=== PATIENT | male | born 1940 | race Caucasian/White ===

== ENCOUNTER 2016-10-11 08:26 | Outpatient (RCR) | payer MEDICARE ==
--- OUTSIDE RECORDS SUMMARY | 2016-08-01 09:16 | XMS REPORT | Continuity of Care Document ---
Author Author [facility] Organization [facility] Address Unknown Phone Unavailable Care Team Providers Care Galvanizing Pot Runner Name Role Phone Anai Basurto PCP [phone] Source Comments Some departments are not documenting in the electronic medical record. If you do not see the information that you expected, contact Release of Information in the Health Information Management department at [phone] for further assistance in locating additional records.[facility] Active Allergies and Adverse Reactions No Known Allergies Current Medications Prescription Sig. Disp. Refills Start End Date Status Date simvastatin (ZOCOR) 40 mg Take 40 mg by mouth at Active tablet bedtime daily. finasteride (PROSCAR) 5 Take 5 mg by mouth daily. Active mg tablet ferrous sulfate 325 mg Take 325 mg by mouth Active (65 mg iron) tablet three times daily. pantoprazole DR Take 40 mg by mouth Active (PROTONIX) 40 mg tablet daily. MULTIVITAMIN PO Take by mouth. Active Active Problems No known active problems Social History Tobacco Use Types Packs/Day Years Used Date Former Smoker Last Filed Vital Signs Vital Sign Reading Time Taken Blood Pressure 150/72 04/28/2016 11:10 AM CDT Pulse 78 04/28/2016 11:10 AM CDT Temperature 36.6 C (97.9 F) 04/28/2016 11:10 AM CDT Respiratory Rate 18 04/28/2016 11:10 AM CDT Height 1.74 m (5' 8.5") 04/28/2016 11:10 AM CDT Weight 73.936 kg (163 lb) 04/28/2016 11:10 AM CDT Body Mass Index 24.42 04/28/2016 11:10 AM CDT Oxygen Saturation 100% 04/28/2016 11:10 AM CDT Plan of Care Date Type Specialty Providers Description 11/03/2016 Appointment Oncology 11/03/2016 Appointment Oncology Duke Casiano MD [address] [facility] [address] [place] [address] [phone] (Fax) Health Maintenance Due Date Last Done Comments Physical (Comprehensive) 1947 Exam Pertussis Vaccine 1951 Tetanus Vaccine 1957 Colorectal Cancer 1990 Screening Shingles Vaccine 2000 Prevnar/Pneumovax (#1) 2005 Influenza Vaccine 06/09/2016 Results from Last 3 Months Not on file
[2016-08-01 09:45] LABS: BASOPHILS % (AUTO) 1 % (0-10); EOSINOPHILS # (AUTO) 0.1 10^3/uL (0.0-0.3); EOSINOPHILS % (AUTO) 3 % (0-10); LYMPHOCYTES # (AUTO) 1.2 X 10^3 (1.0-4.0); LYMPHOCYTES % (AUTO) 55 % (12-44); MEAN CORPUSCULAR HEMOGLOBIN 35 PG (25-34); MEAN CORPUSCULAR HGB CONC 33 G/DL (32-36); MEAN CORPUSCULAR VOLUME 106 FL (80-99); MEAN PLATELET VOLUME 10.3 FL (7.4-10.4); MONOCYTES # (AUTO) 0.4 X 10^3 (0.0-1.0); MONOCYTES % (AUTO) 21 % (0-12); NEUTROPHILS # (AUTO) 0.5 X 10^3 (1.8-7.8); NEUTROPHILS % (AUTO) 21 % (42-75); PLATELET COUNT 145 10^3/uL (130-400); RED BLOOD COUNT 2.92 10^6/uL (4.35-5.85); RED CELL DISTRIBUTION WIDTH 16.4 % (10.0-14.5); RETICULOCYTE % 2.33 % (0.50-2.40); WHITE BLOOD COUNT 2.1 10^3/uL (4.3-11.0)
[2016-08-01 10:02] LABS: ALANINE AMINOTRANSFERASE 14 U/L (0-55); ALBUMIN 4.4 G/DL (3.2-4.5); ANION GAP 6 MMOL/L (5-14); ASPARTATE AMINO TRANSFERASE 18 U/L (5-34); BILIRUBIN,TOTAL 0.7 MG/DL (0.1-1.0); BLOOD UREA NITROGEN 10 MG/DL (7-18); BUN/CREATININE RATIO 12; CALCIUM 9.1 MG/DL (8.5-10.1); CARBON DIOXIDE 26 MMOL/L (21-32); CHLORIDE 107 MMOL/L (98-107); CHOLESTEROL 116 MG/DL (< 200); CREATININE SERUM 0.82 MG/DL (0.60-1.30); DIRECT LDL 58 MG/DL (1-129); GFR ESTIMATED > 60; GLUCOSE 107 MG/DL (70-105); POTASSIUM 4.7 MMOL/L (3.6-5.0); SODIUM 139 MMOL/L (135-145); TOTAL PROTEIN 7.5 G/DL (6.4-8.2); TRIGLYCERIDES 60 MG/DL (<150); VLDL CHOLESTEROL 12 MG/DL (5-40)
[2016-09-05 10:04] LABS: BASOPHILS % (AUTO) 1 % (0-10); EOSINOPHILS % (AUTO) 1 % (0-10); LYMPHOCYTES % (AUTO) 49 % (12-44); MEAN CORPUSCULAR HEMOGLOBIN 36 PG (25-34); MEAN CORPUSCULAR HGB CONC 33 G/DL (32-36); MEAN CORPUSCULAR VOLUME 107 FL (80-99); MEAN PLATELET VOLUME 9.8 FL (7.4-10.4); MONOCYTES # (AUTO) 0.6 X 10^3 (0.0-1.0); MONOCYTES % (AUTO) 28 % (0-12); NEUTROPHILS # (AUTO) 0.5 X 10^3 (1.8-7.8); NEUTROPHILS % (AUTO) 22 % (42-75); PLATELET COUNT 120 10^3/uL (130-400); RED BLOOD COUNT 2.64 10^6/uL (4.35-5.85); RED CELL DISTRIBUTION WIDTH 17.7 % (10.0-14.5); RETICULOCYTE % 3.04 % (0.50-2.40); WHITE BLOOD COUNT 2.1 10^3/uL (4.3-11.0)
[2016-09-05 10:30] LABS: ALANINE AMINOTRANSFERASE 22 U/L (0-55); ALBUMIN 4.5 G/DL (3.2-4.5); ANION GAP 6 MMOL/L (5-14); ASPARTATE AMINO TRANSFERASE 25 U/L (5-34); BILIRUBIN,TOTAL 0.8 MG/DL (0.1-1.0); BLOOD UREA NITROGEN 13 MG/DL (7-18); BUN/CREATININE RATIO 14; CARBON DIOXIDE 24 MMOL/L (21-32); CHLORIDE 108 MMOL/L (98-107); CREATININE SERUM 0.93 MG/DL (0.60-1.30); GFR ESTIMATED > 60; GLUCOSE 109 MG/DL (70-105); POTASSIUM 4.4 MMOL/L (3.6-5.0); SODIUM 138 MMOL/L (135-145); TOTAL PROTEIN 7.3 G/DL (6.4-8.2)
[2016-09-05 15:18] LABS: %SAT TOTAL IRON BINDING CAPIC 44 % (15-50); TIBC 298 ug/dL (280-380)
[2016-09-06 07:38] LABS: FERRITIN 377 ng/mL (25-300); UIBC 166 ug/dL (55-450)
[~2016-10-11 08:26] MED LIST: FERR-84 PO; FINA5TAB6 PO; NYST1000 PO; RAMI10CA PO; SIMV40TA4 PO
[2016-10-11 08:43] LABS: BASOPHILS % (AUTO) 1 % (0-10); EOSINOPHILS % (AUTO) 1 % (0-10); LYMPHOCYTES # (AUTO) 1.2 X 10^3 (1.0-4.0); LYMPHOCYTES % (AUTO) 46 % (12-44); MEAN CORPUSCULAR HEMOGLOBIN 37 PG (25-34); MEAN CORPUSCULAR HGB CONC 34 G/DL (32-36); MEAN CORPUSCULAR VOLUME 111 FL (80-99); MEAN PLATELET VOLUME 9.5 FL (7.4-10.4); MONOCYTES # (AUTO) 0.7 X 10^3 (0.0-1.0); MONOCYTES % (AUTO) 26 % (0-12); NEUTROPHILS # (AUTO) 0.7 X 10^3 (1.8-7.8); NEUTROPHILS % (AUTO) 27 % (42-75); PLATELET COUNT 138 10^3/uL (130-400); RED BLOOD COUNT 2.21 10^6/uL (4.35-5.85); RED CELL DISTRIBUTION WIDTH 18.5 % (10.0-14.5); RETICULOCYTE % 3.39 % (0.50-2.40); WHITE BLOOD COUNT 2.7 10^3/uL (4.3-11.0)
[2016-10-11 09:18] LABS: ALANINE AMINOTRANSFERASE 20 U/L (0-55); ALBUMIN 4.5 G/DL (3.2-4.5); ANION GAP 9 MMOL/L (5-14); ASPARTATE AMINO TRANSFERASE 21 U/L (5-34); BILIRUBIN,TOTAL 0.7 MG/DL (0.1-1.0); BLOOD UREA NITROGEN 16 MG/DL (7-18); BUN/CREATININE RATIO 18; CALCIUM 8.9 MG/DL (8.5-10.1); CARBON DIOXIDE 22 MMOL/L (21-32); CHLORIDE 108 MMOL/L (98-107); CREATININE SERUM 0.87 MG/DL (0.60-1.30); GFR ESTIMATED > 60; GLUCOSE 105 MG/DL (70-105); POTASSIUM 4.3 MMOL/L (3.6-5.0); SODIUM 139 MMOL/L (135-145); TOTAL PROTEIN 7.2 G/DL (6.4-8.2)
[2016-10-11 09:50] LABS: CHOLESTEROL 107 MG/DL (< 200); DIRECT LDL 56 MG/DL (1-129); TRIGLYCERIDES 59 MG/DL (<150); VLDL CHOLESTEROL 12 MG/DL (5-40)
== END 2016-10-30 | disposition home or self-care (01) ==
LOC: ONC 08:26
PROVIDERS: ATTEND Internal Medicine Hematology & Oncology
DX: D53.9 Nutritional anemia, unspecified (principal); D46.9 Myelodysplastic syndrome, unspecified; I10 Essential (primary) hypertension; E78.5 Hyperlipidemia, unspecified; N40.0 Benign prostatic hyperplasia without lower urinary tract symptoms; Z79.899 Other long term (current) drug therapy
CPT/HCPCS: 36415; 80053; 80061; 82728; 83540; 85025; 85045; 99213

== ENCOUNTER 2017-02-17 09:17 | Outpatient (RCR) | payer MEDICARE ==
--- OUTSIDE RECORDS SUMMARY | 2016-11-22 08:47 | XMS REPORT | Continuity of Care Document ---
Author Author [facility] Organization [facility] Address Unknown Phone Unavailable Care Team Providers Care Change Number Operator Name Role Phone Basurto Anai PCP [phone] Source Comments Some departments are not documenting in the electronic medical record. If you do not see the information that you expected, contact Release of Information in the Health Information Management department at [phone] for further assistance in locating additional records.[facility] Active Allergies and Adverse Reactions No Known Allergies Current Medications Prescription Sig. Disp. Refills Start End Date Status Date finasteride (PROSCAR) 5 Take 5 mg by mouth daily. Active mg tablet pantoprazole DR Take 40 mg by mouth Active (PROTONIX) 40 mg tablet daily. MULTIVITAMIN PO Take by mouth. Active simvastatin (ZOCOR) 40 mg Take 20 mg by mouth at 11/03/19 Discontin tablet bedtime daily. 17 ued ferrous sulfate 325 mg Take 325 mg by mouth 11/03/19 Discontin (65 mg iron) tablet three times daily. 17 ued Active Problems Problem Noted Date MDS (myelodysplastic syndrome), low grade (HCC) 11/03/2016 Overview: I have interviewed and examined Mr. Herrera and I have reviewed his medical records and laboratory results. He is a 75-year-old man with a good performance status. He has a history of hypertension, hyperlipidemia, and BPH, all well controlled with his current medications. He presented with several months of progressive fatigue and weakness and was hospitalized with asymptomatic anemia. He was evaluated by Hematology and Oncology and a bone marrow biopsy was performed accordingly. I have reviewed the bone marrow biopsy and discussed the findings with the patient. The bone marrow showed a hypercellular marrow with significant dysplasia refractory to cytopenia with multi lineage dysplasia. It showed 2% blasts and cytogenetics were normal karyotype. The patient had FISH evaluation, was negative for 5q minus and other MDS FISH panel. He has been on supportive care only and has required transfusion initially; however, he has made a significant recovery and has been transfusion independent for the last six weeks. I discussed with the patient, the prognosis and initial course of MDS. I explained to him that he has an MDS with low risk disease and IPS score of 0.5, which correlates with reasonable survival and life expectancy of three to five years. In regard to IPS, he was at intermediate risk with life consistency of around three years that supportive care remains an option at this time. I have reviewed the BM biopsy results with the patient and counseled the patient about the results. It showed low risk MDS with no progression I have discussed with the patient therapeutic options including the followin. Supportive care and transfusion as needed, which is appropriate, and thus transfusion requirements are minimal and discussed with the patient the role of transfusion is to improve his quality of life; however, excessive transfusion can result in detrimental outcome and I recommended conservative transfusion for a hemoglobin of 8 or lower only in order to reduce his transfusion requirement. Fortunately, his transfusion requirements are very few at this time and he might not require frequent interventions. 2. Not a candidate for ALEN. 3. Therapy with oral Revlimid. He had a hematologic response to single agent Revlimid. i recommend to resume revlimid 5 mg daily D1-21 q28. Holding parameters if platlet < 30K. Although, those responses are modest and short lived, however, did result in transient improvement in patient's quality of life. 4. Clinical trials. I have discussed with the patient a clinical trial that was developed in [facility], which reports combination of promacta and Revlimid, which the patient will be eligible for; however given his long commute, he was not interested in the clinical trial given the required weekly visits. 5. Therapy with hypomethylating agent therapy which is indicated for high risk MDS; however, the patient seems to have low risk MDS and this might not be indicated at this time. However, if he fails therapy with Revlimid, he could be a candidate for hypomethylating therapy and provided his medical indications such as refractory anemia requiring frequent transfusions. 6. ATG can be a consideration in the future. 7. I discussed with the patient the lack of curative options given his age of 75 years. The only curative therapy would be an allogenic stem cell transplant, which might not be feasible given his advanced age. The patient will continue to follow with Dr. Evans for his local Oncology care, will continue collaborating with Dr. Evans for consultative purposes. Thank you for referring Mr. Herrera to our service. Thank you for involving us in the care of poonam mcgraw. Diagnosis: MDS, low risk Cytogenetics: XY; normal 04/14/16: Bone marrow aspirate/biopsy Myelodysplastic syndrome, hypercellular marrow (80%), dysmegakaryopoiesis, and 1% blasts. Smear: Macrocytic anemia, absolute neutropenia, and thrombocytopenia Flow: Myeloid blasts comprise 0.1% of total events and show normal antigen expression. There is no immunophenotypic evidence of acute myeloid leukemia or neoplastic myeloid blasts. EPO: Elevated (not a candidate for ESAs) Previous Treatment: Revlimid 5 mg po D1-21 (discontinued in March 2016 due to thrombocytopenia/leukopenia) L ast Assessment & Plan: Mr. Herrera is a pleasant 75 y.o. male who presents today for 6-month follow-up of low-risk myelodysplastic syndrome with normal cytogenetics. Currently on watchful waiting and surveillance. Revlimid 5 mg po daily every 21 days was discontinued in March 2016 due to leukopenia and thrombocytopenia, although there was improvement to anemia. Patient has been transfusion independent since May 12, 2016. Symptoms have improved since last visit, including improved angina, headaches, and fatigue. Hemoglobin down to 7.0 g/dL (from 8.2 g/dL in 10/11/16). Patient is not symptomatic so will not transfuse today. He will make a lab appointment next week at [facility]. Discussed with patient that with improved symptoms and transfusion independence in the past 5 months, watchful waiting of MDS is still recommended. Discussed that many of the treatments indicated such as ATG/CSA or hypomethylating agents may cause more harm than benefit for him at this point in time. Upon review of CBCD results in past 6 months, Revlimid therapy was sucessful at improving hemoglobin levels. Revlimid will still be an appropriate option in the future should he become transfusion dependent again. Will re-address treatment options upon return visit in 6 months. He will continue f/u with oncologist at [facility]. Informed patient to notify us sooner if he is receiving at least 2 blood transfusions in two months time. Patient agreed with plan of care and verbalized understanding. Patient was seen and discussed with Dr. Casiano. Natalia Colón APRN Most Recent Encounters Date Type Specialty Providers Description 11/03/2016 Office Visit Oncology Duke Casiano MD MDS ( myelodysplastic syndrome), low grade (HCC) (Primary Dx) Social History Tobacco Use Types Packs/Day Years Used Date Former Smoker Last Filed Vital Signs Vital Sign Reading Time Taken Blood Pressure 155/80 11/03/2016 12:41 PM TREE DRILLER Pulse 87 11/03/2016 12:41 PM TREE DRILLER Temperature 36.6 C (97.9 F) 11/03/2016 12:41 PM TREE DRILLER Respiratory Rate 15 11/03/2016 12:41 PM TREE DRILLER Height 1.74 m (5' 8.5") 11/03/2016 12:41 PM TREE DRILLER Weight 77.202 kg (170 lb 3.2 oz) 11/03/2016 12:41 PM TREE DRILLER Body Mass Index 25.5 11/03/2016 12:41 PM TREE DRILLER Oxygen Saturation 96% 11/03/2016 12:41 PM TREE DRILLER Plan of Care Date Type Specialty Providers Description 05/15/2017 Appointment Oncology 05/15/2017 Appointment Oncology Duke Casiano MD [address] [facility] [address] [place] [address] [phone] (Fax) Health Maintenance Due Date Last Done Comments Physical (Comprehensive) 1947 Exam Pertussis Vaccine 1951 Tetanus Vaccine 1957 Colorectal Cancer 1990 Screening Shingles Vaccine 2000 Prevnar/Pneumovax (#1) 2005 Influenza Vaccine 06/09/2016 Results from Last 3 Months COMPREHENSIVE METABOLIC PANEL (11/03/2016 11:23 AM) Component Value Range Sodium 133 (L) 137-147 MMOL/L Potassium 4.1 3.5-5.1 MMOL/L Chloride 107 98-110 MMOL/L Glucose 114 (H) 70-100 MG/DL Blood Urea Nitrogen 17 7-25 MG/DL Creatinine 0.95 0.4-1.24 MG/DL Calcium 9.2 8.5-10.6 MG/DL Total Protein 7.3 6.0-8.0 G/DL Total Bilirubin 0.7 0.3-1.2 MG/DL Albumin 4.4 3.5-5.0 G/DL Alk Phosphatase 60 25-110 U/L AST (SGOT) 18 7-40 U/L CO2 25 21-30 MMOL/L ALT (SGPT) 13 7-56 U/L Anion Gap 1 (L) 3-12 eGFR Non >60Comment: >60 mL/min The eGFR is not validated for use in drug dosing adjustments. Continue to use estimated creatinine clearance per dosing reference text. Please contact the Clinical Pharmacist for questions. eGFR >60Comment: >60 mL/min The eGFR is not validated for use in drug dosing adjustments. Continue to use estimated creatinine clearance per dosing reference text. Please contact the Clinical Pharmacist for questions. Specimen Blood CBC AND DIFF (11/03/2016 11:23 AM) Component Value Range White Blood Cells 2.6 (L) 4.5-11.0 K/UL RBC 1.89 (L) 4.4-5.5 M/UL Hemoglobin 7.0 (L) 13.5-16.5 GM/DL Hematocrit 20.9 (L) 40-50 % MCV 110.6 (H) 80-100 FL MCH 36.8 (H) 26-34 PG MCHC 33.2 32.0-36.0 G/DL RDW 19.2 (H) 11-15 % Platelet Count 193 150-400 K/UL MPV 9.2 7-11 FL Nucleated RBCs 1 K/UL Segmented Neutrophils 28 (L) 41-77 % Bands 4 0-10 % Lymphocytes 37 24-44 % Monocytes 23 (H) 4-12 % Eosinophil 1 0-5 % Basophil 1 0-2 % Metamyelocyte 2 % Myelocyte 4 % ANISO PRESENT POIK PRESENT POLY PRESENT Ovalocyte PRESENT MACRO PRESENT Teardrop PRESENT Platelet Estimate NORMAL Absolute Neutrophil Count 0.83 (L) 1.8-7.0 K/UL Manual Specimen Blood
[2016-11-22 09:08] LABS: BASOPHILS % (AUTO) 0 % (0-10); EOSINOPHILS % (AUTO) 1 % (0-10); LYMPHOCYTES % (AUTO) 44 % (12-44); MEAN CORPUSCULAR HEMOGLOBIN 37 PG (25-34); MEAN CORPUSCULAR HGB CONC 32 G/DL (32-36); MEAN CORPUSCULAR VOLUME 114 FL (80-99); MEAN PLATELET VOLUME 10.9 FL (7.4-10.4); MONOCYTES # (AUTO) 0.6 X 10^3 (0.0-1.0); MONOCYTES % (AUTO) 28 % (0-12); NEUTROPHILS # (AUTO) 0.6 X 10^3 (1.8-7.8); NEUTROPHILS % (AUTO) 26 % (42-75); PLATELET COUNT 160 10^3/uL (130-400); RED BLOOD COUNT 1.78 10^6/uL (4.35-5.85); RED CELL DISTRIBUTION WIDTH 19.3 % (10.0-14.5); RETICULOCYTE % 3.14 % (0.50-2.40); WHITE BLOOD COUNT 2.3 10^3/uL (4.3-11.0)
[2016-11-22 09:48] LABS: ALANINE AMINOTRANSFERASE 32 U/L (0-55); ALBUMIN 4.5 G/DL (3.2-4.5); ANION GAP 9 MMOL/L (5-14); ASPARTATE AMINO TRANSFERASE 26 U/L (5-34); BILIRUBIN,TOTAL 0.7 MG/DL (0.1-1.0); BLOOD UREA NITROGEN 19 MG/DL (7-18); BUN/CREATININE RATIO 17; CALCIUM 8.8 MG/DL (8.5-10.1); CARBON DIOXIDE 21 MMOL/L (21-32); CHLORIDE 107 MMOL/L (98-107); CREATININE SERUM 1.09 MG/DL (0.60-1.30); GFR ESTIMATED > 60; GLUCOSE 108 MG/DL (70-105); POTASSIUM 4.4 MMOL/L (3.6-5.0); SODIUM 137 MMOL/L (135-145); TOTAL PROTEIN 7.4 G/DL (6.4-8.2)
[2016-12-20 09:02] LABS: BASOPHILS % (AUTO) 1 % (0-10); EOSINOPHILS # (AUTO) 0.1 10^3/uL (0.0-0.3); EOSINOPHILS % (AUTO) 2 % (0-10); LYMPHOCYTES % (AUTO) 42 % (12-44); MEAN CORPUSCULAR HEMOGLOBIN 36 PG (25-34); MEAN CORPUSCULAR HGB CONC 33 G/DL (32-36); MEAN CORPUSCULAR VOLUME 107 FL (80-99); MEAN PLATELET VOLUME 9.8 FL (7.4-10.4); MONOCYTES # (AUTO) 0.7 X 10^3 (0.0-1.0); MONOCYTES % (AUTO) 30 % (0-12); NEUTROPHILS # (AUTO) 0.6 X 10^3 (1.8-7.8); NEUTROPHILS % (AUTO) 25 % (42-75); PLATELET COUNT 161 10^3/uL (130-400); RED BLOOD COUNT 2.33 10^6/uL (4.35-5.85); RED CELL DISTRIBUTION WIDTH 20.8 % (10.0-14.5); RETICULOCYTE % 2.04 % (0.50-2.40); WHITE BLOOD COUNT 2.3 10^3/uL (4.3-11.0)
[2016-12-20 09:47] LABS: ALANINE AMINOTRANSFERASE 19 U/L (0-55); ALBUMIN 4.4 G/DL (3.2-4.5); ANION GAP 6 MMOL/L (5-14); ASPARTATE AMINO TRANSFERASE 19 U/L (5-34); BILIRUBIN,TOTAL 0.8 MG/DL (0.1-1.0); BLOOD UREA NITROGEN 15 MG/DL (7-18); BUN/CREATININE RATIO 17; CALCIUM 9.1 MG/DL (8.5-10.1); CARBON DIOXIDE 25 MMOL/L (21-32); CHLORIDE 108 MMOL/L (98-107); CREATININE SERUM 0.88 MG/DL (0.60-1.30); GFR ESTIMATED > 60; GLUCOSE 111 MG/DL (70-105); POTASSIUM 4.2 MMOL/L (3.6-5.0); SODIUM 139 MMOL/L (135-145); TOTAL PROTEIN 7.4 G/DL (6.4-8.2)
[2016-12-20 10:24] LABS: CHOLESTEROL 101 MG/DL (< 200); DIRECT LDL 47 MG/DL (1-129); TRIGLYCERIDES 61 MG/DL (<150); VLDL CHOLESTEROL 12 MG/DL (5-40)
[2017-01-17 11:08] LABS: BASOPHILS % (AUTO) 1 % (0-10); EOSINOPHILS % (AUTO) 1 % (0-10); LYMPHOCYTES # (AUTO) 0.9 X 10^3 (1.0-4.0); LYMPHOCYTES % (AUTO) 40 % (12-44); MEAN CORPUSCULAR HEMOGLOBIN 35 PG (25-34); MEAN CORPUSCULAR HGB CONC 31 G/DL (32-36); MEAN CORPUSCULAR VOLUME 111 FL (80-99); MEAN PLATELET VOLUME 9.9 FL (7.4-10.4); MONOCYTES # (AUTO) 0.6 X 10^3 (0.0-1.0); MONOCYTES % (AUTO) 26 % (0-12); NEUTROPHILS # (AUTO) 0.7 X 10^3 (1.8-7.8); NEUTROPHILS % (AUTO) 32 % (42-75); PLATELET COUNT 125 10^3/uL (130-400); RED BLOOD COUNT 1.81 10^6/uL (4.35-5.85); RED CELL DISTRIBUTION WIDTH 21.1 % (10.0-14.5); WHITE BLOOD COUNT 2.3 10^3/uL (4.3-11.0)
[2017-01-17 11:49] LABS: ALANINE AMINOTRANSFERASE 16 U/L (0-55); ALBUMIN 4.3 G/DL (3.2-4.5); ANION GAP 7 MMOL/L (5-14); ASPARTATE AMINO TRANSFERASE 18 U/L (5-34); BILIRUBIN,TOTAL 0.9 MG/DL (0.1-1.0); BLOOD UREA NITROGEN 14 MG/DL (7-18); BUN/CREATININE RATIO 15; CALCIUM 8.8 MG/DL (8.5-10.1); CARBON DIOXIDE 24 MMOL/L (21-32); CHLORIDE 109 MMOL/L (98-107); CREATININE SERUM 0.93 MG/DL (0.60-1.30); GFR ESTIMATED > 60; GLUCOSE 155 MG/DL (70-105); POTASSIUM 4.2 MMOL/L (3.6-5.0); SODIUM 140 MMOL/L (135-145); TOTAL PROTEIN 7.1 G/DL (6.4-8.2)
[2017-02-16 13:36] LABS: BASOPHILS % (AUTO) 0 % (0-10); EOSINOPHILS # (AUTO) 0.1 10^3/uL (0.0-0.3); EOSINOPHILS % (AUTO) 3 % (0-10); LYMPHOCYTES % (AUTO) 37 % (12-44); MEAN CORPUSCULAR HEMOGLOBIN 35 PG (25-34); MEAN CORPUSCULAR HGB CONC 32 G/DL (32-36); MEAN CORPUSCULAR VOLUME 108 FL (80-99); MEAN PLATELET VOLUME 10.2 FL (7.4-10.4); MONOCYTES # (AUTO) 0.7 X 10^3 (0.0-1.0); MONOCYTES % (AUTO) 28 % (0-12); NEUTROPHILS # (AUTO) 0.8 X 10^3 (1.8-7.8); NEUTROPHILS % (AUTO) 32 % (42-75); PLATELET COUNT 132 10^3/uL (130-400); RED BLOOD COUNT 1.55 10^6/uL (4.35-5.85); RETICULOCYTE % 1.82 % (0.50-2.40); WHITE BLOOD COUNT 2.7 10^3/uL (4.3-11.0)
[2017-02-16 14:12] LABS: ALANINE AMINOTRANSFERASE 13 U/L (0-55); ALBUMIN 4.3 G/DL (3.2-4.5); ANION GAP 9 MMOL/L (5-14); ASPARTATE AMINO TRANSFERASE 15 U/L (5-34); BILIRUBIN,TOTAL 0.7 MG/DL (0.1-1.0); BLOOD UREA NITROGEN 17 MG/DL (7-18); BUN/CREATININE RATIO 17; CALCIUM 9.1 MG/DL (8.5-10.1); CARBON DIOXIDE 23 MMOL/L (21-32); CHLORIDE 107 MMOL/L (98-107); CREATININE SERUM 1.03 MG/DL (0.60-1.30); GFR ESTIMATED > 60; GLUCOSE 145 MG/DL (70-105); POTASSIUM 3.8 MMOL/L (3.6-5.0); SODIUM 139 MMOL/L (135-145)
[~2017-02-17 09:17] MED LIST changes: +ACETAMINOPHEN 500 MG TAB (TYLENOL) CANCER CTR ONE; +NS (IVPB) CANCER CENTER 250 ML ONE
[2017-02-17] MEDS ORDERED: ACETAMINOPHEN 500 MG TAB (TYLENOL) CANCER CTR ONE (10:16)
[2017-02-17] MEDS ORDERED: diphenhydrAMINE 25 MG TAB (BENADRYL) CANCER CENTER PO ONE (10:16)
[2017-02-17] MEDS ORDERED: NS IV 500 ML (CANCER CENTER) 500 ML ONE (10:16)
== END 2017-02-20 | disposition home or self-care (01) ==
LOC: ONC 09:17
PROVIDERS: ATTEND Internal Medicine Hematology & Oncology
DX: D53.9 Nutritional anemia, unspecified (principal); D46.9 Myelodysplastic syndrome, unspecified; I10 Essential (primary) hypertension; E78.5 Hyperlipidemia, unspecified; N40.0 Benign prostatic hyperplasia without lower urinary tract symptoms; Z79.899 Other long term (current) drug therapy
CPT/HCPCS: 36415; 36430; 80053; 80061; 82728; 83540; 85025; 85045; 86850; 86900; 86901; 86920; 99213

== ENCOUNTER 2017-06-05 08:32 | Outpatient (RCR) | payer MEDICARE ==
[2017-03-10 08:56] LABS: BASOPHILS % (AUTO) 1 % (0-10); EOSINOPHILS # (AUTO) 0.1 10^3/uL (0.0-0.3); EOSINOPHILS % (AUTO) 2 % (0-10); LYMPHOCYTES # (AUTO) 0.9 X 10^3 (1.0-4.0); LYMPHOCYTES % (AUTO) 33 % (12-44); MEAN CORPUSCULAR HEMOGLOBIN 31 PG (25-34); MEAN CORPUSCULAR HGB CONC 31 G/DL (32-36); MEAN CORPUSCULAR VOLUME 100 FL (80-99); MEAN PLATELET VOLUME 10.2 FL (7.4-10.4); MONOCYTES # (AUTO) 1.1 X 10^3 (0.0-1.0); MONOCYTES % (AUTO) 39 % (0-12); NEUTROPHILS # (AUTO) 0.7 X 10^3 (1.8-7.8); NEUTROPHILS % (AUTO) 25 % (42-75); PLATELET COUNT 221 10^3/uL (130-400); RED BLOOD COUNT 2.02 10^6/uL (4.35-5.85); RED CELL DISTRIBUTION WIDTH 23.8 % (10.0-14.5); RETICULOCYTE % 1.66 % (0.50-2.40); WHITE BLOOD COUNT 2.8 10^3/uL (4.3-11.0)
[2017-03-10 10:01] LABS: ALANINE AMINOTRANSFERASE 14 U/L (0-55); ALBUMIN 4.2 G/DL (3.2-4.5); ANION GAP 7 MMOL/L (5-14); ASPARTATE AMINO TRANSFERASE 17 U/L (5-34); BILIRUBIN,TOTAL 0.7 MG/DL (0.1-1.0); BLOOD UREA NITROGEN 13 MG/DL (7-18); BUN/CREATININE RATIO 15; CARBON DIOXIDE 24 MMOL/L (21-32); CHLORIDE 108 MMOL/L (98-107); CHOLESTEROL 146 MG/DL (< 200); CREATININE SERUM 0.87 MG/DL (0.60-1.30); DIRECT LDL 91 MG/DL (1-129); GFR ESTIMATED > 60; GLUCOSE 109 MG/DL (70-105); SODIUM 139 MMOL/L (135-145); TOTAL PROTEIN 7.5 G/DL (6.4-8.2); TRIGLYCERIDES 80 MG/DL (<150); VLDL CHOLESTEROL 16 MG/DL (5-40)
[2017-03-27 08:59] LABS: BASOPHILS % (AUTO) 0 % (0-10); EOSINOPHILS # (AUTO) 0.1 10^3/uL (0.0-0.3); EOSINOPHILS % (AUTO) 2 % (0-10); LYMPHOCYTES # (AUTO) 1.4 X 10^3 (1.0-4.0); LYMPHOCYTES % (AUTO) 37 % (12-44); MEAN CORPUSCULAR HEMOGLOBIN 31 PG (25-34); MEAN CORPUSCULAR HGB CONC 31 G/DL (32-36); MEAN CORPUSCULAR VOLUME 100 FL (80-99); MEAN PLATELET VOLUME 10.7 FL (7.4-10.4); MONOCYTES # (AUTO) 1.2 X 10^3 (0.0-1.0); MONOCYTES % (AUTO) 31 % (0-12); NEUTROPHILS # (AUTO) 1.1 X 10^3 (1.8-7.8); NEUTROPHILS % (AUTO) 30 % (42-75); PLATELET COUNT 216 10^3/uL (130-400); RED CELL DISTRIBUTION WIDTH 25.3 % (10.0-14.5); WHITE BLOOD COUNT 3.7 10^3/uL (4.3-11.0)
[2017-03-27 09:18] LABS: ALANINE AMINOTRANSFERASE 12 U/L (0-55); ALBUMIN 4.2 GM/DL (3.2-4.5); ANION GAP 8 MMOL/L (5-14); ASPARTATE AMINO TRANSFERASE 16 U/L (5-34); BILIRUBIN,TOTAL 0.7 MG/DL (0.1-1.0); BLOOD UREA NITROGEN 15 MG/DL (7-18); BUN/CREATININE RATIO 16 (0-20); CALCIUM 8.5 MG/DL (8.5-10.1); CARBON DIOXIDE 22 MMOL/L (21-32); CHLORIDE 111 MMOL/L (98-107); CREATININE SERUM 0.92 MG/DL (0.60-1.30); GFR ESTIMATED > 60; GLUCOSE 104 MG/DL (70-105); HEMOLYSIS 4 (-100-29); ICTERUS 0.8 (-100-1.9); LIPEMIA 3 (-100-49); POTASSIUM 4.2 MMOL/L (3.6-5.0); SODIUM 141 MMOL/L (135-145)
[2017-03-27 10:20] LABS: CHOLESTEROL 149 MG/DL (< 200); DIRECT LDL 95 MG/DL (1-129); LIPEMIA 3 (-100-49); TRIGLYCERIDES 69 MG/DL (<150); VLDL CHOLESTEROL 14 MG/DL (5-40)
[2017-04-18 08:44] LABS: BASOPHILS % (AUTO) 0 % (0-10); EOSINOPHILS # (AUTO) 0.1 10^3/uL (0.0-0.3); EOSINOPHILS % (AUTO) 2 % (0-10); LYMPHOCYTES # (AUTO) 1.1 X 10^3 (1.0-4.0); LYMPHOCYTES % (AUTO) 32 % (12-44); MEAN CORPUSCULAR HEMOGLOBIN 32 PG (25-34); MEAN CORPUSCULAR HGB CONC 32 G/DL (32-36); MEAN CORPUSCULAR VOLUME 101 FL (80-99); MEAN PLATELET VOLUME 10.1 FL (7.4-10.4); MONOCYTES # (AUTO) 1.2 X 10^3 (0.0-1.0); MONOCYTES % (AUTO) 34 % (0-12); NEUTROPHILS # (AUTO) 1.1 X 10^3 (1.8-7.8); NEUTROPHILS % (AUTO) 32 % (42-75); PLATELET COUNT 146 10^3/uL (130-400); RED BLOOD COUNT 1.93 10^6/uL (4.35-5.85); RED CELL DISTRIBUTION WIDTH 27.8 % (10.0-14.5); RETICULOCYTE % 2.27 % (0.50-2.40); WHITE BLOOD COUNT 3.5 10^3/uL (4.3-11.0)
[2017-04-18 09:36] LABS: ALANINE AMINOTRANSFERASE 12 U/L (0-55); ALBUMIN 4.1 GM/DL (3.2-4.5); ANION GAP 6 MMOL/L (5-14); ASPARTATE AMINO TRANSFERASE 15 U/L (5-34); BILIRUBIN,TOTAL 1.1 MG/DL (0.1-1.0); BLOOD UREA NITROGEN 20 MG/DL (7-18); BUN/CREATININE RATIO 19; CALCIUM 8.6 MG/DL (8.5-10.1); CARBON DIOXIDE 23 MMOL/L (21-32); CHLORIDE 110 MMOL/L (98-107); CHOLESTEROL 156 MG/DL (< 200); CREATININE SERUM 1.06 MG/DL (0.60-1.30); DIRECT LDL 97 MG/DL (1-129); GFR ESTIMATED > 60; GLUCOSE 107 MG/DL (70-105); POTASSIUM 4.2 MMOL/L (3.6-5.0); SODIUM 139 MMOL/L (135-145); TRIGLYCERIDES 72 MG/DL (<150); VLDL CHOLESTEROL 14 MG/DL (5-40)
[2017-04-26 13:45] LABS: BASOPHILS % (AUTO) 0 % (0-10); EOSINOPHILS % (AUTO) 2 % (0-10); LYMPHOCYTES # (AUTO) 0.9 X 10^3 (1.0-4.0); LYMPHOCYTES % (AUTO) 35 % (12-44); MEAN CORPUSCULAR HEMOGLOBIN 32 PG (25-34); MEAN CORPUSCULAR HGB CONC 32 G/DL (32-36); MEAN CORPUSCULAR VOLUME 100 FL (80-99); MEAN PLATELET VOLUME 9.7 FL (7.4-10.4); MONOCYTES # (AUTO) 0.9 X 10^3 (0.0-1.0); MONOCYTES % (AUTO) 37 % (0-12); NEUTROPHILS # (AUTO) 0.7 X 10^3 (1.8-7.8); NEUTROPHILS % (AUTO) 26 % (42-75); PLATELET COUNT 192 10^3/uL (130-400); WHITE BLOOD COUNT 2.5 10^3/uL (4.3-11.0)
[2017-04-26 14:13] LABS: ANION GAP 9 MMOL/L (5-14); BLOOD UREA NITROGEN 25 MG/DL (7-18); BUN/CREATININE RATIO 24; CARBON DIOXIDE 24 MMOL/L (21-32); CHLORIDE 106 MMOL/L (98-107); CREATININE SERUM 1.04 MG/DL (0.60-1.30); GFR ESTIMATED > 60; GLUCOSE 108 MG/DL (70-105); SODIUM 139 MMOL/L (135-145)
[2017-05-03 11:18] LABS: BASOPHILS % (AUTO) 0 % (0-10); EOSINOPHILS % (AUTO) 1 % (0-10); LYMPHOCYTES # (AUTO) 0.7 X 10^3 (1.0-4.0); LYMPHOCYTES % (AUTO) 27 % (12-44); MEAN CORPUSCULAR HEMOGLOBIN 32 PG (25-34); MEAN CORPUSCULAR HGB CONC 32 G/DL (32-36); MEAN CORPUSCULAR VOLUME 102 FL (80-99); MEAN PLATELET VOLUME 10.1 FL (7.4-10.4); MONOCYTES # (AUTO) 0.7 X 10^3 (0.0-1.0); MONOCYTES % (AUTO) 28 % (0-12); NEUTROPHILS % (AUTO) 43 % (42-75); PLATELET COUNT 149 10^3/uL (130-400); RED CELL DISTRIBUTION WIDTH 27.8 % (10.0-14.5); RETICULOCYTE % 2.28 % (0.50-2.40); WHITE BLOOD COUNT 2.4 10^3/uL (4.3-11.0)
[2017-05-03 11:58] LABS: ANION GAP 5 MMOL/L (5-14); BLOOD UREA NITROGEN 20 MG/DL (7-18); BUN/CREATININE RATIO 18; CALCIUM 9.1 MG/DL (8.5-10.1); CARBON DIOXIDE 26 MMOL/L (21-32); CHLORIDE 107 MMOL/L (98-107); CREATININE SERUM 1.09 MG/DL (0.60-1.30); GFR ESTIMATED > 60; GLUCOSE 117 MG/DL (70-105); POTASSIUM 4.5 MMOL/L (3.6-5.0); SODIUM 138 MMOL/L (135-145)
[2017-05-10 10:46] LABS: BASOPHILS % (AUTO) 1 % (0-10); EOSINOPHILS # (AUTO) 0.1 10^3/uL (0.0-0.3); EOSINOPHILS % (AUTO) 2 % (0-10); LYMPHOCYTES # (AUTO) 0.7 X 10^3 (1.0-4.0); LYMPHOCYTES % (AUTO) 22 % (12-44); MEAN CORPUSCULAR HEMOGLOBIN 32 PG (25-34); MEAN CORPUSCULAR HGB CONC 31 G/DL (32-36); MEAN CORPUSCULAR VOLUME 104 FL (80-99); MEAN PLATELET VOLUME 10.2 FL (7.4-10.4); MONOCYTES # (AUTO) 0.7 X 10^3 (0.0-1.0); MONOCYTES % (AUTO) 22 % (0-12); NEUTROPHILS # (AUTO) 1.8 X 10^3 (1.8-7.8); NEUTROPHILS % (AUTO) 53 % (42-75); PLATELET COUNT 163 10^3/uL (130-400); RED BLOOD COUNT 2.17 10^6/uL (4.35-5.85); RED CELL DISTRIBUTION WIDTH 28.6 % (10.0-14.5); RETICULOCYTE % 2.58 % (0.50-2.40); WHITE BLOOD COUNT 3.3 10^3/uL (4.3-11.0)
[2017-05-10 11:36] LABS: ANION GAP 10 MMOL/L (5-14); BLOOD UREA NITROGEN 15 MG/DL (7-18); BUN/CREATININE RATIO 16; CALCIUM 9.3 MG/DL (8.5-10.1); CARBON DIOXIDE 22 MMOL/L (21-32); CHLORIDE 106 MMOL/L (98-107); CREATININE SERUM 0.95 MG/DL (0.60-1.30); GFR ESTIMATED > 60; GLUCOSE 113 MG/DL (70-105); POTASSIUM 4.4 MMOL/L (3.6-5.0); SODIUM 138 MMOL/L (135-145)
[2017-05-22 13:20] LABS: BASOPHILS % (AUTO) 0 % (0-10); EOSINOPHILS % (AUTO) 1 % (0-10); LYMPHOCYTES # (AUTO) 0.6 X 10^3 (1.0-4.0); LYMPHOCYTES % (AUTO) 19 % (12-44); MEAN CORPUSCULAR HEMOGLOBIN 34 PG (25-34); MEAN CORPUSCULAR HGB CONC 32 G/DL (32-36); MEAN CORPUSCULAR VOLUME 108 FL (80-99); MEAN PLATELET VOLUME 10.3 FL (7.4-10.4); MONOCYTES # (AUTO) 0.9 X 10^3 (0.0-1.0); MONOCYTES % (AUTO) 27 % (0-12); NEUTROPHILS # (AUTO) 1.8 X 10^3 (1.8-7.8); NEUTROPHILS % (AUTO) 54 % (42-75); PLATELET COUNT 153 10^3/uL (130-400); RED BLOOD COUNT 1.68 10^6/uL (4.35-5.85); RETICULOCYTE % 2.77 % (0.50-2.40); WHITE BLOOD COUNT 3.4 10^3/uL (4.3-11.0)
[2017-05-22 14:06] LABS: ALANINE AMINOTRANSFERASE 10 U/L (0-55); ALBUMIN 4.2 GM/DL (3.2-4.5); ANION GAP 7 MMOL/L (5-14); ASPARTATE AMINO TRANSFERASE 14 U/L (5-34); BILIRUBIN,TOTAL 1.1 MG/DL (0.1-1.0); BLOOD UREA NITROGEN 16 MG/DL (7-18); BUN/CREATININE RATIO 16; CALCIUM 9.3 MG/DL (8.5-10.1); CARBON DIOXIDE 24 MMOL/L (21-32); CHLORIDE 107 MMOL/L (98-107); CREATININE SERUM 1.02 MG/DL (0.60-1.30); GFR ESTIMATED > 60; GLUCOSE 118 MG/DL (70-105); SODIUM 138 MMOL/L (135-145); TOTAL PROTEIN 6.9 GM/DL (6.4-8.2)
[2017-05-29 09:07] LABS: BASOPHILS % (AUTO) 0 % (0-10); EOSINOPHILS % (AUTO) 1 % (0-10); LYMPHOCYTES # (AUTO) 0.7 X 10^3 (1.0-4.0); LYMPHOCYTES % (AUTO) 24 % (12-44); MEAN CORPUSCULAR HEMOGLOBIN 33 PG (25-34); MEAN CORPUSCULAR HGB CONC 32 G/DL (32-36); MEAN CORPUSCULAR VOLUME 103 FL (80-99); MEAN PLATELET VOLUME 10.3 FL (7.4-10.4); MONOCYTES # (AUTO) 1.1 X 10^3 (0.0-1.0); MONOCYTES % (AUTO) 35 % (0-12); NEUTROPHILS # (AUTO) 1.2 X 10^3 (1.8-7.8); NEUTROPHILS % (AUTO) 39 % (42-75); PLATELET COUNT 169 10^3/uL (130-400); RED BLOOD COUNT 2.14 10^6/uL (4.35-5.85); RED CELL DISTRIBUTION WIDTH 27.2 % (10.0-14.5)
[~2017-06-05 08:32] MED LIST changes: +NS IV 500 ML (CANCER CENTER) 500 ML ONE; +diphenhydrAMINE 25 MG TAB (BENADRYL) CANCER CENTER PO ONE
[2017-06-05 08:57] LABS: BASOPHILS % (AUTO) 1 % (0-10); EOSINOPHILS # (AUTO) 0.1 10^3/uL (0.0-0.3); EOSINOPHILS % (AUTO) 2 % (0-10); LYMPHOCYTES # (AUTO) 1.1 X 10^3 (1.0-4.0); LYMPHOCYTES % (AUTO) 29 % (12-44); MEAN CORPUSCULAR HEMOGLOBIN 34 PG (25-34); MEAN CORPUSCULAR HGB CONC 32 G/DL (32-36); MEAN CORPUSCULAR VOLUME 105 FL (80-99); MEAN PLATELET VOLUME 11.1 FL (7.4-10.4); MONOCYTES # (AUTO) 1.4 X 10^3 (0.0-1.0); MONOCYTES % (AUTO) 35 % (0-12); NEUTROPHILS # (AUTO) 1.3 X 10^3 (1.8-7.8); NEUTROPHILS % (AUTO) 34 % (42-75); PLATELET COUNT 179 10^3/uL (130-400); RED BLOOD COUNT 2.08 10^6/uL (4.35-5.85); RETICULOCYTE % 2.53 % (0.50-2.40); WHITE BLOOD COUNT 3.9 10^3/uL (4.3-11.0)
[2017-06-05 09:19] LABS: ALANINE AMINOTRANSFERASE 10 U/L (0-55); ALBUMIN 4.3 GM/DL (3.2-4.5); ANION GAP 9 MMOL/L (5-14); ASPARTATE AMINO TRANSFERASE 16 U/L (5-34); BILIRUBIN,TOTAL 1.4 MG/DL (0.1-1.0); BLOOD UREA NITROGEN 18 MG/DL (7-18); BUN/CREATININE RATIO 18; CALCIUM 9.1 MG/DL (8.5-10.1); CARBON DIOXIDE 23 MMOL/L (21-32); CHLORIDE 106 MMOL/L (98-107); CREATININE SERUM 0.99 MG/DL (0.60-1.30); GFR ESTIMATED > 60; GLUCOSE 97 MG/DL (70-105); POTASSIUM 4.2 MMOL/L (3.6-5.0); SODIUM 138 MMOL/L (135-145); TOTAL PROTEIN 7.4 GM/DL (6.4-8.2)
== END 2017-06-08 | disposition home or self-care (01) ==
LOC: ONC 08:32
PROVIDERS: ATTEND Internal Medicine Hematology & Oncology
DX: D46.Z Other myelodysplastic syndromes (principal); D61.818 Other pancytopenia; D64.89 Other specified anemias; I10 Essential (primary) hypertension; E78.5 Hyperlipidemia, unspecified; N40.0 Benign prostatic hyperplasia without lower urinary tract symptoms; M06.9 Rheumatoid arthritis, unspecified; Z79.899 Other long term (current) drug therapy
CPT/HCPCS: 36415; 36430; 80048; 80053; 80061; 80158; 82274; 82728; 83540; 85025; 85045; 86850; 86900; 86901; 86920; 99213

== ENCOUNTER 2017-07-03 08:29 | Outpatient (RCR) | payer MEDICARE ==
[2017-06-13 08:55] LABS: BASOPHILS % (AUTO) 1 % (0-10); EOSINOPHILS % (AUTO) 1 % (0-10); LYMPHOCYTES % (AUTO) 23 % (12-44); MEAN CORPUSCULAR HEMOGLOBIN 34 PG (25-34); MEAN CORPUSCULAR HGB CONC 32 G/DL (32-36); MEAN CORPUSCULAR VOLUME 106 FL (80-99); MEAN PLATELET VOLUME 11.1 FL (7.4-10.4); MONOCYTES # (AUTO) 1.3 X 10^3 (0.0-1.0); MONOCYTES % (AUTO) 31 % (0-12); NEUTROPHILS # (AUTO) 1.9 X 10^3 (1.8-7.8); NEUTROPHILS % (AUTO) 45 % (42-75); PLATELET COUNT 214 10^3/uL (130-400); RED BLOOD COUNT 1.91 10^6/uL (4.35-5.85); WHITE BLOOD COUNT 4.3 10^3/uL (4.3-11.0)
[2017-06-13 09:20] LABS: CHOLESTEROL 175 MG/DL (< 200); DIRECT LDL 119 MG/DL (1-129); TRIGLYCERIDES 118 MG/DL (<150); VLDL CHOLESTEROL 24 MG/DL (5-40)
[2017-06-20 09:04] LABS: BASOPHILS % (AUTO) 1 % (0-10); EOSINOPHILS # (AUTO) 0.1 10^3/uL (0.0-0.3); EOSINOPHILS % (AUTO) 2 % (0-10); LYMPHOCYTES # (AUTO) 1.2 X 10^3 (1.0-4.0); LYMPHOCYTES % (AUTO) 23 % (12-44); MEAN CORPUSCULAR HEMOGLOBIN 34 PG (25-34); MEAN CORPUSCULAR HGB CONC 32 G/DL (32-36); MEAN CORPUSCULAR VOLUME 105 FL (80-99); MEAN PLATELET VOLUME 10.4 FL (7.4-10.4); MONOCYTES # (AUTO) 1.7 X 10^3 (0.0-1.0); MONOCYTES % (AUTO) 33 % (0-12); NEUTROPHILS # (AUTO) 2.2 X 10^3 (1.8-7.8); NEUTROPHILS % (AUTO) 42 % (42-75); PLATELET COUNT 213 10^3/uL (130-400); RED BLOOD COUNT 2.31 10^6/uL (4.35-5.85); RED CELL DISTRIBUTION WIDTH 24.7 % (10.0-14.5); WHITE BLOOD COUNT 5.3 10^3/uL (4.3-11.0)
[2017-06-26 09:02] LABS: BASOPHILS % (AUTO) 0 % (0-10); EOSINOPHILS # (AUTO) 0.1 10^3/uL (0.0-0.3); EOSINOPHILS % (AUTO) 1 % (0-10); LYMPHOCYTES # (AUTO) 1.1 X 10^3 (1.0-4.0); LYMPHOCYTES % (AUTO) 19 % (12-44); MEAN CORPUSCULAR HEMOGLOBIN 35 PG (25-34); MEAN CORPUSCULAR HGB CONC 33 G/DL (32-36); MEAN CORPUSCULAR VOLUME 106 FL (80-99); MEAN PLATELET VOLUME 10.6 FL (7.4-10.4); MONOCYTES # (AUTO) 2.9 X 10^3 (0.0-1.0); MONOCYTES % (AUTO) 51 % (0-12); NEUTROPHILS # (AUTO) 1.6 X 10^3 (1.8-7.8); NEUTROPHILS % (AUTO) 28 % (42-75); PLATELET COUNT 144 10^3/uL (130-400); RED BLOOD COUNT 2.22 10^6/uL (4.35-5.85); RED CELL DISTRIBUTION WIDTH 24.6 % (10.0-14.5); RETICULOCYTE % 2.76 % (0.50-2.40); WHITE BLOOD COUNT 5.7 10^3/uL (4.3-11.0)
[~2017-07-03 08:29] MED LIST changes: -NS IV 500 ML (CANCER CENTER) 500 ML ONE; -diphenhydrAMINE 25 MG TAB (BENADRYL) CANCER CENTER PO ONE
[2017-07-03 08:47] LABS: BASOPHILS % (AUTO) 1 % (0-10); EOSINOPHILS % (AUTO) 1 % (0-10); LYMPHOCYTES # (AUTO) 0.9 X 10^3 (1.0-4.0); LYMPHOCYTES % (AUTO) 25 % (12-44); MEAN CORPUSCULAR HEMOGLOBIN 35 PG (25-34); MEAN CORPUSCULAR HGB CONC 33 G/DL (32-36); MEAN CORPUSCULAR VOLUME 107 FL (80-99); MEAN PLATELET VOLUME 11.4 FL (7.4-10.4); MONOCYTES # (AUTO) 1.8 X 10^3 (0.0-1.0); MONOCYTES % (AUTO) 47 % (0-12); NEUTROPHILS % (AUTO) 27 % (42-75); PLATELET COUNT 155 10^3/uL (130-400); RED BLOOD COUNT 2.16 10^6/uL (4.35-5.85); RED CELL DISTRIBUTION WIDTH 24.6 % (10.0-14.5); RETICULOCYTE % 2.48 % (0.50-2.40); WHITE BLOOD COUNT 3.8 10^3/uL (4.3-11.0)
[2017-07-03 08:59] LABS: ALBUMIN 4.2 GM/DL (3.2-4.5); BILIRUBIN,TOTAL 1.5 MG/DL (0.1-1.0); CALCIUM 9.1 MG/DL (8.5-10.1); CREATININE SERUM 1.27 MG/DL (0.60-1.30); POTASSIUM 3.9 MMOL/L (3.6-5.0); TOTAL PROTEIN 7.4 GM/DL (6.4-8.2)
== END 2017-07-08 | disposition home or self-care (01) ==
LOC: ONC 08:29
PROVIDERS: ATTEND Internal Medicine Hematology & Oncology
DX: D46.Z Other myelodysplastic syndromes (principal); D61.818 Other pancytopenia; D64.89 Other specified anemias; I10 Essential (primary) hypertension; E78.5 Hyperlipidemia, unspecified; N40.0 Benign prostatic hyperplasia without lower urinary tract symptoms; M06.9 Rheumatoid arthritis, unspecified; Z79.899 Other long term (current) drug therapy
CPT/HCPCS: 36415; 36430; 80053; 80061; 80158; 85025; 85045; 86850; 86900; 86901; 86920; 99213

== ENCOUNTER 2017-09-26 08:32 | Outpatient (RCR) | payer MEDICARE ==
[2017-07-10 09:01] LABS: ABSOLUTE RETIC # 51 10e9/L (24-90); BASOPHILS % (AUTO) 0 % (0-10); EOSINOPHILS # (AUTO) 0.1 10^3/uL (0.0-0.3); EOSINOPHILS % (AUTO) 2 % (0-10); HEMATOCRIT 21 % (40-54); LYMPHOCYTES # (AUTO) 0.8 X 10^3 (1.0-4.0); LYMPHOCYTES % (AUTO) 18 % (12-44); MEAN CORPUSCULAR HEMOGLOBIN 35 PG (25-34); MEAN CORPUSCULAR HGB CONC 32 G/DL (32-36); MEAN CORPUSCULAR VOLUME 108 FL (80-99); MEAN PLATELET VOLUME 10.8 FL (7.4-10.4); MONOCYTES # (AUTO) 1.9 X 10^3 (0.0-1.0); MONOCYTES % (AUTO) 40 % (0-12); NEUTROPHILS # (AUTO) 1.9 X 10^3 (1.8-7.8); NEUTROPHILS % (AUTO) 41 % (42-75); PLATELET COUNT 178 10^3/uL (130-400); RED BLOOD COUNT 1.98 10^6/uL (4.35-5.85); RETICULOCYTE % 2.59 % (0.50-2.40); WHITE BLOOD COUNT 4.7 10^3/uL (4.3-11.0)
[2017-07-10 09:11] LABS: HEMOGLOBIN 6.9 G/DL (13.3-17.7)
[2017-07-17 08:59] LABS: ABSOLUTE RETIC # 54 10e9/L (24-90); BASOPHILS % (AUTO) 1 % (0-10); EOSINOPHILS # (AUTO) 0.1 10^3/uL (0.0-0.3); EOSINOPHILS % (AUTO) 1 % (0-10); HEMATOCRIT 21 % (40-54); LYMPHOCYTES # (AUTO) 0.8 X 10^3 (1.0-4.0); LYMPHOCYTES % (AUTO) 15 % (12-44); MEAN CORPUSCULAR HEMOGLOBIN 36 PG (25-34); MEAN CORPUSCULAR HGB CONC 33 G/DL (32-36); MEAN CORPUSCULAR VOLUME 109 FL (80-99); MONOCYTES # (AUTO) 1.5 X 10^3 (0.0-1.0); MONOCYTES % (AUTO) 28 % (0-12); NEUTROPHILS % (AUTO) 55 % (42-75); PLATELET COUNT 175 10^3/uL (130-400); RED BLOOD COUNT 1.91 10^6/uL (4.35-5.85); RED CELL DISTRIBUTION WIDTH 24.4 % (10.0-14.5); RETICULOCYTE % 2.83 % (0.50-2.40); WHITE BLOOD COUNT 5.4 10^3/uL (4.3-11.0)
[2017-07-17 09:00] LABS: HEMOGLOBIN 6.8 G/DL (13.3-17.7)
[2017-07-24 09:07] LABS: ABSOLUTE RETIC # 69 10e9/L (24-90); BASOPHILS % (AUTO) 1 % (0-10); EOSINOPHILS # (AUTO) 0.1 10^3/uL (0.0-0.3); EOSINOPHILS % (AUTO) 2 % (0-10); HEMATOCRIT 24 % (40-54); HEMOGLOBIN 7.9 G/DL (13.3-17.7); LYMPHOCYTES # (AUTO) 0.6 X 10^3 (1.0-4.0); LYMPHOCYTES % (AUTO) 16 % (12-44); MEAN CORPUSCULAR HEMOGLOBIN 34 PG (25-34); MEAN CORPUSCULAR HGB CONC 33 G/DL (32-36); MEAN CORPUSCULAR VOLUME 105 FL (80-99); MONOCYTES # (AUTO) 1.2 X 10^3 (0.0-1.0); MONOCYTES % (AUTO) 31 % (0-12); NEUTROPHILS % (AUTO) 51 % (42-75); PLATELET COUNT 169 10^3/uL (130-400); RETICULOCYTE % 2.99 % (0.50-2.40); WHITE BLOOD COUNT 3.9 10^3/uL (4.3-11.0)
[2017-07-24 09:31] LABS: CHOLESTEROL 192 MG/DL (< 200); HDL CHOLESTEROL 39 MG/DL (40-60); TRIGLYCERIDES 185 MG/DL (<150); VLDL CHOLESTEROL 37 MG/DL (5-40)
[2017-07-31 10:09] LABS: ABSOLUTE RETIC # 61 10e9/L (24-90); BASOPHILS % (AUTO) 1 % (0-10); EOSINOPHILS % (AUTO) 1 % (0-10); HEMATOCRIT 25 % (40-54); HEMOGLOBIN 8.1 G/DL (13.3-17.7); LYMPHOCYTES # (AUTO) 0.5 X 10^3 (1.0-4.0); LYMPHOCYTES % (AUTO) 14 % (12-44); MEAN CORPUSCULAR HEMOGLOBIN 33 PG (25-34); MEAN CORPUSCULAR HGB CONC 32 G/DL (32-36); MEAN CORPUSCULAR VOLUME 103 FL (80-99); MEAN PLATELET VOLUME 10.2 FL (7.4-10.4); MONOCYTES # (AUTO) 1.2 X 10^3 (0.0-1.0); MONOCYTES % (AUTO) 31 % (0-12); NEUTROPHILS % (AUTO) 53 % (42-75); PLATELET COUNT 177 10^3/uL (130-400); RED BLOOD COUNT 2.44 10^6/uL (4.35-5.85); RED CELL DISTRIBUTION WIDTH 24.2 % (10.0-14.5); RETICULOCYTE % 2.49 % (0.50-2.40); WHITE BLOOD COUNT 3.8 10^3/uL (4.3-11.0)
[2017-07-31 10:29] LABS: ALBUMIN 3.8 GM/DL (3.2-4.5); BILIRUBIN,TOTAL 1.6 MG/DL (0.1-1.0); CALCIUM 9.3 MG/DL (8.5-10.1); CREATININE SERUM 1.35 MG/DL (0.60-1.30); POTASSIUM 3.9 MMOL/L (3.6-5.0); TOTAL PROTEIN 7.3 GM/DL (6.4-8.2)
[2017-08-02 09:44] LABS: CALCIUM 9.1 MG/DL (8.5-10.1); CREATININE SERUM 1.23 MG/DL (0.60-1.30); POTASSIUM 3.8 MMOL/L (3.6-5.0)
[2017-08-07 08:58] LABS: ABSOLUTE RETIC # 52 10e9/L (24-90); BASOPHILS # (AUTO) 0.1 10^3/uL (0.0-0.1); BASOPHILS % (AUTO) 1 % (0-10); EOSINOPHILS # (AUTO) 0.1 10^3/uL (0.0-0.3); EOSINOPHILS % (AUTO) 2 % (0-10); HEMATOCRIT 22 % (40-54); HEMOGLOBIN 7.1 G/DL (13.3-17.7); LYMPHOCYTES % (AUTO) 15 % (12-44); MEAN CORPUSCULAR HEMOGLOBIN 34 PG (25-34); MEAN CORPUSCULAR HGB CONC 33 G/DL (32-36); MEAN CORPUSCULAR VOLUME 103 FL (80-99); MEAN PLATELET VOLUME 10.1 FL (7.4-10.4); MONOCYTES # (AUTO) 1.6 X 10^3 (0.0-1.0); MONOCYTES % (AUTO) 25 % (0-12); NEUTROPHILS # (AUTO) 3.7 X 10^3 (1.8-7.8); NEUTROPHILS % (AUTO) 58 % (42-75); PLATELET COUNT 260 10^3/uL (130-400); RED BLOOD COUNT 2.11 10^6/uL (4.35-5.85); RED CELL DISTRIBUTION WIDTH 25.1 % (10.0-14.5); RETICULOCYTE % 2.46 % (0.50-2.40); WHITE BLOOD COUNT 6.4 10^3/uL (4.3-11.0)
[2017-08-14 10:24] LABS: ABSOLUTE RETIC # 42 10e9/L (24-90); BASOPHILS % (AUTO) 0 % (0-10); EOSINOPHILS % (AUTO) 1 % (0-10); HEMATOCRIT 21 % (40-54); LYMPHOCYTES # (AUTO) 1.1 X 10^3 (1.0-4.0); LYMPHOCYTES % (AUTO) 19 % (12-44); MEAN CORPUSCULAR HEMOGLOBIN 34 PG (25-34); MEAN CORPUSCULAR HGB CONC 32 G/DL (32-36); MEAN CORPUSCULAR VOLUME 105 FL (80-99); MEAN PLATELET VOLUME 9.9 FL (7.4-10.4); MONOCYTES # (AUTO) 1.4 X 10^3 (0.0-1.0); MONOCYTES % (AUTO) 24 % (0-12); NEUTROPHILS # (AUTO) 3.3 X 10^3 (1.8-7.8); NEUTROPHILS % (AUTO) 56 % (42-75); PLATELET COUNT 256 10^3/uL (130-400); RED BLOOD COUNT 1.95 10^6/uL (4.35-5.85); RED CELL DISTRIBUTION WIDTH 25.1 % (10.0-14.5); RETICULOCYTE % 2.17 % (0.50-2.40); WHITE BLOOD COUNT 5.8 10^3/uL (4.3-11.0)
[2017-08-14 10:26] LABS: HEMOGLOBIN 6.6 G/DL (13.3-17.7)
[2017-08-14 10:42] LABS: ALANINE AMINOTRANSFERASE 16 U/L (0-55); ALKALINE PHOSPHATASE 81 U/L (40-136); BILIRUBIN,TOTAL 0.8 MG/DL (0.1-1.0); BUN/CREATININE RATIO 16; CALCIUM 8.7 MG/DL (8.5-10.1); CARBON DIOXIDE 20 MMOL/L (21-32); CHLORIDE 106 MMOL/L (98-107); CHOLESTEROL 138 MG/DL (< 200); CREATININE SERUM 1.04 MG/DL (0.60-1.30); GFR ESTIMATED > 60; GLUCOSE 119 MG/DL (70-105); HDL CHOLESTEROL 32 MG/DL (40-60); POTASSIUM 4.1 MMOL/L (3.6-5.0); SODIUM 137 MMOL/L (135-145); TOTAL PROTEIN 7.1 GM/DL (6.4-8.2); TRIGLYCERIDES 114 MG/DL (<150); VLDL CHOLESTEROL 23 MG/DL (5-40)
[2017-08-21 09:12] LABS: BASOPHILS % (AUTO) 1 % (0-10); EOSINOPHILS % (AUTO) 1 % (0-10); LYMPHOCYTES # (AUTO) 1.9 X 10^3 (1.0-4.0); LYMPHOCYTES % (AUTO) 54 % (12-44); MEAN CORPUSCULAR HEMOGLOBIN 34 PG (25-34); MEAN CORPUSCULAR HGB CONC 33 G/DL (32-36); MEAN CORPUSCULAR VOLUME 104 FL (80-99); MONOCYTES # (AUTO) 0.8 X 10^3 (0.0-1.0); MONOCYTES % (AUTO) 23 % (0-12); NEUTROPHILS # (AUTO) 0.7 X 10^3 (1.8-7.8); NEUTROPHILS % (AUTO) 21 % (42-75); PLATELET COUNT 194 10^3/uL (130-400); RED BLOOD COUNT 1.78 10^6/uL (4.35-5.85); RED CELL DISTRIBUTION WIDTH 24.8 % (10.0-14.5); WHITE BLOOD COUNT 3.4 10^3/uL (4.3-11.0)
[2017-08-21 09:14] LABS: HEMATOCRIT 19 % (40-54); HEMOGLOBIN 6.1 G/DL (13.3-17.7)
[2017-08-28 09:00] LABS: BASOPHILS % (AUTO) 1 % (0-10); EOSINOPHILS # (AUTO) 0.1 10^3/uL (0.0-0.3); EOSINOPHILS % (AUTO) 1 % (0-10); LYMPHOCYTES # (AUTO) 2.1 X 10^3 (1.0-4.0); LYMPHOCYTES % (AUTO) 51 % (12-44); MEAN CORPUSCULAR HEMOGLOBIN 34 PG (25-34); MEAN CORPUSCULAR HGB CONC 32 G/DL (32-36); MEAN CORPUSCULAR VOLUME 105 FL (80-99); MEAN PLATELET VOLUME 9.8 FL (7.4-10.4); MONOCYTES # (AUTO) 0.9 X 10^3 (0.0-1.0); MONOCYTES % (AUTO) 23 % (0-12); NEUTROPHILS % (AUTO) 25 % (42-75); PLATELET COUNT 198 10^3/uL (130-400); RED BLOOD COUNT 1.67 10^6/uL (4.35-5.85); RED CELL DISTRIBUTION WIDTH 25.5 % (10.0-14.5); WHITE BLOOD COUNT 4.1 10^3/uL (4.3-11.0)
[2017-08-28 09:02] LABS: HEMATOCRIT 18 % (40-54); HEMOGLOBIN 5.7 G/DL (13.3-17.7)
[2017-09-11 10:18] LABS: BASOPHILS % (AUTO) 1 % (0-10); EOSINOPHILS % (AUTO) 1 % (0-10); LYMPHOCYTES # (AUTO) 1.6 X 10^3 (1.0-4.0); LYMPHOCYTES % (AUTO) 39 % (12-44); MEAN CORPUSCULAR HEMOGLOBIN 34 PG (25-34); MEAN CORPUSCULAR HGB CONC 32 G/DL (32-36); MEAN CORPUSCULAR VOLUME 106 FL (80-99); MEAN PLATELET VOLUME 9.9 FL (7.4-10.4); MONOCYTES # (AUTO) 1.2 X 10^3 (0.0-1.0); MONOCYTES % (AUTO) 28 % (0-12); NEUTROPHILS # (AUTO) 1.3 X 10^3 (1.8-7.8); NEUTROPHILS % (AUTO) 32 % (42-75); PLATELET COUNT 198 10^3/uL (130-400); RED BLOOD COUNT 1.78 10^6/uL (4.35-5.85); RED CELL DISTRIBUTION WIDTH 25.6 % (10.0-14.5); WHITE BLOOD COUNT 4.1 10^3/uL (4.3-11.0)
[2017-09-11 10:22] LABS: HEMATOCRIT 19 % (40-54); HEMOGLOBIN 6.1 G/DL (13.3-17.7)
[2017-09-11 10:38] LABS: BILIRUBIN,TOTAL 1.4 MG/DL (0.1-1.0); CALCIUM 8.9 MG/DL (8.5-10.1); CREATININE SERUM 1.33 MG/DL (0.60-1.30); POTASSIUM 3.9 MMOL/L (3.6-5.0); TOTAL PROTEIN 7.3 GM/DL (6.4-8.2)
[2017-09-19 08:55] LABS: BASOPHILS % (AUTO) 1 % (0-10); EOSINOPHILS # (AUTO) 0.1 10^3/uL (0.0-0.3); EOSINOPHILS % (AUTO) 1 % (0-10); LYMPHOCYTES # (AUTO) 1.8 X 10^3 (1.0-4.0); LYMPHOCYTES % (AUTO) 38 % (12-44); MEAN CORPUSCULAR HEMOGLOBIN 35 PG (25-34); MEAN CORPUSCULAR HGB CONC 32 G/DL (32-36); MEAN CORPUSCULAR VOLUME 108 FL (80-99); MEAN PLATELET VOLUME 9.6 FL (7.4-10.4); MONOCYTES # (AUTO) 1.3 X 10^3 (0.0-1.0); MONOCYTES % (AUTO) 28 % (0-12); NEUTROPHILS # (AUTO) 1.5 X 10^3 (1.8-7.8); NEUTROPHILS % (AUTO) 32 % (42-75); PLATELET COUNT 223 10^3/uL (130-400); RED BLOOD COUNT 1.67 10^6/uL (4.35-5.85); RED CELL DISTRIBUTION WIDTH 26.7 % (10.0-14.5); WHITE BLOOD COUNT 4.7 10^3/uL (4.3-11.0)
[2017-09-19 08:56] LABS: HEMATOCRIT 18 % (40-54); HEMOGLOBIN 5.8 G/DL (13.3-17.7)
[~2017-09-26 08:32] MED LIST changes: +NS IV 500 ML (CANCER CENTER) 500 ML ONE; +diphenhydrAMINE 25 MG TAB (BENADRYL) CANCER CENTER PO ONE
[2017-09-26 08:49] LABS: BASOPHILS % (AUTO) 1 % (0-10); EOSINOPHILS # (AUTO) 0.1 10^3/uL (0.0-0.3); EOSINOPHILS % (AUTO) 2 % (0-10); HEMATOCRIT 25 % (40-54); LYMPHOCYTES # (AUTO) 1.4 X 10^3 (1.0-4.0); LYMPHOCYTES % (AUTO) 33 % (12-44); MEAN CORPUSCULAR HEMOGLOBIN 33 PG (25-34); MEAN CORPUSCULAR HGB CONC 32 G/DL (32-36); MEAN CORPUSCULAR VOLUME 103 FL (80-99); MEAN PLATELET VOLUME 10.3 FL (7.4-10.4); MONOCYTES # (AUTO) 1.2 X 10^3 (0.0-1.0); MONOCYTES % (AUTO) 30 % (0-12); NEUTROPHILS # (AUTO) 1.4 X 10^3 (1.8-7.8); NEUTROPHILS % (AUTO) 35 % (42-75); PLATELET COUNT 219 10^3/uL (130-400); RED BLOOD COUNT 2.43 10^6/uL (4.35-5.85); RED CELL DISTRIBUTION WIDTH 24.5 % (10.0-14.5); WHITE BLOOD COUNT 4.1 10^3/uL (4.3-11.0)
[2017-09-26 09:08] LABS: ALANINE AMINOTRANSFERASE 21 U/L (0-55); ALBUMIN 4.4 GM/DL (3.2-4.5); ALKALINE PHOSPHATASE 73 U/L (40-136); BILIRUBIN,TOTAL 0.6 MG/DL (0.1-1.0); BUN/CREATININE RATIO 19; CALCIUM 9.4 MG/DL (8.5-10.1); CARBON DIOXIDE 26 MMOL/L (21-32); CHLORIDE 105 MMOL/L (98-107); CREATININE SERUM 0.91 MG/DL (0.60-1.30); GFR ESTIMATED > 60; GLUCOSE 104 MG/DL (70-105); POTASSIUM 3.9 MMOL/L (3.6-5.0); SODIUM 139 MMOL/L (135-145); TOTAL PROTEIN 7.5 GM/DL (6.4-8.2)
== END 2017-10-08 | disposition home or self-care (01) ==
LOC: ONC 08:32
PROVIDERS: ATTEND Internal Medicine Hematology & Oncology
DX: D46.Z Other myelodysplastic syndromes (principal); D61.818 Other pancytopenia; D64.89 Other specified anemias; I10 Essential (primary) hypertension; E78.5 Hyperlipidemia, unspecified; N40.0 Benign prostatic hyperplasia without lower urinary tract symptoms; M06.9 Rheumatoid arthritis, unspecified; Z79.899 Other long term (current) drug therapy
CPT/HCPCS: 36415; 36430; 80048; 80053; 80061; 80158; 85025; 85045; 86850; 86900; 86901; 86920; 99213

== ENCOUNTER → 2018-01-08 | Outpatient (RCR) | payer MEDICARE ==
[2017-10-10 09:04] LABS: BASOPHILS % (AUTO) 1 % (0-10); EOSINOPHILS # (AUTO) 0.1 10^3/uL (0.0-0.3); EOSINOPHILS % (AUTO) 1 % (0-10); HEMATOCRIT 21 % (40-54); LYMPHOCYTES # (AUTO) 1.7 X 10^3 (1.0-4.0); LYMPHOCYTES % (AUTO) 47 % (12-44); MEAN CORPUSCULAR HEMOGLOBIN 33 PG (25-34); MEAN CORPUSCULAR HGB CONC 32 G/DL (32-36); MEAN CORPUSCULAR VOLUME 104 FL (80-99); MEAN PLATELET VOLUME 10.1 FL (7.4-10.4); MONOCYTES # (AUTO) 0.9 X 10^3 (0.0-1.0); MONOCYTES % (AUTO) 26 % (0-12); NEUTROPHILS # (AUTO) 0.9 X 10^3 (1.8-7.8); NEUTROPHILS % (AUTO) 25 % (42-75); PLATELET COUNT 202 10^3/uL (130-400); RED BLOOD COUNT 2.04 10^6/uL (4.35-5.85); WHITE BLOOD COUNT 3.6 10^3/uL (4.3-11.0)
[2017-10-10 09:07] LABS: HEMOGLOBIN 6.7 G/DL (13.3-17.7)
[2017-10-23 09:43] LABS: ABSOLUTE RETIC # 29 10e9/L (24-90); BASOPHILS % (AUTO) 1 % (0-10); EOSINOPHILS # (AUTO) 0.1 10^3/uL (0.0-0.3); EOSINOPHILS % (AUTO) 2 % (0-10); HEMATOCRIT 22 % (40-54); HEMOGLOBIN 7.1 G/DL (13.3-17.7); LYMPHOCYTES # (AUTO) 2.3 X 10^3 (1.0-4.0); LYMPHOCYTES % (AUTO) 50 % (12-44); MEAN CORPUSCULAR HEMOGLOBIN 34 PG (25-34); MEAN CORPUSCULAR HGB CONC 33 G/DL (32-36); MEAN CORPUSCULAR VOLUME 102 FL (80-99); MEAN PLATELET VOLUME 9.8 FL (7.4-10.4); MONOCYTES # (AUTO) 1.2 X 10^3 (0.0-1.0); MONOCYTES % (AUTO) 26 % (0-12); NEUTROPHILS % (AUTO) 22 % (42-75); PLATELET COUNT 199 10^3/uL (130-400); RED BLOOD COUNT 2.11 10^6/uL (4.35-5.85); RED CELL DISTRIBUTION WIDTH 23.9 % (10.0-14.5); RETICULOCYTE % 1.38 % (0.50-2.40); WHITE BLOOD COUNT 4.6 10^3/uL (4.3-11.0)
[2017-10-23 09:58] LABS: ALANINE AMINOTRANSFERASE 31 U/L (0-55); ALBUMIN 4.2 GM/DL (3.2-4.5); ALKALINE PHOSPHATASE 73 U/L (40-136); BILIRUBIN,TOTAL 0.5 MG/DL (0.1-1.0); BUN/CREATININE RATIO 17; CALCIUM 8.8 MG/DL (8.5-10.1); CARBON DIOXIDE 22 MMOL/L (21-32); CHLORIDE 105 MMOL/L (98-107); GFR ESTIMATED > 60; GLUCOSE 120 MG/DL (70-105); POTASSIUM 3.2 MMOL/L (3.6-5.0); SODIUM 137 MMOL/L (135-145); TOTAL PROTEIN 7.3 GM/DL (6.4-8.2)
[2017-10-31 09:06] LABS: BASOPHILS % (AUTO) 0 % (0-10); EOSINOPHILS # (AUTO) 0.1 10^3/uL (0.0-0.3); EOSINOPHILS % (AUTO) 2 % (0-10); LYMPHOCYTES # (AUTO) 1.8 X 10^3 (1.0-4.0); LYMPHOCYTES % (AUTO) 47 % (12-44); MEAN CORPUSCULAR HEMOGLOBIN 34 PG (25-34); MEAN CORPUSCULAR HGB CONC 33 G/DL (32-36); MEAN CORPUSCULAR VOLUME 103 FL (80-99); MONOCYTES # (AUTO) 1.2 X 10^3 (0.0-1.0); MONOCYTES % (AUTO) 29 % (0-12); NEUTROPHILS # (AUTO) 0.9 X 10^3 (1.8-7.8); NEUTROPHILS % (AUTO) 22 % (42-75); PLATELET COUNT 211 10^3/uL (130-400); RED BLOOD COUNT 1.84 10^6/uL (4.35-5.85); RED CELL DISTRIBUTION WIDTH 23.8 % (10.0-14.5)
[2017-10-31 09:11] LABS: HEMATOCRIT 19 % (40-54); HEMOGLOBIN 6.2 G/DL (13.3-17.7)
[2017-11-06 08:54] LABS: ABSOLUTE RETIC # 38 10e9/L (24-90); BASOPHILS % (AUTO) 0 % (0-10); EOSINOPHILS # (AUTO) 0.1 10^3/uL (0.0-0.3); EOSINOPHILS % (AUTO) 3 % (0-10); HEMATOCRIT 21 % (40-54); LYMPHOCYTES # (AUTO) 1.4 X 10^3 (1.0-4.0); LYMPHOCYTES % (AUTO) 45 % (12-44); MEAN CORPUSCULAR HEMOGLOBIN 33 PG (25-34); MEAN CORPUSCULAR HGB CONC 33 G/DL (32-36); MEAN CORPUSCULAR VOLUME 101 FL (80-99); MEAN PLATELET VOLUME 9.6 FL (7.4-10.4); MONOCYTES # (AUTO) 0.9 X 10^3 (0.0-1.0); MONOCYTES % (AUTO) 27 % (0-12); NEUTROPHILS # (AUTO) 0.8 X 10^3 (1.8-7.8); NEUTROPHILS % (AUTO) 25 % (42-75); PLATELET COUNT 203 10^3/uL (130-400); RED BLOOD COUNT 2.06 10^6/uL (4.35-5.85); RED CELL DISTRIBUTION WIDTH 22.7 % (10.0-14.5); RETICULOCYTE % 1.85 % (0.50-2.40); WHITE BLOOD COUNT 3.2 10^3/uL (4.3-11.0)
[2017-11-06 09:06] LABS: HEMOGLOBIN 6.8 G/DL (13.3-17.7)
[2017-11-06 09:11] LABS: ALANINE AMINOTRANSFERASE 31 U/L (0-55); ALBUMIN 4.1 GM/DL (3.2-4.5); ALKALINE PHOSPHATASE 69 U/L (40-136); BILIRUBIN,TOTAL 0.9 MG/DL (0.1-1.0); BUN/CREATININE RATIO 19; CALCIUM 8.7 MG/DL (8.5-10.1); CARBON DIOXIDE 24 MMOL/L (21-32); CHLORIDE 106 MMOL/L (98-107); CREATININE SERUM 0.88 MG/DL (0.60-1.30); GFR ESTIMATED > 60; GLUCOSE 98 MG/DL (70-105); POTASSIUM 3.9 MMOL/L (3.6-5.0); SODIUM 137 MMOL/L (135-145); TOTAL PROTEIN 7.2 GM/DL (6.4-8.2)
[2017-11-20 08:47] LABS: ABSOLUTE RETIC # 73 10e9/L (24-90); BASOPHILS % (AUTO) 0 % (0-10); EOSINOPHILS # (AUTO) 0.1 10^3/uL (0.0-0.3); EOSINOPHILS % (AUTO) 4 % (0-10); LYMPHOCYTES # (AUTO) 1.3 X 10^3 (1.0-4.0); LYMPHOCYTES % (AUTO) 48 % (12-44); MEAN CORPUSCULAR HEMOGLOBIN 35 PG (25-34); MEAN CORPUSCULAR HGB CONC 32 G/DL (32-36); MEAN CORPUSCULAR VOLUME 109 FL (80-99); MEAN PLATELET VOLUME 9.9 FL (7.4-10.4); MONOCYTES # (AUTO) 0.7 X 10^3 (0.0-1.0); MONOCYTES % (AUTO) 26 % (0-12); NEUTROPHILS # (AUTO) 0.6 X 10^3 (1.8-7.8); NEUTROPHILS % (AUTO) 22 % (42-75); PLATELET COUNT 252 10^3/uL (130-400); RED BLOOD COUNT 1.84 10^6/uL (4.35-5.85); RED CELL DISTRIBUTION WIDTH 26.7 % (10.0-14.5); RETICULOCYTE % 3.95 % (0.50-2.40); WHITE BLOOD COUNT 2.7 10^3/uL (4.3-11.0)
[2017-11-20 08:49] LABS: HEMOGLOBIN 6.4 G/DL (13.3-17.7)
[2017-11-20 08:50] LABS: HEMATOCRIT 20 % (40-54)
[2017-11-20 09:11] LABS: ALANINE AMINOTRANSFERASE 25 U/L (0-55); ALBUMIN 4.1 GM/DL (3.2-4.5); ALKALINE PHOSPHATASE 63 U/L (40-136); BILIRUBIN,TOTAL 0.8 MG/DL (0.1-1.0); BUN/CREATININE RATIO 11; CALCIUM 9.2 MG/DL (8.5-10.1); CARBON DIOXIDE 24 MMOL/L (21-32); CHLORIDE 107 MMOL/L (98-107); CREATININE SERUM 0.87 MG/DL (0.60-1.30); GFR ESTIMATED > 60; GLUCOSE 97 MG/DL (70-105); POTASSIUM 3.8 MMOL/L (3.6-5.0); SODIUM 138 MMOL/L (135-145); TOTAL PROTEIN 6.8 GM/DL (6.4-8.2)
[2017-11-27 08:40] LABS: ABSOLUTE RETIC # 100 10e9/L (24-90); BASOPHILS % (AUTO) 0 % (0-10); EOSINOPHILS # (AUTO) 0.2 10^3/uL (0.0-0.3); EOSINOPHILS % (AUTO) 4 % (0-10); HEMATOCRIT 26 % (40-54); HEMOGLOBIN 8.3 G/DL (13.3-17.7); LYMPHOCYTES # (AUTO) 1.8 X 10^3 (1.0-4.0); LYMPHOCYTES % (AUTO) 47 % (12-44); MEAN CORPUSCULAR HEMOGLOBIN 35 PG (25-34); MEAN CORPUSCULAR HGB CONC 32 G/DL (32-36); MEAN CORPUSCULAR VOLUME 109 FL (80-99); MEAN PLATELET VOLUME 9.9 FL (7.4-10.4); MONOCYTES # (AUTO) 1.1 X 10^3 (0.0-1.0); MONOCYTES % (AUTO) 28 % (0-12); NEUTROPHILS # (AUTO) 0.8 X 10^3 (1.8-7.8); NEUTROPHILS % (AUTO) 21 % (42-75); PLATELET COUNT 250 10^3/uL (130-400); RED BLOOD COUNT 2.37 10^6/uL (4.35-5.85); RED CELL DISTRIBUTION WIDTH 26.4 % (10.0-14.5); RETICULOCYTE % 4.23 % (0.50-2.40); WHITE BLOOD COUNT 3.9 10^3/uL (4.3-11.0)
[2017-12-04 08:46] LABS: ABSOLUTE RETIC # 85 10e9/L (24-90); BASOPHILS % (AUTO) 0 % (0-10); EOSINOPHILS # (AUTO) 0.1 10^3/uL (0.0-0.3); EOSINOPHILS % (AUTO) 1 % (0-10); HEMATOCRIT 27 % (40-54); HEMOGLOBIN 8.7 G/DL (13.3-17.7); LYMPHOCYTES # (AUTO) 1.4 X 10^3 (1.0-4.0); LYMPHOCYTES % (AUTO) 22 % (12-44); MEAN CORPUSCULAR HEMOGLOBIN 36 PG (25-34); MEAN CORPUSCULAR HGB CONC 33 G/DL (32-36); MEAN CORPUSCULAR VOLUME 111 FL (80-99); MEAN PLATELET VOLUME 9.5 FL (7.4-10.4); MONOCYTES # (AUTO) 1.6 X 10^3 (0.0-1.0); MONOCYTES % (AUTO) 26 % (0-12); NEUTROPHILS # (AUTO) 3.2 X 10^3 (1.8-7.8); NEUTROPHILS % (AUTO) 51 % (42-75); PLATELET COUNT 207 10^3/uL (130-400); RED BLOOD COUNT 2.42 10^6/uL (4.35-5.85); RETICULOCYTE % 3.49 % (0.50-2.40); WHITE BLOOD COUNT 6.2 10^3/uL (4.3-11.0)
[2017-12-04 09:07] LABS: ALANINE AMINOTRANSFERASE 35 U/L (0-55); ALBUMIN 4.3 GM/DL (3.2-4.5); ALKALINE PHOSPHATASE 67 U/L (40-136); BUN/CREATININE RATIO 14; CALCIUM 8.9 MG/DL (8.5-10.1); CARBON DIOXIDE 23 MMOL/L (21-32); CHLORIDE 103 MMOL/L (98-107); CREATININE SERUM 0.97 MG/DL (0.60-1.30); GFR ESTIMATED > 60; GLUCOSE 119 MG/DL (70-105); SODIUM 135 MMOL/L (135-145); TOTAL PROTEIN 7.2 GM/DL (6.4-8.2)
[2017-12-11 09:35] LABS: ABSOLUTE RETIC # 45 10e9/L (24-90); BASOPHILS % (AUTO) 1 % (0-10); EOSINOPHILS # (AUTO) 0.2 10^3/uL (0.0-0.3); EOSINOPHILS % (AUTO) 6 % (0-10); HEMATOCRIT 25 % (40-54); HEMOGLOBIN 8.1 G/DL (13.3-17.7); LYMPHOCYTES # (AUTO) 1.3 X 10^3 (1.0-4.0); LYMPHOCYTES % (AUTO) 40 % (12-44); MEAN CORPUSCULAR HEMOGLOBIN 36 PG (25-34); MEAN CORPUSCULAR HGB CONC 32 G/DL (32-36); MEAN CORPUSCULAR VOLUME 110 FL (80-99); MEAN PLATELET VOLUME 10.3 FL (7.4-10.4); MONOCYTES # (AUTO) 0.8 X 10^3 (0.0-1.0); MONOCYTES % (AUTO) 23 % (0-12); NEUTROPHILS % (AUTO) 30 % (42-75); PLATELET COUNT 223 10^3/uL (130-400); RED BLOOD COUNT 2.27 10^6/uL (4.35-5.85); RETICULOCYTE % 1.98 % (0.50-2.40); WHITE BLOOD COUNT 3.3 10^3/uL (4.3-11.0)
[2017-12-11 09:57] LABS: ALANINE AMINOTRANSFERASE 32 U/L (0-55); ALBUMIN 4.1 GM/DL (3.2-4.5); ALKALINE PHOSPHATASE 62 U/L (40-136); BILIRUBIN,TOTAL 0.7 MG/DL (0.1-1.0); BUN/CREATININE RATIO 14; CALCIUM 8.8 MG/DL (8.5-10.1); CARBON DIOXIDE 25 MMOL/L (21-32); CHLORIDE 105 MMOL/L (98-107); CREATININE SERUM 0.95 MG/DL (0.60-1.30); GFR ESTIMATED > 60; GLUCOSE 108 MG/DL (70-105); POTASSIUM 4.1 MMOL/L (3.6-5.0); SODIUM 136 MMOL/L (135-145); TOTAL PROTEIN 7.1 GM/DL (6.4-8.2)
[2017-12-25 08:53] LABS: HEMATOCRIT 26 % (40-54); HEMOGLOBIN 8.5 G/DL (13.3-17.7); MEAN CORPUSCULAR HEMOGLOBIN 37 PG (25-34); MEAN CORPUSCULAR HGB CONC 33 G/DL (32-36); MEAN CORPUSCULAR VOLUME 111 FL (80-99); MEAN PLATELET VOLUME 10.5 FL (7.4-10.4); NEUTROPHILS % (AUTO) 27 % (42-75); PLATELET COUNT 138 10^3/uL (130-400); RED BLOOD COUNT 2.32 10^6/uL (4.35-5.85); RED CELL DISTRIBUTION WIDTH 22.4 % (10.0-14.5); WHITE BLOOD COUNT 3.4 10^3/uL (4.3-11.0)
[2017-12-25 08:54] LABS: BASOPHILS % (AUTO) 0 % (0-10); EOSINOPHILS # (AUTO) 0.2 10^3/uL (0.0-0.3); EOSINOPHILS % (AUTO) 5 % (0-10); LYMPHOCYTES # (AUTO) 1.6 X 10^3 (1.0-4.0); LYMPHOCYTES % (AUTO) 46 % (12-44); MONOCYTES # (AUTO) 0.7 X 10^3 (0.0-1.0); MONOCYTES % (AUTO) 21 % (0-12); NEUTROPHILS # (AUTO) 0.9 X 10^3 (1.8-7.8)
[2017-12-25 08:55] LABS: ABSOLUTE RETIC # 59 10e9/L (24-90); RETICULOCYTE % 2.56 % (0.50-2.40)
[2017-12-25 09:16] LABS: ALANINE AMINOTRANSFERASE 22 U/L (0-55); ALBUMIN 4.4 GM/DL (3.2-4.5); ALKALINE PHOSPHATASE 63 U/L (40-136); BILIRUBIN,TOTAL 0.8 MG/DL (0.1-1.0); BUN/CREATININE RATIO 11; CALCIUM 8.9 MG/DL (8.5-10.1); CARBON DIOXIDE 23 MMOL/L (21-32); CHLORIDE 105 MMOL/L (98-107); CREATININE SERUM 0.98 MG/DL (0.60-1.30); GFR ESTIMATED > 60; GLUCOSE 106 MG/DL (70-105); POTASSIUM 3.5 MMOL/L (3.6-5.0); SODIUM 136 MMOL/L (135-145); TOTAL PROTEIN 7.4 GM/DL (6.4-8.2)
[~2018-01-08] MED LIST changes: -diphenhydrAMINE 25 MG TAB (BENADRYL) CANCER CENTER PO ONE
[2018-01-08 08:49] LABS: ABSOLUTE RETIC # 46 10e9/L (24-90); BASOPHILS % (AUTO) 0 % (0-10); EOSINOPHILS # (AUTO) 0.2 10^3/uL (0.0-0.3); EOSINOPHILS % (AUTO) 5 % (0-10); HEMATOCRIT 25 % (40-54); LYMPHOCYTES # (AUTO) 1.6 X 10^3 (1.0-4.0); LYMPHOCYTES % (AUTO) 52 % (12-44); MEAN CORPUSCULAR HEMOGLOBIN 38 PG (25-34); MEAN CORPUSCULAR HGB CONC 33 G/DL (32-36); MEAN CORPUSCULAR VOLUME 116 FL (80-99); MEAN PLATELET VOLUME 10.7 FL (7.4-10.4); MONOCYTES # (AUTO) 0.6 X 10^3 (0.0-1.0); MONOCYTES % (AUTO) 19 % (0-12); NEUTROPHILS # (AUTO) 0.8 X 10^3 (1.8-7.8); NEUTROPHILS % (AUTO) 24 % (42-75); PLATELET COUNT 78 10^3/uL (130-400); RED BLOOD COUNT 2.13 10^6/uL (4.35-5.85); RED CELL DISTRIBUTION WIDTH 20.6 % (10.0-14.5); RETICULOCYTE % 2.17 % (0.50-2.40); WHITE BLOOD COUNT 3.1 10^3/uL (4.3-11.0)
[2018-01-08 09:12] LABS: ALANINE AMINOTRANSFERASE 23 U/L (0-55); ALBUMIN 4.1 GM/DL (3.2-4.5); ALKALINE PHOSPHATASE 60 U/L (40-136); BILIRUBIN,TOTAL 0.7 MG/DL (0.1-1.0); BUN/CREATININE RATIO 10; CALCIUM 8.6 MG/DL (8.5-10.1); CARBON DIOXIDE 24 MMOL/L (21-32); CHLORIDE 105 MMOL/L (98-107); CREATININE SERUM 0.86 MG/DL (0.60-1.30); GFR ESTIMATED > 60; GLUCOSE 106 MG/DL (70-105); POTASSIUM 3.7 MMOL/L (3.6-5.0); SODIUM 135 MMOL/L (135-145); TOTAL PROTEIN 6.8 GM/DL (6.4-8.2)
== END | disposition home or self-care (01) ==
LOC: ONC 10-10 08:43
PROVIDERS: ATTEND Internal Medicine Hematology & Oncology
DX: D46.Z Other myelodysplastic syndromes (principal); D61.818 Other pancytopenia; D64.89 Other specified anemias; I10 Essential (primary) hypertension; E78.5 Hyperlipidemia, unspecified; N40.0 Benign prostatic hyperplasia without lower urinary tract symptoms; M06.9 Rheumatoid arthritis, unspecified; Z79.899 Other long term (current) drug therapy
CPT/HCPCS: 36415; 36430; 80053; 85025; 85045; 86850; 86900; 86901; 86920; 99213

== ENCOUNTER 2018-01-22 06:52 | Day surgery (SDC) | payer MEDICARE ==
[~2018-01-22] VITALS: Ht 177.8 cm; Wt 75.9 kg
[2018-01-22] VITALS (14 sets, daily range): BP systolic 117–159; BP diastolic 59–84
[~2018-01-22 06:52] MED LIST changes: -ACETAMINOPHEN 500 MG TAB (TYLENOL) CANCER CTR ONE; -NS (IVPB) CANCER CENTER 250 ML ONE; -NS IV 500 ML (CANCER CENTER) 500 ML ONE
--- OUTSIDE RECORDS SUMMARY | 2018-01-22 06:56 | XMS REPORT | Encounter Summary ---
Author Author [facility] Organization [facility] Address Unknown Phone Unavailable Care Team Providers Care Airconditioning Engineer Name Role Phone Maximo Basurto MD PCP Komal Raymond RN Unavailable Unavailable Duke Casiano MD Unavailable Jovani Dixon MD 21 Esha Caputo RN Unavailable Unavailable [place] PhD Unavailable Reason for Visit * Reason Comments Heme/Onc Care Encounter Details Date Type Department Care Team Description 11/17/2017 Lab Only [facility] Duke Casiano MD MDS ([facility]od[facility]am [address] syndrome), low grade [address] (HCC) [place] [address] [place] [address] [phone] Social History Tobacco Use Types Packs/Day Years Used Date Former Smoker Smokeless Tobacco: Never Used Alcohol Use Drinks/Week oz/Week Comments Yes 0 Standard 0.0 rarely drinks or equivalent Sex Assigned at Date Recorded Not on file as of this encounter Plan of Treatment Not on fileas of this encounter Results * CBC AND DIFF (11/17/2017 10:59 AM) Component Value Ref Range White Blood Cells 2.3 (L) 4.5 - 11.0 K/UL RBC 1.81 (L) 4.4 - 5.5 M/UL Hemoglobin 6.3 (L) 13.5 - 16.5 GM/DL Hematocrit 18.6 (L) 40 - 50 % MCV 103.0 (H) 80 - 100 FL MCH 34.9 (H) 26 - 34 PG MCHC 33.9 32.0 - 36.0 G/DL RDW 28.3 (H) 11 - 15 % Platelet Count 212 150 - 400 K/UL MPV 8.0 7 - 11 FL Segmented Neutrophils 30 (L) 41 - 77 % Lymphocytes 56 (H) 24 - 44 % Monocytes 10 4 - 12 % Eosinophil 4 0 - 5 % ANISO PRESENT MACRO PRESENT Platelet Estimate NORMAL Absolute Neutrophil Count 0.69 (L) 1.8 - 7.0 K/UL Manual Specimen Performing Laboratory Blood [facility] [place] [facility] [address] [place] [address] in this encounter Visit Diagnoses Diagnosis MDS (myelodysplastic syndrome), low grade (HCC) Low grade myelodysplastic syndrome lesions
--- OUTSIDE RECORDS SUMMARY | 2018-01-22 06:56 | XMS REPORT | Continuity of Care Document ---
Author Author [facility] Organization [facility] Address Unknown Phone Unavailable Care Team Providers Care Order Processing Clerk Name Role Phone [employer] Unavailable Unavailable Problems Medications Allergies, Adverse Reactions, Alerts Immunizations Results Vital Signs Encounters Location Location Details Encounter Type Encounter Number Reason For Visit Attending Provider ADM Date DC Date Status Source OP SURGERY [id number] ELICEO CERVANTES 04/14/2016 04/14/2016 Active [facility] [place] SER[facility] [id number] ELICEO CERVANTES 11/13/2017 11/13/2017 Active [facility] [place] SER[facility] [id number] PRESTON IRENE 11/17/20172017 Active [facility] O ELICEO CERVANTES Active [facility] Procedures Plan of Care Social History Assessment and Plan Family History Advance Directives Functional Status
--- OUTSIDE RECORDS SUMMARY | 2018-01-22 06:56 | XMS REPORT | Encounter Summary ---
Author Author [facility] Organization [facility] Address Unknown Phone Unavailable Care Team Providers Care Technology Risk Intern Name Role Phone Maximo Basurto MD PCP Komal Raymond RN Unavailable Unavailable Duke Casiano MD Unavailable Jovani Dixon MD 21 Esha Caputo RN Unavailable Unavailable Markos Park PhD Unavailable Reason for Visit * Reason Comments Heme/Onc Care * Consult, Test & Treat (Routine) Status Reason Specialty Diagnoses / Referred By Referred To Procedures Contact Contact No Auth Needed Oncology Diagnoses Monica Casiano Olajire, Douglas Wall MD FORESTRY FOREMAN-FIELD EDUCATION DIRECTOR pancytopenia [address] PAY, Bone Marrow [address] [place] [address] Bi[place] Phone: [phone] rocedures Phone: [place] [facility] [phone] BONE MARROW Fax: [facility]ES [phone] [place] [facility] BONE MARROW ASPIRATIONS PROCEDURE Encounter Details Date Type Department Care Team Description 11/17/2017 Procedure visit [facility] Duke Casiano MD Pancytopenia (HCC); [facility] Exam [address] MDS (myelodysplastic [address] syndrome), [place] [address] [place] [address] (HCC) [phone] Shane Maravilla APRN-NP [address] [place] [address] [phone] Social History Tobacco Use Types Packs/Day Years Used Date Former Smoker Smokeless Tobacco: Never Used Alcohol Use Drinks/Week oz/Week Comments Yes 0 Standard 0.0 rarely drinks or equivalent Sex Assigned at Date Recorded Not on file as of this encounter Last Filed Vital Signs Vital Sign Reading Time Taken Blood Pressure 140/70 11/17/2017 12:10 PM DIRECTOR COUNCIL ON AGING Pulse - - Temperature 36.8 C (98.3 F) 11/17/2017 12:10 PM DIRECTOR COUNCIL ON AGING Respiratory Rate 18 11/17/2017 12:10 PM DIRECTOR COUNCIL ON AGING Oxygen Saturation 100% 11/17/2017 12:10 PM DIRECTOR COUNCIL ON AGING Inhaled Oxygen - - Concentration Weight 77.6 kg (171 lb) 11/17/2017 12:10 PM DIRECTOR COUNCIL ON AGING Height 174 cm (5' 8.5") 11/17/2017 12:10 PM DIRECTOR COUNCIL ON AGING Body Mass Index 25.62 11/17/2017 12:10 PM DIRECTOR COUNCIL ON AGING in this encounter Progress Notes * Shane Anderson APRN-NP - 11/17/2017 12:00 PM DIRECTOR COUNCIL ON AGING See procedure note * Anaid Springer RN - 11/17/2017 12:00 PM DIRECTOR COUNCIL ON AGING Formatting of this note may be different from the original. PROCEDURE ROOM RECORD Room: 2 Time in Room: 1155 Time Out: 1205 Procedure Time Start: 1210 Time Finished: 1245 Pre/post op Diagnosis per Physician: 1. Pancytopenia (HCC) BONE MARROW ASP BONE MARROW ASP BONE MARROW BIOPSY BONE MARROW BIOPSY CHROMOSOMES BONE MARROW CHROMOSOMES BONE MARROW LEUKEMIA/LYMPHOMA PNL, BONE MARROW LEUKEMIA/LYMPHOMA PNL, BONE MARROW HEME PANEL NGS 65 BLD OR BM 2. MDS (myelodysplastic syndrome), low grade (HCC) MISCELLANEOUS LAB TEST CANCELED: MISCELLANEOUS LAB TEST Procedure: Bone marrow biopsy and aspirate Premeds: Ativan 1mg PO Anesthetic: Local Lidocaine Mode of Transportation: ambulation PLAN & IMPLEMENTATION: Give clear and concise information/explaination y Provide a caring and supportive environment y Communicate patient's concerns to other members of the Health Care Team y EVALUATION: The patient verbalized understanding of the procedure and demonstrates less anxiety: Yes Time out performed by: Lizbet Anderson APRN, Anaid Rodriguez Consent obtained, correct patient verified, correct procedure verified, correct site verified, patient marked as necessary. Physician/Surgeon: Lizbet Anderson APRN Computer Programming Supervisor; Audrey Salazar Scrub: Structural Iron Worker: Anaid Springer Prep Area: Left iliac crest Prep Solution: Betadine EVALUATION: Routine Asepsis Maintained: Yes Safety Restraint: Guarded Position: Prone Skin Integrity: Pre-operative: c/d/i Post-operative: Dressing applied Specimen Sent: Yes Discharged: ambulatory Patient Instructions: Patient given written post care instructions. Pt verbalized understanding. Complications: none Patient tolerated procedure: Yes Post-procedure Condition: Stable Per Dr. Casiano, ok for Pt to have Dr. cristobal on Monday in [place] to check labs and get transfusion. Pt states he tolerates low hemoglobin well and will seek medical attention over the weekend if he has any issues. in this encounter Procedure Notes * Shane Anderson APRN-FIELD EDUCATION DIRECTOR - 11/17/2017 12:00 PM DIRECTOR COUNCIL ON AGING Associated Order(s): BIOPSY BONE MARROW PROCEDURE Procedure(s): BIOPSY BONE MARROW PROCEDURE; BONE MARROW ASPIRATION PROCEDURE Pre-Procedure Diagnose(s): Pancytopenia (HCC) Bone Marrow Procedure Note Performing Provider: Shane Anderson APRN Collaborating Provider: Diagnosis: Pancytopenia,MDS Indications: Disease restaging Procedure Details: Consent was obtained from patient, signed copy placed in chart. Risks of the procedure were explained including infection, pain, nerve damage and bleeding. Pt was then pre-medicated with 1 mg oral Ativan. Time out performed: Consent obtained, correct patient verified, correct procedure verified, correct site verified, patient marked as necessary. The patient was positioned in the prone position. The left iliac crest was prepped and draped in sterile fashion with betadine and sterile drapes. 10 ml of 1% Lidocaine was used to anesthetize the skin and bone cortex. An aspirate needle was then inserted into the marrow and fluid obtained. The needle was removed and pressure applied. Next the bone marrow biopsy needle was inserted, a core biopsy was obtained and the needle removed. Pressure was held until hemostasis. Betadine cleaned from skin and bandaide applied. Samples were sent for bone marrow biopsy and aspirate, flow cytometry, Cytogenetics and NGS pane. Complications: None. Patient tolerated procedure well. hSane Anderson APRN-GUILLERMO in this encounter Plan of Treatment Not on fileas of this encounter Procedures Procedure Name Priority Date/Time Associated Diagnosis Comments BONE MARROW ASPIRATION Routine 11/17/2017 Pancytopenia (HCC) Results for this PROCEDURE 12:00 PM DIRECTOR COUNCIL ON AGING procedure are in the results section. BIOPSY BONE MARROW Routine 11/17/2017 Pancytopenia (HCC) Results for this PROCEDURE 12:00 PM DIRECTOR COUNCIL ON AGING procedure are in the results section. in this encounter Results * CYTOGENETICS SCAN (11/27/2017 4:49 PM) Narrative Ordered by an unspecified provider. * BONE MARROW (11/17/2017 1:38 PM) Component Value Ref Range PATHOLOGY REPORT [facility] [email or web address] Department of Pathology and Laboratory Medicine [address] [place] [address] Surgical Pathology Office:[phone]:[phone] SURGICAL PATHOLOGY REPORT NAME: AGUSTIN BUSTOS JASMINA SURG PATH #: [id number] MR #: [id number] ALT ID #: LOCATION: [id number] DATE OF PROCEDURE: 11/17/2017 AGE:76 SEX: M DATE RECEIVED: 11/17/2017 : 1940TIME RECEIVED:13:38 PHYSICIAN: DUKE CASAINO DATE OF REPORT: 11/21/2017 COPY TO:DATE OF PRINTIN11/21/2017 ################################################## ###################### Final Diagnosis: Bone marrow, left iliac crest, aspirate, biopsy, clot, and touch prep: Hypercellular marrow (80%) with trilineage hematopiesis, dysmegakaryopoiesis, left shifted granulocytes and 5% blasts. Peripheral blood smear: Macrocytic anemia, absolute neutropenia, and absolute lymphopenia Attestation: By this signature, I attest that I have personally formulated the final interpretation expressed in this report and that the above diagnosis is based upon my examination of the slides and/or other material indicated in this report. ANDREWS DowResident 11/20/2017 Material Received: A: left bone marrow clot B: left bone marrow biopsy History: 76-year-old male with a history of myelodysplastic syndrome. Gross Description: A. Received in Zinc formalin labeled "left bone marrow clot" is a 4.3 x 1.2 x 0.3 cm aggregate of friable red-brown clotted blood elements. The specimen is serially sectioned and entirely submitted in cassette A1. (lmt) B. Received in Zinc formalin labeled "left bone marrow biopsy" is a 1.3 cm in length and 0.2 cm in diameter cylindrical, yellow-sanchez firm piece of tissue. The specimen is submitted in cassette B1 after decalcification. (lmt) 11/17/2017 Microscopic Description: CBC Data:HGB 6.3 (g/dL); RBC 1.81 (m/uL); MCV 103.0 (FL); RDW 28.3 (%); WBC 2.3 (k/uL); PLT 212 (k/uL). Blood Smear Diff (%): Segmented neutrophils 47; band neutrophils 6; lymphocytes 30; monocytes 11; eosinophils 4; basophils 1; atypical lymphocytes 0; metamyelocytes 1; myelocytes 0; promyelocytes 0; blasts 0; (Nuc RBC=0 per 100 WBC) Blood Smear Morphology: RBC:Macrocytic anemia, anisopoikilocytosis, teardrop cells WBC:Leukopenia, absolute neutropenia with left shift and dysplasia of pseudoPelger-Huet cells, absolute lymphopenia Platelets:Normal Bone Marrow Aspirate/Touch Prep Morphology: Aspirate Adequacy: Adequate Touch Prep Adequacy: Adequate Cellularity:Increased Megakaryocytes:Increased, atypia with hypolobation and micromegakaryocytes Blasts:Increased Erythroid:Normal Granulocytes:Increased with left shift Lymphocytes:Normal Plasma Cells:Normal Bone Marrow Differential Cell Count (%): Blasts:5 Promyelocytes: 3 Myelocytes: 17 Metamyelocytes: 11 Segs/Bands: 28 Eosinophils: 2 Erythroid: 23 Monocytes: 4 Lymphocytes: 6 Plasma cells: 1 M:E ratio: 2.7 Bone Marrow Core Biopsy: Adequacy: Adequate Length:1.0 cm Cellularity:80% Megakaryocytes:Increased, atypia with clustering and hypolobation Hematopoiesis:Resembles aspirate smear / touch prep Atypical Infiltrates:None Bone Marrow Cell Clot: Adequacy: Adequate Cellularity:80% Pertinent Findings:Resembles core biopsy Additional Stains: Iron Stain:Not Performed Immunohistochemistry:Not Performed Chromogenic In Situ Hybridization:Not Performed Other Special Stains:Not Performed Ancillary Studies: Flow Cytometry:Performed, See separate report ([id number]), which reports atypical myeloid blasts (3.3%) and monocytes (3.6%). Cytogenetics:Performed, See separate report Fluorescence In Situ Hybridization:Not Performed Molecular Genetics:Not Performed Preliminary Diagnosis: Not Performed If immunohistochemical stains and/or in situ hybridization are cited in this report, the performance characteristics were determined by the Department of Pathology and Laboratory Medicine of the [facility] ([place] [employer] [facility]) in compliance with CLIA'88 regulations.Some of these tests rely on the use of "analyte specific reagents" and are subject to specific labeling requirements by the FDA. Known positive and negative control tissues demonstrate appropriate staining.Results should be interpreted with caution given the likelihood of false negativity on decalcified specimens.This testing was developed by the Department of Pathology and Laboratory Medicine of the [facility].It has not been cleared or approved by the FDA.The FDA has determined that such clearance or approval is not necessary. Specimen Performing Laboratory [facility] RESULTS * FLOW CYTOMETRY (11/17/2017 12:32 PM) Component Value Ref Range PATHOLOGY REPORT [facility] [email or web address] Tati Sommers MD, Director of Clinical Laboratory Rasta Duenas MD, Director of Flow Cytometry Laboratory Department of Pathology and Laboratory Medicine [address] [place] [address] Surgical Pathology Office:[phone]:[phone] FLOW CYTOMETRY REPORT NAME: AGUSTIN BUSTOS SURG PATH #: [id number] MR #: [id number] SPECIMEN CLASS: BILLING #: [id number] ALT ID #:LOCATION: [facility] DATE OF PROCEDURE: 11/17/2017 AGE:76 SEX: M DATE RECEIVED: 11/17/2017 : 1940TIME RECEIVED:13:50 PHYSICIAN: DUKE CASIANO DATE OF REPORT: 11/20/2017 COPY TO:DATE OF PRINTIN11/20/2017 Material Received: A: Bone Marrow History: 76-year-old male with a history of MDS; routine followup. ################################################## ###################### Final Diagnosis: A. Bone Marrow:Atypical myeloid blasts (3.3%) and monocytes (3.6%). See interpretation. Interpretation: Myeloid blasts comprise 3.3% of total events and show increased and aberrant expression of CD56, and Increased CD117 and decreased CD38 expression. Monocytes comprise 3.6% with aberrant expression of CD56. These results are diagnostic of atypical myeloid blasts and monocytes. Attestation: By this signature, I attest that I have personally formulated the final interpretation expressed in this report and that the above diagnosis is based upon my examination of the slides and/or other material indicated in this report. +++Electronically Signed Out By+++ btp/11/17/2017 Interpreted by: MD Jane Leo MD Resident 11/20/2017 ################################################## ###################### Lab Data: Flow Cytometry - Acute Myeloid Leukemia, Minimal Residual Disease Panel Analytic sensitivity of the lower detection limit in this assay is 0.01% Myeloid Associated Markers (% Positive Cells): DC02j=4; CD13=26; CD14=0; CD15=0; CD33=17; CD36=5; CD64=1; ZH533=32; B Cell Associated Markers (% Positive Cells): CD19=0; CD22=1; T Cell Associated Markers (% Positive Cells): CD2=1; CD4=1; CD5=1; CD7=2; Miscellaneous Markers (% Positive Cells): MN61=218; CD38=80; OZ36=171; CD56=72; PL528=7; HLA-Dr=99; Cell Viability (%): n/a Number of Cells Analyzed: 500,000 Total Number of Markers: 32 Summary of Marker Combinations: /33/11b/34/13///; Dr/117/4/34/123///; /56/36/34/64/45/14/;11/30//34/15/// This test was developed and its performance characteristics determined by the [facility] Flow Cytometry Laboratory.It has not been cleared or approved by the U.S. Food and Drug Administration (FDA).The FDA has determined that such clearance or approval is not necessary. Specimen Performing Laboratory [facility] RESULTS * HEME PANEL NGS 65 BLD OR BM (11/17/2017 12:32 PM) Component Value Ref Range Heme Panel NGS 65 BLD or SEE VBA DEVELOPER FOR REPORT Bone Marrow Specimen Performing Laboratory [facility] * LEUKEMIA/LYMPHOMA PNL, BONE MARROW (11/17/2017 12:32 PM) Component Value Ref Range Leuk/Lymph Interpretation SEE PATHOLOGY REPORT Specimen/LLM BONE MARROW Specimen Performing Laboratory [facility] [address] [place] [id number] * CHROMOSOMES BONE MARROW (11/17/2017 12:32 PM) Component Value Ref Range Chromosomes Bone Marrow SEE VBA DEVELOPER FOR REPORT Specimen Performing Laboratory Bone Marrow [facility] [address] [place] [id number] * BONE MARROW BIOPSY (11/17/2017 12:32 PM) Component Value Ref Range Bone Marrow Bx SEE PATHOLOGY REPORT Specimen Performing Laboratory [facility] [address] [place] [id number] * BONE MARROW ASP (11/17/2017 12:32 PM) Component Value Ref Range Bone Marrow Asp SEE PATHOLOGY REPORT Specimen Performing Laboratory [facility] [address] [place] [address] * BIOPSY BONE MARROW PROCEDURE (11/17/2017 12:00 PM) Specimen Performing Laboratory OTHER OUTSIDE LAB Narrative Shane Anderson APRN-FIELD EDUCATION DIRECTOR 11/17/20171:30 PM Bone Marrow Procedure Note Performing Provider: Shane Anderson APRN Collaborating Provider: Diagnosis: Pancytopenia,MDS Indications: Disease restaging Procedure Details: Consent was obtained from patient, signed copy placed in chart. Risks of the procedure were explained including infection, pain, nerve damage and bleeding. Pt was then pre-medicated with 1 mg oral Ativan. Time out performed: Consent obtained, correct patient verified, correct procedure verified, correct site verified, patient marked as necessary. The patient was positioned in the prone position.The left iliac crest was prepped and draped in sterile fashion with betadine and sterile drapes.10 ml of 1% Lidocaine was used to anesthetize the skin and bone cortex. An aspirate needle was then inserted into the marrow and fluid obtained.The needle was removed and pressure applied.Next the bone marrow biopsy needle was inserted, a core biopsy was obtained and the needle removed. Pressure was held until hemostasis.Betadine cleaned from skin and bandaide applied. Samples were sent for bone marrow biopsy and aspirate, flow cytometry,Cytogenetics and NGS pane. Complications: None.Patient tolerated procedure well. LOIDA Rodriguez in this encounter Visit Diagnoses Diagnosis Pancytopenia (HCC) Other pancytopenia MDS (myelodysplastic syndrome), low grade (HCC) Low grade myelodysplastic syndrome lesions Administered Medications Medication Order MAR Action Action Date Dose Rate Site LORazepam (ATIVAN) tablet 1 mg Given 11/17/2017 1 mg 1 mg, Oral, ONCE, 1 dose, Mon11/17/17 at 11:02 DIRECTOR COUNCIL ON AGING 1100 in this encounter
--- OUTSIDE RECORDS SUMMARY | 2018-01-22 06:56 | XMS REPORT | Encounter Summary ---
Author Author [facility] Organization [facility] Address Unknown Phone Unavailable Care Team Providers Care Equipment Validation Specialist Name Role Phone Maximo Basurto MD PCP Komal Raymond RN Unavailable Unavailable Duke Casiano MD Unavailable Jovani Dixon MD 21 Esha Caputo RN Unavailable Unavailable [place] PhD Unavailable Reason for Visit * Reason Comments Preop Exam pre bone marrow biopsy eval Encounter Details Date Type Department Care Team Description 11/16/2017 Telephone [facility] Duke Casiano MD Preop Exam (pre bone [facility] Exam [address] marrow biopsy eval) [address] [place] [address] [place] [address] [phone] Social History Tobacco Use Types Packs/Day Years Used Date Former Smoker Smokeless Tobacco: Never Used Alcohol Use Drinks/Week oz/Week Comments Yes 0 Standard 0.0 rarely drinks or equivalent Sex Assigned at Date Recorded Not on file as of this encounter Plan of Treatment Not on fileas of this encounter Visit Diagnoses Not on filein this encounter
--- OUTSIDE RECORDS SUMMARY | 2018-01-22 06:56 | XMS REPORT | Clinical Summary ---
Author [facility] Address Unknown Phone Unavailable Care Team Providers Care Railroad Car Cleaner Name Role Phone Maximo Basurto MD PCP Komal Raymond RN Unavailable Unavailable Duke Cervantes MD Unavailable Jovani Dixon MD 21 Esha Caputo RN Unavailable Unavailable Markos Park PhD Unavailable Source Comments Some departments are not documenting in the electronic medical record. If you do not see the information that you expected, contact Release of Information in the Health Information Management department at [phone] for further assistance in locating additional records.[facility] Allergies No Known Allergies Current Medications Prescription Sig. Disp. Refills Start End Date Status Date finasteride (PROSCAR) 5 Take 5 mg by mouth daily. Active mg tablet pantoprazole DR Take 40 mg by mouth Active (PROTONIX) 40 mg tablet daily. MULTIVITAMIN PO Take by mouth. Active REVLIMID 5 mg capsule 09/20/20 Active 17 potassium chloride(+) 10/25/19 Active (KLOR-CON 8) 8 mEq tablet 18 Active Problems Problem Noted Date MDS (myelodysplastic syndrome), low grade (HCC) 11/03/2016 Overview: I have interviewed and examined Mr. Herrera and I have reviewed his medical records and laboratory results. He is a 76-year-old man with a good performance status. He [...] for ALEN. 3. Therapy with oral Revlimid. he was started on a trial of Revlimid and required dose reductions. Based on review of his records, he actually had a very good hematologic response with a hemoglobin persistently over 10. Revlimid was then discontinued due to neutropenia, The patient seems to have had a very fair response to Revlimid and in the future (5 mg daily))this can be utilized and probably with addition of growth factor of Neupogen to avoid the neutropenia. 4. Clinical trials. I have discussed with the patient a clinical trial that was developed in [facility], which reports combination of promacta and Revlimid, [...] refractory anemia requiring frequent transfusions. 6. ATG /CS/Predninne , see below Diagnosis: MDS, low risk Cytogenetics: XY; normal [...] (discontinued in March 2016 due to thrombocytopenia/leukopenia) Cyclosporine and prednisone : excellent response and was discontinued 10/2017 for renal dysfunction Revlimid 5 mg PO QOD uninterrupted started 10/23/17 Last Assessment & Plan: Mr. 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 He is transfusion dependent every other week. He was started on Revlimid 5 mg every other day with plans to change to 2.5 mg daily. At this time we recommend continuing Revlimid regardless of WBC. If ANC reaches < 0.50 we recommend Neupogen 480 mcg twice weekly. Since his last bone marrow biopsy was 1.5 years. Repeat bone marrow biopsy with flow, biopsy, and cytogenetics. We wrote our recommendations on a piece of paper so patient can take to Dr. Wynne his primary oncologist. Based on bone marrow biopsy may have additional treatment recommendations. He still has not had exposure to HMA. Return to clinic in 3 months or sooner if needed. Patient seen and discussed with Dr. Cervantes. Encounters Date Type Specialty Care Team Description 11/17/2017 Procedure visit Oncology Duke Cervantes MD Pancytopenia (HCC); Shane Anderson APRN-NP MDS (myelodysplastic syndrome), low grade (HCC) 11/17/2017 Lab Only Oncology Duke Cervantes MD MDS ( myelodysplastic syndrome), low grade (HCC) 11/16/2017 Telephone Oncology Duke Cervantes MD Preop Exam (pre bone marrow biopsy eval) 11/13/2017 Office Visit Oncology Duke Cervantes MD MDS ( myelodysplastic syndrome), low grade (HCC) (Primary Dx); Pancytopenia (HCC) from Last 3 Months Family History Medical History Relation Name Comments Cancer-Lung Maternal Aunt Cancer Mother Stroke Paternal Grandfather Relation Name Status Comments Maternal Aunt Mother Paternal Grandfather Social History Tobacco Use Types Packs/Day Years Used Date Former Smoker Smokeless Tobacco: Never Used Alcohol Use Drinks/Week oz/Week Comments Yes 0 Standard 0.0 rarely drinks or equivalent Sex Assigned at Date Recorded Not on file Last Filed Vital Signs Vital Sign Reading Time Taken Blood Pressure 140/70 11/17/2017 12:10 PM OPERATIONS OFFICER AFLOAT Pulse 91 11/13/2017 11:23 AM OPERATIONS OFFICER AFLOAT Temperature 36.8 C (98.3 F) 11/17/2017 12:10 PM OPERATIONS OFFICER AFLOAT Respiratory Rate 18 11/17/2017 12:10 PM OPERATIONS OFFICER AFLOAT Oxygen Saturation 100% 11/17/2017 12:10 PM OPERATIONS OFFICER AFLOAT Inhaled Oxygen - - Concentration Weight 77.6 kg (171 lb) 11/17/2017 12:10 PM OPERATIONS OFFICER AFLOAT Height 174 cm (5' 8.5") 11/17/2017 12:10 PM OPERATIONS OFFICER AFLOAT Body Mass Index 25.62 11/17/2017 12:10 PM OPERATIONS OFFICER AFLOAT Plan of Treatment Health Maintenance Due Date Last Done Comments PHYSICAL (COMPREHENSIVE) 1947 EXAM PERTUSSIS VACCINE 1951 TETANUS VACCINE 1957 SHINGLES VACCINE 2000 PREVNAR/PNEUMOVAX (#1) 2005 INFLUENZA VACCINE 07/09/2018 Procedures Procedure Name Priority Date/Time Associated Diagnosis Comments BONE MARROW ASPIRATION Routine 11/17/2017 Pancytopenia (HCC) Results for this PROCEDURE 12:00 PM OPERATIONS OFFICER AFLOAT procedure are in the results section. BIOPSY BONE MARROW Routine 11/17/2017 Pancytopenia (HCC) Results for this PROCEDURE 12:00 PM OPERATIONS OFFICER AFLOAT procedure are in the results section. from Last 3 Months Results * KENTRELL PATH MOLEC REF LAB SCAN (12/05/2017 1:47 PM) Narrative Ordered by an unspecified provider. * CYTOGENETICS SCAN (11/27/2017 4:49 PM) Narrative Ordered by an unspecified provider. * BONE MARROW (11/17/2017 1:38 PM) Component Value Ref Range PATHOLOGY REPORT [facility] [email or web address] Department of Pathology and Laboratory Medicine [address] [place] [address] Surgical Pathology Office:[phone]:[phone] SURGICAL PATHOLOGY REPORT NAME: AGUSTIN HERRERA SURG PATH #: [id number] MR #: [id number] ALT ID #: LOCATION: [facility] DATE OF PROCEDURE: 11/17/2017 AGE:76 SEX: M DATE RECEIVED: 11/17/2017 : 1940TIME RECEIVED:13:38 PHYSICIAN: DUKE CERVANTES DATE OF REPORT: 11/21/2017 COPY TO:DATE OF [...] material indicated in this report. ANDREWS DowResident xc/11/20/2017 Material Received: A: left bone marrow clot [...] of Pathology and Laboratory Medicine of the [facility] ([employer]) in compliance with CLIA'88 regulations.Some [...] of Pathology and Laboratory Medicine of the [facility].It has not been cleared or approved by the FDA.The FDA has determined that such clearance or approval is not necessary. Specimen Performing Laboratory [facility] RESULTS * HEME PANEL NGS 65 BLD OR BM (11/17/2017 12:32 PM) Component Value Ref Range Heme Panel NGS 65 BLD or SEE CALL CENTER OPERATOR FOR REPORT Bone Marrow Specimen Performing Laboratory REFERENCE LAB * FLOW CYTOMETRY (11/17/2017 12:32 PM) Component Value Ref Range PATHOLOGY REPORT [facility] [email or web address] Tati Sommers MD, Director of Clinical Laboratory Rasta Duenas MD, Director of Flow Cytometry Laboratory Department of Pathology and Laboratory Medicine [address] [place] [address] Surgical Pathology Office:[phone]:[phone] FLOW CYTOMETRY REPORT NAME: AGUSTIN HERRERA SURG PATH #: [id number] MR #: [id number] SPECIMEN CLASS: LC BILLING #: [id number] ALT ID #:LOCATION: [facility] DATE OF PROCEDURE: 11/17/2017 AGE:76 SEX: M DATE RECEIVED: 11/17/2017 : 1940TIME RECEIVED:13:50 PHYSICIAN: DUKE CERVANTES DATE OF REPORT: 11/20/2017 COPY TO:DATE OF [...] 0.01% Myeloid Associated Markers (% Positive Cells): UW24s=3; CD13=26; CD14=0; CD15=0; CD33=17; CD36=5; CD64=1; BA796=67; B Cell Associated Markers (% Positive Cells): CD19=0; CD22=1; T Cell Associated Markers (% Positive Cells): CD2=1; CD4=1; CD5=1; CD7=2; Miscellaneous Markers (% Positive Cells): ST81=282; CD38=80; RP53=086; CD56=72; YI149=3; HLA-Dr=99; Cell Viability (%): n/a Number of Cells Analyzed: 500,000 Total Number of Markers: 32 Summary of Marker Combinations: 7/33/11b/34/13///19; Dr/117/4/34/123///; Dr/56/36/34/64//14/;11/30//34/15// This test was developed and its performance characteristics determined by the [facility] Flow Cytometry Laboratory.It has not been cleared or approved by the U.S. Food and Drug Administration (FDA).The FDA has determined that such clearance or approval is not necessary. Specimen Performing Laboratory LAB RESULTS * LEUKEMIA/LYMPHOMA PNL, BONE MARROW (11/17/2017 12:32 PM) Component Value Ref Range Leuk/Lymph Interpretation SEE PATHOLOGY REPORT Specimen/LLM BONE MARROW Specimen Performing Laboratory Bone Marrow MAIN LAB [address] [place] [address] * CHROMOSOMES BONE MARROW (11/17/2017 12:32 PM) Component Value Ref Range Chromosomes Bone Marrow SEE CALL CENTER OPERATOR FOR REPORT Specimen Performing Laboratory Bone Marrow [facility] MAIN LAB [address] [place] [address] * BONE MARROW ASP (11/17/2017 12:32 PM) Component Value Ref Range Bone Marrow Asp SEE PATHOLOGY REPORT Specimen Performing Laboratory Bone Marrow MAIN LAB [address] [place] [address] * BONE MARROW BIOPSY (11/17/2017 12:32 PM) Component Value Ref Range Bone Marrow Bx SEE PATHOLOGY REPORT Specimen Performing Laboratory Bone Marrow MAIN LAB [address] [place] [address] * BIOPSY BONE MARROW PROCEDURE (11/17/2017 12:00 PM) Specimen Performing Laboratory OTHER OUTSIDE LAB Narrative Shane Anderson APRN-GUEST ATTENDANT 11/17/20171:30 PM Bone Marrow Procedure Note Performing [...] NGS pane. Complications: None.Patient tolerated procedure well. Olajire Kilanko, TELEPHONE BETTING CLERK-GUEST ATTENDANT * CBC AND DIFF (11/17/2017 10:59 AM) Only the most recent of 2 results within the time period is included. Component Value Ref Range White Blood Cells [...] 7.0 K/UL Manual Specimen Performing Laboratory Blood [facility] [address] [place] [address] * BLOOD BANK SAMPLE HOLD (11/13/2017 10:26 AM) Component Value Ref Range BB Sample hold IN LAB Specimen Performing Laboratory Blood [facility] [address] [place] [address] * COMPREHENSIVE METABOLIC PANEL (11/13/2017 10:26 AM) Component Value Ref Range Sodium 136 (L) 137 - 147 MMOL/L Potassium 3.8 3.5 - 5.1 MMOL/L Chloride 106 98 - 110 MMOL/L Glucose 93 70 - 100 MG/DL Blood Urea Nitrogen 17 7 - 25 MG/DL Creatinine 1.03 0.4 - 1.24 MG/DL Calcium 9.1 8.5 - 10.6 MG/DL Total Protein 6.9 6.0 - 8.0 G/DL Total Bilirubin 0.6 0.3 - 1.2 MG/DL Albumin 4.2 3.5 - 5.0 G/DL Alk Phosphatase 54 25 - 110 U/L AST (SGOT) 15 7 - 40 U/L CO2 24 21 - 30 MMOL/L ALT (SGPT) 21 7 - 56 U/L Anion Gap 6 3 - 12 eGFR Non >60 >60 mL/min Comment: The eGFR is not validated for use in drug dosing adjustments.Continue to use estimated creatinine clearance per dosing reference text.Please contact the Clinical Pharmacist for questions. eGFR >60 >60 mL/min Comment: The eGFR is not validated for use in drug dosing adjustments.Continue to use estimated creatinine clearance per dosing reference text.Please contact the Clinical Pharmacist for questions. Specimen Performing Laboratory Blood [facility] [address] [place] [address] from Last 3 Months
--- OUTSIDE RECORDS SUMMARY | 2018-01-22 06:57 | XMS REPORT | Encounter Summary ---
Author Author [facility] Organization [facility] Address Unknown Phone Unavailable Care Team Providers Care Fitness Worker Name Role Phone Maximo Basurto MD PCP Komal Raymond RN Unavailable Unavailable Duke Casiano MD Unavailable Jovani Dixon MD 21 Esha Caputo RN Unavailable Unavailable Markos Park PhD Unavailable Reason for Visit * Reason Comments Heme/Onc Care Encounter Details Date Type Department Care Team Description 11/13/2017 Office Visit [facility] Duke Casiano MD MDS ([facility]elodysplastic [facility] Exam [address] syndrome), low grade [address] [place] [address] (HCC) (Primary Dx); [place] [address] [place] [address] Pancytopenia (HCC) [phone] Social History Tobacco Use Types Packs/Day Years Used Date Former Smoker Smokeless Tobacco: Never Used Alcohol Use Drinks/Week oz/Week Comments Yes 0 Standard 0.0 rarely drinks or equivalent Sex Assigned at Date Recorded Not on file as of this encounter Last Filed Vital Signs Vital Sign Reading Time Taken Blood Pressure 145/65 11/13/2017 11:23 AM COAT ROOM ATTENDANT Pulse 91 11/13/2017 11:23 AM COAT ROOM ATTENDANT Temperature 36.8 C (98.2 F) 11/13/2017 11:23 AM COAT ROOM ATTENDANT Respiratory Rate 16 11/13/2017 11:23 AM COAT ROOM ATTENDANT Oxygen Saturation 100% 11/13/2017 11:23 AM COAT ROOM ATTENDANT Inhaled Oxygen - - Concentration Weight 77.7 kg (171 lb 6.4 oz) 11/13/2017 11:23 AM COAT ROOM ATTENDANT Height 174 cm (5' 8.5") 11/13/2017 11:23 AM COAT ROOM ATTENDANT Body Mass Index 25.68 11/13/2017 11:23 AM COAT ROOM ATTENDANT in this encounter Instructions * Patient Instructions - Jennifer Cheung RN - 11/13/2017 11:40 AM COAT ROOM ATTENDANT We understand that your time is important and want your visit to be as timely as possible. In order for your appointments to occur as closely as possible to the scheduled time, please review the following additional instructions. ? Please arrive 15 minutes prior to your first scheduled appointment time to complete the registration process. ? Bring your photo ID and insurance card with you to check in o If your first appointment is with lab (blood draw) or with your provider, check in on the second floor (Main level). o If your appointment is for lab (blood draw) only, check in on the third floor. in this encounter Progress Notes * Duke Casiano MD - 11/13/2017 11:40 AM COAT ROOM ATTENDANT Formatting of this note may be different from the original. Name: Chas Herrera : 1940 AGE: 76 y.o. DATE OF SERVICE: 11/13/2017 Subjective: Reason for Visit: Follow up MDS Heme/Onc Care Chas Herrera is a 76 y.o. male. No matching staging information was found for the patient. Mr. Herrera is referred to the Hematology and Oncology for evaluation and a second opinion for MDS. Chas Herrera is a 75-year-old man. 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 He has good general health and well-controlled comorbidities that include hypertension, hyperlipidemia, and BPH. He presented to [facility] in July with severe anemia with hemoglobin of 6.8 , requiring transfusion. He was subsequently hospitalized for an infection, which has resulted in prolonged recovery. He was referred to the Hematology/ Oncology through Dr. Pace and transferred to [place]. A bone marrow biopsy was indicated and performed. A bone marrow biopsy showed myelodysplastic syndrome, and subsequently, the patient has been on observation and transfusion since then. No cytotoxic therapy or growth factors has been offered so far. The patient is here for initial evaluation. His major morbidity is related to severe symptomatic anemia with severe fatigue and dyspnea on exertion. He denies active bleeding or bruising. He denies recurrent or severe infections except for one viral gastroenteritis in the last 3 months. In retrospect, the patient reports progressive fatigue for over 6 months. The patient had hematological improvement and has been transfusion independent for the last 6-7 weeks. He has been accompanied by his and his daughters today. Interval History: Mr. Herrera is a 76 year old male who presents for routine follow up of his MDS. He was doing well on cyclosporine and going quite a few weeks in between transfusions. However, he developed renal insufficiency so cyclosporine was stopped. He was started on revlimib 5 mg QOD starting 10/23/17. Since that time he has had no infection or bleeding. His primary oncologist has plans to transition to 2.5 mg daily. Patient unfortunately has a lot of stress at home including his youngest daughter who has a primary C DEVELOPER malignancy and multiple complications from prior resection. She is at [facility] in the ICU. Review of Systems Constitutional: Positive for fatigue. HENT: Negative. Respiratory: Positive for shortness of breath. Cardiovascular: Negative. Gastrointestinal: Negative. Genitourinary: Negative. Musculoskeletal: Negative. Skin: Negative. Neurological: Positive for light-headedness. Hematological: Negative. Psychiatric/Behavioral: Negative. Objective: finasteride (PROSCAR) 5 mg tablet Take 5 mg by mouth daily. MULTIVITAMIN PO Take by mouth. pantoprazole DR (PROTONIX) 40 mg tablet Take 40 mg by mouth daily. potassium chloride(+) (KLOR-CON 8) 8 mEq tablet REVLIMID 5 mg capsule Vitals: 11/13/17 1123 BP: 145/65 Pulse: 91 Resp: 16 Temp: 36.8 C (98.2 F) SpO2: 100% Weight: 77.7 kg (171 lb 6.4 oz) Height: 174 cm (68.5") Body mass index is 25.68 kg/m. Pain Score: Zero Pain Addressed: N/A Patient Evaluated for a Clinical Trial: Patient not eligible for a treatment trial (including not needing treatment, needs palliative care, in remission). Eastern Cooperative Oncology Group performance status is 1, Restricted in physically strenuous activity but ambulatory and able to carry out work of a light or sedentary nature, e.g., light house work, office work. Physical Exam Constitutional: He is oriented to person, place, and time. He appears well- developed and well-nourished. HENT: Head: Normocephalic and atraumatic. Eyes: EOM are normal. Pupils are equal, round, and reactive to light. Neck: Normal range of motion. Neck supple. Cardiovascular: Normal rate and regular rhythm. II/ systolic murmur YOSHI border Pulmonary/Chest: Effort normal and breath sounds normal. No respiratory distress. Abdominal: Soft. Bowel sounds are normal. He exhibits no distension. Musculoskeletal: Normal range of motion. He exhibits no edema. Neurological: He is alert and oriented to person, place, and time. Skin: Skin is warm and dry. Psychiatric: He has a normal mood and affect. Assessment and Plan: Problem Mds (Myelodysplastic Syndrome), Low Grade (Hcc) I have interviewed and examined Mr. Herrera [...] were normal karyotype. The patient had FISH evaluation , was negative for 5q minus and other [...] a clinical trial that was developed in [facility], which reports combination of promacta [...] Myelodysplastic syndrome, hypercellular marrow (80%), dysmegakaryopoiesis, and 1 % blasts. Smear: Macrocytic anemia, absolute neutropenia, and thrombocytopenia Flow: Myeloid blasts comprise 0.1% of total events and show normal antigen expression. There is no immunophenotypic evidence of acute myeloid leukemia or neoplastic myeloid blasts. EPO: Elevated (not a candidate for ESAs) Previous Treatment: Revlimid 5 mg po D1-21 (discontinued in March 2016 due to thrombocytopenia/ leukopenia) Cyclosporine and prednisone : excellent response and was discontinued 10/2017 for renal dysfunction Revlimid 5 mg PO QOD uninterrupted started 10/23/17 MDS (myelodysplastic syndrome), low grade (HCC) Mr. Herrera has persistent anemia which is [...] needed. Patient seen and discussed with Dr. Casiano. ATTESTATION I personally performed the quiroz portions of the E/M visit, discussed case with resident and concur with resident documentation of history, physical exam, assessment, and treatment plan unless otherwise noted. I have counseled the patient bout the need for a BM biopsy. I have explained the side effecs, risks and indications. Side effects include local pain and bleeding as well as nerve injury. The patient agreed to proceed with the biopsy and all questions were answered to the patient's satisfaction. Lumbar biopsy was done in the interim which showed progression with 5% blasts. This will force the patient to be a higher risk disease and I think he should receive hypo-methylating agent therapy and discontinue Revlimid. Will clinic at this recommendation of care with Dr. Wynne. Staff name: Duke Casiano MD Date: 11/13/2017 in this encounter Miscellaneous Notes * Assessment & Plan Note - Bernabe Hamilton DO - 11/13/2017 12:23 PM COAT ROOM ATTENDANT Associated Problem(s): MDS (myelodysplastic syndrome), low grade (HCC) Mr. Herrera has persistent anemia which is [...] needed. Patient seen and discussed with Dr. Casiano. in this encounter Plan of Treatment Name Priority Associated Diagnoses Order Schedule BONE MARROW ASPIRATION PROCEDURE Routine Pancytopenia ([facility]) Expected: , Expires: 11/13/2018 CBC AND DIFF Routine MDS (myelodysplastic Expected: 02/19/2018 syndrome), low grade (Approximate), Expires: (HCC) 11/13/2018 COMPREHENSIVE METABOLIC PANEL Routine MDS (myelodysplastic Expected: syndrome), low grade (Approximate), Expires: ([facility]) 11/13/2018 as of this encounter Results * [facility]RE[facility] PATH MOLEC REF LAB SCAN (12/05/2017 1:47 PM) Narrative Ordered by an unspecified provider. * CHROMOSOMES BONE MARROW (11/17/2017 12:32 PM) Component Value Ref Range Chromosomes Bone Marrow SEE FLOOR CASHIER FOR REPORT Specimen Performing Laboratory Bone Marrow MAIN LAB [address] [place] [address] * LEUKEMIA/LYMPHOMA PNL, BONE MARROW (11/17/2017 12:32 PM) Component Value Ref Range Leuk/Lymph Interpretation SEE PATHOLOGY REPORT Specimen/LLM BONE MARROW Specimen Performing Laboratory Bone Marrow MAIN LAB [address] [place] [address] * BONE MARROW BIOPSY (11/17/2017 12:32 PM) Component Value Ref Range Bone Marrow Bx SEE PATHOLOGY REPORT Specimen Performing Laboratory Bone Marrow MAIN LAB [address] [place] [address] * BONE MARROW ASP (11/17/2017 12:32 PM) Component Value Ref Range Bone Marrow Asp SEE PATHOLOGY REPORT Specimen Performing Laboratory Bone Marrow MAIN LAB [address] [place] [address] * BIOPSY BONE MARROW PROCEDURE (11/17/2017 12:00 PM) Specimen Performing Laboratory OTHER OUTSIDE LAB Narrative Shane Anderson APRN-FOREIGN LEGAL CONSULTANT 11/17/20171:30 PM Bone Marrow Procedure Note Performing [...] NGS pane. Complications: None.Patient tolerated procedure well. Shane Anderson APRN-FOREIGN LEGAL CONSULTANT * CBC AND DIFF (11/17/2017 10:59 AM) [...] 7.0 K/UL Manual Specimen Performing Laboratory Blood [facility] [address] [place] [address] in this encounter Visit Diagnoses Diagnosis MDS (myelodysplastic syndrome), low grade (HCC) - Primary Low grade myelodysplastic syndrome lesions Pancytopenia (HCC) Other pancytopenia
--- OUTSIDE RECORDS SUMMARY | 2018-01-22 06:58 | XMS REPORT | Continuity of Care Document ---
Author Author [facility] C[facility] of [facility] Ctr of [facility] Address Unknown Phone Unavailable Allergies Active Description Code Type Severity Reaction Onset Reported/Identified Relationship to Patient Clinical Status Yes No Known Drug Allergies [id number] Drug Allergy Unknown N/A 09/10/2015 Medications There is no data. Problems Date Dx Coded Attending Type Code Diagnosis Diagnosed By CAMERON CHINCHILLA, LALO Moya D46.9 MYELODYSPLASTIC SYNDROME, UNSPECIFIED CAMERON CHINCHILLA, LALO Ot D53.9 NUTRITIONAL ANEMIA, UNSPECIFIED CAMERON CHINCHILLA, LALO Ot E78.5 HYPERLIPIDEMIA, UNSPECIFIED CAMERON CHINCHILLA, LALO Ot I10 ESSENTIAL (PRIMARY) HYPERTENSION CAMERON CHINCHILLA, LALO Ot N40.0 ENLARGED PROSTATE WITHOUT LOWER URINARY CAMERON CHINCHILLA, LALO Ot Z79.899 OTHER PENITENTIARY (CURRENT) DRUG THERAPY 08/04/2014 LIVIA BRAVO DO V06.1 TDAP DX 07/29/2015 OTILIO CHINCHILLA, CHAKA Ospina Ot D64.9 08/31/2015 CAMERON CHINCHILLA, LALO Ot D53.9 08/31/2015 CAMERON CHINCHILLA, LALO Ot D72.819 08/31/2015 CAMERON CHINCHILLA, LALO Ot E78.5 08/31/2015 CAMERON CHINCHILLA, LALO Ot I10 09/10/2015 CAMERON CHINCHILLA, LALO Ot D53.9 09/10/2015 CAMERON CHINCHILLA, LALO Ot D72.819 09/10/2015 CAMERON CHINCHILLA, LALO Ot E78.5 09/10/2015 CAMERON CHINCHILLA, LALO Ot I10 09/12/2015 OTILIO CHINCHILLA, CHAKA Ospina Ot D64.9 09/12/2015 CAMERON CHINCHILLA, LALO Ot D53.9 09/12/2015 CAMERON CHINCHILLA, LALO Ot D72.819 09/12/2015 CAMERON CHINCHILLA, [facility] Ot E78.5 09/12/2015 CAMERON CHINCHILLA, [facility] Ot I10 09/12/2015 OTILIO CHINCHILLA, CHAKA Ospina Ot A08.4 09/12/2015 OTILIO CHINCHILLA, CHAKA Ospina Ot A41.9 09/12/2015 OTILIO CHINCHILLA, CHAKA Ospina Ot D46.9 09/12/2015 OTILIO CHINCHILLA, CHAKA Ospina Ot F41.9 09/12/2015 OTILIO CHINCHILLA, CHAKA Ospina Ot A08.4 09/12/2015 OTILIO CHINCHILLA, CHAKA Ospina Ot A41.9 09/12/2015 OTILIO CHINCHILLA, CHAKA Ospina Ot D46.9 09/12/2015 OTILIO CHINCHILLA, CHAKA Ospina Ot F41.9 09/12/2015 OTILIO CHINCHILLA, CHAKA Ospina Ot A08.4 09/12/2015 OTILIO CHINCHILLA, CHAKA Ospina Ot A41.9 09/12/2015 OTILIO CHINCHILLA, CHAKA Ospina Ot D46.9 09/12/2015 OTILIO CHINCHILLA, CHAKA Ospina Ot F41.9 09/12/2015 OTILIO CHINCHILLA, CHAKA Ospina Ot A08.4 09/12/2015 OTILIO CHINCHILLA, CHAKA Ospina Ot A41.9 09/12/2015 OTILIO CHINCHILLA, CHAKA Ospina Ot D46.9 09/12/2015 OTILIO CHINCHILLA, CHAKA Ospina Ot F41.9 09/13/2015 OTILIO CHINCHILLA, CHAKA Ospina Ot A08.4 VIRAL INTESTINAL INFECTION, UNSPECIFIED 09/13/2015 OTILIO CHINCHILLA, CHAKA Ospina Ot A41.9 SEPSIS, UNSPECIFIED ORGANISM 09/13/2015 OTILIO CHINCHILLA, CHAKA Ospina Ot D46.9 MYELODYSPLASTIC SYNDROME, UNSPECIFIED 09/13/2015 OTILIO CHINCHILLA, CHAKA Ospina Ot E78.5 HYPERLIPIDEMIA, UNSPECIFIED 09/13/2015 OTILIO CHINCHILLA, CHAKA Ospina Ot E86.0 DEHYDRATION 09/13/2015 OTILIO CHINCHILLA, CHAKA Ospina Ot F41.9 ANXIETY DISORDER, UNSPECIFIED 09/13/2015 OTILIO CHINCHILLA, CHAKA Ospina Ot I10 ESSENTIAL (PRIMARY) HYPERTENSION 09/13/2015 OTILIO CHINCHILLA, CHAKA Ospina Ot N40.0 ENLARGED PROSTATE WITHOUT LOWER URINARY 09/16/2015 JAREN CHINCHILLA, CATALINO Pham Ot B37.0 CANDIDAL STOMATITIS 09/16/2015 JAREN CHINCHILLA, CATALINO Pham Ot D46.9 MYELODYSPLASTIC SYNDROME, UNSPECIFIED 09/16/2015 JAREN CHINCHILLA, CATALINO Pham Ot J90 PLEURAL EFFUSION, NOT ELSEWHERE CLASSIFI 09/16/2015 JAREN CHINCHILLA, CATALINO Pham Ot R79.1 ABNORMAL COAGULATION PROFILE 09/16/2015 JAREN CHINCHILLA, CATALINO Pham Ot R91.8 OTHER NONSPECIFIC ABNORMAL FINDING OF VERA 10/20/2015 CAMERON CHINCHILLA, LALO Ot D53.9 10/20/2015 CAMERON CHINCHILLA, LALO Ot D72.819 10/20/2015 CAMERON CHINCHILLA, LALO Ot E78.5 10/20/2015 CAMERON CHINCHILLA, LALO Ot I10 10/21/2015 OTILIO CHINCHILLA, CHAKA Ospina Ot D64.9 ANEMIA, UNSPECIFIED 11/03/2015 CAMERON CHINCHILLA, LALO Ot D53.9 NUTRITIONAL ANEMIA, UNSPECIFIED 11/03/2015 CAMERON CHINCHILLA, LALO Ot D72.819 DECREASED WHITE BLOOD CELL COUNT, UNSPEC 11/03/2015 CAMERON CHINCHILLA, LALO Ot E78.5 HYPERLIPIDEMIA, UNSPECIFIED 11/03/2015 CAMERON CHINCHILLA, LALO Ot I10 ESSENTIAL (PRIMARY) HYPERTENSION 11/09/2015 CAMERON CHINCHILLA, LALO Ot D53.9 11/09/2015 CAMERON CHINCHILLA, LALO Ot D72.819 11/09/2015 CAMERON CHINCHILLA, LALO Ot E78.5 11/09/2015 CAMERON CHINCHILLA, LALO Ot I10 12/29/2015 CAMERON CHINCHILLA, LALO Ot D46.9 12/29/2015 CAMERON CHINCHILLA, LALO Ot D53.9 12/29/2015 CAMERON CHINCHILLA, LALO Ot E78.5 12/29/2015 CAMERON CHINCHILLA, LALO Ot I10 12/29/2015 CAMERON CHINCHILLA, LALO Ot N40.0 12/29/2015 CAMERON CHINCHILLA, LALO Ot Z79.899 01/12/2016 CAMERON CHINCHILLA, LALO Ot D46.9 01/12/2016 CAMERON CHINCHILLA, LALO Ot D53.9 01/12/2016 CAMERON CHINCHILLA, LALO Ot E78.5 01/12/2016 CAMERON CHINCHILLA, LALO Ot I10 01/12/2016 CAMERON CHINCHILLA, LALO Ot N40.0 01/12/2016 CAMERON CHINCHILLA, LALO Ot Z79.899 02/08/2016 LALO BARNES MD, Ot D46.9 MYELODYSPLASTIC SYNDROME, UNSPECIFIED 02/08/2016 CAMERON CHINCHILLA, LALO Ot D53.9 NUTRITIONAL ANEMIA, UNSPECIFIED 02/08/2016 CAMERON CHINCHILLA, LALO Ot E78.5 HYPERLIPIDEMIA, UNSPECIFIED 02/08/2016 CAMERON CHINCHILLA, LALO Ot I10 ESSENTIAL (PRIMARY) HYPERTENSION 02/08/2016 CAMERON CHINCHILLA, LALO Ot N40.0 ENLARGED PROSTATE WITHOUT LOWER URINARY 02/08/2016 CAMERON CHINCHILLA, LALO Ot Z79.899 OTHER OUTREACH CLINICIAN (CURRENT) DRUG THERAPY 02/16/2016 LALO BARNES MD, Ot D46.9 MYELODYSPLASTIC SYNDROME, UNSPECIFIED 02/16/2016 LALO BARNES MD, Ot D53.9 NUTRITIONAL ANEMIA, UNSPECIFIED 02/16/2016 LALO BARNES MD, Ot E78.5 HYPERLIPIDEMIA, UNSPECIFIED 02/16/2016 LALO BARNES MD Ot I10 ESSENTIAL (PRIMARY) HYPERTENSION 02/16/2016 LALO BARNES MD Ot N40.0 ENLARGED PROSTATE WITHOUT LOWER URINARY 02/16/2016 CAMERON CHINCHILLA, LALO Moya Z79.899 OTHER OUTREACH CLINICIAN (CURRENT) DRUG THERAPY 03/01/2016 LALO BARNES MD, Ot D53.9 NUTRITIONAL ANEMIA, UNSPECIFIED 03/01/2016 CAMERON CHINCHILLA, LALO Ot D72.819 DECREASED WHITE BLOOD CELL COUNT, UNSPEC 03/01/2016 LALO BARNES MD Ot E78.5 HYPERLIPIDEMIA, UNSPECIFIED 03/01/2016 CAMERON CHINCHILLA, LALO Ot I10 ESSENTIAL (PRIMARY) HYPERTENSION 03/09/2016 CAMERON CHINCHILLA, LALO Ot D46.9 MYELODYSPLASTIC SYNDROME, UNSPECIFIED 03/09/2016 CAMERON CHINCHILLA, LALO Ot D53.9 NUTRITIONAL ANEMIA, UNSPECIFIED 03/09/2016 LALO BARNES MD Ot E78.5 HYPERLIPIDEMIA, UNSPECIFIED 03/09/2016 CAMERON CHINCHILLA, LALO Ot I10 ESSENTIAL (PRIMARY) HYPERTENSION 03/09/2016 CAMERON CHINCHILLA, LALO Ot N40.0 ENLARGED PROSTATE WITHOUT LOWER URINARY 03/09/2016 CAMERON CHINCHILLA, LALO Moya Z79.899 OTHER PENITENTIARY (CURRENT) DRUG THERAPY 03/31/2016 CAMERON CHINCHILLA, LALO Ot D46.9 MYELODYSPLASTIC SYNDROME, UNSPECIFIED 03/31/2016 CAMERON CHINCHILLA, LALO Ot D53.9 NUTRITIONAL ANEMIA, UNSPECIFIED 03/31/2016 CAMERON CHINCHILLA, LALO Ot E78.5 HYPERLIPIDEMIA, UNSPECIFIED 03/31/2016 CAMERON CHINCHILLA, LALO Ot I10 ESSENTIAL (PRIMARY) HYPERTENSION 03/31/2016 CAMERON CHINCHILLA, LALO Ot N40.0 ENLARGED PROSTATE WITHOUT LOWER URINARY 03/31/2016 CAMERON CHINCHILLA, LALO Moya Z79.899 OTHER OUTREACH CLINICIAN (CURRENT) DRUG THERAPY 05/05/2016 OTILIO CHINCHILLA, CHAKA Ospina Ot D64.9 ANEMIA, UNSPECIFIED 05/09/2016 CAMERON CHINCHILLA, LALO Ot D46.9 MYELODYSPLASTIC SYNDROME, UNSPECIFIED 05/09/2016 CAMERON CHINCHILLA, LALO Moya D53.9 NUTRITIONAL ANEMIA, UNSPECIFIED 05/09/2016 CAMERON CHINCHILLA, LALO Moya E78.5 HYPERLIPIDEMIA, UNSPECIFIED 05/09/2016 CAMERON CHINCHILLA, LALO Ot I10 ESSENTIAL (PRIMARY) HYPERTENSION 05/09/2016 CAMERON CHINCHILLA, LALO Ot N40.0 ENLARGED PROSTATE WITHOUT LOWER URINARY 05/09/2016 CAMERON CHINCHILLA, LALO Moya Z79.899 OTHER OUTREACH CLINICIAN (CURRENT) DRUG THERAPY 05/15/2016 LALO BARNES MD, Ot D46.9 MYELODYSPLASTIC SYNDROME, UNSPECIFIED 05/15/2016 CAMERON CHINCHILLA, LALO Moya D53.9 NUTRITIONAL ANEMIA, UNSPECIFIED 05/15/2016 CAMERON CHINCHILLA, LALO Ot E78.5 HYPERLIPIDEMIA, UNSPECIFIED 05/15/2016 CAMERON CHINCHILLA, LALO Ot I10 ESSENTIAL (PRIMARY) HYPERTENSION 05/15/2016 CAMERON CHINCHILLA, LALO Ot N40.0 ENLARGED PROSTATE WITHOUT LOWER URINARY 05/15/2016 CAMERON CHINCHILLA, LALO Moya Z79.899 OTHER OUTREACH CLINICIAN (CURRENT) DRUG THERAPY 05/16/2016 CAMERON CHINCHILLA, LALO Moya D46.9 MYELODYSPLASTIC SYNDROME, UNSPECIFIED 05/16/2016 CAMERON CHINCHILLA, ALLO Moya D53.9 NUTRITIONAL ANEMIA, UNSPECIFIED 05/16/2016 LALO BARNES MD Ot E78.5 HYPERLIPIDEMIA, UNSPECIFIED 05/16/2016 LALO BARNES MD Ot I10 ESSENTIAL (PRIMARY) HYPERTENSION 05/16/2016 CAEMRON CHINCHILLA, LALO Ot N40.0 ENLARGED PROSTATE WITHOUT LOWER URINARY 05/16/2016 CAMERON CHINCHILLA, LALO Ot Z79.899 OTHER PENITENTIARY (CURRENT) DRUG THERAPY 05/24/2016 LALO BARNES MD Ot D46.9 MYELODYSPLASTIC SYNDROME, UNSPECIFIED 05/24/2016 CAMERON CHINCHILLA, LALO Ot D53.9 NUTRITIONAL ANEMIA, UNSPECIFIED 05/24/2016 CAMERON CHINCHILLA, LALO Ot E78.5 HYPERLIPIDEMIA, UNSPECIFIED 05/24/2016 LALO BARNES MD Ot I10 ESSENTIAL (PRIMARY) HYPERTENSION 05/24/2016 CAMERON CHICNHILLA, LALO Ot N40.0 ENLARGED PROSTATE WITHOUT LOWER URINARY 05/24/2016 LALO BARNES MD, Ot Z79.899 OTHER OUTREACH CLINICIAN (CURRENT) DRUG THERAPY 06/30/2016 LALO BARNES MD Ot D46.9 MYELODYSPLASTIC SYNDROME, UNSPECIFIED 06/30/2016 LALO BARNES MD Ot D53.9 NUTRITIONAL ANEMIA, UNSPECIFIED 06/30/2016 LALO BARNES MD Ot E78.5 HYPERLIPIDEMIA, UNSPECIFIED 06/30/2016 LALO BARNES MD Ot I10 ESSENTIAL (PRIMARY) HYPERTENSION 06/30/2016 LALO BARNES MD Ot N40.0 ENLARGED PROSTATE WITHOUT LOWER URINARY 06/30/2016 LALO BARNES MD, Ot Z79.899 OTHER OUTREACH CLINICIAN (CURRENT) DRUG THERAPY 07/11/2016 LALO BARNES MD Ot D46.9 MYELODYSPLASTIC SYNDROME, UNSPECIFIED 07/11/2016 CAMERON CHINCHILLA, LALO Ot D53.9 NUTRITIONAL ANEMIA, UNSPECIFIED 07/11/2016 LALO BARNES MD Ot E78.5 HYPERLIPIDEMIA, UNSPECIFIED 07/11/2016 CAMERON CHINCHILLA, LALO Ot I10 ESSENTIAL (PRIMARY) HYPERTENSION 07/11/2016 LALO BARNES MD Ot N40.0 ENLARGED PROSTATE WITHOUT LOWER URINARY 07/11/2016 LALO BARNES MD Ot Z79.899 OTHER PENITENTIARY (CURRENT) DRUG THERAPY 07/18/2016 XUN MD, AGUILAR-MARNI Ot D46.9 MYELODYSPLASTIC SYNDROME, UNSPECIFIED 07/18/2016 CAMERON CHINCHILLA, LALO Ot D53.9 NUTRITIONAL ANEMIA, UNSPECIFIED 07/18/2016 LALO BARNES MD Ot E78.5 HYPERLIPIDEMIA, UNSPECIFIED 07/18/2016 LALO BARNES MD Ot I10 ESSENTIAL (PRIMARY) HYPERTENSION 07/18/2016 LALO BARNES MD Ot N40.0 ENLARGED PROSTATE WITHOUT LOWER URINARY 07/18/2016 LALO BARNES MD, Ot Z79.899 OTHER OUTREACH CLINICIAN (CURRENT) DRUG THERAPY 08/04/2016 LALO BARNES MD, Ot D46.9 MYELODYSPLASTIC SYNDROME, UNSPECIFIED 08/04/2016 LALO BARNES MD, Ot D53.9 NUTRITIONAL ANEMIA, UNSPECIFIED 08/04/2016 LALO BARNES MD, Ot E78.5 HYPERLIPIDEMIA, UNSPECIFIED 08/04/2016 LALO BARNES MD Ot I10 ESSENTIAL (PRIMARY) HYPERTENSION 08/04/2016 LALO BARNES MD, Ot N40.0 BENIGN PROSTATIC HYPERPLASIA WITHOUT LOW 08/04/2016 LALO BARNES MD, Ot Z79.899 OTHER OUTREACH CLINICIAN (CURRENT) DRUG THERAPY 08/30/2016 LALO BARNES MD, Ot D46.9 MYELODYSPLASTIC SYNDROME, UNSPECIFIED 08/30/2016 LALO BARNES MD, Ot D53.9 NUTRITIONAL ANEMIA, UNSPECIFIED 08/30/2016 LALO BARNES MD, Ot E78.5 HYPERLIPIDEMIA, UNSPECIFIED 08/30/2016 LALO BARNES MD Ot I10 ESSENTIAL (PRIMARY) HYPERTENSION 08/30/2016 LALO BARNES MD Ot N40.0 BENIGN PROSTATIC HYPERPLASIA WITHOUT LOW 08/30/2016 LALO BARNES MD, Ot Z79.899 OTHER PENITENTIARY (CURRENT) DRUG THERAPY 10/12/2016 LALO BARNES MD, Ot D46.9 MYELODYSPLASTIC SYNDROME, UNSPECIFIED 10/12/2016 LALO BARNES MD, Ot D53.9 NUTRITIONAL ANEMIA, UNSPECIFIED 10/12/2016 LALO BARNES MD Ot E78.5 HYPERLIPIDEMIA, UNSPECIFIED 10/12/2016 LALO BARNES MD Ot I10 ESSENTIAL (PRIMARY) HYPERTENSION 10/12/2016 LALO BARNES MD Ot N40.0 BENIGN PROSTATIC HYPERPLASIA WITHOUT LOW 10/12/2016 LALO BARNES MD Ot Z79.899 OTHER PENITENTIARY (CURRENT) DRUG THERAPY 10/30/2016 LALO BARNES MD, Ot D46.9 MYELODYSPLASTIC SYNDROME, UNSPECIFIED 10/30/2016 LALO BARNES MD Ot D53.9 NUTRITIONAL ANEMIA, UNSPECIFIED 10/30/2016 LALO BARNES MD Ot E78.5 HYPERLIPIDEMIA, UNSPECIFIED 10/30/2016 LALO BARNES MD Ot I10 ESSENTIAL (PRIMARY) HYPERTENSION 10/30/2016 LALO BARNES MD Ot N40.0 BENIGN PROSTATIC HYPERPLASIA WITHOUT LOW 10/30/2016 LALO BARNES MD, Ot Z79.899 OTHER OUTREACH CLINICIAN (CURRENT) DRUG THERAPY 11/05/2016 LALO BARNES MD, Ot D46.9 MYELODYSPLASTIC SYNDROME, UNSPECIFIED 11/05/2016 LALO BARNES MD, Ot D53.9 NUTRITIONAL ANEMIA, UNSPECIFIED 11/05/2016 LALO BARNES MD, Ot E78.5 HYPERLIPIDEMIA, UNSPECIFIED 11/05/2016 LALO BARNES MD Ot I10 ESSENTIAL (PRIMARY) HYPERTENSION 11/05/2016 LALO BARNES MD Ot N40.0 BENIGN PROSTATIC HYPERPLASIA WITHOUT LOW 11/05/2016 LALO BARNES MD, Ot Z79.899 OTHER PENITENTIARY (CURRENT) DRUG THERAPY 11/21/2016 LALO BARNES MD, Ot D46.9 MYELODYSPLASTIC SYNDROME, UNSPECIFIED 11/21/2016 LALO BARNES MD, Ot D53.9 NUTRITIONAL ANEMIA, UNSPECIFIED 11/21/2016 LALO BARNES MD, Ot E78.5 HYPERLIPIDEMIA, UNSPECIFIED 11/21/2016 LALO BARNES MD Ot I10 ESSENTIAL (PRIMARY) HYPERTENSION 11/21/2016 LALO BARNES MD Ot N40.0 BENIGN PROSTATIC HYPERPLASIA WITHOUT LOW 11/21/2016 LALO BARNES MD, Ot Z79.899 OTHER OUTREACH CLINICIAN (CURRENT) DRUG THERAPY 11/23/2016 LALO BARNES MD, Ot D46.9 MYELODYSPLASTIC SYNDROME, UNSPECIFIED 11/23/2016 LALO BARNES MD Ot D53.9 NUTRITIONAL ANEMIA, UNSPECIFIED 11/23/2016 LALO BARNES MD Ot E78.5 HYPERLIPIDEMIA, UNSPECIFIED 11/23/2016 LALO BARNES MD Ot I10 ESSENTIAL (PRIMARY) HYPERTENSION 11/23/2016 CMAERON CHINCHILLA, LALO Ot N40.0 BENIGN PROSTATIC HYPERPLASIA WITHOUT LOW 11/23/2016 CAMERON CHINCHILLA, LALO Ot Z79.899 OTHER OUTREACH CLINICIAN (CURRENT) DRUG THERAPY 01/18/2017 LALO BARNES MD Ot D46.9 MYELODYSPLASTIC SYNDROME, UNSPECIFIED 01/18/2017 CAMERON CHINCHILLA, LALO Ot D53.9 NUTRITIONAL ANEMIA, UNSPECIFIED 01/18/2017 CAMERON CHINCHILLA, LALO Ot E78.5 HYPERLIPIDEMIA, UNSPECIFIED 01/18/2017 CAMERON CHINCHILLA, LALO Ot I10 ESSENTIAL (PRIMARY) HYPERTENSION 01/18/2017 CAMERON CHINCHILLA, LALO Ot N40.0 BENIGN PROSTATIC HYPERPLASIA WITHOUT LOW 01/18/2017 LALO BARNES MD, Ot Z79.899 OTHER OUTREACH CLINICIAN (CURRENT) DRUG THERAPY 02/20/2017 LALO BARNES MD, Ot D46.9 MYELODYSPLASTIC SYNDROME, UNSPECIFIED 02/20/2017 LALO BARNES MD Ot D53.9 NUTRITIONAL ANEMIA, UNSPECIFIED 02/20/2017 LALO BARNES MD Ot E78.5 HYPERLIPIDEMIA, UNSPECIFIED 02/20/2017 LALO BARNES MD Ot I10 ESSENTIAL (PRIMARY) HYPERTENSION 02/20/2017 CAMERON CHINCHILLA, LALO Ot N40.0 BENIGN PROSTATIC HYPERPLASIA WITHOUT LOW 02/20/2017 CAMERON CHINCHILLA, LALO Moya Z79.899 OTHER OUTREACH CLINICIAN (CURRENT) DRUG THERAPY 03/10/2017 LALO BARNES MD, Ot D46.9 MYELODYSPLASTIC SYNDROME, UNSPECIFIED 03/10/2017 CAMERON CHINCHILLA, LALO Ot D53.9 NUTRITIONAL ANEMIA, UNSPECIFIED 03/10/2017 CAMERON CHINCHILLA, LALO Ot E78.5 HYPERLIPIDEMIA, UNSPECIFIED 03/10/2017 LALO BARNES MD Ot I10 ESSENTIAL (PRIMARY) HYPERTENSION 03/10/2017 CAMERON CHINCHILLA, LALO Ot N40.0 BENIGN PROSTATIC HYPERPLASIA WITHOUT LOW 03/10/2017 CAMERON CHINCHILLA, LALO Ot Z79.899 OTHER PENITENTIARY (CURRENT) DRUG THERAPY 06/05/2017 LALO BARNES MD Ot D46.Z OTHER MYELODYSPLASTIC SYNDROMES 06/05/2017 LALO BARNES MD Ot D61.818 OTHER PANCYTOPENIA 06/05/2017 CAMERON CHINCHILLA, LALO Ot D64.89 OTHER SPECIFIED ANEMIAS 06/05/2017 LALO BARNES MD Ot E78.5 HYPERLIPIDEMIA, UNSPECIFIED 06/05/2017 LALO BARNES MD Ot I10 ESSENTIAL (PRIMARY) HYPERTENSION 06/05/2017 CAMERON CHINCHILLA, LALO Ot M06.9 RHEUMATOID ARTHRITIS, UNSPECIFIED 06/05/2017 CAMERON CHINCHILLA, LALO Ot N40.0 BENIGN PROSTATIC HYPERPLASIA WITHOUT LOW 06/05/2017 CAMERON CHINCHILLA, LALO Ot Z79.899 OTHER PENITENTIARY (CURRENT) DRUG THERAPY 06/08/2017 LALO BARNES MD Ot D46.Z OTHER MYELODYSPLASTIC SYNDROMES 06/08/2017 LALO BARNES MD Ot D61.818 OTHER PANCYTOPENIA 06/08/2017 LALO BARNES MD Ot D64.89 OTHER SPECIFIED ANEMIAS 06/08/2017 LALO BARNES MD Ot E78.5 HYPERLIPIDEMIA, UNSPECIFIED 06/08/2017 LALO BARNES MD Ot I10 ESSENTIAL (PRIMARY) HYPERTENSION 06/08/2017 LALO BARNES MD Ot M06.9 RHEUMATOID ARTHRITIS, UNSPECIFIED 06/08/2017 LALO BARNES MD Ot N40.0 BENIGN PROSTATIC HYPERPLASIA WITHOUT LOW 06/08/2017 LALO BARNES MD Ot Z79.899 OTHER PENITENTIARY (CURRENT) DRUG THERAPY 06/14/2017 LALO BARNES MD Ot D46.Z OTHER MYELODYSPLASTIC SYNDROMES 06/14/2017 LALO BARNES MD Ot D61.818 OTHER PANCYTOPENIA 06/14/2017 LALO BARNES MD Ot D64.89 OTHER SPECIFIED ANEMIAS 06/14/2017 LALO BARNES MD Ot E78.5 HYPERLIPIDEMIA, UNSPECIFIED 06/14/2017 LALO BARNES MD Ot I10 ESSENTIAL (PRIMARY) HYPERTENSION 06/14/2017 LALO BARNES MD Ot M06.9 RHEUMATOID ARTHRITIS, UNSPECIFIED 06/14/2017 CAMERON CHINCHILLA, LALO Ot N40.0 BENIGN PROSTATIC HYPERPLASIA WITHOUT LOW 06/14/2017 CAMERON CHINCHILLA, LALO Ot Z79.899 OTHER OUTREACH CLINICIAN (CURRENT) DRUG THERAPY 07/08/2017 LALO BARNES MD Ot D46.Z OTHER MYELODYSPLASTIC SYNDROMES 07/08/2017 LALO BARNES MD Ot D61.818 OTHER PANCYTOPENIA 07/08/2017 LALO BARNES MD Ot D64.89 OTHER SPECIFIED ANEMIAS 07/08/2017 LALO BARNES MD Ot E78.5 HYPERLIPIDEMIA, UNSPECIFIED 07/08/2017 LALO BARNES MD Ot I10 ESSENTIAL (PRIMARY) HYPERTENSION 07/08/2017 LALO BARNES MD Ot M06.9 RHEUMATOID ARTHRITIS, UNSPECIFIED 07/08/2017 CAMERON CHINCHILLA, LALO Ot N40.0 BENIGN PROSTATIC HYPERPLASIA WITHOUT LOW 07/08/2017 LALO BARNES MD Ot Z79.899 OTHER PENITENTIARY (CURRENT) DRUG THERAPY 07/10/2017 CHAKA YAÑEZ MD Ot D64.9 ANEMIA, UNSPECIFIED 07/11/2017 LALO BARNES MD Ot D46.Z OTHER MYELODYSPLASTIC SYNDROMES 07/11/2017 LALO BARNES MD Ot D61.818 OTHER PANCYTOPENIA 07/11/2017 LALO BARNES MD Ot D64.89 OTHER SPECIFIED ANEMIAS 07/11/2017 LALO BARNES MD Ot E78.5 HYPERLIPIDEMIA, UNSPECIFIED 07/11/2017 LALO BARNES MD Ot I10 ESSENTIAL (PRIMARY) HYPERTENSION 07/11/2017 LALO BARNES MD Ot M06.9 RHEUMATOID ARTHRITIS, UNSPECIFIED 07/11/2017 LALO BARNES MD Ot N40.0 BENIGN PROSTATIC HYPERPLASIA WITHOUT LOW 07/11/2017 LALO BARNES MD Ot Z79.899 OTHER OUTREACH CLINICIAN (CURRENT) DRUG THERAPY 07/12/2017 LALO BARNES MD Ot D46.Z OTHER MYELODYSPLASTIC SYNDROMES 07/12/2017 LALO BARNES MD Ot D61.818 OTHER PANCYTOPENIA 07/12/2017 LALO BARNES MD Ot D64.89 OTHER SPECIFIED ANEMIAS 07/12/2017 LALO BARNES MD Ot E78.5 HYPERLIPIDEMIA, UNSPECIFIED 07/12/2017 LALO BARNES MD Ot I10 ESSENTIAL (PRIMARY) HYPERTENSION 07/12/2017 LALO BARNES MD Ot M06.9 RHEUMATOID ARTHRITIS, UNSPECIFIED 07/12/2017 LALO BARNES MD Ot N40.0 BENIGN PROSTATIC HYPERPLASIA WITHOUT LOW 07/12/2017 LALO BARNES MD Ot Z79.899 OTHER OUTREACH CLINICIAN (CURRENT) DRUG THERAPY 09/04/2017 LALO BARNES MD Ot D46.Z OTHER MYELODYSPLASTIC SYNDROMES 09/04/2017 LALO BARNES MD Ot D61.818 OTHER PANCYTOPENIA 09/04/2017 LALO BARNES MD Ot D64.89 OTHER SPECIFIED ANEMIAS 09/04/2017 LALO BARNES MD Ot E78.5 HYPERLIPIDEMIA, UNSPECIFIED 09/04/2017 LALO BARNES MD Ot I10 ESSENTIAL (PRIMARY) HYPERTENSION 09/04/2017 LALO BARNES MD Ot M06.9 RHEUMATOID ARTHRITIS, UNSPECIFIED 09/04/2017 LALO BARNES MD Ot N40.0 BENIGN PROSTATIC HYPERPLASIA WITHOUT LOW 09/04/2017 LALO BARNES MD Ot Z79.899 OTHER OUTREACH CLINICIAN (CURRENT) DRUG THERAPY 10/08/2017 LALO BARNES MD Ot D46.Z OTHER MYELODYSPLASTIC SYNDROMES 10/08/2017 LALO BARNES MD Ot D61.818 OTHER PANCYTOPENIA 10/08/2017 LALO BARNES MD Ot D64.89 OTHER SPECIFIED ANEMIAS 10/08/2017 LALO BARNES MD Ot E78.5 HYPERLIPIDEMIA, UNSPECIFIED 10/08/2017 LALO BARNES MD Ot I10 ESSENTIAL (PRIMARY) HYPERTENSION 10/08/2017 LALO BARNES MD Ot M06.9 RHEUMATOID ARTHRITIS, UNSPECIFIED 10/08/2017 LALO BARNES MD Ot N40.0 BENIGN PROSTATIC HYPERPLASIA WITHOUT LOW 10/08/2017 LALO BARNES MD Ot Z79.899 OTHER PENITENTIARY (CURRENT) DRUG THERAPY 10/10/2017 LALO BARNES MD Ot D46.Z OTHER MYELODYSPLASTIC SYNDROMES 10/10/2017 LALO BARNES MD Ot D61.818 OTHER PANCYTOPENIA 10/10/2017 LALO BARNES MD Ot D64.89 OTHER SPECIFIED ANEMIAS 10/10/2017 LALO BARNES MD Ot E78.5 HYPERLIPIDEMIA, UNSPECIFIED 10/10/2017 LALO BARNES MD Ot I10 ESSENTIAL (PRIMARY) HYPERTENSION 10/10/2017 CAMERON CHINCHILLA, LALO Ot M06.9 RHEUMATOID ARTHRITIS, UNSPECIFIED 10/10/2017 CAMERON CHINCHILLA, LALO Ot N40.0 BENIGN PROSTATIC HYPERPLASIA WITHOUT LOW 10/10/2017 CAMERON CHINCHILLA, LALO Ot Z79.899 OTHER PENITENTIARY (CURRENT) DRUG THERAPY 10/11/2017 CAMERON CHINCHILLA, LALO Ot D46.Z OTHER MYELODYSPLASTIC SYNDROMES 10/11/2017 CAMERON CHINCHILLA, LALO Ot D61.818 OTHER PANCYTOPENIA 10/11/2017 CAMERON CHINCHILLA, LALO Ot D64.89 OTHER SPECIFIED ANEMIAS 10/11/2017 CAMERON CHINCHILLA, LALO Ot E78.5 HYPERLIPIDEMIA, UNSPECIFIED 10/11/2017 CAMERON CHINCHILAL, LALO Ot I10 ESSENTIAL (PRIMARY) HYPERTENSION 10/11/2017 CAMERON CHINCHILLA, LALO Ot M06.9 RHEUMATOID ARTHRITIS, UNSPECIFIED 10/11/2017 CAMERON CHINCHILLA, LALO Ot N40.0 BENIGN PROSTATIC HYPERPLASIA WITHOUT LOW 10/11/2017 LALO BARNES MD Ot Z79.899 OTHER OUTREACH CLINICIAN (CURRENT) DRUG THERAPY 12/27/2017 LALO BARNES MD Ot D46.Z OTHER MYELODYSPLASTIC SYNDROMES 12/27/2017 LALO BARNES MD Ot D61.818 OTHER PANCYTOPENIA 12/27/2017 LALO BARNES MD Ot D64.89 OTHER SPECIFIED ANEMIAS 12/27/2017 CAMERON CHINCHILLA, LALO Ot E78.5 HYPERLIPIDEMIA, UNSPECIFIED 12/27/2017 CAMERON CHINCHILLA, LALO Ot I10 ESSENTIAL (PRIMARY) HYPERTENSION 12/27/2017 CAMERON CHINCHILLA, LALO Ot M06.9 RHEUMATOID ARTHRITIS, UNSPECIFIED 12/27/2017 CAMERON CHINCHILLA, LALO Ot N40.0 BENIGN PROSTATIC HYPERPLASIA WITHOUT LOW 12/27/2017 CAMERON CHINCHILLA, LALO Ot Z79.899 OTHER PENITENTIARY (CURRENT) DRUG THERAPY 01/08/2018 LALO BARNES MD Ot D46.Z OTHER MYELODYSPLASTIC SYNDROMES 01/08/2018 LALO BARNES MD Ot D61.818 OTHER PANCYTOPENIA 01/08/2018 CAMERON CHINCHILLA, LALO Ot D64.89 OTHER SPECIFIED ANEMIAS 01/08/2018 LALO BARNES MD Ot E78.5 HYPERLIPIDEMIA, UNSPECIFIED 01/08/2018 CAMERON CHINCHILLA, LLAO Ot I10 ESSENTIAL (PRIMARY) HYPERTENSION 01/08/2018 CAMERON CHINCHILLA, LALO Ot M06.9 RHEUMATOID ARTHRITIS, UNSPECIFIED 01/08/2018 CAMERON CHINCHILLA, LALO Ot N40.0 BENIGN PROSTATIC HYPERPLASIA WITHOUT LOW 01/08/2018 CAMERON CHINCHILLA, LALO Ot Z79.899 OTHER PENITENTIARY (CURRENT) DRUG THERAPY 01/09/2018 CAMERON CHINCHILLA, LALO Ot D46.Z OTHER MYELODYSPLASTIC SYNDROMES 01/09/2018 CAMERON CHINCHILLA, LALO Ot D61.818 OTHER PANCYTOPENIA 01/09/2018 CAMERON CHINCHILLA, LALO Ot D64.89 OTHER SPECIFIED ANEMIAS 01/09/2018 LALO BARNES MD Ot E78.5 HYPERLIPIDEMIA, UNSPECIFIED 01/09/2018 CAMERON CHINCHILLA, LALO Ot I10 ESSENTIAL (PRIMARY) HYPERTENSION 01/09/2018 LALO BARNES MD Ot M06.9 RHEUMATOID ARTHRITIS, UNSPECIFIED 01/09/2018 CMAERON CHINCHILLA, LALO Ot N40.0 BENIGN PROSTATIC HYPERPLASIA WITHOUT LOW 01/09/2018 CAMERON CHINCHILLA, LALO Ot Z79.899 OTHER PENITENTIARY (CURRENT) DRUG THERAPY 01/17/2018 LALO BARNES MD Ot D46.Z OTHER MYELODYSPLASTIC SYNDROMES 01/17/2018 CAMERON CHINCHILLA, LALO Ot D61.818 OTHER PANCYTOPENIA 01/17/2018 CAMERON CHINCHILLA, LALO Ot D64.89 OTHER SPECIFIED ANEMIAS 01/17/2018 CAMERON CHINCHILLA, LALO Ot E78.5 HYPERLIPIDEMIA, UNSPECIFIED 01/17/2018 CAMERON CHINCHILLA, LALO Ot I10 ESSENTIAL (PRIMARY) HYPERTENSION 01/17/2018 CAMERON CHINCHILLA, LALO Ot M06.9 RHEUMATOID ARTHRITIS, UNSPECIFIED 01/17/2018 CAMERON CHINCHILLA, LALO Ot N40.0 BENIGN PROSTATIC HYPERPLASIA WITHOUT LOW 01/17/2018 CAMERON CHINCHILLA, LALO Ot Z79.899 OTHER OUTREACH CLINICIAN (CURRENT) DRUG THERAPY 01/18/2018 OTILIO CHINCHILLA, CHAKA Ospina Ot D64.9 ANEMIA, UNSPECIFIED 01/18/2018 CAMERON CHINCHILLA, LALO Ot D46.Z OTHER MYELODYSPLASTIC SYNDROMES 01/18/2018 LALO BARNES MD Ot D61.818 OTHER PANCYTOPENIA 01/18/2018 CAMERON CHINCHILLA, LALO Ot D64.89 OTHER SPECIFIED ANEMIAS 01/18/2018 LALO BARNES MD Ot E78.5 HYPERLIPIDEMIA, UNSPECIFIED 01/18/2018 LALO BARNES MD Ot I10 ESSENTIAL (PRIMARY) HYPERTENSION 01/18/2018 LALO BARNES MD Ot M06.9 RHEUMATOID ARTHRITIS, UNSPECIFIED 01/18/2018 CAMERON CHINCHILLA, LALO Ot N40.0 BENIGN PROSTATIC HYPERPLASIA WITHOUT LOW 01/18/2018 CAMERON CHINCHILLA, LALO Ot Z79.899 OTHER PENITENTIARY (CURRENT) DRUG THERAPY 01/19/2018 LALO BARNES MD Ot D46.Z OTHER MYELODYSPLASTIC SYNDROMES 01/19/2018 LALO BARNES MD Ot D61.818 OTHER PANCYTOPENIA 01/19/2018 LALO BARNES MD Ot D64.89 OTHER SPECIFIED ANEMIAS 01/19/2018 LALO BARNES MD Ot E78.5 HYPERLIPIDEMIA, UNSPECIFIED 01/19/2018 CAMERON CHINCHILLA, LALO Ot I10 ESSENTIAL (PRIMARY) HYPERTENSION 01/19/2018 LALO BARNES MD Ot M06.9 RHEUMATOID ARTHRITIS, UNSPECIFIED 01/19/2018 CAMERON CHINCHILLA, LALO Ot N40.0 BENIGN PROSTATIC HYPERPLASIA WITHOUT LOW 01/19/2018 CAMERON CHINCHILLA, LALO Ot Z79.899 OTHER OUTREACH CLINICIAN (CURRENT) DRUG THERAPY Procedures There is no data. Results Test Result Range RED CELLS LEUKO REDUCED AS1 - 08/28/17 08:50 RED CELLS LEUKO REDUCED AS1 PRSMD TRFSD 08/28/17 1007 [facility] Blood type T Indirect antibody screen panel - 08/28/17 08:50 ABO+Rh group AN [facility] Transfusion band number [id number] [facility] Blood group antibody screen NEGATIVE [facility] [id number] - 01/08/18 08:36 [id number] SPECIMEN AVAILABLE NR Encounters ACCT No. Visit Date/Time Discharge Status Pt. Type Provider Facility Loc./Unit Complaint [id number] 08/04/2014 14:07:00 08/04/2014 23:59:59 [facility] Outpatient LIVIA BRAVO DO [id number] 01/08/2018 08:23:00 01/08/2018 00:01:00 DIS Outpatient LALO BARNES MD [facility] ONC [id number] 09/26/2017 08:32:00 10/08/2017 00:01:00 DIS Outpatient LALO BARNES MD [facility] ONC [id number] 07/03/2017 08:29:00 07/08/2017 00:01:00 DIS Outpatient LALO BARNES MD [facility] ONC [id number] 06/05/2017 08:32:00 06/08/2017 00:01:00 DIS Outpatient LALO BARNES MD [facility] ONC [id number] 02/17/2017 09:17:00 02/20/2017 00:01:00 DIS Outpatient LALO BARNES MD [facility] ONC [id number] 10/11/2016 08:26:00 10/30/2016 00:01:00 DIS Outpatient LALO BARNES MD [facility] ONC [id number] 06/27/2016 09:10:00 07/18/2016 08:14:00 DIS Outpatient LALO BARNES MD [facility] ONC [id number] 05/12/2016 08:25:00 05/15/2016 00:01:00 DIS Outpatient LALO BARNES MD Via [facility] ONC [id number] 02/01/2016 13:08:00 02/08/2016 00:01:00 DIS Outpatient LALO BARNES MD [facility] ONC [id number] 10/12/2015 13:41:00 11/03/2015 00:01:00 DIS Outpatient LALO BARNES MD [facility] ONC [id number] 10/22/2015 00:10:00 10/22/2015 23:59:59 CLS Preadmit CHAKA YA[facility]EZ [facility] ANEMIA [id number] 07/24/2015 07:46:00 10/21/2015 00:01:00 DIS Outpatient CHAKA YAÑEZ [facility] ANEMIA [id number] 09/16/2015 15:32:00 09/16/2015 17:55:00 DIS Emergency JAREN CHINCHILLA, CATALINO Pham [facility] ER DIFFICULTY BREATHING [id number] 09/10/2015 16:15:00 09/13/2015 11:18:00 DIS Inpatient OTILIO CHINCHILLA, CHAKA Ospina [facility] 4TH VIRAL GASTROENTERITIS [id number] 01/22/2018 08:45:00 PEN Preadmit LALO BARNES MD [facility] RAD D64.89 ANEMIA [id number] 01/19/2018 09:42:00 ACT Outpatient LALO BARNES MD [facility] ONC
[2018-01-22 07:30] LABS: INR 0.9 (0.8-1.4); PROTHROMBIN TIME PATIENT 12.7 SEC (12.2-14.7)
[2018-01-22] MEDS ORDERED: NS IV 500 ML 500 ML IV SCH (07:30)
[2018-01-22] MEDS ORDERED: LIDOCAINE 1% INJ 50 ML (XYLOCAINE) VIAL IJ ONE (08:00)
[2018-01-22] MEDS ORDERED: HYDROcodone/APAP 5 MG/325 MG (LORTAB) TAB PO PRN (09:15)
--- NOTE | 2018-01-22 09:20 | Pre-Procedure Progress Note ---
Pre-Procedure Progress Note H&P Reviewed The H&P was reviewed, patient examined and no changes noted. Date H&P Reviewed: Jan 22, 2018 Time H&P Reviewed: 08:00 Pre-Procedure Diagnosis: Anemia MELLY FUCHS MD Jan 22, 2018 09:20
--- NOTE | 2018-01-22 09:40 | Diagnostic Imaging Report ---
INDICATION: Anemia. Patient brought to the CT suite placed on the table in the prone position. Axial imaging through the pelvis was performed to evaluate appropriate entry site. Skin of the low back on the right was prepped and draped in usual sterile fashion, small amount of 1% lidocaine was utilized for local anesthesia. Bone marrow needle was advanced to the cortex of the right posterior iliac bone. The needle was advanced through the cortex into the marrow utilizing bone marrow drill. 2 bone marrow aspirates were obtained. Next, drill was utilized to obtain a bone marrow core biopsy. Needle was removed and hemostasis obtained using manual compression. Patient tolerated the procedure well and left the department in stable condition. IMPRESSION: Successful CT-guided bone marrow aspiration and core biopsy, as described. Dictated by: Dictated on workstation # [id number]
== END 2018-01-22 11:30 | disposition home or self-care (01) ==
LOC: RAD 06:52 → SURG 09:03 → RAD 11:30
PROVIDERS: ATTEND Internal Medicine Hematology & Oncology
DX: D64.9 Anemia, unspecified (principal); D46.Z Other myelodysplastic syndromes; D69.6 Thrombocytopenia, unspecified
CPT/HCPCS: 36415; 38222; 77012; 85027; 85610; 85730

== ENCOUNTER 2018-02-11 07:22 | Emergency (ER) | payer MEDICARE ==
[~2018-02-11] VITALS: Ht 177.8 cm; Wt 75.7 kg
--- OUTSIDE RECORDS SUMMARY | 2018-02-11 07:27 | XMS REPORT | Continuity of Care Document ---
Author Author [employer] Organization [facility] Address Unknown Phone Unavailable Care Team Providers Care Airplane Pilot Commercial Name Role Phone [employer] Unavailable Unavailable Problems Medications Allergies, Adverse Reactions, Alerts Immunizations Results Vital Signs Encounters Location Location Details Encounter Type Encounter Number Reason For Visit Attending Provider ADM Date DC Date Status Source OP SURGERY [id number] ELICEO CERVANTES 04/14/2016 04/14/2016 Active [facility] [place] SERIES [id number] ELICEO CERVANTES 11/13/2017 11/13/2017 Active [facility] [place] SERIES [id number] PRESTON IRENE 11/17/20172017 Active [facility] O ELICEO CERVANTES Active [facility] Procedures Plan of Care Social History Assessment and Plan Family History Advance Directives Functional Status
--- OUTSIDE RECORDS SUMMARY | 2018-02-11 07:27 | XMS REPORT | Encounter Summary ---
Author Author [facility] Organization [facility] Address Unknown Phone Unavailable Care Team Providers Care Sports Centre Manager Name Role Phone Maximo Basurto MD PCP Komal Raymond RN Unavailable Unavailable Duke Casiano MD Unavailable Jovani Dixon MD 21 Esha Caputo RN Unavailable Unavailable Markos Park PhD Unavailable Reason for Visit * Reason Comments Heme/Onc Care Encounter Details Date Type Department Care Team Description 11/17/2017 Lab Only [facility] Duke Casiano MD MDS (myelodysplastic [facility] Exam [address] syndrome), low grade [address] (HCC) [place] [address] [place] [address] [phone] Social History Tobacco Use Types Packs/Day Years [...] 7.0 K/UL Manual Specimen Performing Laboratory Blood [facility] [address] [place] [address] in this encounter Visit Diagnoses Diagnosis MDS (myelodysplastic syndrome), low grade (HCC) Low grade myelodysplastic syndrome lesions
--- OUTSIDE RECORDS SUMMARY | 2018-02-11 07:27 | XMS REPORT | Clinical Summary ---
Author Author [facility] Organization [facility] Address Unknown Phone Unavailable Care Team Providers Care Greeting Card Editor Name Role Phone Maximo Basurto MD PCP Komal Raymond RN Unavailable Unavailable Duke Casiano MD Unavailable Jovani Dixon MD 21 Esha Caputo RN Unavailable Unavailable Markos Park PhD Unavailable Source Comments Some departments are not documenting in the electronic medical record. If you do not see the information that you expected, contact Release of Information in the Health Information Management department at [phone] for further assistance in locating additional records.[facility] Allergies No Known Allergies Current Medications Prescription [...] Overview: I have interviewed and examined Mr. Bustos and I have reviewed his medical records [...] a clinical trial that was developed in [facility], which reports combination of promacta and [...] started 10/23/17 Last Assessment & Plan: Mr. Bustos has persistent anemia which is his functional [...] Patient seen and discussed with Dr. Casiano. Encounters Date Type Specialty Care Team Description 11/17/2017 Procedure visit Oncology Duke Casiano MD Pancytopenia (HCC); Shane Anderson APRN-NP MDS (myelodysplastic syndrome), low grade (HCC) 11/17/2017 Lab Only Oncology Duke Casiano MD MDS ( myelodysplastic syndrome), low grade (HCC) 11/16/2017 Telephone Oncology Duke Casiano MD Preop Exam (pre bone marrow biopsy eval) from Last 3 Months Family History Medical [...] Taken Blood Pressure 140/70 11/17/2017 12:10 PM POTATO INSPECTOR Pulse 91 11/13/2017 11:23 AM POTATO INSPECTOR Temperature 36.8 C (98.3 F) 11/17/2017 12:10 PM POTATO INSPECTOR Respiratory Rate 18 11/17/2017 12:10 PM POTATO INSPECTOR Oxygen Saturation 100% 11/17/2017 12:10 PM POTATO INSPECTOR Inhaled Oxygen - - Concentration Weight 77.6 kg (171 lb) 11/17/2017 12:10 PM POTATO INSPECTOR Height 174 cm (5' 8.5") 11/17/2017 12:10 PM POTATO INSPECTOR Body Mass Index 25.62 11/17/2017 12:10 PM POTATO INSPECTOR Plan of Treatment Health Maintenance Due Date Last Done Comments PHYSICAL (COMPREHENSIVE) 1947 EXAM PERTUSSIS VACCINE 1951 TETANUS VACCINE 1957 SHINGLES VACCINE 2000 PREVNAR/PNEUMOVAX (#1) 2005 INFLUENZA VACCINE 07/09/2018 Procedures Procedure Name Priority Date/Time Associated Diagnosis Comments BONE MARROW ASPIRATION Routine 11/17/2017 Pancytopenia (HCC) Results for this PROCEDURE 12:00 PM POTATO INSPECTOR procedure are in the results section. BIOPSY BONE MARROW Routine 11/17/2017 Pancytopenia (HCC) Results for this PROCEDURE 12:00 PM POTATO INSPECTOR procedure are in the results section. from Last 3 Months Results * [facility]RELL PATH MOLEC REF LAB SCAN (12/05/2017 1:47 PM) Narrative Ordered by an unspecified provider. * CYTOGENETICS SCAN (11/27/2017 4:49 PM) Narrative Ordered by an unspecified provider. * BONE MARROW (11/17/2017 1:38 PM) Component Value Ref Range PATHOLOGY REPORT [facility] [email or web address] Department of Pathology and Laboratory Medicine [address] [place] [address] Surgical Pathology Office:[phone]:[phone] SURGICAL PATHOLOGY REPORT NAME: AGUSTIN BUSTOS SURG PATH #: [id number] MR #: [id number] ALT ID #: LOCATION: [facility] DATE OF PROCEDURE: 11/17/2017 AGE:76 SEX: M DATE RECEIVED: 11/17/2017 : 1940TIME RECEIVED:13:38 PHYSICIAN: DUKE CASIANO DATE OF REPORT: 11/21/2017 COPY TO:DATE OF [...] submitted in cassette B1 after decalcification. (lmt) lt/11/17/2017 Microscopic Description: CBC Data:HGB 6.3 (g/dL); RBC [...] of Pathology and Laboratory Medicine of the [facility] ([employer]) in compliance with [...] of Pathology and Laboratory Medicine of the [facility].It has not been cleared or approved by the FDA.The FDA has determined that such clearance or approval is not necessary. Specimen Performing Laboratory [facility] RESULTS * HEME PANEL NGS 65 BLD OR BM (11/17/2017 12:32 PM) Component Value Ref Range Heme Panel NGS 65 BLD or SEE MEMORIAL COUNSELOR FOR REPORT Bone Marrow Specimen Performing Laboratory REFERENCE LAB * FLOW CYTOMETRY (11/17/2017 12:32 PM) Component Value Ref Range PATHOLOGY REPORT [facility] [email or web address] Tati Sommers MD, Director of Clinical Laboratory Rasta Duenas MD, Director of Flow Cytometry Laboratory Department of Pathology and Laboratory Medicine [address] [place] [address] Surgical Pathology Office:[phone]:[phone] FLOW CYTOMETRY REPORT NAME: AGUSTIN BUSTOS SURG PATH #: [id number] MR #: [id number] SPECIMEN CLASS: LC BILLING #: [id number] ALT ID #:LOCATION: [facility] DATE OF PROCEDURE: 11/17/2017 AGE:76 SEX: M [...] 0.01% Myeloid Associated Markers (% Positive Cells): OO83u=1; CD13=26; CD14=0; CD15=0; CD33=17; CD36=5; CD64=1; YO970=40; B Cell Associated Markers (% Positive Cells): CD19=0; CD22=1; T Cell Associated Markers (% Positive Cells): CD2=1; CD4=1; CD5=1; CD7=2; Miscellaneous Markers (% Positive Cells): WF86=362; CD38=80; JB11=986; CD56=72; MW015=0; HLA-Dr=99; Cell Viability (%): n/a Number of Cells Analyzed: 500,000 Total Number of Markers: 32 Summary of Marker Combinations: /33/11b/34/13/45//19; Dr/117/4/34/123/45//19; Dr/56/36/34/64/45/14/19;//5/34/15///19 This test was developed and its performance characteristics determined by the [facility] Flow Cytometry Laboratory.It has not been cleared or approved by the U.S. Food and Drug Administration (FDA).The FDA has determined that such clearance or approval is not necessary. Specimen Performing Laboratory [facility] RESULTS * LEUKEMIA/LYMPHOMA PNL, BONE MARROW (11/17/2017 12:32 PM) Component Value Ref Range Leuk/Lymph Interpretation SEE PATHOLOGY REPORT Specimen/LLM BONE MARROW Specimen Performing Laboratory Bone Marrow MAIN LAB [address] [place] [address] * CHROMOSOMES BONE MARROW (11/17/2017 12:32 PM) Component Value Ref Range Chromosomes Bone Marrow SEE MEMORIAL COUNSELOR FOR REPORT Specimen Performing Laboratory Bone Marrow [facility] [address] [place] [address] * BONE MARROW ASP (11/17/2017 12:32 PM) Component Value Ref Range Bone Marrow Asp SEE PATHOLOGY REPORT Specimen Performing Laboratory Bone Marrow [facility] [address] [place] [address] * BONE MARROW BIOPSY (11/17/2017 12:32 PM) Component Value Ref Range Bone Marrow Bx SEE PATHOLOGY REPORT Specimen Performing Laboratory Bone Marrow [facility] [address] [place] [address] * BIOPSY BONE MARROW PROCEDURE (11/17/2017 12:00 PM) Specimen Performing Laboratory OTHER OUTSIDE LAB Narrative Shane Anderson APRN-NP 11/17/20171:30 PM Bone Marrow Procedure Note Performing [...] Complications: None.Patient tolerated procedure well. LOIDA Rodriguez * CBC AND DIFF (11/17/2017 10:59 AM) [...] 7.0 K/UL Manual Specimen Performing Laboratory Blood [facility] [address] [place] [address] from Last 3 Months
--- OUTSIDE RECORDS SUMMARY | 2018-02-11 07:27 | XMS REPORT | Encounter Summary ---
Author Author [facility] Organization [facility] Address Unknown Phone Unavailable Care Team Providers Care Masking Machine Operator Name Role Phone Maximo Basurto MD PCP Komal Raymond RN Unavailable Unavailable Duke Casiano MD Unavailable Jovani Dixon MD 21 Esha Caputo RN Unavailable Unavailable Markos Park PhD Unavailable Reason for Visit * Reason Comments Preop Exam pre bone marrow biopsy eval Encounter Details Date Type Department Care Team Description 11/16/2017 Telephone [facility] Duke Casiano MD Preop Exam (pre bone [facility] [address] marrow biopsy eval) [address] [place] [address] [place] [address] [phone] Social History Tobacco Use Types Packs/Day Years Used Date Former Smoker Smokeless Tobacco: Never Used Alcohol Use Drinks/Week oz/Week Comments Yes 0 Standard 0.0 rarely drinks or equivalent Sex Assigned at Date Recorded Not on file as of this encounter Plan of Treatment Not on fileas of this encounter Visit Diagnoses Not on filein this encounter
--- OUTSIDE RECORDS SUMMARY | 2018-02-11 07:27 | XMS REPORT | Encounter Summary ---
Author Author [facility] Organization [facility] Address Unknown Phone Unavailable Care Team Providers Care Otr Owner Operator Name Role Phone Maximo Basurto MD [...] Diagnoses Monica Casiano Olajire, Douglas Wall MD INTERNATIONAL TRADE ANALYST-MACHINE PULLER AND LASTER pancytopenia [address] PAY, Bone Marrow [address] [place] [address] Biopsy [place], [place] Phone: [phone] rocedures Phone: [facility] [phone] BONE MARROW Fax: BIOPSIES [phone] [facility] BONE MARROW ASPIRATIONS PROCEDURE Encounter Details Date Type Department Care Team Description 11/17/2017 Procedure visit [facility] Duke Casiano MD Pancytopenia (HCC); [facility] [address] MDS (myelodysplastic [address] syndrome), [place] [address] [place] [address] (HCC) [phone] Shane Maravilla APRN-NP [address] [place] [address] [phone] Social History Tobacco Use Types Packs/Day Years Used Date Former Smoker Smokeless Tobacco: Never Used Alcohol Use Drinks/Week oz/Week Comments Yes 0 Standard 0.0 rarely drinks or equivalent Sex Assigned at Date Recorded Not on file as of this encounter Last Filed Vital Signs Vital Sign Reading Time Taken Blood Pressure 140/70 11/17/2017 12:10 PM API PRODUCT MANAGER Pulse - - Temperature 36.8 C (98.3 F) 11/17/2017 12:10 PM API PRODUCT MANAGER Respiratory Rate 18 11/17/2017 12:10 PM API PRODUCT MANAGER Oxygen Saturation 100% 11/17/2017 12:10 PM API PRODUCT MANAGER Inhaled Oxygen - - Concentration Weight 77.6 kg (171 lb) 11/17/2017 12:10 PM API PRODUCT MANAGER Height 174 cm (5' 8.5") 11/17/2017 12:10 PM API PRODUCT MANAGER Body Mass Index 25.62 11/17/2017 12:10 PM API PRODUCT MANAGER in this encounter Progress Notes * Shane Anderson APRN-NP - 11/17/2017 12:00 PM API PRODUCT MANAGER See procedure note * Anaid Springer RN - 11/17/2017 12:00 PM API PRODUCT MANAGER Formatting of this note may be different [...] marked as necessary. Physician/Surgeon: Lizbet Anderson APRN Stamp Presser; Audrey Salazar Scrub: Golf Sales Associate: Anaid Springer Prep Area: Left iliac crest [...] to have Dr. cristobal on Monday in [place] to check labs and get transfusion. Pt states he tolerates low hemoglobin well and will seek medical attention over the weekend if he has any issues. in this encounter Procedure Notes * Shane Anderson APRN-MACHINE PULLER AND LASTER - 11/17/2017 12:00 PM API PRODUCT MANAGER Associated Order(s): BIOPSY BONE MARROW PROCEDURE Procedure(s): [...] pane. Complications: None. Patient tolerated procedure well. Shane Anderson APRN-GUILLERMO in this encounter Plan of Treatment Not on fileas of this encounter Procedures Procedure Name Priority Date/Time Associated Diagnosis Comments BONE MARROW ASPIRATION Routine 11/17/2017 Pancytopenia (HCC) Results for this PROCEDURE 12:00 PM API PRODUCT MANAGER procedure are in the results section. BIOPSY BONE MARROW Routine 11/17/2017 Pancytopenia (HCC) Results for this PROCEDURE 12:00 PM API PRODUCT MANAGER procedure are in the results section. in this encounter Results * CYTOGENETICS SCAN (11/27/2017 4:49 PM) Narrative Ordered by an unspecified provider. * BONE MARROW (11/17/2017 1:38 PM) Component Value Ref Range PATHOLOGY REPORT [facility] [email or web address] Department of Pathology and Laboratory Medicine [address] [place] [address] Surgical Pathology Office:[phone]:[phone] SURGICAL PATHOLOGY REPORT NAME: AGUSTIN BUSTOS JASMINA SURG PATH #: [id number] MR #: [id number] ALT ID #: LOCATION: [facility] DATE OF [...] of Pathology and Laboratory Medicine of the [facility] ([employer]) in compliance with CLIA'88 regulations.Some [...] of Pathology and Laboratory Medicine of the [facility].It has not been cleared or approved by the FDA.The FDA has determined that such clearance or approval is not necessary. Specimen Performing Laboratory [facility] RESULTS * FLOW CYTOMETRY (11/17/2017 12:32 PM) Component Value Ref Range PATHOLOGY REPORT [facility] [email or web address] Tati Sommers MD, Director of Clinical Laboratory Rasta Duenas MD, Director of Flow Cytometry Laboratory Department of Pathology and Laboratory Medicine [address] [place] [address] Surgical Pathology Office:[phone]:[phone] FLOW CYTOMETRY REPORT NAME: AGUSTIN BUSTOS SURG PATH #: [id number] MR #: [id number] SPECIMEN CLASS: BILLING #: [id number] ALT ID #:LOCATION: [facility] DATE OF PROCEDURE: 11/17/2017 AGE:76 SEX: M [...] 0.01% Myeloid Associated Markers (% Positive Cells): LP41g=4; CD13=26; CD14=0; CD15=0; CD33=17; CD36=5; CD64=1; LL262=60; B Cell Associated Markers (% Positive Cells): CD19=0; CD22=1; T Cell Associated Markers (% Positive Cells): CD2=1; CD4=1; CD5=1; CD7=2; Miscellaneous Markers (% Positive Cells): GB01=148; CD38=80; YW73=986; CD56=72; DS856=3; HLA-Dr=99; Cell Viability (%): n/a Number of Cells Analyzed: 500,000 Total Number of Markers: 32 Summary of Marker Combinations: /33/11b/34/13///; Dr/117/4/34/123///; /56/36/34/64/45/14/;11/30//34/15/// This test was developed and its performance characteristics determined by the [facility] Flow Cytometry Laboratory.It has not been cleared or approved by the U.S. Food and Drug Administration (FDA).The FDA has determined that such clearance or approval is not necessary. Specimen Performing Laboratory [facility] RESULTS * HEME PANEL NGS 65 BLD OR BM (11/17/2017 12:32 PM) Component Value Ref Range Heme Panel NGS 65 BLD or SEE AUDIOVISUAL EQUIPMENT OPERATOR FOR REPORT Bone Marrow Specimen Performing Laboratory REFERENCE LAB * LEUKEMIA/LYMPHOMA PNL, BONE MARROW (11/17/2017 12:32 PM) Component Value Ref Range Leuk/Lymph Interpretation SEE PATHOLOGY REPORT Specimen/LLM BONE MARROW Specimen Performing Laboratory Bone Marrow MAIN LAB [address] [place] [address] * CHROMOSOMES BONE MARROW (11/17/2017 12:32 PM) Component Value Ref Range Chromosomes Bone Marrow SEE AUDIOVISUAL EQUIPMENT OPERATOR FOR REPORT Specimen Performing Laboratory Bone Marrow [facility] [address] [place] [address] * BONE MARROW BIOPSY (11/17/2017 12:32 PM) Component Value Ref Range Bone Marrow Bx SEE PATHOLOGY REPORT Specimen Performing Laboratory Bone Marrow MAIN LAB [address] [place] [address] * BONE MARROW ASP (11/17/2017 12:32 PM) Component Value Ref Range Bone Marrow Asp SEE PATHOLOGY REPORT Specimen Performing Laboratory Bone Marrow MAIN LAB [address] [place] [address] * BIOPSY BONE MARROW PROCEDURE (11/17/2017 12:00 PM) Specimen Performing Laboratory OTHER OUTSIDE LAB Narrative Shane Anderson APRN-MACHINE PULLER AND LASTER 11/17/20171:30 PM Bone Marrow Procedure Note Performing [...] Oral, ONCE, 1 dose, Mon11/17/17 at 11:02 API PRODUCT MANAGER 1100 in this encounter
--- OUTSIDE RECORDS SUMMARY | 2018-02-11 07:29 | XMS REPORT | Continuity of Care Document ---
Author Author [facility] Address Unknown Phone Unavailable Allergies Active Description Code Type Severity Reaction Onset Reported/Identified Relationship to Patient Clinical Status Yes No Known Drug Allergies [id number] Drug Allergy Unknown N/A 09/10/2015 Medications There [...] URINARY CAMERON CHINCHILLA, LALO Ot Z79.899 OTHER DETENTION (CURRENT) DRUG THERAPY 08/04/2014 LIVIA BRAVO DO [...] CHINCHILLA, LALO Ot D72.819 09/12/2015 CAMERON CHINCHILLA, [facility] Ot E78.5 09/12/2015 CAMERON CHINCHILLA, [facility] Ot I10 09/12/2015 OTILIO CHINCHILLA, CHAKA [...] N40.0 ENLARGED PROSTATE WITHOUT LOWER URINARY 09/16/2015 AJREN CHINCHILLA, CATALINO Pham Ot B37.0 CANDIDAL STOMATITIS 09/16/2015 JAREN CHINCHILLA, CATALINO Pahm Ot D46.9 MYELODYSPLASTIC SYNDROME, UNSPECIFIED 09/16/2015 JAREN [...] 02/08/2016 CAMERON CHINCHILLA, LALO Ot Z79.899 OTHER INSTRUCTOR APPAREL MANUFACTURE (CURRENT) DRUG THERAPY 02/16/2016 LALO BARNES MD, Ot D46.9 MYELODYSPLASTIC SYNDROME, UNSPECIFIED 02/16/2016 LALO BARNES MD, Ot D53.9 NUTRITIONAL ANEMIA, UNSPECIFIED 02/16/2016 LALO BARNES MD, Ot E78.5 HYPERLIPIDEMIA, UNSPECIFIED 02/16/2016 LALO BARNES MD Ot I10 ESSENTIAL (PRIMARY) HYPERTENSION 02/16/2016 LALO BARNES MD Ot N40.0 ENLARGED PROSTATE WITHOUT LOWER URINARY 02/16/2016 CAMERON CHINCHILLA, LALO Moya Z79.899 OTHER INSTRUCTOR [employer]PAREL [employer]UFA[employer] (CURRENT) DRUG THERAPY 03/01/2016 LALO BARNES MD, [...] 03/09/2016 CAMERON CHINCHILLA, LALO Moya Z79.899 OTHER DETENTION (CURRENT) DRUG THERAPY 03/31/2016 CAMERON CHINCHILLA, LALO Ot D46.9 MYELODYSPLASTIC SYNDROME, UNSPECIFIED 03/31/2016 CAMERON CHINCHILLA, LALO Ot D53.9 NUTRITIONAL ANEMIA, UNSPECIFIED 03/31/2016 CAMERON CHINCHILLA, LALO Ot E78.5 HYPERLIPIDEMIA, UNSPECIFIED 03/31/2016 CAMERON CHINCHILLA, LALO Ot I10 ESSENTIAL (PRIMARY) HYPERTENSION 03/31/2016 CAMERON CHINCHILLA, LALO Ot N40.0 ENLARGED PROSTATE WITHOUT LOWER URINARY 03/31/2016 CAMERON CHINCHILLA, LALO Moya Z79.899 OTHER INSTRUCTOR APPAREL MANUFA[employer]URE (CURRENT) DRUG THERAPY 05/05/2016 OTILIO CHINCHILLA, CHAKA [...] 05/09/2016 CAMERON CHINCHILLA, LALO Moya Z79.899 OTHER INSTRUCTOR [employer]PAREL [employer]UFA[employer]URE (CURRENT) DRUG THERAPY 05/15/2016 LALO BARNES MD, Ot D46.9 MYELODYSPLASTIC SYNDROME, UNSPECIFIED 05/15/2016 CAMERON CHINCHILLA, LALO Moya D53.9 NUTRITIONAL ANEMIA, UNSPECIFIED 05/15/2016 CAMERON CHINCHILLA, LALO Ot E78.5 HYPERLIPIDEMIA, UNSPECIFIED 05/15/2016 CAMERON CHINCHILLA, LALO Ot I10 ESSENTIAL (PRIMARY) HYPERTENSION 05/15/2016 CAMERON CHINCHILLA, LALO Ot N40.0 ENLARGED PROSTATE WITHOUT LOWER URINARY 05/15/2016 CAMERON CHINCHILLA, LALO Moya Z79.899 OTHER INSTRUCTOR APPAREL [employer]UFA[employer]URE (CURRENT) DRUG THERAPY 05/16/2016 CAMERON CHINCHILLA, LALO Moya D46.9 MYELODYSPLASTIC SYNDROME, UNSPECIFIED 05/16/2016 CAMERON CHINCHILLA, LALO Moya D53.9 NUTRITIONAL ANEMIA, UNSPECIFIED 05/16/2016 LALO BARNES MD Ot E78.5 HYPERLIPIDEMIA, UNSPECIFIED 05/16/2016 LALO BARNES MD Ot I10 ESSENTIAL (PRIMARY) HYPERTENSION 05/16/2016 CAMERON CHINCHILLA, LALO Ot N40.0 ENLARGED PROSTATE WITHOUT LOWER URINARY 05/16/2016 CAMERON CHINCHILLA, LALO Ot Z79.899 OTHER DETENTION (CURRENT) DRUG THERAPY 05/24/2016 LALO BARNES MD Ot D46.9 MYELODYSPLASTIC SYNDROME, UNSPECIFIED 05/24/2016 CAMERON CHINCHILLA, LALO Ot D53.9 NUTRITIONAL ANEMIA, UNSPECIFIED 05/24/2016 CAMERON CHINCHILLA, LALO Ot E78.5 HYPERLIPIDEMIA, UNSPECIFIED 05/24/2016 LALO BARNES MD Ot I10 ESSENTIAL (PRIMARY) HYPERTENSION 05/24/2016 CAMERON CHINCHILLA, LALO Ot N40.0 ENLARGED PROSTATE WITHOUT LOWER URINARY 05/24/2016 LALO BARNES MD, Ot Z79.899 OTHER INSTRUCTOR APPAREL MANUFACTURE (CURRENT) DRUG THERAPY 06/30/2016 LALO BARNES MD Ot D46.9 MYELODYSPLASTIC SYNDROME, UNSPECIFIED 06/30/2016 LALO BARNES MD Ot D53.9 NUTRITIONAL ANEMIA, UNSPECIFIED 06/30/2016 LALO BARNES MD Ot E78.5 HYPERLIPIDEMIA, UNSPECIFIED 06/30/2016 LALO BARNES MD Ot I10 ESSENTIAL (PRIMARY) HYPERTENSION 06/30/2016 LALO BARNES MD Ot N40.0 ENLARGED PROSTATE WITHOUT LOWER URINARY 06/30/2016 LALO BARNES MD, Ot Z79.899 OTHER INSTRUCTOR APPAREL MANUFACTURE (CURRENT) DRUG THERAPY 07/11/2016 LALO BARNES MD Ot D46.9 MYELODYSPLASTIC SYNDROME, UNSPECIFIED 07/11/2016 CAMERON CHINCHILLA, LALO Ot D53.9 NUTRITIONAL ANEMIA, UNSPECIFIED 07/11/2016 LALO BARNES MD Ot E78.5 HYPERLIPIDEMIA, UNSPECIFIED 07/11/2016 CAMERON CHINCHILLA, LALO Ot I10 ESSENTIAL (PRIMARY) HYPERTENSION 07/11/2016 LALO BARNES MD Ot N40.0 ENLARGED PROSTATE WITHOUT LOWER URINARY 07/11/2016 LALO BARNES MD Ot Z79.899 OTHER DETENTION (CURRENT) DRUG THERAPY 07/18/2016 XUN MD, AGUILAR-MARNI Ot D46.9 MYELODYSPLASTIC SYNDROME, UNSPECIFIED 07/18/2016 CAMERON CHINCHILLA, LALO Ot D53.9 NUTRITIONAL ANEMIA, UNSPECIFIED 07/18/2016 LALO BARNES MD Ot E78.5 HYPERLIPIDEMIA, UNSPECIFIED 07/18/2016 LALO BARNES MD Ot I10 ESSENTIAL (PRIMARY) HYPERTENSION 07/18/2016 LALO BARNES MD Ot N40.0 ENLARGED PROSTATE WITHOUT LOWER URINARY 07/18/2016 LALO BARNES MD, Ot Z79.899 OTHER INSTRUCTOR APPAREL MANUFACTURE (CURRENT) DRUG THERAPY 08/04/2016 LALO BARNES MD, Ot D46.9 MYELODYSPLASTIC SYNDROME, UNSPECIFIED 08/04/2016 LALO BARNES MD, Ot D53.9 NUTRITIONAL ANEMIA, UNSPECIFIED 08/04/2016 LALO BARNES MD, Ot E78.5 HYPERLIPIDEMIA, UNSPECIFIED 08/04/2016 LALO BARNES MD Ot I10 ESSENTIAL (PRIMARY) HYPERTENSION 08/04/2016 LALO BARNES MD, Ot N40.0 BENIGN PROSTATIC HYPERPLASIA WITHOUT LOW 08/04/2016 LALO BARNES MD, Ot Z79.899 OTHER INSTRUCTOR APPAREL MANUFACTURE (CURRENT) DRUG THERAPY 08/30/2016 LALO BARNES MD, Ot D46.9 MYELODYSPLASTIC SYNDROME, UNSPECIFIED 08/30/2016 LALO BARNES MD, Ot D53.9 NUTRITIONAL ANEMIA, UNSPECIFIED 08/30/2016 LALO BARNES MD, Ot E78.5 HYPERLIPIDEMIA, UNSPECIFIED 08/30/2016 LALO BARNES MD Ot I10 ESSENTIAL (PRIMARY) HYPERTENSION 08/30/2016 LALO BARNES MD Ot N40.0 BENIGN PROSTATIC HYPERPLASIA WITHOUT LOW 08/30/2016 LALO BARNES MD, Ot Z79.899 OTHER DETENTION (CURRENT) DRUG THERAPY 10/12/2016 LALO BARNES MD, Ot D46.9 MYELODYSPLASTIC SYNDROME, UNSPECIFIED 10/12/2016 LALO BARNES MD, Ot D53.9 NUTRITIONAL ANEMIA, UNSPECIFIED 10/12/2016 LALO BARNES MD Ot E78.5 HYPERLIPIDEMIA, UNSPECIFIED 10/12/2016 LALO BARNES MD Ot I10 ESSENTIAL (PRIMARY) HYPERTENSION 10/12/2016 LALO BARNES MD Ot N40.0 BENIGN PROSTATIC HYPERPLASIA WITHOUT LOW 10/12/2016 LALO BARNES MD Ot Z79.899 OTHER DETENTION (CURRENT) DRUG THERAPY 10/30/2016 LALO BARNES MD, Ot D46.9 MYELODYSPLASTIC SYNDROME, UNSPECIFIED 10/30/2016 LALO BARNES MD Ot D53.9 NUTRITIONAL ANEMIA, UNSPECIFIED 10/30/2016 LALO BARNES MD Ot E78.5 HYPERLIPIDEMIA, UNSPECIFIED 10/30/2016 LALO BARNES MD Ot I10 ESSENTIAL (PRIMARY) HYPERTENSION 10/30/2016 LALO BARNES MD Ot N40.0 BENIGN PROSTATIC HYPERPLASIA WITHOUT LOW 10/30/2016 LALO BARNES MD, Ot Z79.899 OTHER INSTRUCTOR APPAREL MANUFACTURE (CURRENT) DRUG THERAPY 11/05/2016 LALO BARNES MD, Ot D46.9 MYELODYSPLASTIC SYNDROME, UNSPECIFIED 11/05/2016 LALO BARNES MD, Ot D53.9 NUTRITIONAL ANEMIA, UNSPECIFIED 11/05/2016 LALO BARNES MD, Ot E78.5 HYPERLIPIDEMIA, UNSPECIFIED 11/05/2016 LALO BARNES MD Ot I10 ESSENTIAL (PRIMARY) HYPERTENSION 11/05/2016 LALO BARNES MD Ot N40.0 BENIGN PROSTATIC HYPERPLASIA WITHOUT LOW 11/05/2016 LALO BARNES MD, Ot Z79.899 OTHER DETENTION (CURRENT) DRUG THERAPY 11/21/2016 LALO BARNES MD, Ot D46.9 MYELODYSPLASTIC SYNDROME, UNSPECIFIED 11/21/2016 LALO BARNES MD, Ot D53.9 NUTRITIONAL ANEMIA, UNSPECIFIED 11/21/2016 LALO BARNES MD, Ot E78.5 HYPERLIPIDEMIA, UNSPECIFIED 11/21/2016 LALO BARNES MD Ot I10 ESSENTIAL (PRIMARY) HYPERTENSION 11/21/2016 LALO BARNES MD Ot N40.0 BENIGN PROSTATIC HYPERPLASIA WITHOUT LOW 11/21/2016 LALO BARNES MD, Ot Z79.899 OTHER INSTRUCTOR APPAREL MANUFACTURE (CURRENT) DRUG THERAPY 11/23/2016 LALO BARNES MD, Ot D46.9 MYELODYSPLASTIC SYNDROME, UNSPECIFIED 11/23/2016 LALO BARNES MD Ot D53.9 NUTRITIONAL ANEMIA, UNSPECIFIED 11/23/2016 LALO BARNES MD Ot E78.5 HYPERLIPIDEMIA, UNSPECIFIED 11/23/2016 LALO BARNES MD Ot I10 ESSENTIAL (PRIMARY) HYPERTENSION 11/23/2016 CAMERON CHINCHILLA, LALO Ot N40.0 BENIGN PROSTATIC HYPERPLASIA WITHOUT LOW 11/23/2016 CAMERON CHINCHILLA, LALO Ot Z79.899 OTHER INSTRUCTOR APPAREL MANUFACTURE (CURRENT) DRUG THERAPY 01/18/2017 LALO BARNES MD Ot D46.9 MYELODYSPLASTIC SYNDROME, UNSPECIFIED 01/18/2017 CAMERON CHINCHILLA, LALO Ot D53.9 NUTRITIONAL ANEMIA, UNSPECIFIED 01/18/2017 CAMERON CHINCHILLA, LALO Ot E78.5 HYPERLIPIDEMIA, UNSPECIFIED 01/18/2017 CAMERON CHINCHILLA, LALO Ot I10 ESSENTIAL (PRIMARY) HYPERTENSION 01/18/2017 CAMERON CHINCHILLA, LALO Ot N40.0 BENIGN PROSTATIC HYPERPLASIA WITHOUT LOW 01/18/2017 LALO BARNES MD, Ot Z79.899 OTHER INSTRUCTOR APPAREL MANUFACTURE (CURRENT) DRUG THERAPY 02/20/2017 LALO BARNES MD, Ot D46.9 MYELODYSPLASTIC SYNDROME, UNSPECIFIED 02/20/2017 LALO BARNES MD Ot D53.9 NUTRITIONAL ANEMIA, UNSPECIFIED 02/20/2017 LALO BARNES MD Ot E78.5 HYPERLIPIDEMIA, UNSPECIFIED 02/20/2017 LALO BARNES MD Ot I10 ESSENTIAL (PRIMARY) HYPERTENSION 02/20/2017 CAMERON CHINCHILLA, LALO Ot N40.0 BENIGN PROSTATIC HYPERPLASIA WITHOUT LOW 02/20/2017 CAMERON CHINCHILLA, LALO Moya Z79.899 OTHER INSTRUCTOR APPAREL MANUFACTURE (CURRENT) DRUG THERAPY 03/10/2017 LALO BARNES MD, Ot D46.9 MYELODYSPLASTIC SYNDROME, UNSPECIFIED 03/10/2017 CAMERON CHINCHILLA, LALO Ot D53.9 NUTRITIONAL ANEMIA, UNSPECIFIED 03/10/2017 CAMERON CHINCHILLA, LALO Ot E78.5 HYPERLIPIDEMIA, UNSPECIFIED 03/10/2017 LALO BARNES MD Ot I10 ESSENTIAL (PRIMARY) HYPERTENSION 03/10/2017 CAMERON CHINCHILLA, LALO Ot N40.0 BENIGN PROSTATIC HYPERPLASIA WITHOUT LOW 03/10/2017 CAMERON CHINCHILLA, LALO Ot Z79.899 OTHER DETENTION (CURRENT) DRUG THERAPY 06/05/2017 LALO BARNES MD [...] 06/05/2017 CAMERON CHINCHILLA, LALO Ot Z79.899 OTHER DETENTION (CURRENT) DRUG THERAPY 06/08/2017 LALO BARNES MD [...] 06/08/2017 LALO BARNES MD Ot Z79.899 OTHER DETENTION (CURRENT) DRUG THERAPY 06/14/2017 LALO BARNES MD [...] 06/14/2017 CAMERON CHINCHILLA, LALO Ot Z79.899 OTHER INSTRUCTOR APPAREL MANUFACTURE (CURRENT) DRUG THERAPY 07/08/2017 LALO BARNES MD [...] 07/08/2017 LALO BARNES MD Ot Z79.899 OTHER DETENTION (CURRENT) DRUG THERAPY 07/10/2017 CHAKA YAÑEZ MD [...] 07/11/2017 LALO BARNES MD Ot Z79.899 OTHER INSTRUCTOR APPAREL MANUFACTURE (CURRENT) DRUG THERAPY 07/12/2017 LALO BARNES MD [...] 07/12/2017 LALO BARNES MD Ot Z79.899 OTHER INSTRUCTOR APPAREL MANUFACTURE (CURRENT) DRUG THERAPY 09/04/2017 LALO BARNES MD [...] 09/04/2017 LALO BARNES MD Ot Z79.899 OTHER INSTRUCTOR APPAREL MANUFACTURE (CURRENT) DRUG THERAPY 10/08/2017 LALO BARNES MD [...] 10/08/2017 LALO BARNES MD Ot Z79.899 OTHER DETENTION (CURRENT) DRUG THERAPY 10/10/2017 LAOL BARNES MD Ot D46.Z OTHER MYELODYSPLASTIC SYNDROMES [...] 10/10/2017 CAMERON CHINCHILLA, LALO Ot Z79.899 OTHER DETENTION (CURRENT) DRUG THERAPY 10/11/2017 CAMERON CHINCHILLA, LALO Ot D46.Z OTHER MYELODYSPLASTIC SYNDROMES 10/11/2017 CAMERON CHINCHILLA, LALO Ot D61.818 OTHER PANCYTOPENIA 10/11/2017 CAMERON CHINCHILLA, LALO Ot D64.89 OTHER SPECIFIED ANEMIAS 10/11/2017 CAMERON CHINCHILLA, LALO Ot E78.5 HYPERLIPIDEMIA, UNSPECIFIED 10/11/2017 CAMERON CHINCHILLA, LALO Ot I10 ESSENTIAL (PRIMARY) HYPERTENSION 10/11/2017 CAMERON CHINCHILLA, LALO Ot M06.9 RHEUMATOID ARTHRITIS, UNSPECIFIED 10/11/2017 CAMERON CHINCHILLA, LALO Ot N40.0 BENIGN PROSTATIC HYPERPLASIA WITHOUT LOW 10/11/2017 LALO BARNES MD Ot Z79.899 OTHER INSTRUCTOR [employer]PAREL MANUFACTURE (CURRENT) DRUG THERAPY 12/27/2017 LALO BARNES MD Ot D46.Z OTHER MYELODYSPLASTIC SYNDROMES 12/27/2017 LALO BARNES MD Ot D61.818 OTHER PANCYTOPENIA 12/27/2017 LALO BRANES MD Ot D64.89 OTHER SPECIFIED ANEMIAS 12/27/2017 CAMERON CHINCHILLA, LALO Ot E78.5 HYPERLIPIDEMIA, UNSPECIFIED 12/27/2017 CAMERON CHINCHILLA, LALO Ot I10 ESSENTIAL (PRIMARY) HYPERTENSION 12/27/2017 CAMEORN CHINCHILLA, LALO Ot M06.9 RHEUMATOID ARTHRITIS, UNSPECIFIED 12/27/2017 CAMERON CHINCHILLA, LALO Ot N40.0 BENIGN PROSTATIC HYPERPLASIA WITHOUT LOW 12/27/2017 CAMERON CHINCHILLA, LALO Ot Z79.899 OTHER DETENTION (CURRENT) DRUG THERAPY 01/08/2018 LALO BARNES MD Ot D46.Z OTHER MYELODYSPLASTIC SYNDROMES 01/08/2018 LALO BARNES MD Ot D61.818 OTHER PANCYTOPENIA 01/08/2018 CAMERON CHINCHILLA, LALO Ot D64.89 OTHER SPECIFIED ANEMIAS 01/08/2018 LALO BARNES MD Ot E78.5 HYPERLIPIDEMIA, UNSPECIFIED 01/08/2018 CAMERON CHINCHILLA, LALO Ot I10 ESSENTIAL (PRIMARY) HYPERTENSION 01/08/2018 CAMERON CHINCHILLA, LALO Ot M06.9 RHEUMATOID ARTHRITIS, UNSPECIFIED 01/08/2018 CAMERON CHINCHILLA, LALO Ot N40.0 BENIGN PROSTATIC HYPERPLASIA WITHOUT LOW 01/08/2018 CAMERON CHINCHILLA, LALO Ot Z79.899 OTHER DETENTION (CURRENT) DRUG THERAPY 01/09/2018 CAMERON CHINCHILLA, LALO Ot D46.Z OTHER MYELODYSPLASTIC SYNDROMES 01/09/2018 CAMERON CHINCHILLA, LALO Ot D61.818 OTHER PANCYTOPENIA 01/09/2018 CAMERON CHINCHILLA, LALO Ot D64.89 OTHER SPECIFIED ANEMIAS 01/09/2018 LALO BARNES MD Ot E78.5 HYPERLIPIDEMIA, UNSPECIFIED 01/09/2018 CAMERON CHINCHILLA, LALO Ot I10 ESSENTIAL (PRIMARY) HYPERTENSION 01/09/2018 LALO BARNES MD Ot M06.9 RHEUMATOID ARTHRITIS, UNSPECIFIED 01/09/2018 CAMERON CHINCHILLA, LALO Ot N40.0 BENIGN PROSTATIC HYPERPLASIA WITHOUT LOW 01/09/2018 CAMERON CHINCHILLA, LALO Ot Z79.899 OTHER DETENTION (CURRENT) DRUG THERAPY 01/17/2018 LALO BARNES MD [...] 01/17/2018 CAMERON CHINCHILLA, LALO Ot Z79.899 OTHER INSTRUCTOR [employer]PAREL MANUFACTURE (CURRENT) DRUG THERAPY 01/18/2018 OTILIO CHINCHILLA, CHAKA Ospina Ot D64.9 ANEMIA, UNSPECIFIED 01/18/2018 CAMERON CHINCHILLA, LALO Ot D46.Z OTHER MYELODYSPLASTIC SYNDROMES 01/18/2018 LALO BARNES MD Ot D61.818 OTHER PANCYTOPENIA 01/18/2018 LALO BARNES MD Ot D64.89 OTHER SPECIFIED ANEMIAS 01/18/2018 LALO BARNES MD Ot E78.5 HYPERLIPIDEMIA, UNSPECIFIED 01/18/2018 LALO BARNES MD Ot I10 ESSENTIAL (PRIMARY) HYPERTENSION 01/18/2018 CAMERON CHINCHILLA, LALO Ot M06.9 RHEUMATOID ARTHRITIS, UNSPECIFIED 01/18/2018 CAMERON CHINCHILLA, LALO Ot N40.0 BENIGN PROSTATIC HYPERPLASIA WITHOUT LOW 01/18/2018 CAMERON CHINCHILLA, LALO Ot Z79.899 OTHER DETENTION (CURRENT) DRUG THERAPY 01/19/2018 LALO BARNES MD [...] 01/19/2018 CAMERON CHINCHILLA, LALO Ot Z79.899 OTHER INSTRUCTOR [employer]UFACTURE (CURRENT) DRUG THERAPY 01/25/2018 LALO BARNES MD Ot D46.Z OTHER MYELODYSPLASTIC SYNDROMES 01/25/2018 LALO BARNES MD Ot D64.9 ANEMIA, UNSPECIFIED 01/25/2018 CAMERON CHINCHILLA, LALO Ot D69.6 THROMBOCYTOPENIA, UNSPECIFIED 01/31/2018 CAMERON CHINCHILLA, LALO Ot D46.Z OTHER MYELODYSPLASTIC SYNDROMES 01/31/2018 LALO BARNES MD Ot D61.818 OTHER PANCYTOPENIA 01/31/2018 LALO BARNES MD Ot D64.89 OTHER SPECIFIED ANEMIAS 01/31/2018 LALO BARNES MD Ot E78.5 HYPERLIPIDEMIA, UNSPECIFIED 01/31/2018 CAMERON CHINCHILLA, LALO Ot I10 ESSENTIAL (PRIMARY) HYPERTENSION 01/31/2018 LALO BARNES MD Ot M06.9 RHEUMATOID ARTHRITIS, UNSPECIFIED 01/31/2018 LALO BARNES MD Ot N40.0 BENIGN PROSTATIC HYPERPLASIA WITHOUT LOW 01/31/2018 LALO BARNES MD Ot Z79.899 OTHER DETENTION (CURRENT) DRUG THERAPY Procedures There is no data. Results Test Result Range RED CELLS LEUKO REDUCED AS1 - 08/28/17 08:50 RED CELLS LEUKO REDUCED AS1 PRSMD TRFSD 08/28/17 1007 NR Blood type T Indirect antibody screen panel - 08/28/17 08:50 ABO+Rh group AN NR Transfusion band number [id number] [facility] Blood group antibody screen NEGATIVE [facility] [id number] - 01/08/18 08:36 [id number] SPECIMEN AVAILABLE [facility] PT panel in platelet poor plasma by coagulation assay - 01/22/18 07:15 Prothrombin time (PT) in platelet poor plasma by coagulation assay 12.7 s 12.2-14.7 INR in platelet poor plasma or blood by coagulation assay 0.9 0.8-1.4 Activated partial thromboplastin time (aPTT) in platelet poor plasma bycoagulation assay - 01/22/18 07:15 Activated partial thromboplastin time (aPTT) in platelet poor plasma bycoagulation assay 33 s 24-35 PLATELET PHERESIS LR - 01/22/18 07:18 PLATELET PHERESIS LR TRANSFUSED 01/22/18 0728 [facility] [id number] - 01/22/18 07:18 [id number] SPECIMEN AVAILABLE NR * Reference lab test name - 01/22/18 09:00 * Reference lab test results CHROM AML(15,17) NRG * Reference lab test name - 01/22/18 09:00 * Reference lab test results Karyotype Analys NRG * Reference lab test name - 01/22/18 09:00 * Reference lab test results FLT3 Mutation NRG * Reference lab test name - 01/22/18 09:00 * Reference lab test results NPM1 MUT PCR NRG Encounters ACCT No. Visit Date/Time Discharge Status Pt. Type Provider Facility Loc./Unit Complaint [id number] 08/04/2014 14:07:00 08/04/2014 23:59:59 CLS Outpatient LIVIA BRAVO DO [id number] 01/22/2018 06:52:00 01/22/2018 11:30:00 DIS Outpatient LALO BARNES MD [facility] RAD D64.89 ANEMIA [id number] 01/08/2018 08:23:00 01/08/2018 00:01:00 DIS Outpatient LALO BARNES MD [facility] ONC [id number] 09/26/2017 08:32:00 10/08/2017 00:01:00 DIS Outpatient LALO BARNES MD [facility] ONC [id number] 07/03/2017 08:29:00 07/08/2017 00:01:00 DIS Outpatient LALO BARNES MD [facility] ONC [id number] 06/05/2017 08:32:00 06/08/2017 00:01:00 DIS Outpatient LALO BARNES MD [facility] ONC [id number] 02/17/2017 09:17:00 02/20/2017 00:01:00 DIS Outpatient LALO BARNES MD [facility] ONC [id number] 10/11/2016 08:26:00 10/30/2016 00:01:00 DIS Outpatient LALO BARNES MD [facility] ONC [id number] 06/27/2016 09:10:00 07/18/2016 08:14:00 DIS Outpatient LALO BARNES MD [facility] ONC [id number] 05/12/2016 08:25:00 05/15/2016 00:01:00 DIS Outpatient LALO BARNES MD [facility] ONC [id number] 02/01/2016 13:08:00 02/08/2016 00:01:00 DIS Outpatient LALO BARNES MD [facility] ONC [id number] 10/12/2015 13:41:00 11/03/2015 00:01:00 DIS Outpatient LALO BARNES MD [facility] ONC [id number] 10/22/2015 00:10:00 10/22/2015 23:59:59 CLS Preadeula YAÑEZ MD, CHAKA Ospina [facility] SDC ANEMIA [id number] 07/24/2015 07:46:00 10/21/2015 00:01:00 DIS Outpatient CHAKA YAÑEZ MD [facility] SDC ANEMIA [id number] 09/16/2015 15:32:00 09/16/2015 17:55:00 DIS Emergency CATALINO EASTMAN MD [facility] ER DIFFICULTY BREATHING [id number] 09/10/2015 16:15:00 09/13/2015 11:18:00 DIS Inpatient CHAKA YAÑEZ MD [facility] 4TH VIRAL GASTROENTERITIS [id number] 02/09/2018 08:30:00 ACT Outpatient CAMERON CHINCHILLA, LALO [facility] ONC [id number] 01/18/2018 13:47:00 Document Registration
--- NOTE | 2018-02-11 07:56 | ED General ---
General Chief Complaint: Dizziness/Syncope Stated Complaint: FEELS LIKE PASSING OUT, RECEIVES CHEMO Nursing Triage Note: C/O generalized weakness. Reports diaphoresis this morning. [place] like he was "going to pass out". Hx of anemia and leukemia. Started chemo on Monday. Recieved 2 units of blood recently when Hg dropped to 5. Nursing Sepsis Screen: No Definite Risk Source of Information: Patient, Spouse Exam Limitations: No Limitations History of Present Illness Date Seen by Provider: February 11, 2018 Time Seen by Provider: 07:44 Initial Comments Patient presents to the ER by private conveyance with a chief complaint that he is having lightheadedness like he's going to pass out. He has not had a syncopal episode nor is he had a fall. 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 He says this is how he is feeling now. He says 1 week ago his diagnosis had been upgraded to leukemia and he had started chemotherapy. He was feeling pretty good Monday when he went in for his second dose of chemotherapy. However today he doesn't think he can make it to his scheduled labs on Monday because he feels he needs a transfusion. He's having no shortness of breath cough, fevers, chest pain, abdominal pain, nausea , vomiting, headache. He's had no black tarry stools or gross blood in the stool or urine. Allergies and Home Medications Allergies Coded Allergies: No Known Drug Allergies (Unverified , 09/10/15) Home Medications Ferrous Sulfate 325 Mg Tablet, 325 MG PO HS, (Reported) Finasteride 5 Mg Tablet, 5 MG PO HS, (Reported) Nystatin 100,000 Unit/1 Ml Oral.susp, 5 ML PO Q6H Swish as long as possible and swallow Prescribed by: CATALINO BROWNE on 09/16/15 2240 Simvastatin 40 Mg Tablet, 40 MG PO HS, (Reported) Patient Home Medication List Home Medication List Reviewed: Yes Review of Systems Constitutional: No chills, No diaphoresis EENTM: No hearing loss, No ear pain Respiratory: No cough, No short of breath, No wheezing Cardiovascular: No chest pain, No edema, No Hx of Intervention, No palpitations , No syncope, No vascular heart diseas Gastrointestinal: No abdominal pain, No constipation, No diarrhea Genitourinary: No discharge, No dysuria Past Pvxouwx-Mbhlcg-Csoiia Hx Patient Social History Alcohol Use: Denies Use Recreational Drug Use: No Smoking Status: Never a Smoker Recent Foreign Travel: No Contact w/Someone Who Travel: No Recent Infectious Disease Expo: No Immunizations Up To Date Tetanus Booster (TDap): Less than 5yrs PED Vaccines UTD: No Date of Pneumonia Vaccine: Jul 09, 2012 Date of Influenza Vaccine: Sep 01, 2015 Past Medical History Surgeries: Yes (foot sugjosh 2004) Adenoidectomy, Orthopedic, Tonsillectomy Respiratory: No Currently Using CPAP: No Currently Using BIPAP: No Cardiac: No (takes zocor) Neurological: No Reproductive Disorders: No Sexually Transmitted Disease: No HIV/AIDS: No Prostate Problems Gastrointestinal: No Musculoskeletal: Yes Arthritis Endocrine: No Loss of Vision: Denies Hearing Impairment: Hard of Hearing Cancer: Yes (Myelodysplastic syndrome) Psychosocial: No Integumentary: No Blood Disorders: Yes (Myelodysplastic syndrome) Family Medical History Patient reports no known family medical history. Physical Exam Vital Signs Vital Signs - First Documented 02/11/18 07:36 Temp 97.1 Pulse 83 Resp 18 B/P (MAP) 132/73 (92) Pulse Ox 95 O2 Delivery Room Air Capillary Refill : Less Than 3 Seconds General Appearance: No Apparent Distress, WD/WN Eyes: Bilateral Eye Normal Inspection, Bilateral Eye PERRL, Bilateral Eye EOMI HEENT: PERRL/EOMI, Pharynx Normal Neck: Full Range of Motion, Non Tender Respiratory: Chest Non Tender, Lungs Clear, Normal Breath Sounds, No Accessory Muscle Use, No Respiratory Distress Cardiovascular: Regular Rate, Rhythm, No Edema, No JVD, Normal Peripheral Pulses Gastrointestinal: Normal Bowel Sounds, Non Tender, Soft Neurologic/Psychiatric: Alert, Oriented x3, legal billing specialist II-XII Norm as Tested Skin: Warm/Dry, Pallor Progress/Results/Core Measures Suspected Sepsis Recent Fever Within 48 Hours: No Infection Criteria Present: None New/Unexplained Altered Menta: No Sepsis Screen: No Definite Risk SIRS Temperature:97.1 Pulse: 83 Respiratory Rate: 18 Laboratory Tests 02/11/18 08:00: White Blood Count 7.8 Blood Pressure 132 /73 Mean: 92 Laboratory Tests 02/11/18 08:00: Creatinine 1.21, Platelet Count 29*L, Total Bilirubin 0.4 Results/Orders Lab Results Laboratory Tests Test 02/11/18 08:00 Range/Units White Blood Count 7.8 4.3-11.0 10^3/uL Red Blood Count 1.69 L 4.35-5.85 10^6/uL Hemoglobin 6.0 *L 13.3-17.7 G/DL Hematocrit 18 *L 40-54 % Mean Corpuscular Volume 107 H 80-99 FL Mean Corpuscular Hemoglobin 36 H 25-34 PG Mean Corpuscular Hemoglobin Concent 33 32-36 G/DL Red Cell Distribution Width 17.2 H 10.0-14.5 % Platelet Count 29 *L 130-400 10^3/uL Mean Platelet Volume 9.4 7.4-10.4 FL Neutrophils (%) (Auto) 53 42-75 % Lymphocytes (%) (Auto) 26 12-44 % Monocytes (%) (Auto) 19 H 0-12 % Eosinophils (%) (Auto) 2 0-10 % Basophils (%) (Auto) 0 0-10 % Neutrophils # (Auto) 4.1 1.8-7.8 X 10^3 Lymphocytes # (Auto) 2.1 1.0-4.0 X 10^3 Monocytes # (Auto) 1.5 H 0.0-1.0 X 10^3 Eosinophils # (Auto) 0.1 0.0-0.3 10^3/uL Basophils # (Auto) 0.0 0.0-0.1 10^3/uL Sodium Level 137 135-145 MMOL/L Potassium Level 3.7 3.6-5.0 MMOL/L Chloride Level 105 98-107 MMOL/L Carbon Dioxide Level 22 21-32 MMOL/L Anion Gap 10 5-14 MMOL/L Blood Urea Nitrogen 30 H 7-18 MG/DL Creatinine 1.21 0.60-1.30 MG/DL Estimat Glomerular Filtration Rate 58 BUN/Creatinine Ratio 25 Glucose Level 134 H 70-105 MG/DL Calcium Level 8.9 8.5-10.1 MG/DL Magnesium Level 2.0 1.8-2.4 MG/DL Total Bilirubin 0.4 0.1-1.0 MG/DL Aspartate Amino Transf (AST/SGOT) 13 5-34 U/L Alanine Aminotransferase (ALT/SGPT) 28 0-55 U/L Alkaline Phosphatase 70 40-136 U/L Troponin I < 0.30 <0.30 NG/ML C-Reactive Protein High Sensitivity 0.25 0.00-0.50 MG/DL Total Protein 6.1 L 6.4-8.2 GM/DL Albumin 3.9 3.2-4.5 GM/DL My Orders Orders - ZEFERINO PUCKETT Cbc With Automated Diff (02/11/18 07:49) Comprehensive Metabolic Panel (02/11/18 07:49) Hs C Reactive Protein (02/11/18 07:49) Magnesium (02/11/18 07:49) Ekg Tracing (02/11/18 07:49) Troponin I (02/11/18 07:49) Xe-Fknvcdu-Nkkzuu (Order) (02/11/18 07:49) Vital Signs: Special (Order) (02/11/18 08:11) Consent-Obtain Consent For (02/11/18 08:11) Monitor S/S Transfusion Reacti (02/11/18 08:11) Ns Iv 500 Ml (Sodium Chloride 0.9%) (02/11/18 08:11) Red Cells Leukocytes Reduced (02/11/18 08:11) Type And Screen (02/11/18 08:11) Vital Signs/I&O 02/11/18 07:36 Temp 97.1 Pulse 83 Resp 18 B/P (MAP) 132/73 (92) Pulse Ox 95 O2 Delivery Room Air Capillary Refill : Less Than 3 Seconds Blood Pressure Mean: 92 Progress Note #1: Time: 08:06 Progress Note Patient presents without tachycardia but definitely pale in appearance with a history of chemotherapy. Concern for dehydration versus anemia versus other symptoms sources of near-syncope. We'll get an EKG as well as troponin and some basic labs to evaluate. No neurologic deficits discovered on examination. Progress Note #2: Time: 08:22 Progress Note Low platelets and low hemoglobin. We will schedule him for outpatient infusion of 2 units packed red blood cells upstairs today. He can follow-up with labs tomorrow at his scheduled outpatient lab appointment. ECG Initial ECG Impression Date: February 11, 2018 Initial ECG Impression Time: 08:05 Initial ECG Rate: 77 Initial ECG Rhythm: Normal Sinus Initial ECG Intervals: Normal Initial ECG Impression: Normal Comment No acute ST elevation or depression. Departure Impression Primary Impression: Anemia Qualified Codes: D64.9 - Anemia, unspecified Additional Impressions: History of leukemia Thrombocytopenia Disposition: 01 HOME, SELF-CARE Condition: Stable Departure-Patient Inst. Decision time for Depature: 08:23 Referrals: CHAKA YAÑEZ MD (PCP/Family) Primary Care Physician Patient Instructions: Anemia Caused by Low Iron, Adult (DC) Add. Discharge Instructions: Proceed to outpatient blood transfusion and then follow up with your labs as planned tomorrow. All discharge instructions reviewed with patient and/or family. Voiced understanding. Copy Copies To 1: CHAKA YAÑEZ MD, TITUS J February 11, 2018 07:56
[2018-02-11 08:07] LABS: BASOPHILS % (AUTO) 0 % (0-10); EOSINOPHILS # (AUTO) 0.1 10^3/uL (0.0-0.3); EOSINOPHILS % (AUTO) 2 % (0-10); LYMPHOCYTES # (AUTO) 2.1 X 10^3 (1.0-4.0); LYMPHOCYTES % (AUTO) 26 % (12-44); MEAN CORPUSCULAR HEMOGLOBIN 36 PG (25-34); MEAN CORPUSCULAR HGB CONC 33 G/DL (32-36); MEAN CORPUSCULAR VOLUME 107 FL (80-99); MEAN PLATELET VOLUME 9.4 FL (7.4-10.4); MONOCYTES # (AUTO) 1.5 X 10^3 (0.0-1.0); MONOCYTES % (AUTO) 19 % (0-12); NEUTROPHILS # (AUTO) 4.1 X 10^3 (1.8-7.8); NEUTROPHILS % (AUTO) 53 % (42-75); RED BLOOD COUNT 1.69 10^6/uL (4.35-5.85); RED CELL DISTRIBUTION WIDTH 17.2 % (10.0-14.5); WHITE BLOOD COUNT 7.8 10^3/uL (4.3-11.0)
[2018-02-11 08:10] LABS: HEMATOCRIT 18 % (40-54)
[2018-02-11 08:11] LABS: PLATELET COUNT 29 10^3/uL (130-400)
[2018-02-11] MEDS ORDERED: NS IV 500 ML 500 ML IV SCH (08:11)
[2018-02-11 08:30] LABS: ALANINE AMINOTRANSFERASE 28 U/L (0-55); ALBUMIN 3.9 GM/DL (3.2-4.5); ALKALINE PHOSPHATASE 70 U/L (40-136); BILIRUBIN,TOTAL 0.4 MG/DL (0.1-1.0); BUN/CREATININE RATIO 25; CALCIUM 8.9 MG/DL (8.5-10.1); CARBON DIOXIDE 22 MMOL/L (21-32); CHLORIDE 105 MMOL/L (98-107); CREATININE SERUM 1.21 MG/DL (0.60-1.30); GFR ESTIMATED 58; GLUCOSE 134 MG/DL (70-105); POTASSIUM 3.7 MMOL/L (3.6-5.0); SODIUM 137 MMOL/L (135-145); TOTAL PROTEIN 6.1 GM/DL (6.4-8.2)
[2018-02-11 09:14] VITALS: BP 128/70
[2018-02-11] MEDS ORDERED: PANT40TA2 PO (11:46)
== END 2018-02-11 09:14 | disposition home or self-care (01) ==
LOC: EDUNIT# 07:22 → ER 07:23
DX: D69.6 Thrombocytopenia, unspecified (principal); D46.9 Myelodysplastic syndrome, unspecified; Z92.21 Personal history of antineoplastic chemotherapy; Z90.89 Acquired absence of other organs; C95.90 Leukemia, unspecified not having achieved remission; D63.0 Anemia in neoplastic disease
CPT/HCPCS: 36415; 36430; 80053; 83735; 84484; 85025; 86141; 86850; 86900; 86901; 86920; 93005; 96360

== ENCOUNTER 2018-02-11 08:30 | Outpatient (CLI) | payer MEDICARE ==
[~2018-02-11] VITALS: Ht 177.8 cm; Wt 75.9 kg
[2018-02-11] VITALS (9 sets, daily range): BP systolic 115–138; BP diastolic 62–70
--- OUTSIDE RECORDS SUMMARY | 2018-02-11 08:57 | XMS REPORT | Encounter Summary ---
Author Author [facility] Organization [facility] Address Unknown Phone Unavailable Care Team Providers Care Shareholder Name Role Phone Maximo Basurto MD PCP Komal Raymond RN Unavailable Unavailable Duke Casiano MD Unavailable Jovani Dixon MD 21 Esha Caputo RN Unavailable Unavailable Markos Park PhD Unavailable Reason for Visit * Reason Comments Heme/Onc Care Encounter Details Date Type Department Care Team Description 11/17/2017 Lab Only [facility] Duke Casiano MD MDS (myelodysplastic [facility] Exam [address] syndrome), low grade [address] (HCC) [place] [address] [place] [address] [phone] Social History Tobacco Use Types Packs/Day Years [...] [facility] [address] [place] [address] in this encounter Visit Diagnoses Diagnosis MDS (myelodysplastic syndrome), low grade (HCC) Low grade myelodysplastic syndrome lesions
--- OUTSIDE RECORDS SUMMARY | 2018-02-11 08:57 | XMS REPORT | Encounter Summary ---
Author Author [facility] Organization [facility] Address Unknown Phone Unavailable Care Team Providers Care Retail Wireless Associate Name Role Phone Maximo Basurto MD PCP Komal Raymond RN Unavailable Unavailable Duke Casiano MD Unavailable Jovani Dixon MD 21 Esha Caputo RN Unavailable Unavailable Markos Park PhD Unavailable Reason for Visit * Reason Comments Preop Exam pre bone marrow biopsy eval Encounter Details Date Type Department Care Team Description 11/16/2017 Telephone [facility] Duke Casiano MD Preop Exam (pre bone [facility] Ex[facility] [address] marrow biopsy eval) [address] [place] [address] [place] [address] [phone] Social History Tobacco Use Types Packs/Day Years Used Date Former Smoker Smokeless Tobacco: Never Used Alcohol Use Drinks/Week oz/Week Comments Yes 0 Standard 0.0 rarely drinks or equivalent Sex Assigned at Date Recorded Not on file as of this encounter Plan of Treatment Not on fileas of this encounter Visit Diagnoses Not on filein this encounter
--- OUTSIDE RECORDS SUMMARY | 2018-02-11 08:57 | XMS REPORT | Continuity of Care Document ---
Author Author [employer] Organization [facility] Address Unknown Phone Unavailable Care Team Providers Care Mobile Homes Repairer Name Role Phone [employer] Unavailable Unavailable Problems Medications Allergies, Adverse Reactions, Alerts Immunizations Results Vital Signs Encounters Location Location Details Encounter Type Encounter Number Reason For Visit Attending Provider ADM Date DC Date Status Source OP SURGERY [id number] ELICEO CERVANTES 04/14/2016 04/14/2016 Active [facility] [place] SER[place] [id number] ELICEO CERVANTES 11/13/2017 11/13/2017 Active [facility] [place] [id number] PRESTON IRENE 11/17/20172017 Active [facility] O ELICEO CERVANTES Active [facility] Procedures Plan of Care Social History Assessment and Plan Family History Advance Directives Functional Status
--- OUTSIDE RECORDS SUMMARY | 2018-02-11 08:57 | XMS REPORT | Encounter Summary ---
Author Author [facility] Organization [facility] Address Unknown Phone Unavailable Care Team Providers Care Handwriting Expert Name Role Phone Maximo Basurto MD PCP Komal Raymond RN Unavailable Unavailable Duke Casiano MD Unavailable Jovani Dixon MD 21 Esah Caputo RN Unavailable Unavailable Markos Park PhD Unavailable Reason for Visit * Reason Comments Heme/Onc Care * Consult, Test & Treat (Routine) Status Reason Specialty Diagnoses / Referred By Referred To Procedures Contact Contact No Auth Needed Oncology Diagnoses Monica Casiano Olajire, Douglas Wall MD [employer] [employer]OOK pancytopenia [address] PA[address], [facility] [address] [place] [address] Biopsy [place] Phone: [phone] rocedures Phone: [facility] [phone] BONE MARROW Fax: [facility] [phone] [facility] B[facility] ASPIRATIONS PROCEDURE Encounter Details Date Type Department Care Team Description 11/17/2017 Procedure visit [facility] Duke Casiano MD Pancytopenia (HCC); [facility] Exam [address] MDS (myelodysplastic [address] syndrome), [place] [address] [place] [address] (HCC) [phone] Shane Maravilla APRN-NP [address] [place] [address] [phone] Social History Tobacco Use Types Packs/Day Years Used Date Former Smoker Smokeless Tobacco: Never Used Alcohol Use Drinks/Week oz/Week Comments Yes 0 Standard 0.0 rarely drinks or equivalent Sex Assigned at Date Recorded Not on file as of this encounter Last Filed Vital Signs Vital Sign Reading Time Taken Blood Pressure 140/70 11/17/2017 12:10 PM WHEEL ASSEMBLER Pulse - - Temperature 36.8 C (98.3 F) 11/17/2017 12:10 PM WHEEL ASSEMBLER Respiratory Rate 18 11/17/2017 12:10 PM WHEEL ASSEMBLER Oxygen Saturation 100% 11/17/2017 12:10 PM WHEEL ASSEMBLER Inhaled Oxygen - - Concentration Weight 77.6 kg (171 lb) 11/17/2017 12:10 PM WHEEL ASSEMBLER Height 174 cm (5' 8.5") 11/17/2017 12:10 PM WHEEL ASSEMBLER Body Mass Index 25.62 11/17/2017 12:10 PM WHEEL ASSEMBLER in this encounter Progress Notes * Shane Anderson APRN-NP - 11/17/2017 12:00 PM WHEEL ASSEMBLER See procedure note * Anaid Springer RN - 11/17/2017 12:00 PM WHEEL ASSEMBLER Formatting of this note may be different [...] marked as necessary. Physician/Surgeon: Lizbet Anderson APRN Supervisor Crack Off; Audrey Salazar Scrub: Cannery Worker: Anaid Springer Prep Area: Left iliac [...] to have Dr. cristobal on Monday in [place] to check labs and get transfusion. Pt states he tolerates low hemoglobin well and will seek medical attention over the weekend if he has any issues. in this encounter Procedure Notes * Shane Anderson APRN-INDUSTRIAL COOK - 11/17/2017 12:00 PM WHEEL ASSEMBLER Associated Order(s): BIOPSY BONE MARROW PROCEDURE Procedure(s): [...] (HCC) Results for this PROCEDURE 12:00 PM WHEEL ASSEMBLER procedure are in the results section. BIOPSY BONE MARROW Routine 11/17/2017 Pancytopenia (HCC) Results for this PROCEDURE 12:00 PM WHEEL ASSEMBLER procedure are in the results section. in this encounter Results * CYTOGENETICS SCAN (11/27/2017 4:49 PM) Narrative Ordered by an unspecified provider. * BONE MARROW (11/17/2017 1:38 PM) Component Value Ref Range PATHOLOGY REPORT [facility] [email or web address] Department of Pathology and Laboratory Medicine [address] [place] [address] Surgical Pathology Office:[phone]:[phone] SURGICAL PATHOLOGY REPORT NAME: AGUSTIN BUSTOS JASMINA SURG PATH #: [id number] MR #: [id number] ALT ID #: LOCATION: [facility]2 DATE OF [...] of Pathology and Laboratory Medicine of the [facility] ([facility]) in compliance with CLIA'88 [...] of Pathology and Laboratory Medicine of the [facility].It has not been cleared or approved by the FDA.The FDA has determined that such clearance or approval is not necessary. Specimen Performing Laboratory [facility] RESULTS * FLOW CYTOMETRY (11/17/2017 12:32 PM) Component Value Ref Range PATHOLOGY REPORT [facility] [email or web address] Tati Sommers MD, Director of Clinical Laboratory Rasta Duenas MD, Director of Flow Cytometry Laboratory Department of Pathology and Laboratory Medicine [address] [place] [address] Surgical Pathology Office:[phone]:[phone] FLOW CYTOMETRY REPORT NAME: AGUSTIN BUSTOS SURG PATH #: [id number] MR #: [id number] SPECIMEN CLASS: BILLING #: [id number] ALT ID #:LOCATION: [facility] DATE OF PROCEDURE: 11/17/2017 AGE:76 SEX: M [...] 0.01% Myeloid Associated Markers (% Positive Cells): ND10a=1; CD13=26; CD14=0; CD15=0; CD33=17; CD36=5; CD64=1; FG335=58; B Cell Associated Markers (% Positive Cells): CD19=0; CD22=1; T Cell Associated Markers (% Positive Cells): CD2=1; CD4=1; CD5=1; CD7=2; Miscellaneous Markers (% Positive Cells): VI08=157; CD38=80; QR06=092; CD56=72; GZ392=0; HLA-Dr=99; Cell Viability (%): n/a Number of Cells Analyzed: 500,000 Total Number of Markers: 32 Summary of Marker Combinations: /33/11b/34/13///; Dr/117/4/34/123///; /56/36/34/64/45/14/;11/30//34/15/// This test was developed and its performance characteristics determined by the [facility] Flow Cytometry [facility].It has not been cleared or approved by the U.S. Food and Drug Administration (FDA).The FDA has determined that such clearance or approval is not necessary. Specimen Performing Laboratory [facility] RESULTS * HEME PANEL NGS 65 BLD OR BM (11/17/2017 12:32 PM) Component Value Ref Range Heme Panel NGS 65 BLD or SEE TARGET MAN FOR REPORT Bone Marrow Specimen Performing Laboratory REFERENCE LAB * LEUKEMIA/LYMPHOMA PNL, BONE MARROW (11/17/2017 12:32 PM) Component Value Ref Range Leuk/Lymph Interpretation SEE PATHOLOGY REPORT Specimen/LLM BONE MARROW Specimen Performing Laboratory [facility] [address] [place] [id number] * CHROMOSOMES BONE MARROW (11/17/2017 12:32 PM) Component Value Ref Range Chromosomes Bone Marrow SEE TARGET MAN FOR REPORT Specimen Performing Laboratory [facility] [address] [place] [id number] * BONE MARROW BIOPSY (11/17/2017 12:32 PM) Component Value Ref Range Bone [facility]row Bx SEE PATHOLOGY REPORT Specimen Performing Laboratory [facility] [address] [place] [id number] * BONE MARROW ASP (11/17/2017 12:32 PM) Component Value Ref Range Bone Marrow Asp SEE PATHOLOGY REPORT Specimen Performing Laboratory [facility] [address] [place] [id number] * BIOPSY BONE MARROW PROCEDURE (11/17/2017 12:00 PM) Specimen Performing Laboratory OTHER OUTSIDE LAB Narrative Shane Anderson APRN-INDUSTRIAL COOK 11/17/20171:30 PM Bone Marrow Procedure Note Performing [...] Oral, ONCE, 1 dose, Mon11/17/17 at 11:02 WHEEL ASSEMBLER 1100 in this encounter
--- OUTSIDE RECORDS SUMMARY | 2018-02-11 08:57 | XMS REPORT | Clinical Summary ---
Author Author [facility] Organization [facility] Address Unknown Phone Unavailable Care Team Providers Care Business Solutions Analyst Name Role Phone Maximo Basurto MD PCP Komal Raymond RN Unavailable Unavailable Duke Casiano MD Unavailable Jovani Dixon MD 21 Esha Caputo RN Unavailable Unavailable [place] PhD Unavailable Source Comments Some departments are not documenting in the electronic medical record. If you do not see the information that you expected, contact Release of Information in the Health Information Management department at [phone] for further assistance in locating additional records.[facility] Allergies No Known Allergies Current Medications Prescription [...] a clinical trial that was developed in [facility], which reports combination of promacta and Revlimid, [...] Taken Blood Pressure 140/70 11/17/2017 12:10 PM LOCAL DRIVER Pulse 91 11/13/2017 11:23 AM LOCAL DRIVER Temperature 36.8 C (98.3 F) 11/17/2017 12:10 PM LOCAL DRIVER Respiratory Rate 18 11/17/2017 12:10 PM LOCAL DRIVER Oxygen Saturation 100% 11/17/2017 12:10 PM LOCAL DRIVER Inhaled Oxygen - - Concentration Weight 77.6 kg (171 lb) 11/17/2017 12:10 PM LOCAL DRIVER Height 174 cm (5' 8.5") 11/17/2017 12:10 PM LOCAL DRIVER Body Mass Index 25.62 11/17/2017 12:10 PM LOCAL DRIVER Plan of Treatment Health Maintenance Due Date Last Done Comments PHYSICAL (COMPREHENSIVE) 1947 EXAM PERTUSSIS VACCINE 1951 TETANUS VACCINE 1957 SHINGLES VACCINE 2000 PREVNAR/PNEUMOVAX (#1) 2005 INFLUENZA VACCINE 07/09/2018 Procedures Procedure Name Priority Date/Time Associated Diagnosis Comments BONE MARROW ASPIRATION Routine 11/17/2017 Pancytopenia (HCC) Results for this PROCEDURE 12:00 PM LOCAL DRIVER procedure are in the results section. BIOPSY BONE MARROW Routine 11/17/2017 Pancytopenia (HCC) Results for this PROCEDURE 12:00 PM LOCAL DRIVER procedure are in the results section. from Last 3 Months Results * KENTRELL PATH MOLEC REF LAB SCAN (12/05/2017 1:47 PM) Narrative Ordered by an unspecified provider. * CYTOGENETICS SCAN (11/27/2017 4:49 PM) Narrative Ordered by an unspecified provider. * BONE MARROW (11/17/2017 1:38 PM) Component Value Ref Range PATHOLOGY REPORT [facility] [email or web address] Department of Pathology and Laboratory Medicine [address] [place] [address] Surgical Pathology Office:[phone]:[phone] SURGICAL PATHOLOGY REPORT NAME: AGUSTIN BUSTOS SURG PATH #: [id number] MR #: [id number] ALT ID #: LOCATION: [facility] DATE OF PROCEDURE: 11/17/2017 AGE:76 SEX: M [...] of Pathology and Laboratory Medicine of the [facility] ([employer]) in compliance with CLIA'88 [...] of Pathology and Laboratory Medicine of the [facility].It has not been cleared or approved by the FDA.The FDA has determined that such clearance or approval is not necessary. Specimen Performing Laboratory [facility] RESULTS * HEME PANEL NGS 65 BLD OR BM (11/17/2017 12:32 PM) Component Value Ref Range Heme Panel NGS 65 BLD or SEE FINISH ROLLS OPERATOR FOR REPORT Bone Marrow Specimen Performing Laboratory [facility] * FLOW CYTOMETRY (11/17/2017 12:32 PM) Component Value Ref Range PATHOLOGY REPORT [facility] www[email or web address] Tati Sommers MD, Director of Clinical Laboratory Rasta Duenas MD, Director of Flow Cytometry Laboratory Department of Pathology and Laboratory Medicine [address] [place] [address] Surgical Pathology Office:[phone]:[phone] FLOW CYTOMETRY REPORT NAME: AGUSTIN BUSTOS SURG PATH #: [id number] MR #: [id number] SPECIMEN CLASS: LC BILLING #: [id number] ALT ID #:LOCATION: [facility] DATE OF PROCEDURE: 11/17/2017 AGE:76 SEX: M [...] 0.01% Myeloid Associated Markers (% Positive Cells): TF96s=4; CD13=26; CD14=0; CD15=0; CD33=17; CD36=5; CD64=1; SF385=94; B Cell Associated Markers (% Positive Cells): CD19=0; CD22=1; T Cell Associated Markers (% Positive Cells): CD2=1; CD4=1; CD5=1; CD7=2; Miscellaneous Markers (% Positive Cells): AV58=318; CD38=80; GN18=936; CD56=72; SM757=6; HLA-Dr=99; Cell Viability (%): n/a Number of Cells Analyzed: 500,000 Total Number of Markers: 32 Summary of Marker Combinations: /33/11b/34/13/45//19; Dr/117/4/34/123/45//19; Dr/56/36/34/64/45/14/19;//5/34/15///19 This test was developed and its performance characteristics determined by the [facility] Flow Cytometry Laboratory.It has not been cleared or approved by the U.S. Food and Drug Administration (FDA).The FDA has determined that such clearance or approval is not necessary. Specimen Performing Laboratory [facility] RESULTS * LEUKEMIA/LYMPHOMA PNL, BONE MARROW (11/17/2017 12:32 PM) Component Value Ref Range Leuk/Lymph Interpretation SEE PATHOLOGY REPORT Specimen/LLM BONE MARROW Specimen Performing Laboratory Bone Marrow [facility] [address] [place] [address] * CHROMOSOMES BONE MARROW (11/17/2017 12:32 PM) Component Value Ref Range Chromosomes Bone Marrow SEE FINISH ROLLS OPERATOR FOR REPORT Specimen Performing Laboratory Bone Marrow [facility] [address] [place] [address] * BONE MARROW ASP (11/17/2017 12:32 PM) Component Value Ref Range Bone Marrow Asp SEE PATHOLOGY REPORT Specimen Performing Laboratory Bone Marrow [facility] [address] [place] [address] * BONE MARROW BIOPSY (11/17/2017 12:32 PM) Component Value Ref Range Bone Marrow Bx SEE PATHOLOGY REPORT Specimen Performing Laboratory Bone Marrow [facility] [address] [place] [address] * BIOPSY BONE MARROW PROCEDURE (11/17/2017 12:00 [...] NGS pane. Complications: None.Patient tolerated procedure well. LOIAD Rodriguez * CBC AND DIFF (11/17/2017 10:59 [...] 7.0 K/UL Manual Specimen Performing Laboratory Blood [facility] [address] [place] [address] from Last 3 Months
--- OUTSIDE RECORDS SUMMARY | 2018-02-11 08:59 | XMS REPORT | Continuity of Care Document ---
Author Author [facility] Address Unknown Phone Unavailable Allergies Active Description Code Type Severity Reaction Onset Reported/Identified Relationship to Patient Clinical Status Yes No Known Drug Allergies [id number] Drug Allergy Unknown N/A 09/10/2015 Medications There [...] URINARY CAMERON CHINCHILLA, LALO Ot Z79.899 OTHER [facility] (CURRENT) DRUG THERAPY 08/04/2014 LIVIA BRAVO DO [...] CHINCHILLA, LALO Ot D72.819 09/12/2015 CAMERON CHINCHILLA, [facility] Ot E78.5 09/12/2015 CAMERON CHINCHILLA, [facility] Ot I10 09/12/2015 OTILIO CHINCHILLA, CHAKA [...] CHAKA Ospina Ot D64.9 ANEMIA, UNSPECIFIED 11/03/2015 CAMERNO CHINCHILLA, LALO Ot D53.9 NUTRITIONAL ANEMIA, UNSPECIFIED [...] 02/08/2016 CAMERON CHINCHILLA, LALO Ot Z79.899 OTHER HEAD DOFFER (CURRENT) DRUG THERAPY 02/16/2016 LALO BARNES MD, Ot D46.9 MYELODYSPLASTIC SYNDROME, UNSPECIFIED 02/16/2016 LALO BARNES MD, Ot D53.9 NUTRITIONAL ANEMIA, UNSPECIFIED 02/16/2016 LALO BARNES MD, Ot E78.5 HYPERLIPIDEMIA, UNSPECIFIED 02/16/2016 LALO BARNES MD Ot I10 ESSENTIAL (PRIMARY) HYPERTENSION 02/16/2016 LALO BARNES MD Ot N40.0 ENLARGED PROSTATE WITHOUT LOWER URINARY 02/16/2016 CAMERON CHINCHILLA, LALO Moya Z79.899 OTHER HEAD DOFFER (CURRENT) DRUG THERAPY 03/01/2016 LALO BARNES MD, [...] 03/09/2016 CAMERON CHINCHILLA, LALO Moya Z79.899 OTHER [facility] (CURRENT) DRUG THERAPY 03/31/2016 CAMERON CHINCHILLA, LALO Ot D46.9 MYELODYSPLASTIC SYNDROME, UNSPECIFIED 03/31/2016 CAMERON CHINCHILLA, LALO Ot D53.9 NUTRITIONAL ANEMIA, UNSPECIFIED 03/31/2016 CAMERON CHINCIHLLA, LALO Ot E78.5 HYPERLIPIDEMIA, UNSPECIFIED 03/31/2016 CAMERON CHINCHILLA, LALO Ot I10 ESSENTIAL (PRIMARY) HYPERTENSION 03/31/2016 CAMERON CHINCHILLA, LALO Ot N40.0 ENLARGED PROSTATE WITHOUT LOWER URINARY 03/31/2016 CAMERON CHINCHILLA, LALO Moya Z79.899 OTHER HEAD DOFFER (CURRENT) DRUG THERAPY 05/05/2016 OTILIO CHINCHILLA, CHAKA [...] 05/09/2016 CAMERON CHINCHILLA, LALO Moya Z79.899 OTHER HEAD DOFFER (CURRENT) DRUG THERAPY 05/15/2016 LALO BARNES MD, Ot D46.9 MYELODYSPLASTIC SYNDROME, UNSPECIFIED 05/15/2016 CAMERON CHINCHILLA, LALO Moya D53.9 NUTRITIONAL ANEMIA, UNSPECIFIED 05/15/2016 CAMERON CHINCHILLA, LALO Ot E78.5 HYPERLIPIDEMIA, UNSPECIFIED 05/15/2016 CAMERON CHINCHILLA, LALO Ot I10 ESSENTIAL (PRIMARY) HYPERTENSION 05/15/2016 CAMERON CHINCHILLA, LALO Ot N40.0 ENLARGED PROSTATE WITHOUT LOWER URINARY 05/15/2016 CAMERON CHINCHILLA, LALO Moya Z79.899 OTHER HEAD DOFFER (CURRENT) DRUG THERAPY 05/16/2016 CAMERON CHINCHILLA, LALO Moya D46.9 MYELODYSPLASTIC SYNDROME, UNSPECIFIED 05/16/2016 CAMERON CHINCHILLA, LALO Moya D53.9 NUTRITIONAL ANEMIA, UNSPECIFIED 05/16/2016 LALO BARNES MD Ot E78.5 HYPERLIPIDEMIA, UNSPECIFIED 05/16/2016 LALO BARNES MD Ot I10 ESSENTIAL (PRIMARY) HYPERTENSION 05/16/2016 CAMERON CHINCHILLA, LALO Ot N40.0 ENLARGED PROSTATE WITHOUT LOWER URINARY 05/16/2016 CAMERON CHINCHILLA, LALO Ot Z79.899 OTHER [facility] (CURRENT) DRUG THERAPY 05/24/2016 LALO BARNES MD Ot D46.9 MYELODYSPLASTIC SYNDROME, UNSPECIFIED 05/24/2016 CAMERON CHINCHILLA, LALO Ot D53.9 NUTRITIONAL ANEMIA, UNSPECIFIED 05/24/2016 CAMERON CHINCHILLA, LALO Ot E78.5 HYPERLIPIDEMIA, UNSPECIFIED 05/24/2016 LALO BARNES MD Ot I10 ESSENTIAL (PRIMARY) HYPERTENSION 05/24/2016 CAMERON CHINCHILLA, LALO Ot N40.0 ENLARGED PROSTATE WITHOUT LOWER URINARY 05/24/2016 LALO BARNES MD, Ot Z79.899 OTHER HEAD DOFFER (CURRENT) DRUG THERAPY 06/30/2016 LALO BARNES MD Ot D46.9 MYELODYSPLASTIC SYNDROME, UNSPECIFIED 06/30/2016 LALO BARNES MD Ot D53.9 NUTRITIONAL ANEMIA, UNSPECIFIED 06/30/2016 LALO BARNES MD Ot E78.5 HYPERLIPIDEMIA, UNSPECIFIED 06/30/2016 LALO BARNES MD Ot I10 ESSENTIAL (PRIMARY) HYPERTENSION 06/30/2016 LALO BARNES MD Ot N40.0 ENLARGED PROSTATE WITHOUT LOWER URINARY 06/30/2016 LALO BARNES MD, Ot Z79.899 OTHER HEAD DOFFER (CURRENT) DRUG THERAPY 07/11/2016 LALO BARNES MD Ot D46.9 MYELODYSPLASTIC SYNDROME, UNSPECIFIED 07/11/2016 CAMERON CHINCHILLA, LALO Ot D53.9 NUTRITIONAL ANEMIA, UNSPECIFIED 07/11/2016 LALO BARNES MD Ot E78.5 HYPERLIPIDEMIA, UNSPECIFIED 07/11/2016 CAMERON CHINCHILLA, LALO Ot I10 ESSENTIAL (PRIMARY) HYPERTENSION 07/11/2016 LALO BARNES MD Ot N40.0 ENLARGED PROSTATE WITHOUT LOWER URINARY 07/11/2016 LALO BARNES MD Ot Z79.899 OTHER [facility] (CURRENT) DRUG THERAPY 07/18/2016 XUN MD, AGUILAR-MARNI Ot D46.9 MYELODYSPLASTIC SYNDROME, UNSPECIFIED 07/18/2016 CAMERON CHINCHILLA, LALO Ot D53.9 NUTRITIONAL ANEMIA, UNSPECIFIED 07/18/2016 LALO BARNES MD Ot E78.5 HYPERLIPIDEMIA, UNSPECIFIED 07/18/2016 LALO BARNES MD Ot I10 ESSENTIAL (PRIMARY) HYPERTENSION 07/18/2016 LALO BARNES MD Ot N40.0 ENLARGED PROSTATE WITHOUT LOWER URINARY 07/18/2016 LALO BARNES MD, Ot Z79.899 OTHER HEAD DOFFER (CURRENT) DRUG THERAPY 08/04/2016 LALO BARNES MD, Ot D46.9 MYELODYSPLASTIC SYNDROME, UNSPECIFIED 08/04/2016 LALO BARNES MD, Ot D53.9 NUTRITIONAL ANEMIA, UNSPECIFIED 08/04/2016 LALO BARNES MD, Ot E78.5 HYPERLIPIDEMIA, UNSPECIFIED 08/04/2016 LALO BARNES MD Ot I10 ESSENTIAL (PRIMARY) HYPERTENSION 08/04/2016 LALO BARNES MD, Ot N40.0 BENIGN PROSTATIC HYPERPLASIA WITHOUT LOW 08/04/2016 LALO BARNES MD, Ot Z79.899 OTHER HEAD DOFFER (CURRENT) DRUG THERAPY 08/30/2016 LALO BARNES MD, Ot D46.9 MYELODYSPLASTIC SYNDROME, UNSPECIFIED 08/30/2016 LALO BARNES MD, Ot D53.9 NUTRITIONAL ANEMIA, UNSPECIFIED 08/30/2016 LALO BARNES MD, Ot E78.5 HYPERLIPIDEMIA, UNSPECIFIED 08/30/2016 LALO BARNES MD Ot I10 ESSENTIAL (PRIMARY) HYPERTENSION 08/30/2016 LALO BARNES MD Ot N40.0 BENIGN PROSTATIC HYPERPLASIA WITHOUT LOW 08/30/2016 LALO BARNES MD, Ot Z79.899 OTHER [facility]FP (CURRENT) DRUG THERAPY 10/12/2016 LALO BARNES MD, Ot D46.9 MYELODYSPLASTIC SYNDROME, UNSPECIFIED 10/12/2016 LALO BARNES MD, Ot D53.9 NUTRITIONAL ANEMIA, UNSPECIFIED 10/12/2016 LALO BARNES MD Ot E78.5 HYPERLIPIDEMIA, UNSPECIFIED 10/12/2016 LALO BARNES MD Ot I10 ESSENTIAL (PRIMARY) HYPERTENSION 10/12/2016 LALO BARNES MD Ot N40.0 BENIGN PROSTATIC HYPERPLASIA WITHOUT LOW 10/12/2016 LALO BARNES MD Ot Z79.899 OTHER [facility] (CURRENT) DRUG THERAPY 10/30/2016 LALO BARNES MD, Ot D46.9 MYELODYSPLASTIC SYNDROME, UNSPECIFIED 10/30/2016 LALO BARNES MD Ot D53.9 NUTRITIONAL ANEMIA, UNSPECIFIED 10/30/2016 LALO BARNES MD Ot E78.5 HYPERLIPIDEMIA, UNSPECIFIED 10/30/2016 LALO BARNES MD Ot I10 ESSENTIAL (PRIMARY) HYPERTENSION 10/30/2016 LALO BARNES MD Ot N40.0 BENIGN PROSTATIC HYPERPLASIA WITHOUT LOW 10/30/2016 LALO BARNES MD, Ot Z79.899 OTHER HEAD DOFFER (CURRENT) DRUG THERAPY 11/05/2016 LALO BARNES MD, Ot D46.9 MYELODYSPLASTIC SYNDROME, UNSPECIFIED 11/05/2016 LALO BARNES MD, Ot D53.9 NUTRITIONAL ANEMIA, UNSPECIFIED 11/05/2016 LALO BARNES MD, Ot E78.5 HYPERLIPIDEMIA, UNSPECIFIED 11/05/2016 LALO BARNES MD Ot I10 ESSENTIAL (PRIMARY) HYPERTENSION 11/05/2016 LALO BARNES MD Ot N40.0 BENIGN PROSTATIC HYPERPLASIA WITHOUT LOW 11/05/2016 LALO BARNES MD, Ot Z79.899 OTHER [facility] (CURRENT) DRUG THERAPY 11/21/2016 LALO BARNES MD, Ot D46.9 MYELODYSPLASTIC SYNDROME, UNSPECIFIED 11/21/2016 LALO BARNES MD, Ot D53.9 NUTRITIONAL ANEMIA, UNSPECIFIED 11/21/2016 LALO BARNES MD, Ot E78.5 HYPERLIPIDEMIA, UNSPECIFIED 11/21/2016 LALO BARNES MD Ot I10 ESSENTIAL (PRIMARY) HYPERTENSION 11/21/2016 LALO BARNES MD Ot N40.0 BENIGN PROSTATIC HYPERPLASIA WITHOUT LOW 11/21/2016 LALO BARNES MD, Ot Z79.899 OTHER HEAD DOFFER (CURRENT) DRUG THERAPY 11/23/2016 LALO BARNES MD, Ot D46.9 MYELODYSPLASTIC SYNDROME, UNSPECIFIED 11/23/2016 LALO BARNES MD Ot D53.9 NUTRITIONAL ANEMIA, UNSPECIFIED 11/23/2016 LALO BARNES MD Ot E78.5 HYPERLIPIDEMIA, UNSPECIFIED 11/23/2016 LALO BARNES MD Ot I10 ESSENTIAL (PRIMARY) HYPERTENSION 11/23/2016 CAMERON CHINCHILLA, LALO Ot N40.0 BENIGN PROSTATIC HYPERPLASIA WITHOUT LOW 11/23/2016 CAMERON CHINCHILLA, LALO Ot Z79.899 OTHER HEAD DOFFER (CURRENT) DRUG THERAPY 01/18/2017 LALO BARNES MD Ot D46.9 MYELODYSPLASTIC SYNDROME, UNSPECIFIED 01/18/2017 CAMERON CHINCHILLA, LALO Ot D53.9 NUTRITIONAL ANEMIA, UNSPECIFIED 01/18/2017 CAMERON CHINCHILLA, LALO Ot E78.5 HYPERLIPIDEMIA, UNSPECIFIED 01/18/2017 CAMERON CHINCHILLA, LALO Ot I10 ESSENTIAL (PRIMARY) HYPERTENSION 01/18/2017 CAMERON CHINCHILLA, LALO Ot N40.0 BENIGN PROSTATIC HYPERPLASIA WITHOUT LOW 01/18/2017 LALO BARNES MD, Ot Z79.899 OTHER HEAD DOFFER (CURRENT) DRUG THERAPY 02/20/2017 LALO BARNES MD, Ot D46.9 MYELODYSPLASTIC SYNDROME, UNSPECIFIED 02/20/2017 LALO BARNES MD Ot D53.9 NUTRITIONAL ANEMIA, UNSPECIFIED 02/20/2017 LALO BARNES MD Ot E78.5 HYPERLIPIDEMIA, UNSPECIFIED 02/20/2017 LALO BARNES MD Ot I10 ESSENTIAL (PRIMARY) HYPERTENSION 02/20/2017 CAMERON CHINCHILLA, LALO Ot N40.0 BENIGN PROSTATIC HYPERPLASIA WITHOUT LOW 02/20/2017 CAMERON CHINCHILLA, LALO Moya Z79.899 OTHER HEAD DOFFER (CURRENT) DRUG THERAPY 03/10/2017 LALO BARNES MD, Ot D46.9 MYELODYSPLASTIC SYNDROME, UNSPECIFIED 03/10/2017 CAMERON CHINCHILLA, LALO Ot D53.9 NUTRITIONAL ANEMIA, UNSPECIFIED 03/10/2017 CAMERON CHINCHILLA, LALO Ot E78.5 HYPERLIPIDEMIA, UNSPECIFIED 03/10/2017 LALO BARNES MD Ot I10 ESSENTIAL (PRIMARY) HYPERTENSION 03/10/2017 CAMERON CHINCHILLA, LALO Ot N40.0 BENIGN PROSTATIC HYPERPLASIA WITHOUT LOW 03/10/2017 CAMERON CHINCHILLA, LALO Ot Z79.899 OTHER [facility] (CURRENT) DRUG THERAPY 06/05/2017 LALO BARNES MD [...] 06/05/2017 CAMERON CHINCHILLA, LALO Ot Z79.899 OTHER [facility] (CURRENT) DRUG THERAPY 06/08/2017 LALO BARNES MD [...] 06/08/2017 LALO BARNES MD Ot Z79.899 OTHER [facility] (CURRENT) DRUG THERAPY 06/14/2017 LALO BARNES MD [...] 06/14/2017 CAMERON CHINCHILLA, LALO Ot Z79.899 OTHER HEAD DOFFER (CURRENT) DRUG THERAPY 07/08/2017 LALO BARNES MD [...] 07/08/2017 LALO BARNES MD Ot Z79.899 OTHER [facility] (CURRENT) DRUG THERAPY 07/10/2017 CHAKA YAÑEZ MD [...] 07/11/2017 LALO BARNES MD Ot Z79.899 OTHER HEAD DOFFER (CURRENT) DRUG THERAPY 07/12/2017 LALO BARNES MD [...] 07/12/2017 LALO BARNES MD Ot Z79.899 OTHER HEAD DOFFER (CURRENT) DRUG THERAPY 09/04/2017 LALO BARNES MD [...] 09/04/2017 LALO BARNES MD Ot Z79.899 OTHER HEAD DOFFER (CURRENT) DRUG THERAPY 10/08/2017 LALO BARNES MD [...] 10/08/2017 LALO BARNES MD Ot Z79.899 OTHER [facility] (CURRENT) DRUG THERAPY 10/10/2017 LALO BARNES MD [...] 10/10/2017 CAMERON CHINCHILLA, LALO Ot Z79.899 OTHER [facility] (CURRENT) DRUG THERAPY 10/11/2017 CAMERON CHINCHILLA, LALO [...] 10/11/2017 LALO BARNES MD Ot Z79.899 OTHER HEAD DOFFER (CURRENT) DRUG THERAPY 12/27/2017 LALO BARNES MD [...] 12/27/2017 CAMERON CHINCHILLA, LALO Ot Z79.899 OTHER [facility] (CURRENT) DRUG THERAPY 01/08/2018 LALO BARNES MD [...] 01/08/2018 CAMERON CHINCHILLA, LALO Ot Z79.899 OTHER [facility] (CURRENT) DRUG THERAPY 01/09/2018 CAMERON CHINCHILLA, LALO Ot D46.Z OTHER MYELODYSPLASTIC SYNDROMES 01/09/2018 CAMERON CHINCHILLA, LALO Ot D61.818 OTHER PANCYTOPENIA 01/09/2018 CAMERON CHINCHILLA, LALO Ot D64.89 OTHER SPECIFIED ANEMIAS 01/09/2018 LALO BARNES MD Ot E78.5 HYPERLIPIDEMIA, UNSPECIFIED 01/09/2018 CAMERON CHINCHILLA, LALO Ot I10 ESSENTIAL (PRIMARY) HYPERTENSION 01/09/2018 ALLO BARNES MD Ot M06.9 RHEUMATOID ARTHRITIS, UNSPECIFIED 01/09/2018 CAMERON CHINCHILLA, LALO Ot N40.0 BENIGN PROSTATIC HYPERPLASIA WITHOUT LOW 01/09/2018 CAMERON CHINCHILLA, LALO Ot Z79.899 OTHER [facility]FP (CURRENT) DRUG THERAPY 01/17/2018 LALO BARNES MD [...] 01/17/2018 CAMERON CHINCHILLA, LALO Ot Z79.899 OTHER HEAD DOFFER (CURRENT) DRUG THERAPY 01/18/2018 OTILIO CHINCHILLA, CHAKA [...] 01/18/2018 CAMERON CHINCHILLA, LALO Ot Z79.899 OTHER [facility] (CURRENT) DRUG THERAPY 01/19/2018 LALO BARNES MD [...] 01/19/2018 CAMERON CHINCHILLA, LALO Ot Z79.899 OTHER HEAD DOFFER (CURRENT) DRUG THERAPY 01/25/2018 LALO BARNES MD [...] 01/31/2018 LALO BARNES MD Ot Z79.899 OTHER [facility] (CURRENT) DRUG THERAPY Procedures There is no data. Results Test Result Range RED CELLS LEUKO REDUCED AS1 - 08/28/17 08:50 RED CELLS LEUKO REDUCED AS1 PRSMD TRFSD 08/28/17 1007 NR Blood type T Indirect antibody screen panel - 08/28/17 08:50 ABO+Rh group AN NR Transfusion band number [id number] [facility] Blood group antibody screen NEGATIVE [facility] [id number] - 01/08/18 08:36 [id number] SPECIMEN AVAILABLE [facility] PT panel in platelet poor plasma by [...] 07:18 PLATELET PHERESIS LR TRANSFUSED 01/22/18 0728 [facility] [id number] - 01/22/18 07:18 [id number] SPECIMEN AVAILABLE NR * Reference lab test [...] Status Pt. Type Provider Facility Loc./Unit Complaint [id number] 08/04/2014 14:07:00 08/04/2014 23:59:59 CLS Outpatient LIVIA BRAVO DO [id number] 01/22/2018 06:52:00 01/22/2018 11:30:00 DIS Outpatient LALO BARNES MD [facility] RAD D64.89 ANEMIA [id number] 01/08/2018 08:23:00 01/08/2018 00:01:00 DIS Outpatient LALO BARNES MD [facility] ONC [id number] 09/26/2017 08:32:00 10/08/2017 00:01:00 DIS Outpatient LALO BARNES MD [facility] ONC [id number] 07/03/2017 08:29:00 07/08/2017 00:01:00 DIS Outpatient LALO BARNES MD [facility] ONC [id number] 06/05/2017 08:32:00 06/08/2017 00:01:00 DIS Outpatient LALO BARNES MD [facility] ONC [id number] 02/17/2017 09:17:00 02/20/2017 00:01:00 DIS Outpatient LALO BARNES MD [facility] ONC [id number] 10/11/2016 08:26:00 10/30/2016 00:01:00 DIS Outpatient LALO BARNES MD [facility] ONC [id number] 06/27/2016 09:10:00 07/18/2016 08:14:00 DIS Outpatient LALO BARNES MD [facility] ONC [id number] 05/12/2016 08:25:00 05/15/2016 00:01:00 DIS Outpatient LALO BARNES MD [facility] ONC [id number] 02/01/2016 13:08:00 02/08/2016 00:01:00 DIS Outpatient LALO BARNES MD [facility] ONC [id number] 10/12/2015 13:41:00 11/03/2015 00:01:00 DIS Outpatient LALO BARNES MD [facility] ONC [id number] 10/22/2015 00:10:00 10/22/2015 23:59:59 CLS Preadeula YAÑEZ MD, CHAKA Ospina [facility] SDC ANEMIA [id number] 07/24/2015 07:46:00 10/21/2015 00:01:00 DIS Outpatient CHAKA YAÑEZ MD [facility] SDC ANEMIA [id number] 09/16/2015 15:32:00 09/16/2015 17:55:00 DIS Emergency CATALINO EASTMAN MD [facility] ER DIFFICULTY BREATHING [id number] 09/10/2015 16:15:00 09/13/2015 11:18:00 DIS Inpatient CHAKA YAÑEZ MD [facility] 4TH VIRAL GASTROENTERITIS [id number] 02/09/2018 08:30:00 ACT Outpatient CAMERON CHINCHILLA, LALO [facility] ONC [id number] 01/18/2018 13:47:00 Document Registration
--- OUTSIDE RECORDS SUMMARY | 2018-02-11 09:24 | XMS REPORT | Continuity of Care Document ---
Author Author [employer] Organization [facility] Address Unknown Phone Unavailable Care Team Providers Care [employer] Management Professor Name Role Phone [employer] Unavailable Unavailable Problems Medications Allergies, Adverse Reactions, Alerts Immunizations Results Vital Signs Encounters Location Location Details Encounter Type Encounter Number Reason For Visit Attending Provider ADM Date DC Date Status Source OP SURGERY [id number] ELICEO CERVANTES 04/14/2016 04/14/2016 Active [facility] [place] SERIES [id number] ELICEO CERVANTES 11/13/2017 11/13/2017 Active [facility] [place] SERIES [id number] PRESTON IRENE 11/17/20172017 Active [facility] O ELICEO CERVANTES Active [facility] Procedures Plan of Care Social History Assessment and Plan Family History Advance Directives Functional Status
--- OUTSIDE RECORDS SUMMARY | 2018-02-11 09:25 | XMS REPORT | Encounter Summary ---
Author Author [facility] Organization [facility] Address Unknown Phone Unavailable Care Team Providers Care Cardiopulmonary Technologist Name Role Phone Maximo Basurto MD PCP Komal Raymond RN Unavailable Unavailable Duke Casiano MD Unavailable Jovani Dixon MD 21 Esha Caputo RN Unavailable Unavailable [place] PhD Unavailable Reason for Visit * Reason Comments Heme/Onc Care Encounter Details Date Type Department Care Team Description 11/17/2017 Lab Only [facility] Duke Casiano MD MDS ([facility] Exam [address] syndrome), low grade [address] (HCC) [place] [address] [place] [address] [phone] Social History Tobacco Use Types Packs/Day Years [...] 7.0 K/UL Manual Specimen Performing Laboratory Blood [facility] [address] [place] [address] in this encounter Visit Diagnoses Diagnosis MDS (myelodysplastic syndrome), low grade (HCC) Low grade myelodysplastic syndrome lesions
--- OUTSIDE RECORDS SUMMARY | 2018-02-11 09:25 | XMS REPORT | Clinical Summary ---
Author Author [facility] Organization [facility] Address Unknown Phone Unavailable Care Team Providers Care Car Body Designer Name Role Phone Maximo Basurto MD PCP Komal Raymond RN Unavailable Unavailable Duke Casiano MD Unavailable Jovani Dixon MD 21 Esha Caputo RN Unavailable Unavailable Markos Park PhD Unavailable Source Comments Some departments are not documenting in the electronic medical record. If you do not see the information that you expected, contact Release of Information in the Health Information Management department at [phone] for further assistance in locating additional records.[facility] Allergies No Known Allergies Current Medications Prescription [...] a clinical trial that was developed in [facility], which reports combination of promacta [...] Taken Blood Pressure 140/70 11/17/2017 12:10 PM ROTARY RIG ENGINE OPERATOR Pulse 91 11/13/2017 11:23 AM ROTARY RIG ENGINE OPERATOR Temperature 36.8 C (98.3 F) 11/17/2017 12:10 PM ROTARY RIG ENGINE OPERATOR Respiratory Rate 18 11/17/2017 12:10 PM ROTARY RIG ENGINE OPERATOR Oxygen Saturation 100% 11/17/2017 12:10 PM ROTARY RIG ENGINE OPERATOR Inhaled Oxygen - - Concentration Weight 77.6 kg (171 lb) 11/17/2017 12:10 PM ROTARY RIG ENGINE OPERATOR Height 174 cm (5' 8.5") 11/17/2017 12:10 PM ROTARY RIG ENGINE OPERATOR Body Mass Index 25.62 11/17/2017 12:10 PM ROTARY RIG ENGINE OPERATOR Plan of Treatment Health Maintenance Due Date Last Done Comments PHYSICAL (COMPREHENSIVE) 1947 EXAM PERTUSSIS VACCINE 1951 TETANUS VACCINE 1957 SHINGLES VACCINE 2000 PREVNAR/PNEUMOVAX (#1) 2005 INFLUENZA VACCINE 07/09/2018 Procedures Procedure Name Priority Date/Time Associated Diagnosis Comments BONE MARROW ASPIRATION Routine 11/17/2017 Pancytopenia (HCC) Results for this PROCEDURE 12:00 PM ROTARY RIG ENGINE OPERATOR procedure are in the results section. BIOPSY BONE MARROW Routine 11/17/2017 Pancytopenia (HCC) Results for this PROCEDURE 12:00 PM ROTARY RIG ENGINE OPERATOR procedure are in the results section. from Last 3 Months Results * KENTRELL PATH MOLEC REF LAB SCAN (12/05/2017 1:47 PM) Narrative Ordered by an unspecified provider. * CYTOGENETICS SCAN (11/27/2017 4:49 PM) Narrative Ordered by an unspecified provider. * BONE MARROW (11/17/2017 1:38 PM) Component Value Ref Range PATHOLOGY REPORT [facility] [email or web address] Department of Pathology and Laboratory Medicine [address] [place] [address] Surgical Pathology Office:[phone]:[phone] SURGICAL PATHOLOGY REPORT NAME: AGUSTIN BUSTOS SURG PATH #: [id number] MR #: [id number] ALT ID #: LOCATION: [facility] DATE OF PROCEDURE: 11/17/2017 AGE:76 SEX: [...] of Pathology and Laboratory Medicine of the [facility] ([employer]) in compliance [...] of Pathology and Laboratory Medicine of the [facility].It has not been cleared or approved by the FDA.The FDA has determined that such clearance or approval is not necessary. Specimen Performing Laboratory [facility] RESULTS * HEME PANEL NGS 65 BLD OR BM (11/17/2017 12:32 PM) Component Value Ref Range Heme Panel NGS 65 BLD or SEE TEAROOM HOST/HOSTESS FOR REPORT Bone Marrow Specimen Performing Laboratory REFERENCE LAB * FLOW CYTOMETRY (11/17/2017 12:32 PM) Component Value Ref Range PATHOLOGY REPORT [facility] [email or web address] Tati Sommers MD, Director of Clinical Laboratory Rasta Duenas MD, Director of Flow Cytometry Laboratory Department of Pathology and Laboratory Medicine [address] [place] [address] Surgical Pathology Office:[phone]:[phone] FLOW CYTOMETRY REPORT NAME: AGUSTIN BUSTOS SURG PATH #: [id number] MR #: [id number] SPECIMEN CLASS: LC BILLING #: [id number] ALT ID #:LOCATION: [facility] DATE OF PROCEDURE: 11/17/2017 AGE:76 SEX: M [...] 0.01% Myeloid Associated Markers (% Positive Cells): QJ47g=6; CD13=26; CD14=0; CD15=0; CD33=17; CD36=5; CD64=1; CO093=79; B Cell Associated Markers (% Positive Cells): CD19=0; CD22=1; T Cell Associated Markers (% Positive Cells): CD2=1; CD4=1; CD5=1; CD7=2; Miscellaneous Markers (% Positive Cells): YV60=565; CD38=80; CC41=345; CD56=72; FH339=4; HLA-Dr=99; Cell Viability (%): n/a Number of Cells Analyzed: 500,000 Total Number of Markers: 32 Summary of Marker Combinations: /33/11b/34/13/45//19; Dr/117/4/34/123/45//19; Dr/56/36/34/64/45/14/19;//5/34/15///19 This test was developed and its performance characteristics determined by the [facility] Flow Cytometry Laboratory.It has not [...] Performing Laboratory Bone Marrow MAIN LAB [address] [place] [address] * CHROMOSOMES BONE MARROW (11/17/2017 12:32 PM) Component Value Ref Range Chromosomes Bone Marrow SEE TEAROOM HOST/HOSTESS FOR REPORT Specimen Performing Laboratory Bone Marrow [facility] [address] [place] [address] * BONE MARROW ASP (11/17/2017 12:32 PM) Component Value Ref Range Bone Marrow Asp SEE PATHOLOGY REPORT Specimen Performing Laboratory Bone Marrow [facility] [address] [place] [address] * BONE MARROW BIOPSY (11/17/2017 12:32 PM) Component Value Ref Range Bone Marrow Bx SEE PATHOLOGY REPORT Specimen Performing Laboratory Bone Marrow [facility] [address] [place] [address] * BIOPSY BONE MARROW PROCEDURE (11/17/2017 12:00 [...] 7.0 K/UL Manual Specimen Performing Laboratory Blood [facility] [address] [place] [address] from Last 3 Months
--- OUTSIDE RECORDS SUMMARY | 2018-02-11 09:25 | XMS REPORT | Encounter Summary ---
Author Author [facility] Organization [facility] Address Unknown Phone Unavailable Care Team Providers Care Connie Scratcher Name Role Phone Maximo Basurto MD PCP [...] Diagnoses Monica Casiano Olajire, Douglas Wall MD NOTEREADER-FELT PAD CUTTER pancytopenia [address] ([address] PAY, Bone Marrow [address] [place] [address] Biopsy [place], [place] Phone: [phone] rocedures Phone: [place] [facility] [phone] BONE MARROW Fax: BIOPSIES [phone] [place] [facility] BONE MARROW ASPIRATIONS PROCEDURE Encounter Details Date Type Department Care Team Description 11/17/2017 Procedure visit [facility] Duke Casiano MD Pancytopenia (HCC); [facility] Exam [address] MDS (myelodysplastic [address] syndrome), [place] [address] [place] [address] (HCC) [phone] Shane Maravilla APRN-NP [address] [place] [address] [phone] Social History Tobacco Use Types Packs/Day Years Used Date Former Smoker Smokeless Tobacco: Never Used Alcohol Use Drinks/Week oz/Week Comments Yes 0 Standard 0.0 rarely drinks or equivalent Sex Assigned at Date Recorded Not on file as of this encounter Last Filed Vital Signs Vital Sign Reading Time Taken Blood Pressure 140/70 11/17/2017 12:10 PM RUNNER WORKER Pulse - - Temperature 36.8 C (98.3 F) 11/17/2017 12:10 PM RUNNER WORKER Respiratory Rate 18 11/17/2017 12:10 PM RUNNER WORKER Oxygen Saturation 100% 11/17/2017 12:10 PM RUNNER WORKER Inhaled Oxygen - - Concentration Weight 77.6 kg (171 lb) 11/17/2017 12:10 PM RUNNER WORKER Height 174 cm (5' 8.5") 11/17/2017 12:10 PM RUNNER WORKER Body Mass Index 25.62 11/17/2017 12:10 PM RUNNER WORKER in this encounter Progress Notes * Shane Anderson APRN-NP - 11/17/2017 12:00 PM RUNNER WORKER See procedure note * Anaid Springer RN - 11/17/2017 12:00 PM RUNNER WORKER Formatting of this note may be different [...] marked as necessary. Physician/Surgeon: Lizbet Anderson APRN Enterostomal Nurse; Audrey Salazar Scrub: Film Waxer: Anaid Springer Prep Area: Left iliac crest [...] to have Dr. cristobal on Monday in [place] to check labs and get transfusion. Pt states he tolerates low hemoglobin well and will seek medical attention over the weekend if he has any issues. in this encounter Procedure Notes * Shane Anderson APRN-FELT PAD CUTTER - 11/17/2017 12:00 PM RUNNER WORKER Associated Order(s): BIOPSY BONE MARROW PROCEDURE Procedure(s): [...] (HCC) Results for this PROCEDURE 12:00 PM RUNNER WORKER procedure are in the results section. BIOPSY BONE MARROW Routine 11/17/2017 Pancytopenia (HCC) Results for this PROCEDURE 12:00 PM RUNNER WORKER procedure are in the results section. in this encounter Results * CYTOGENETICS SCAN (11/27/2017 4:49 PM) Narrative Ordered by an unspecified provider. * BONE MARROW (11/17/2017 1:38 PM) Component Value Ref Range PATHOLOGY REPORT [facility] [email or web address] Department of Pathology and Laboratory Medicine [address] [place] [address] Surgical Pathology Office:[phone]:[phone] SURGICAL PATHOLOGY REPORT NAME: AGUSTIN BUSTOS JASMINA SURG PATH #: [id number] MR #: [id number] ALT ID #: LOCATION: [facility] DATE OF [...] of Pathology and Laboratory Medicine of the [facility] ([employer]) in compliance with CLIA'88 regulations.Some [...] of Pathology and Laboratory Medicine of the [facility].It has not been cleared or approved by the FDA.The FDA has determined that such clearance or approval is not necessary. Specimen Performing Laboratory [facility] RESULTS * FLOW CYTOMETRY (11/17/2017 12:32 PM) Component Value Ref Range PATHOLOGY REPORT [facility] [email or web address] Tati Sommers MD, Director of Clinical Laboratory Rasta Duenas MD, Director of Flow Cytometry Laboratory Department of Pathology and Laboratory Medicine [address] [place] [address] Surgical Pathology Office:[phone]:[phone] FLOW CYTOMETRY REPORT NAME: AGUSTIN BUSTOS SURG PATH #: [id number] MR #: [id number] SPECIMEN CLASS: BILLING #: [id number] ALT ID #:LOCATION: [facility] DATE OF PROCEDURE: 11/17/2017 [...] 0.01% Myeloid Associated Markers (% Positive Cells): PF00q=7; CD13=26; CD14=0; CD15=0; CD33=17; CD36=5; CD64=1; NX858=60; B Cell Associated Markers (% Positive Cells): CD19=0; CD22=1; T Cell Associated Markers (% Positive Cells): CD2=1; CD4=1; CD5=1; CD7=2; Miscellaneous Markers (% Positive Cells): WQ76=204; CD38=80; KU26=899; CD56=72; ES609=1; HLA-Dr=99; Cell Viability (%): n/a Number of Cells Analyzed: 500,000 Total Number of Markers: 32 Summary of Marker Combinations: /33/11b/34/13///; Dr/117/4/34/123///; /56/36/34/64/45/14/;11/30//34/15/// This test was developed and its performance characteristics determined by the [facility] Flow Cytometry Laboratory.It has not been cleared or approved by the U.S. Food and Drug Administration (FDA).The FDA has determined that such clearance or approval is not necessary. Specimen Performing Laboratory [facility] RESULTS * HEME PANEL NGS 65 BLD OR BM (11/17/2017 12:32 PM) Component Value Ref Range Heme Panel NGS 65 BLD or SEE FOOD SAFETY DIRECTOR FOR REPORT Bone Marrow Specimen Performing Laboratory REFERENCE LAB * LEUKEMIA/LYMPHOMA PNL, BONE MARROW (11/17/2017 12:32 PM) Component Value Ref Range Leuk/Lymph Interpretation SEE PATHOLOGY REPORT Specimen/LLM BONE MARROW Specimen Performing Laboratory Bone Marrow MAIN LAB [address] [place] [address] * CHROMOSOMES BONE MARROW (11/17/2017 12:32 PM) Component Value Ref Range Chromosomes Bone Marrow SEE FOOD SAFETY DIRECTOR FOR REPORT Specimen Performing Laboratory Bone Marrow [facility] [address] [place] [address] * BONE MARROW BIOPSY (11/17/2017 12:32 PM) Component Value Ref Range Bone Marrow Bx SEE PATHOLOGY REPORT Specimen Performing Laboratory Bone Marrow MAIN LAB [address] [place] [address] * BONE MARROW ASP (11/17/2017 12:32 PM) Component Value Ref Range Bone Marrow Asp SEE PATHOLOGY REPORT Specimen Performing Laboratory Bone Marrow MAIN LAB [address] [place] [address] * BIOPSY BONE MARROW PROCEDURE (11/17/2017 12:00 PM) Specimen Performing Laboratory OTHER OUTSIDE LAB Narrative Shane Anderson APRN-FELT PAD CUTTER 11/17/20171:30 PM Bone Marrow Procedure Note Performing [...] Oral, ONCE, 1 dose, Mon11/17/17 at 11:02 RUNNER WORKER 1100 in this encounter
--- OUTSIDE RECORDS SUMMARY | 2018-02-11 09:25 | XMS REPORT | Encounter Summary ---
Author Author [facility] Organization [facility] Address Unknown Phone Unavailable Care Team Providers Care Production Utility Worker Name Role Phone Maximo Basurto MD PCP Komal Raymond RN Unavailable Unavailable Duke Casiano MD Unavailable Jovani Dixon MD 21 Esha Caputo RN Unavailable Unavailable Markos Park PhD Unavailable Reason for Visit * Reason Comments Preop Exam pre bone marrow biopsy eval Encounter Details Date Type Department Care Team Description 11/16/2017 Telephone [facility] Duke Casiano MD Preop Exam (pre bone [facility] Exam [address] marrow biopsy eval) [address] [place] [address] [place] [address] [phone] Social History Tobacco Use Types Packs/Day Years Used Date Former Smoker Smokeless Tobacco: Never Used Alcohol Use Drinks/Week oz/Week Comments Yes 0 Standard 0.0 rarely drinks or equivalent Sex Assigned at Date Recorded Not on file as of this encounter Plan of Treatment Not on fileas of this encounter Visit Diagnoses Not on filein this encounter
--- OUTSIDE RECORDS SUMMARY | 2018-02-11 09:27 | XMS REPORT | Continuity of Care Document ---
Author Author [facility], [facility] Address Unknown Phone Unavailable Allergies Active Description Code Type Severity Reaction Onset Reported/Identified Relationship to Patient Clinical Status Yes No Known Drug Allergies [id number] Drug Allergy Unknown N/A 09/10/2015 Medications There [...] CHINCHILLA, LALO Ot D72.819 09/12/2015 CAMERON CHINCHILLA, [facility] Ot E78.5 09/12/2015 CAMERON CHINCHILLA, [facility] Ot I10 09/12/2015 OTILIO CHINCHILLA, CHAKA Ospina [...] CHINCHILLA, CHAKA Ospina Ot F41.9 09/12/2015 OTILIO CHINCHILAL, CHAKA Ospina Ot A08.4 09/12/2015 OTILIO CHINCHILLA, [...] 02/08/2016 CAMERON CHINCHILLA, LALO Ot Z79.899 OTHER STERILIZATION SPECIALIST (CURRENT) DRUG THERAPY 02/16/2016 LALO BARNES MD, Ot D46.9 MYELODYSPLASTIC SYNDROME, UNSPECIFIED 02/16/2016 LALO BARNES MD, Ot D53.9 NUTRITIONAL ANEMIA, UNSPECIFIED 02/16/2016 LALO BARNES MD, Ot E78.5 HYPERLIPIDEMIA, UNSPECIFIED 02/16/2016 LALO BARNES MD Ot I10 ESSENTIAL (PRIMARY) HYPERTENSION 02/16/2016 LALO BARNES MD Ot N40.0 ENLARGED PROSTATE WITHOUT LOWER URINARY 02/16/2016 CAMERON CHINCHILLA, LALO Moya Z79.899 OTHER STERILIZATION SPECIALIST (CURRENT) DRUG THERAPY 03/01/2016 LALO BARNES MD, [...] 03/31/2016 CAMERON CHINCHILLA, LALO Moya Z79.899 OTHER STERILIZATION SPECIALIST (CURRENT) DRUG THERAPY 05/05/2016 OTILIO CHINCHILLA, CHAKA [...] 05/09/2016 CAMERON CHINCHILLA, LALO Moya Z79.899 OTHER STERILIZATION SPECIALIST (CURRENT) DRUG THERAPY 05/15/2016 LALO BARNES MD, Ot D46.9 MYELODYSPLASTIC SYNDROME, UNSPECIFIED 05/15/2016 CAMERON CHINCHILLA, LALO Moya D53.9 NUTRITIONAL ANEMIA, UNSPECIFIED 05/15/2016 CAMERON CHINCHILLA, LALO Ot E78.5 HYPERLIPIDEMIA, UNSPECIFIED 05/15/2016 CAMERON CHINCHILLA, LALO Ot I10 ESSENTIAL (PRIMARY) HYPERTENSION 05/15/2016 CAMERON CHINCHILLA, LALO Ot N40.0 ENLARGED PROSTATE WITHOUT LOWER URINARY 05/15/2016 CAMERON CHINCHILLA, LALO Moya Z79.899 OTHER STERILIZATION SPECIALIST (CURRENT) DRUG THERAPY 05/16/2016 CAMERON CHINCHILLA, LALO [...] 05/24/2016 LALO BARNES MD, Ot Z79.899 OTHER STERILIZATION SPECIALIST (CURRENT) DRUG THERAPY 06/30/2016 LALO BARNES MD Ot D46.9 MYELODYSPLASTIC SYNDROME, UNSPECIFIED 06/30/2016 LALO BARNES MD Ot D53.9 NUTRITIONAL ANEMIA, UNSPECIFIED 06/30/2016 LALO BARNES MD Ot E78.5 HYPERLIPIDEMIA, UNSPECIFIED 06/30/2016 LALO BARNES MD Ot I10 ESSENTIAL (PRIMARY) HYPERTENSION 06/30/2016 LALO BARNES MD Ot N40.0 ENLARGED PROSTATE WITHOUT LOWER URINARY 06/30/2016 LALO BARNES MD, Ot Z79.899 OTHER STERILIZATION SPECIALIST (CURRENT) DRUG THERAPY 07/11/2016 LALO BARNES MD [...] 07/18/2016 LALO BARNES MD, Ot Z79.899 OTHER STERILIZATION SPECIALIST (CURRENT) DRUG THERAPY 08/04/2016 LALO BARNES MD, Ot D46.9 MYELODYSPLASTIC SYNDROME, UNSPECIFIED 08/04/2016 LALO BARNES MD, Ot D53.9 NUTRITIONAL ANEMIA, UNSPECIFIED 08/04/2016 LALO BARNES MD, Ot E78.5 HYPERLIPIDEMIA, UNSPECIFIED 08/04/2016 LALO BARNES MD Ot I10 ESSENTIAL (PRIMARY) HYPERTENSION 08/04/2016 LALO BARNES MD, Ot N40.0 BENIGN PROSTATIC HYPERPLASIA WITHOUT LOW 08/04/2016 LALO BARNES MD, Ot Z79.899 OTHER STERILIZATION SPECIALIST (CURRENT) DRUG THERAPY 08/30/2016 LALO BARNES MD, [...] 10/30/2016 LALO BARNES MD, Ot Z79.899 OTHER STERILIZATION SPECIALIST (CURRENT) DRUG THERAPY 11/05/2016 LALO BARNES MD, [...] 11/21/2016 LALO BARNES MD, Ot Z79.899 OTHER STERILIZATION SPECIALIST (CURRENT) DRUG THERAPY 11/23/2016 LALO BARNES MD, Ot D46.9 MYELODYSPLASTIC SYNDROME, UNSPECIFIED 11/23/2016 LALO BARNSE MD Ot D53.9 NUTRITIONAL ANEMIA, UNSPECIFIED 11/23/2016 LALO BARNES MD Ot E78.5 HYPERLIPIDEMIA, UNSPECIFIED 11/23/2016 LALO BARNES MD Ot I10 ESSENTIAL (PRIMARY) HYPERTENSION 11/23/2016 CAMERON CHINCHILLA, LALO Ot N40.0 BENIGN PROSTATIC HYPERPLASIA WITHOUT LOW 11/23/2016 CAMERON CHINCHILLA, LALO Ot Z79.899 OTHER STERILIZATION SPECIALIST (CURRENT) DRUG THERAPY 01/18/2017 LALO BARNES MD Ot D46.9 MYELODYSPLASTIC SYNDROME, UNSPECIFIED 01/18/2017 CAMERON CHINCHILLA, LALO Ot D53.9 NUTRITIONAL ANEMIA, UNSPECIFIED 01/18/2017 CAMERON CHINCHILLA, LALO Ot E78.5 HYPERLIPIDEMIA, UNSPECIFIED 01/18/2017 CAMERON CHINCHILLA, LALO Ot I10 ESSENTIAL (PRIMARY) HYPERTENSION 01/18/2017 CAMERON CHINCHILLA, LALO Ot N40.0 BENIGN PROSTATIC HYPERPLASIA WITHOUT LOW 01/18/2017 LALO BARNES MD, Ot Z79.899 OTHER STERILIZATION SPECIALIST (CURRENT) DRUG THERAPY 02/20/2017 LALO BARNES MD, Ot D46.9 MYELODYSPLASTIC SYNDROME, UNSPECIFIED 02/20/2017 LALO BARNES MD Ot D53.9 NUTRITIONAL ANEMIA, UNSPECIFIED 02/20/2017 LALO BARNES MD Ot E78.5 HYPERLIPIDEMIA, UNSPECIFIED 02/20/2017 LALO BARNES MD Ot I10 ESSENTIAL (PRIMARY) HYPERTENSION 02/20/2017 CAMERON CHINCHILLA, LALO Ot N40.0 BENIGN PROSTATIC HYPERPLASIA WITHOUT LOW 02/20/2017 CAMERON CHINCHILLA, LALO Moya Z79.899 OTHER STERILIZATION SPECIALIST (CURRENT) DRUG THERAPY 03/10/2017 LALO BARNES MD, [...] 06/14/2017 CAMERON CHINCHILLA, LALO Ot Z79.899 OTHER STERILIZATION SPECIALIST (CURRENT) DRUG THERAPY 07/08/2017 LALO BARNES MD [...] OTHER PENITENTIARY (CURRENT) DRUG THERAPY 07/10/2017 CHAKA YÑAEZ MD Ot D64.9 ANEMIA, UNSPECIFIED 07/11/2017 LALO [...] 07/11/2017 LALO BARNES MD Ot Z79.899 OTHER STERILIZATION SPECIALIST (CURRENT) DRUG THERAPY 07/12/2017 LALO BARNES MD [...] 07/12/2017 LALO BARNES MD Ot Z79.899 OTHER STERILIZATION SPECIALIST (CURRENT) DRUG THERAPY 09/04/2017 LALO BARNES MD [...] 09/04/2017 LALO BARNES MD Ot Z79.899 OTHER STERILIZATION SPECIALIST (CURRENT) DRUG THERAPY 10/08/2017 LALO BARNES MD [...] 10/11/2017 LALO BARNES MD Ot Z79.899 OTHER STERILIZATION SPECIALIST (CURRENT) DRUG THERAPY 12/27/2017 LALO BARNES MD [...] 01/17/2018 CAMERON CHINCHILLA, LALO Ot Z79.899 OTHER STERILIZATION SPECIALIST (CURRENT) DRUG THERAPY 01/18/2018 OTILIO CHINCHILLA, CHAKA [...] 01/19/2018 CAMERON CHINCHILLA, LALO Ot Z79.899 OTHER STERILIZATION SPECIALIST (CURRENT) DRUG THERAPY 01/25/2018 LALO BARNES MD [...] 01/31/2018 LALO BARNES MD Ot Z79.899 OTHER PENITENTIARY (CURRENT) DRUG THERAPY Procedures There is no data. Results Test Result Range RED CELLS LEUKO REDUCED AS1 - 08/28/17 08:50 RED CELLS LEUKO REDUCED AS1 PRSMD TRFSD 08/28/17 1007 NR Blood type T Indirect antibody screen panel - 08/28/17 08:50 ABO+Rh group AN NR Transfusion band number [id number] [facility] Blood group antibody screen NEGATIVE [facility] [id number] - 01/08/18 08:36 [id number] SPECIMEN AVAILABLE [facility] PT panel in platelet poor plasma by [...] 07:18 PLATELET PHERESIS LR TRANSFUSED 01/22/18 0728 [facility] [id number] - 01/22/18 07:18 [id number] SPECIMEN AVAILABLE NR * Reference lab test [...] Status Pt. Type Provider Facility Loc./Unit Complaint [id number] 08/04/2014 14:07:00 08/04/2014 23:59:59 CLS Outpatient LIVIA BRAVO DO [id number] 01/22/2018 06:52:00 01/22/2018 11:30:00 DIS Outpatient LALO BARNES MD [facility] RAD D64.89 ANEMIA [id number] 01/08/2018 08:23:00 01/08/2018 00:01:00 DIS Outpatient LALO BARNES MD [facility] ONC [id number] 09/26/2017 08:32:00 10/08/2017 00:01:00 DIS Outpatient LALO BARNES MD [facility] ONC [id number] 07/03/2017 08:29:00 07/08/2017 00:01:00 DIS Outpatient LALO BARNES MD [facility] ONC [id number] 06/05/2017 08:32:00 06/08/2017 00:01:00 DIS Outpatient LALO BARNES MD [facility] ONC [id number] 02/17/2017 09:17:00 02/20/2017 00:01:00 DIS Outpatient LALO BARNES MD [facility] ONC [id number] 10/11/2016 08:26:00 10/30/2016 00:01:00 DIS Outpatient LALO BARNES MD [facility] ONC [id number] 06/27/2016 09:10:00 07/18/2016 08:14:00 DIS Outpatient LALO BARNES MD [facility] ONC [id number] 05/12/2016 08:25:00 05/15/2016 00:01:00 DIS Outpatient LALO BARNES MD [facility] ONC [id number] 02/01/2016 13:08:00 02/08/2016 00:01:00 DIS Outpatient LALO BARNES MD [facility] ONC [id number] 10/12/2015 13:41:00 11/03/2015 00:01:00 DIS Outpatient LALO BARNES MD [facility] ONC [id number] 10/22/2015 00:10:00 10/22/2015 23:59:59 CLS Preadeula YAÑEZ MD, CHAKA Ospina [facility] SDC ANEMIA [id number] 07/24/2015 07:46:00 10/21/2015 00:01:00 DIS Outpatient CHAKA YAÑEZ MD [facility] SDC ANEMIA [id number] 09/16/2015 15:32:00 09/16/2015 17:55:00 DIS Emergency CATALINO EASTMAN MD [facility] ER DIFFICULTY BREATHING [id number] 09/10/2015 16:15:00 09/13/2015 11:18:00 DIS Inpatient CHAKA YAÑEZ MD [facility] 4TH VIRAL GASTROENTERITIS [id number] 02/09/2018 08:30:00 ACT Outpatient CAMERON CHINCHILLA, LALO [facility] ONC [id number] 01/18/2018 13:47:00 Document Registration
[2018-02-11] MEDS ORDERED: NS IV 500 ML 500 ML IV SCH (10:15)
[2018-02-11] MEDS ORDERED: PANT40TA2 PO (11:46)
== END 2018-02-11 15:00 | disposition home or self-care (01) ==
LOC: 4TH 08:30 → SDC 08:30 → 4THo 08:30 → EDSTATUS 13:44 → 4TH 15:00 → 4THo 15:00
PROVIDERS: ATTEND Emergency Medicine
DX: C95.90 Leukemia, unspecified not having achieved remission (principal); D63.0 Anemia in neoplastic disease; D69.6 Thrombocytopenia, unspecified
CPT/HCPCS: 36430; 86850; 86900; 86901; 86920

== ENCOUNTER → 2018-04-16 | Outpatient (RCR) | payer MEDICARE ==
[2018-01-16 09:59] LABS: ABSOLUTE RETIC # 46 10e9/L (24-90); BASOPHILS % (AUTO) 1 % (0-10); EOSINOPHILS # (AUTO) 0.1 10^3/uL (0.0-0.3); EOSINOPHILS % (AUTO) 4 % (0-10); HEMATOCRIT 23 % (40-54); HEMOGLOBIN 7.6 G/DL (13.3-17.7); LYMPHOCYTES % (AUTO) 43 % (12-44); MEAN CORPUSCULAR HEMOGLOBIN 38 PG (25-34); MEAN CORPUSCULAR HGB CONC 33 G/DL (32-36); MEAN CORPUSCULAR VOLUME 115 FL (80-99); MEAN PLATELET VOLUME 10.5 FL (7.4-10.4); MONOCYTES # (AUTO) 0.3 X 10^3 (0.0-1.0); MONOCYTES % (AUTO) 15 % (0-12); NEUTROPHILS # (AUTO) 0.9 X 10^3 (1.8-7.8); NEUTROPHILS % (AUTO) 38 % (42-75); PLATELET COUNT 64 10^3/uL (130-400); RED BLOOD COUNT 2.02 10^6/uL (4.35-5.85); RED CELL DISTRIBUTION WIDTH 19.8 % (10.0-14.5); RETICULOCYTE % 2.29 % (0.50-2.40); WHITE BLOOD COUNT 2.3 10^3/uL (4.3-11.0)
[2018-01-16 10:14] LABS: ALANINE AMINOTRANSFERASE 23 U/L (0-55); ALBUMIN 4.3 GM/DL (3.2-4.5); ALKALINE PHOSPHATASE 60 U/L (40-136); BUN/CREATININE RATIO 17; CALCIUM 9.2 MG/DL (8.5-10.1); CARBON DIOXIDE 28 MMOL/L (21-32); CHLORIDE 106 MMOL/L (98-107); CREATININE SERUM 0.84 MG/DL (0.60-1.30); GFR ESTIMATED > 60; GLUCOSE 113 MG/DL (70-105); POTASSIUM 4.3 MMOL/L (3.6-5.0); SODIUM 138 MMOL/L (135-145); TOTAL PROTEIN 6.9 GM/DL (6.4-8.2)
[2018-01-19 10:13] LABS: ABSOLUTE RETIC # 34 10e9/L (24-90); BASOPHILS % (AUTO) 1 % (0-10); EOSINOPHILS # (AUTO) 0.1 10^3/uL (0.0-0.3); EOSINOPHILS % (AUTO) 3 % (0-10); HEMATOCRIT 22 % (40-54); LYMPHOCYTES % (AUTO) 43 % (12-44); MEAN CORPUSCULAR HEMOGLOBIN 37 PG (25-34); MEAN CORPUSCULAR HGB CONC 32 G/DL (32-36); MEAN CORPUSCULAR VOLUME 117 FL (80-99); MEAN PLATELET VOLUME 11.4 FL (7.4-10.4); MONOCYTES # (AUTO) 0.4 X 10^3 (0.0-1.0); MONOCYTES % (AUTO) 17 % (0-12); NEUTROPHILS # (AUTO) 0.8 X 10^3 (1.8-7.8); NEUTROPHILS % (AUTO) 36 % (42-75); PLATELET COUNT 55 10^3/uL (130-400); RED BLOOD COUNT 1.85 10^6/uL (4.35-5.85); RED CELL DISTRIBUTION WIDTH 19.7 % (10.0-14.5); RETICULOCYTE % 1.85 % (0.50-2.40); WHITE BLOOD COUNT 2.2 10^3/uL (4.3-11.0)
[2018-01-19 10:15] LABS: HEMOGLOBIN 6.9 G/DL (13.3-17.7)
[2018-01-19 10:35] LABS: PROTHROMBIN TIME PATIENT 13.6 SEC (12.2-14.7)
[2018-01-19 11:23] LABS: ANISOCYTOSIS SLIGHT; EOSINOPHILS % (MANUAL) 4 %; LYMPHOCYTES % (MANUAL) 47 %; MONOCYTES % (MANUAL) 13 %; NEUTROPHILS % (MANUAL) 36 %; POIKILOCYTOSIS SLIGHT; TEAR DROP CELLS SLIGHT
[2018-01-22 06:45] LABS: ABSOLUTE RETIC # 32 10e9/L (24-90); BASOPHILS % (AUTO) 1 % (0-10); EOSINOPHILS # (AUTO) 0.2 10^3/uL (0.0-0.3); EOSINOPHILS % (AUTO) 4 % (0-10); HEMATOCRIT 22 % (40-54); LYMPHOCYTES # (AUTO) 2.2 X 10^3 (1.0-4.0); LYMPHOCYTES % (AUTO) 54 % (12-44); MEAN CORPUSCULAR HEMOGLOBIN 37 PG (25-34); MEAN CORPUSCULAR HGB CONC 32 G/DL (32-36); MEAN CORPUSCULAR VOLUME 117 FL (80-99); MEAN PLATELET VOLUME 11.1 FL (7.4-10.4); MONOCYTES % (AUTO) 24 % (0-12); NEUTROPHILS # (AUTO) 0.8 X 10^3 (1.8-7.8); NEUTROPHILS % (AUTO) 19 % (42-75); PLATELET COUNT 59 10^3/uL (130-400); RED CELL DISTRIBUTION WIDTH 19.2 % (10.0-14.5)
[2018-01-22 07:32] LABS: EOSINOPHILS % (MANUAL) 3 %; LYMPHOCYTES % (MANUAL) 59 %; MONOCYTES % (MANUAL) 18 %; NEUTROPHILS % (MANUAL) 20 %
[2018-01-22 07:33] LABS: ANISOCYTOSIS SLIGHT; ELLIPT/OVALOCYTES SLIGHT; POIKILOCYTOSIS SLIGHT; SCHISTOCYTES SLIGHT; TEAR DROP CELLS MODERATE
[2018-01-25 09:45] LABS: BASOPHILS % (AUTO) 1 % (0-10); EOSINOPHILS # (AUTO) 0.1 10^3/uL (0.0-0.3); EOSINOPHILS % (AUTO) 3 % (0-10); LYMPHOCYTES # (AUTO) 0.9 X 10^3 (1.0-4.0); LYMPHOCYTES % (AUTO) 41 % (12-44); MEAN CORPUSCULAR HEMOGLOBIN 38 PG (25-34); MEAN CORPUSCULAR HGB CONC 32 G/DL (32-36); MEAN CORPUSCULAR VOLUME 118 FL (80-99); MEAN PLATELET VOLUME 10.5 FL (7.4-10.4); MONOCYTES # (AUTO) 0.4 X 10^3 (0.0-1.0); MONOCYTES % (AUTO) 19 % (0-12); NEUTROPHILS # (AUTO) 0.8 X 10^3 (1.8-7.8); NEUTROPHILS % (AUTO) 36 % (42-75); PLATELET COUNT 54 10^3/uL (130-400); RED BLOOD COUNT 1.43 10^6/uL (4.35-5.85); WHITE BLOOD COUNT 2.1 10^3/uL (4.3-11.0)
[2018-01-25 09:50] LABS: HEMATOCRIT 17 % (40-54); HEMOGLOBIN 5.4 G/DL (13.3-17.7)
[2018-01-29 13:52] LABS: BASOPHILS % (AUTO) 1 % (0-10); EOSINOPHILS % (AUTO) 1 % (0-10); HEMATOCRIT 22 % (40-54); LYMPHOCYTES # (AUTO) 0.6 X 10^3 (1.0-4.0); LYMPHOCYTES % (AUTO) 43 % (12-44); MEAN CORPUSCULAR HEMOGLOBIN 36 PG (25-34); MEAN CORPUSCULAR HGB CONC 33 G/DL (32-36); MEAN CORPUSCULAR VOLUME 109 FL (80-99); MEAN PLATELET VOLUME 12.3 FL (7.4-10.4); MONOCYTES # (AUTO) 0.3 X 10^3 (0.0-1.0); MONOCYTES % (AUTO) 19 % (0-12); NEUTROPHILS # (AUTO) 0.5 X 10^3 (1.8-7.8); NEUTROPHILS % (AUTO) 37 % (42-75); RED BLOOD COUNT 2.04 10^6/uL (4.35-5.85); RED CELL DISTRIBUTION WIDTH 17.6 % (10.0-14.5); WHITE BLOOD COUNT 1.5 10^3/uL (4.3-11.0)
[2018-01-29 13:53] LABS: HEMOGLOBIN 7.4 G/DL (13.3-17.7); PLATELET COUNT 42 10^3/uL (130-400)
[2018-02-02 09:09] LABS: BASOPHILS % (AUTO) 0 % (0-10); EOSINOPHILS # (AUTO) 0.1 10^3/uL (0.0-0.3); EOSINOPHILS % (AUTO) 3 % (0-10); HEMATOCRIT 21 % (40-54); LYMPHOCYTES # (AUTO) 1.5 X 10^3 (1.0-4.0); LYMPHOCYTES % (AUTO) 37 % (12-44); MEAN CORPUSCULAR HEMOGLOBIN 35 PG (25-34); MEAN CORPUSCULAR HGB CONC 32 G/DL (32-36); MEAN CORPUSCULAR VOLUME 109 FL (80-99); MEAN PLATELET VOLUME 11.4 FL (7.4-10.4); MONOCYTES # (AUTO) 0.8 X 10^3 (0.0-1.0); MONOCYTES % (AUTO) 19 % (0-12); NEUTROPHILS # (AUTO) 1.6 X 10^3 (1.8-7.8); NEUTROPHILS % (AUTO) 41 % (42-75); PLATELET COUNT 44 10^3/uL (130-400); RED BLOOD COUNT 1.93 10^6/uL (4.35-5.85); RED CELL DISTRIBUTION WIDTH 17.1 % (10.0-14.5); WHITE BLOOD COUNT 3.9 10^3/uL (4.3-11.0)
[2018-02-02 09:12] LABS: HEMOGLOBIN 6.8 G/DL (13.3-17.7)
[2018-02-12 09:07] LABS: BASOPHILS % (AUTO) 0 % (0-10); EOSINOPHILS # (AUTO) 0.1 10^3/uL (0.0-0.3); EOSINOPHILS % (AUTO) 2 % (0-10); HEMATOCRIT 21 % (40-54); HEMOGLOBIN 7.2 G/DL (13.3-17.7); LYMPHOCYTES # (AUTO) 1.7 X 10^3 (1.0-4.0); LYMPHOCYTES % (AUTO) 31 % (12-44); MEAN CORPUSCULAR HEMOGLOBIN 34 PG (25-34); MEAN CORPUSCULAR HGB CONC 34 G/DL (32-36); MEAN CORPUSCULAR VOLUME 99 FL (80-99); MEAN PLATELET VOLUME 12.6 FL (7.4-10.4); MONOCYTES % (AUTO) 19 % (0-12); NEUTROPHILS # (AUTO) 2.6 X 10^3 (1.8-7.8); NEUTROPHILS % (AUTO) 48 % (42-75); RED BLOOD COUNT 2.15 10^6/uL (4.35-5.85); RED CELL DISTRIBUTION WIDTH 20.5 % (10.0-14.5); WHITE BLOOD COUNT 5.4 10^3/uL (4.3-11.0)
[2018-02-12 09:08] LABS: PLATELET COUNT 29 10^3/uL (130-400)
[2018-02-12 09:28] LABS: ALANINE AMINOTRANSFERASE 23 U/L (0-55); ALBUMIN 3.7 GM/DL (3.2-4.5); ALKALINE PHOSPHATASE 66 U/L (40-136); BILIRUBIN,TOTAL 0.6 MG/DL (0.1-1.0); BUN/CREATININE RATIO 16; CALCIUM 8.5 MG/DL (8.5-10.1); CARBON DIOXIDE 26 MMOL/L (21-32); CHLORIDE 106 MMOL/L (98-107); CREATININE SERUM 0.91 MG/DL (0.60-1.30); GFR ESTIMATED > 60; GLUCOSE 143 MG/DL (70-105); PHOSPHORUS 2.1 MG/DL (2.3-4.7); POTASSIUM 3.6 MMOL/L (3.6-5.0); SODIUM 137 MMOL/L (135-145); TOTAL PROTEIN 6.1 GM/DL (6.4-8.2); URIC ACID 3.5 MG/DL (2.6-7.2)
[2018-02-13 09:06] LABS: BASOPHILS % (AUTO) 0 % (0-10); EOSINOPHILS % (AUTO) 0 % (0-10); HEMATOCRIT 21 % (40-54); HEMOGLOBIN 7.2 G/DL (13.3-17.7); LYMPHOCYTES # (AUTO) 1.8 X 10^3 (1.0-4.0); LYMPHOCYTES % (AUTO) 24 % (12-44); MEAN CORPUSCULAR HEMOGLOBIN 34 PG (25-34); MEAN CORPUSCULAR HGB CONC 34 G/DL (32-36); MEAN CORPUSCULAR VOLUME 101 FL (80-99); MONOCYTES # (AUTO) 1.1 X 10^3 (0.0-1.0); MONOCYTES % (AUTO) 14 % (0-12); NEUTROPHILS # (AUTO) 4.7 X 10^3 (1.8-7.8); NEUTROPHILS % (AUTO) 62 % (42-75); RED CELL DISTRIBUTION WIDTH 19.8 % (10.0-14.5); WHITE BLOOD COUNT 7.6 10^3/uL (4.3-11.0)
[2018-02-13 09:12] LABS: PLATELET COUNT 17 10^3/uL (130-400)
[2018-02-15 09:14] LABS: BASOPHILS % (AUTO) 0 % (0-10); EOSINOPHILS # (AUTO) 0.1 10^3/uL (0.0-0.3); EOSINOPHILS % (AUTO) 1 % (0-10); HEMATOCRIT 21 % (40-54); LYMPHOCYTES # (AUTO) 2.7 X 10^3 (1.0-4.0); LYMPHOCYTES % (AUTO) 32 % (12-44); MEAN CORPUSCULAR HGB CONC 33 G/DL (32-36); MEAN CORPUSCULAR VOLUME 101 FL (80-99); MEAN PLATELET VOLUME 12.1 FL (7.4-10.4); MONOCYTES % (AUTO) 11 % (0-12); NEUTROPHILS # (AUTO) 4.8 X 10^3 (1.8-7.8); NEUTROPHILS % (AUTO) 56 % (42-75); RED BLOOD COUNT 2.09 10^6/uL (4.35-5.85); RED CELL DISTRIBUTION WIDTH 18.9 % (10.0-14.5); WHITE BLOOD COUNT 8.6 10^3/uL (4.3-11.0)
[2018-02-15 09:15] LABS: MEAN CORPUSCULAR HEMOGLOBIN 33 PG (25-34)
[2018-02-15 09:16] LABS: PLATELET COUNT 21 10^3/uL (130-400)
[2018-02-15 09:39] LABS: ALANINE AMINOTRANSFERASE 37 U/L (0-55); ALBUMIN 3.7 GM/DL (3.2-4.5); ALKALINE PHOSPHATASE 58 U/L (40-136); BILIRUBIN,TOTAL 0.5 MG/DL (0.1-1.0); BUN/CREATININE RATIO 23; CARBON DIOXIDE 25 MMOL/L (21-32); CHLORIDE 108 MMOL/L (98-107); CREATININE SERUM 0.99 MG/DL (0.60-1.30); GFR ESTIMATED > 60; GLUCOSE 93 MG/DL (70-105); POTASSIUM 3.8 MMOL/L (3.6-5.0); SODIUM 139 MMOL/L (135-145)
[2018-02-20 10:05] LABS: BASOPHILS % (AUTO) 0 % (0-10); EOSINOPHILS # (AUTO) 0.1 10^3/uL (0.0-0.3); EOSINOPHILS % (AUTO) 1 % (0-10); LYMPHOCYTES # (AUTO) 1.6 X 10^3 (1.0-4.0); LYMPHOCYTES % (AUTO) 26 % (12-44); MEAN CORPUSCULAR HEMOGLOBIN 34 PG (25-34); MEAN CORPUSCULAR HGB CONC 33 G/DL (32-36); MEAN CORPUSCULAR VOLUME 101 FL (80-99); MEAN PLATELET VOLUME 10.1 FL (7.4-10.4); MONOCYTES # (AUTO) 0.7 X 10^3 (0.0-1.0); MONOCYTES % (AUTO) 11 % (0-12); NEUTROPHILS # (AUTO) 3.8 X 10^3 (1.8-7.8); NEUTROPHILS % (AUTO) 63 % (42-75); RED BLOOD COUNT 1.73 10^6/uL (4.35-5.85); WHITE BLOOD COUNT 6.1 10^3/uL (4.3-11.0)
[2018-02-20 10:10] LABS: HEMATOCRIT 17 % (40-54); HEMOGLOBIN 5.8 G/DL (13.3-17.7); PLATELET COUNT 11 10^3/uL (130-400)
[2018-02-20 10:32] LABS: ALANINE AMINOTRANSFERASE 32 U/L (0-55); ALBUMIN 3.8 GM/DL (3.2-4.5); ALKALINE PHOSPHATASE 75 U/L (40-136); BILIRUBIN,TOTAL 0.7 MG/DL (0.1-1.0); BUN/CREATININE RATIO 15; CALCIUM 8.7 MG/DL (8.5-10.1); CARBON DIOXIDE 22 MMOL/L (21-32); CHLORIDE 106 MMOL/L (98-107); CREATININE SERUM 0.97 MG/DL (0.60-1.30); GFR ESTIMATED > 60; GLUCOSE 155 MG/DL (70-105); PHOSPHORUS 2.5 MG/DL (2.3-4.7); POTASSIUM 4.1 MMOL/L (3.6-5.0); SODIUM 136 MMOL/L (135-145); TOTAL PROTEIN 6.4 GM/DL (6.4-8.2); URIC ACID 4.3 MG/DL (2.6-7.2)
[2018-02-23 08:45] LABS: BASOPHILS % (AUTO) 0 % (0-10); EOSINOPHILS # (AUTO) 0.1 10^3/uL (0.0-0.3); EOSINOPHILS % (AUTO) 1 % (0-10); LYMPHOCYTES # (AUTO) 1.5 X 10^3 (1.0-4.0); LYMPHOCYTES % (AUTO) 35 % (12-44); MEAN CORPUSCULAR HEMOGLOBIN 33 PG (25-34); MEAN CORPUSCULAR HGB CONC 34 G/DL (32-36); MEAN CORPUSCULAR VOLUME 97 FL (80-99); MONOCYTES # (AUTO) 0.8 X 10^3 (0.0-1.0); MONOCYTES % (AUTO) 18 % (0-12); NEUTROPHILS # (AUTO) 2.1 X 10^3 (1.8-7.8); NEUTROPHILS % (AUTO) 47 % (42-75); RED BLOOD COUNT 1.77 10^6/uL (4.35-5.85); RED CELL DISTRIBUTION WIDTH 16.9 % (10.0-14.5); WHITE BLOOD COUNT 4.4 10^3/uL (4.3-11.0)
[2018-02-23 08:50] LABS: HEMATOCRIT 17 % (40-54); HEMOGLOBIN 5.9 G/DL (13.3-17.7); PLATELET COUNT 38 10^3/uL (130-400)
[2018-02-26 09:07] LABS: BASOPHILS % (AUTO) 0 % (0-10); EOSINOPHILS # (AUTO) 0.1 10^3/uL (0.0-0.3); EOSINOPHILS % (AUTO) 2 % (0-10); LYMPHOCYTES # (AUTO) 1.3 X 10^3 (1.0-4.0); LYMPHOCYTES % (AUTO) 36 % (12-44); MEAN CORPUSCULAR HEMOGLOBIN 31 PG (25-34); MEAN CORPUSCULAR HGB CONC 33 G/DL (32-36); MEAN CORPUSCULAR VOLUME 93 FL (80-99); MONOCYTES # (AUTO) 0.8 X 10^3 (0.0-1.0); MONOCYTES % (AUTO) 23 % (0-12); NEUTROPHILS # (AUTO) 1.5 X 10^3 (1.8-7.8); NEUTROPHILS % (AUTO) 40 % (42-75); RED BLOOD COUNT 2.06 10^6/uL (4.35-5.85); RED CELL DISTRIBUTION WIDTH 17.1 % (10.0-14.5); WHITE BLOOD COUNT 3.7 10^3/uL (4.3-11.0)
[2018-02-26 09:09] LABS: HEMATOCRIT 19 % (40-54); HEMOGLOBIN 6.4 G/DL (13.3-17.7); PLATELET COUNT 22 10^3/uL (130-400)
[2018-03-02 08:43] LABS: BASOPHILS % (AUTO) 0 % (0-10); EOSINOPHILS % (AUTO) 2 % (0-10); HEMATOCRIT 22 % (40-54); HEMOGLOBIN 7.1 G/DL (13.3-17.7); LYMPHOCYTES # (AUTO) 1.2 X 10^3 (1.0-4.0); LYMPHOCYTES % (AUTO) 48 % (12-44); MEAN CORPUSCULAR HGB CONC 33 G/DL (32-36); MEAN CORPUSCULAR VOLUME 93 FL (80-99); MEAN PLATELET VOLUME 10.8 FL (7.4-10.4); MONOCYTES # (AUTO) 0.6 X 10^3 (0.0-1.0); MONOCYTES % (AUTO) 24 % (0-12); NEUTROPHILS # (AUTO) 0.7 X 10^3 (1.8-7.8); NEUTROPHILS % (AUTO) 26 % (42-75); RED BLOOD COUNT 2.33 10^6/uL (4.35-5.85); RED CELL DISTRIBUTION WIDTH 16.3 % (10.0-14.5); WHITE BLOOD COUNT 2.5 10^3/uL (4.3-11.0)
[2018-03-02 08:57] LABS: MEAN CORPUSCULAR HEMOGLOBIN 30 PG (25-34)
[2018-03-02 08:59] LABS: PLATELET COUNT 19 10^3/uL (130-400)
[2018-03-06 09:30] LABS: BASOPHILS % (AUTO) 0 % (0-10); EOSINOPHILS # (AUTO) 0.1 10^3/uL (0.0-0.3); EOSINOPHILS % (AUTO) 3 % (0-10); HEMATOCRIT 21 % (40-54); HEMOGLOBIN 7.1 G/DL (13.3-17.7); LYMPHOCYTES # (AUTO) 0.9 X 10^3 (1.0-4.0); LYMPHOCYTES % (AUTO) 36 % (12-44); MEAN CORPUSCULAR HEMOGLOBIN 31 PG (25-34); MEAN CORPUSCULAR HGB CONC 34 G/DL (32-36); MEAN CORPUSCULAR VOLUME 93 FL (80-99); MEAN PLATELET VOLUME 9.4 FL (7.4-10.4); MONOCYTES # (AUTO) 0.5 X 10^3 (0.0-1.0); MONOCYTES % (AUTO) 20 % (0-12); NEUTROPHILS # (AUTO) 1.1 X 10^3 (1.8-7.8); NEUTROPHILS % (AUTO) 42 % (42-75); RED BLOOD COUNT 2.28 10^6/uL (4.35-5.85); RED CELL DISTRIBUTION WIDTH 15.8 % (10.0-14.5); WHITE BLOOD COUNT 2.6 10^3/uL (4.3-11.0)
[2018-03-06 09:33] LABS: PLATELET COUNT 13 10^3/uL (130-400)
[2018-03-06 09:59] LABS: ALANINE AMINOTRANSFERASE 32 U/L (0-55); ALBUMIN 4.3 GM/DL (3.2-4.5); ALKALINE PHOSPHATASE 83 U/L (40-136); BILIRUBIN,TOTAL 0.5 MG/DL (0.1-1.0); BUN/CREATININE RATIO 12; CALCIUM 9.1 MG/DL (8.5-10.1); CARBON DIOXIDE 22 MMOL/L (21-32); CHLORIDE 108 MMOL/L (98-107); CREATININE SERUM 0.93 MG/DL (0.60-1.30); GFR ESTIMATED > 60; GLUCOSE 135 MG/DL (70-105); MAGNESIUM 2.3 MG/DL (1.8-2.4); PHOSPHORUS 3.1 MG/DL (2.3-4.7); POTASSIUM 3.8 MMOL/L (3.6-5.0); SODIUM 138 MMOL/L (135-145); TOTAL PROTEIN 7.3 GM/DL (6.4-8.2); URIC ACID 4.4 MG/DL (2.6-7.2)
[2018-03-08 09:18] LABS: BASOPHILS % (AUTO) 0 % (0-10); EOSINOPHILS % (AUTO) 0 % (0-10); LYMPHOCYTES # (AUTO) 2.7 X 10^3 (1.0-4.0); LYMPHOCYTES % (AUTO) 25 % (12-44); MEAN CORPUSCULAR HEMOGLOBIN 32 PG (25-34); MEAN CORPUSCULAR HGB CONC 34 G/DL (32-36); MEAN CORPUSCULAR VOLUME 93 FL (80-99); MEAN PLATELET VOLUME 11.5 FL (7.4-10.4); MONOCYTES % (AUTO) 18 % (0-12); NEUTROPHILS # (AUTO) 6.3 X 10^3 (1.8-7.8); NEUTROPHILS % (AUTO) 57 % (42-75); RED BLOOD COUNT 2.03 10^6/uL (4.35-5.85); RED CELL DISTRIBUTION WIDTH 15.5 % (10.0-14.5); WHITE BLOOD COUNT 11.1 10^3/uL (4.3-11.0)
[2018-03-08 09:19] LABS: HEMATOCRIT 19 % (40-54); HEMOGLOBIN 6.4 G/DL (13.3-17.7); PLATELET COUNT 14 10^3/uL (130-400)
[2018-03-12 09:25] LABS: BASOPHILS % (AUTO) 0 % (0-10); EOSINOPHILS # (AUTO) 0.2 10^3/uL (0.0-0.3); EOSINOPHILS % (AUTO) 1 % (0-10); HEMATOCRIT 23 % (40-54); LYMPHOCYTES # (AUTO) 2.1 X 10^3 (1.0-4.0); LYMPHOCYTES % (AUTO) 16 % (12-44); MEAN CORPUSCULAR HEMOGLOBIN 31 PG (25-34); MEAN CORPUSCULAR HGB CONC 34 G/DL (32-36); MEAN CORPUSCULAR VOLUME 92 FL (80-99); MEAN PLATELET VOLUME 10.4 FL (7.4-10.4); MONOCYTES # (AUTO) 1.3 X 10^3 (0.0-1.0); MONOCYTES % (AUTO) 10 % (0-12); NEUTROPHILS # (AUTO) 9.4 X 10^3 (1.8-7.8); NEUTROPHILS % (AUTO) 73 % (42-75); RED BLOOD COUNT 2.55 10^6/uL (4.35-5.85); RED CELL DISTRIBUTION WIDTH 15.1 % (10.0-14.5); WHITE BLOOD COUNT 12.9 10^3/uL (4.3-11.0)
[2018-03-12 09:31] LABS: PLATELET COUNT 37 10^3/uL (130-400)
[2018-03-12 09:42] LABS: ALANINE AMINOTRANSFERASE 38 U/L (0-55); ALKALINE PHOSPHATASE 81 U/L (40-136); BILIRUBIN,TOTAL 0.6 MG/DL (0.1-1.0); BUN/CREATININE RATIO 18; CALCIUM 9.3 MG/DL (8.5-10.1); CARBON DIOXIDE 25 MMOL/L (21-32); CHLORIDE 104 MMOL/L (98-107); CREATININE SERUM 0.92 MG/DL (0.60-1.30); GFR ESTIMATED > 60; GLUCOSE 100 MG/DL (70-105); POTASSIUM 3.9 MMOL/L (3.6-5.0); SODIUM 137 MMOL/L (135-145); TOTAL PROTEIN 6.6 GM/DL (6.4-8.2)
[2018-03-15 09:27] LABS: BASOPHILS # (AUTO) 0.1 10^3/uL (0.0-0.1); BASOPHILS % (AUTO) 0 % (0-10); EOSINOPHILS % (AUTO) 0 % (0-10); LYMPHOCYTES # (AUTO) 3.1 X 10^3 (1.0-4.0); LYMPHOCYTES % (AUTO) 15 % (12-44); MEAN CORPUSCULAR HEMOGLOBIN 31 PG (25-34); MEAN CORPUSCULAR HGB CONC 34 G/DL (32-36); MEAN CORPUSCULAR VOLUME 92 FL (80-99); MEAN PLATELET VOLUME 9.5 FL (7.4-10.4); MONOCYTES # (AUTO) 1.1 X 10^3 (0.0-1.0); MONOCYTES % (AUTO) 6 % (0-12); NEUTROPHILS # (AUTO) 15.9 X 10^3 (1.8-7.8); NEUTROPHILS % (AUTO) 79 % (42-75); RED CELL DISTRIBUTION WIDTH 15.4 % (10.0-14.5); WHITE BLOOD COUNT 20.2 10^3/uL (4.3-11.0)
[2018-03-15 09:31] LABS: HEMATOCRIT 20 % (40-54); HEMOGLOBIN 6.8 G/DL (13.3-17.7); PLATELET COUNT 16 10^3/uL (130-400)
[2018-03-19 10:01] LABS: BASOPHILS % (AUTO) 0 % (0-10); EOSINOPHILS % (AUTO) 0 % (0-10); LYMPHOCYTES # (AUTO) 1.6 X 10^3 (1.0-4.0); LYMPHOCYTES % (AUTO) 21 % (12-44); MEAN CORPUSCULAR HEMOGLOBIN 30 PG (25-34); MEAN CORPUSCULAR HGB CONC 33 G/DL (32-36); MEAN CORPUSCULAR VOLUME 93 FL (80-99); MONOCYTES # (AUTO) 0.6 X 10^3 (0.0-1.0); MONOCYTES % (AUTO) 8 % (0-12); NEUTROPHILS # (AUTO) 5.4 X 10^3 (1.8-7.8); NEUTROPHILS % (AUTO) 70 % (42-75); RED BLOOD COUNT 1.89 10^6/uL (4.35-5.85); RED CELL DISTRIBUTION WIDTH 15.4 % (10.0-14.5); WHITE BLOOD COUNT 7.7 10^3/uL (4.3-11.0)
[2018-03-19 10:02] LABS: HEMATOCRIT 18 % (40-54); HEMOGLOBIN 5.7 G/DL (13.3-17.7); PLATELET COUNT 11 10^3/uL (130-400)
[2018-03-19 10:33] LABS: ALANINE AMINOTRANSFERASE 28 U/L (0-55); ALBUMIN 3.6 GM/DL (3.2-4.5); ALKALINE PHOSPHATASE 67 U/L (40-136); BILIRUBIN,TOTAL 0.3 MG/DL (0.1-1.0); BUN/CREATININE RATIO 15; CALCIUM 8.6 MG/DL (8.5-10.1); CARBON DIOXIDE 22 MMOL/L (21-32); CHLORIDE 106 MMOL/L (98-107); CREATININE SERUM 0.86 MG/DL (0.60-1.30); GFR ESTIMATED > 60; GLUCOSE 124 MG/DL (70-105); POTASSIUM 3.9 MMOL/L (3.6-5.0); SODIUM 138 MMOL/L (135-145); TOTAL PROTEIN 5.9 GM/DL (6.4-8.2)
[2018-03-22 08:57] LABS: BASOPHILS % (AUTO) 0 % (0-10); EOSINOPHILS % (AUTO) 0 % (0-10); LYMPHOCYTES # (AUTO) 1.2 X 10^3 (1.0-4.0); LYMPHOCYTES % (AUTO) 25 % (12-44); MEAN CORPUSCULAR HEMOGLOBIN 31 PG (25-34); MEAN CORPUSCULAR HGB CONC 34 G/DL (32-36); MEAN CORPUSCULAR VOLUME 91 FL (80-99); MONOCYTES # (AUTO) 0.4 X 10^3 (0.0-1.0); MONOCYTES % (AUTO) 8 % (0-12); NEUTROPHILS # (AUTO) 3.3 X 10^3 (1.8-7.8); NEUTROPHILS % (AUTO) 67 % (42-75); RED BLOOD COUNT 2.07 10^6/uL (4.35-5.85); WHITE BLOOD COUNT 4.9 10^3/uL (4.3-11.0)
[2018-03-22 09:10] LABS: HEMATOCRIT 19 % (40-54); HEMOGLOBIN 6.4 G/DL (13.3-17.7)
[2018-03-22 09:11] LABS: PLATELET COUNT 9 10^3/uL (130-400)
[2018-03-26 09:02] LABS: BASOPHILS % (AUTO) 0 % (0-10); EOSINOPHILS % (AUTO) 0 % (0-10); HEMATOCRIT 21 % (40-54); LYMPHOCYTES # (AUTO) 1.2 X 10^3 (1.0-4.0); LYMPHOCYTES % (AUTO) 40 % (12-44); MEAN CORPUSCULAR HEMOGLOBIN 30 PG (25-34); MEAN CORPUSCULAR HGB CONC 33 G/DL (32-36); MEAN CORPUSCULAR VOLUME 91 FL (80-99); MEAN PLATELET VOLUME 10.4 FL (7.4-10.4); MONOCYTES # (AUTO) 0.3 X 10^3 (0.0-1.0); MONOCYTES % (AUTO) 12 % (0-12); NEUTROPHILS # (AUTO) 1.4 X 10^3 (1.8-7.8); NEUTROPHILS % (AUTO) 48 % (42-75); RED BLOOD COUNT 2.29 10^6/uL (4.35-5.85); RED CELL DISTRIBUTION WIDTH 14.5 % (10.0-14.5); WHITE BLOOD COUNT 2.9 10^3/uL (4.3-11.0)
[2018-03-26 09:09] LABS: HEMOGLOBIN 6.9 G/DL (13.3-17.7); PLATELET COUNT 24 10^3/uL (130-400)
[2018-03-26 09:24] LABS: BUN/CREATININE RATIO 15; CARBON DIOXIDE 22 MMOL/L (21-32); CHLORIDE 109 MMOL/L (98-107); CREATININE SERUM 0.89 MG/DL (0.60-1.30); GFR ESTIMATED > 60; POTASSIUM 4.2 MMOL/L (3.6-5.0); SODIUM 138 MMOL/L (135-145)
[2018-03-26 09:25] LABS: ALANINE AMINOTRANSFERASE 27 U/L (0-55); ALBUMIN 3.9 GM/DL (3.2-4.5); ALKALINE PHOSPHATASE 81 U/L (40-136); BILIRUBIN,TOTAL 0.9 MG/DL (0.1-1.0); GLUCOSE 106 MG/DL (70-105); TOTAL PROTEIN 6.4 GM/DL (6.4-8.2)
[2018-03-29 08:52] LABS: BASOPHILS % (AUTO) 0 % (0-10); EOSINOPHILS % (AUTO) 1 % (0-10); LYMPHOCYTES # (AUTO) 1.1 X 10^3 (1.0-4.0); LYMPHOCYTES % (AUTO) 37 % (12-44); MEAN CORPUSCULAR HEMOGLOBIN 30 PG (25-34); MEAN CORPUSCULAR HGB CONC 34 G/DL (32-36); MEAN CORPUSCULAR VOLUME 90 FL (80-99); MEAN PLATELET VOLUME 10.8 FL (7.4-10.4); MONOCYTES # (AUTO) 0.4 X 10^3 (0.0-1.0); MONOCYTES % (AUTO) 13 % (0-12); NEUTROPHILS # (AUTO) 1.5 X 10^3 (1.8-7.8); NEUTROPHILS % (AUTO) 49 % (42-75); RED BLOOD COUNT 2.26 10^6/uL (4.35-5.85); RED CELL DISTRIBUTION WIDTH 14.3 % (10.0-14.5)
[2018-03-29 08:54] LABS: HEMATOCRIT 20 % (40-54); HEMOGLOBIN 6.8 G/DL (13.3-17.7)
[2018-03-29 08:55] LABS: PLATELET COUNT 14 10^3/uL (130-400)
[2018-03-29 09:04] LABS: ALANINE AMINOTRANSFERASE 25 U/L (0-55); ALBUMIN 4.2 GM/DL (3.2-4.5); ALKALINE PHOSPHATASE 85 U/L (40-136); BILIRUBIN,TOTAL 0.6 MG/DL (0.1-1.0); BUN/CREATININE RATIO 13; CALCIUM 8.8 MG/DL (8.5-10.1); CARBON DIOXIDE 20 MMOL/L (21-32); CHLORIDE 108 MMOL/L (98-107); CREATININE SERUM 0.98 MG/DL (0.60-1.30); GFR ESTIMATED > 60; GLUCOSE 102 MG/DL (70-105); POTASSIUM 3.6 MMOL/L (3.6-5.0); SODIUM 138 MMOL/L (135-145); TOTAL PROTEIN 6.8 GM/DL (6.4-8.2)
[2018-04-02 09:18] LABS: BASOPHILS % (AUTO) 0 % (0-10); EOSINOPHILS # (AUTO) 0.1 10^3/uL (0.0-0.3); EOSINOPHILS % (AUTO) 3 % (0-10); LYMPHOCYTES % (AUTO) 43 % (12-44); MEAN CORPUSCULAR HEMOGLOBIN 29 PG (25-34); MEAN CORPUSCULAR HGB CONC 33 G/DL (32-36); MEAN CORPUSCULAR VOLUME 89 FL (80-99); MEAN PLATELET VOLUME 9.4 FL (7.4-10.4); MONOCYTES # (AUTO) 0.3 X 10^3 (0.0-1.0); MONOCYTES % (AUTO) 13 % (0-12); NEUTROPHILS % (AUTO) 42 % (42-75); PLATELET COUNT 41 10^3/uL (130-400); RED BLOOD COUNT 1.97 10^6/uL (4.35-5.85); RED CELL DISTRIBUTION WIDTH 14.2 % (10.0-14.5); WHITE BLOOD COUNT 2.4 10^3/uL (4.3-11.0)
[2018-04-02 09:21] LABS: HEMATOCRIT 18 % (40-54); HEMOGLOBIN 5.7 G/DL (13.3-17.7)
[2018-04-02 09:37] LABS: ALANINE AMINOTRANSFERASE 22 U/L (0-55); ALBUMIN 4.1 GM/DL (3.2-4.5); ALKALINE PHOSPHATASE 103 U/L (40-136); BILIRUBIN,TOTAL 0.5 MG/DL (0.1-1.0); BUN/CREATININE RATIO 11; CALCIUM 8.9 MG/DL (8.5-10.1); CARBON DIOXIDE 21 MMOL/L (21-32); CHLORIDE 109 MMOL/L (98-107); CREATININE SERUM 0.83 MG/DL (0.60-1.30); GFR ESTIMATED > 60; GLUCOSE 122 MG/DL (70-105); POTASSIUM 3.6 MMOL/L (3.6-5.0); SODIUM 140 MMOL/L (135-145); TOTAL PROTEIN 6.8 GM/DL (6.4-8.2)
[2018-04-05 08:34] LABS: BASOPHILS % (AUTO) 0 % (0-10); EOSINOPHILS % (AUTO) 0 % (0-10); LYMPHOCYTES # (AUTO) 3.3 X 10^3 (1.0-4.0); LYMPHOCYTES % (AUTO) 33 % (12-44); MEAN CORPUSCULAR HEMOGLOBIN 30 PG (25-34); MEAN CORPUSCULAR HGB CONC 35 G/DL (32-36); MEAN CORPUSCULAR VOLUME 87 FL (80-99); MEAN PLATELET VOLUME 9.6 FL (7.4-10.4); MONOCYTES # (AUTO) 0.9 X 10^3 (0.0-1.0); MONOCYTES % (AUTO) 9 % (0-12); NEUTROPHILS # (AUTO) 5.6 X 10^3 (1.8-7.8); NEUTROPHILS % (AUTO) 57 % (42-75); PLATELET COUNT 42 10^3/uL (130-400); RED BLOOD COUNT 2.32 10^6/uL (4.35-5.85); RED CELL DISTRIBUTION WIDTH 14.5 % (10.0-14.5); WHITE BLOOD COUNT 9.8 10^3/uL (4.3-11.0)
[2018-04-05 08:50] LABS: ALANINE AMINOTRANSFERASE 26 U/L (0-55); ALBUMIN 4.2 GM/DL (3.2-4.5); ALKALINE PHOSPHATASE 81 U/L (40-136); BILIRUBIN,TOTAL 0.5 MG/DL (0.1-1.0); BUN/CREATININE RATIO 22; CALCIUM 9.7 MG/DL (8.5-10.1); CARBON DIOXIDE 23 MMOL/L (21-32); CHLORIDE 105 MMOL/L (98-107); CREATININE SERUM 0.91 MG/DL (0.60-1.30); GFR ESTIMATED > 60; GLUCOSE 93 MG/DL (70-105); POTASSIUM 3.7 MMOL/L (3.6-5.0); SODIUM 138 MMOL/L (135-145); TOTAL PROTEIN 6.8 GM/DL (6.4-8.2)
[2018-04-05 08:52] LABS: HEMATOCRIT 20 % (40-54)
[2018-04-09 08:51] LABS: BASOPHILS % (AUTO) 0 % (0-10); EOSINOPHILS # (AUTO) 0.2 10^3/uL (0.0-0.3); EOSINOPHILS % (AUTO) 3 % (0-10); LYMPHOCYTES # (AUTO) 1.5 X 10^3 (1.0-4.0); LYMPHOCYTES % (AUTO) 24 % (12-44); MEAN CORPUSCULAR HEMOGLOBIN 30 PG (25-34); MEAN CORPUSCULAR HGB CONC 34 G/DL (32-36); MEAN CORPUSCULAR VOLUME 88 FL (80-99); MEAN PLATELET VOLUME 10.2 FL (7.4-10.4); MONOCYTES # (AUTO) 0.3 X 10^3 (0.0-1.0); MONOCYTES % (AUTO) 5 % (0-12); NEUTROPHILS # (AUTO) 4.1 X 10^3 (1.8-7.8); NEUTROPHILS % (AUTO) 68 % (42-75); RED BLOOD COUNT 2.28 10^6/uL (4.35-5.85); RED CELL DISTRIBUTION WIDTH 14.1 % (10.0-14.5)
[2018-04-09 08:54] LABS: HEMATOCRIT 20 % (40-54); HEMOGLOBIN 6.8 G/DL (13.3-17.7); PLATELET COUNT 35 10^3/uL (130-400)
[2018-04-09 09:09] LABS: ALANINE AMINOTRANSFERASE 27 U/L (0-55); ALKALINE PHOSPHATASE 89 U/L (40-136); BILIRUBIN,TOTAL 0.6 MG/DL (0.1-1.0); BUN/CREATININE RATIO 17; CALCIUM 9.2 MG/DL (8.5-10.1); CARBON DIOXIDE 22 MMOL/L (21-32); CHLORIDE 106 MMOL/L (98-107); CREATININE SERUM 0.92 MG/DL (0.60-1.30); GFR ESTIMATED > 60; GLUCOSE 123 MG/DL (70-105); POTASSIUM 3.7 MMOL/L (3.6-5.0); SODIUM 137 MMOL/L (135-145); TOTAL PROTEIN 6.4 GM/DL (6.4-8.2)
[2018-04-12 08:47] LABS: BASOPHILS % (AUTO) 0 % (0-10); EOSINOPHILS # (AUTO) 0.1 10^3/uL (0.0-0.3); EOSINOPHILS % (AUTO) 1 % (0-10); HEMATOCRIT 21 % (40-54); LYMPHOCYTES # (AUTO) 2.2 X 10^3 (1.0-4.0); LYMPHOCYTES % (AUTO) 25 % (12-44); MEAN CORPUSCULAR HEMOGLOBIN 29 PG (25-34); MEAN CORPUSCULAR HGB CONC 33 G/DL (32-36); MEAN CORPUSCULAR VOLUME 87 FL (80-99); MEAN PLATELET VOLUME 10.1 FL (7.4-10.4); MONOCYTES # (AUTO) 0.3 X 10^3 (0.0-1.0); MONOCYTES % (AUTO) 4 % (0-12); NEUTROPHILS # (AUTO) 6.4 X 10^3 (1.8-7.8); NEUTROPHILS % (AUTO) 71 % (42-75); RED BLOOD COUNT 2.44 10^6/uL (4.35-5.85); RED CELL DISTRIBUTION WIDTH 15.2 % (10.0-14.5); WHITE BLOOD COUNT 9.1 10^3/uL (4.3-11.0)
[2018-04-12 08:49] LABS: PLATELET COUNT 31 10^3/uL (130-400)
[2018-04-12 09:06] LABS: ALANINE AMINOTRANSFERASE 43 U/L (0-55); ALBUMIN 3.7 GM/DL (3.2-4.5); ALKALINE PHOSPHATASE 69 U/L (40-136); BILIRUBIN,TOTAL 0.5 MG/DL (0.1-1.0); BUN/CREATININE RATIO 27; CALCIUM 8.9 MG/DL (8.5-10.1); CARBON DIOXIDE 24 MMOL/L (21-32); CHLORIDE 106 MMOL/L (98-107); CREATININE SERUM 0.93 MG/DL (0.60-1.30); GFR ESTIMATED > 60; GLUCOSE 95 MG/DL (70-105); SODIUM 137 MMOL/L (135-145); TOTAL PROTEIN 5.9 GM/DL (6.4-8.2)
[~2018-04-16] VITALS: Ht 177.8 cm; Wt 75.7 kg
[~2018-04-16] MED LIST changes: +ACETAMINOPHEN 500 MG TAB (TYLENOL) CANCER CTR ONE; +AZACITIDINE SQ SCH; +DEXAMETHASONE PF INJ (CANCER C 10 MG in NS (IVPB) CANCER CENTER 50 ML INJ SCH; +FAMOTIDINE 20MG/2ML IV (CANCER CTR) IV SCH; +NS (IVPB) CANCER CENTER 250 ML ONE; +NS IV 1000 ML (CANCER CTR) IV SCH; +NS IV 500 ML (CANCER CENTER) 500 ML ONE; +NS SQ SCH; +PALONOSETRON 0.25 MG, DEXAMETHASONE 10 MG/NS 50 ML IVPB IV PRN; +PANT40TA2 PO; +diphenhydrAMINE 25 MG TAB (BENADRYL) CANCER CENTER PO ONE
[2018-04-16 14:41] LABS: BASOPHILS % (AUTO) 0 % (0-10); EOSINOPHILS % (AUTO) 1 % (0-10); LYMPHOCYTES % (AUTO) 39 % (12-44); MEAN CORPUSCULAR HEMOGLOBIN 28 PG (25-34); MEAN CORPUSCULAR HGB CONC 32 G/DL (32-36); MEAN CORPUSCULAR VOLUME 87 FL (80-99); MEAN PLATELET VOLUME 10.7 FL (7.4-10.4); MONOCYTES # (AUTO) 0.2 X 10^3 (0.0-1.0); MONOCYTES % (AUTO) 6 % (0-12); NEUTROPHILS # (AUTO) 1.5 X 10^3 (1.8-7.8); NEUTROPHILS % (AUTO) 55 % (42-75); RED BLOOD COUNT 2.05 10^6/uL (4.35-5.85); RED CELL DISTRIBUTION WIDTH 14.9 % (10.0-14.5); WHITE BLOOD COUNT 2.7 10^3/uL (4.3-11.0)
[2018-04-16 14:43] LABS: HEMATOCRIT 18 % (40-54); HEMOGLOBIN 5.8 G/DL (13.3-17.7); PLATELET COUNT 27 10^3/uL (130-400)
[2018-04-16 15:03] LABS: ALANINE AMINOTRANSFERASE 26 U/L (0-55); ALBUMIN 3.8 GM/DL (3.2-4.5); ALKALINE PHOSPHATASE 77 U/L (40-136); BILIRUBIN,TOTAL 0.4 MG/DL (0.1-1.0); BUN/CREATININE RATIO 14; CARBON DIOXIDE 25 MMOL/L (21-32); CHLORIDE 107 MMOL/L (98-107); CREATININE SERUM 0.99 MG/DL (0.60-1.30); GFR ESTIMATED > 60; GLUCOSE 106 MG/DL (70-105); SODIUM 138 MMOL/L (135-145); TOTAL PROTEIN 6.1 GM/DL (6.4-8.2)
== END | disposition home or self-care (01) ==
LOC: ONC 01-16 09:02
PROVIDERS: ATTEND Internal Medicine Hematology & Oncology
DX: D46.Z Other myelodysplastic syndromes (principal); D61.818 Other pancytopenia; D64.89 Other specified anemias; I10 Essential (primary) hypertension; E78.5 Hyperlipidemia, unspecified; N40.0 Benign prostatic hyperplasia without lower urinary tract symptoms; M06.9 Rheumatoid arthritis, unspecified; Z79.899 Other long term (current) drug therapy
CPT/HCPCS: 36415; 36430; 38222; 77012; 80053; 83735; 84100; 84550; 85007; 85025; 85027; 85045; 85610; 85730; 86850; 86900; 86901; 86920; 88184; 88185; 88305; 88311; 88313; 96374; 96375; 96409; 96413; 99213

== ENCOUNTER → 2018-04-26 | Outpatient (CLI) | payer MEDICARE ==
[~2018-04-26] MED LIST changes: -ACETAMINOPHEN 500 MG TAB (TYLENOL) CANCER CTR ONE; -AZACITIDINE SQ SCH; -DEXAMETHASONE PF INJ (CANCER C 10 MG in NS (IVPB) CANCER CENTER 50 ML INJ SCH; -FAMOTIDINE 20MG/2ML IV (CANCER CTR) IV SCH; -NS (IVPB) CANCER CENTER 250 ML ONE; -NS IV 1000 ML (CANCER CTR) IV SCH; -NS IV 500 ML (CANCER CENTER) 500 ML ONE; -NS SQ SCH; -PALONOSETRON 0.25 MG, DEXAMETHASONE 10 MG/NS 50 ML IVPB IV PRN; -diphenhydrAMINE 25 MG TAB (BENADRYL) CANCER CENTER PO ONE
== END ==
LOC: LAB 08:37
PROVIDERS: ATTEND Internal Medicine
DX: R63.4 Abnormal weight loss (principal)
CPT/HCPCS: 36415; 84443

== ENCOUNTER 2018-07-06 08:49 | Outpatient (RCR) | payer MEDICARE ==
[2018-06-04 09:34] LABS: BASOPHILS % (AUTO) 0 % (0-10); EOSINOPHILS # (AUTO) 0.3 10^3/uL (0.0-0.3); EOSINOPHILS % (AUTO) 4 % (0-10); HEMATOCRIT 24 % (40-54); HEMOGLOBIN 7.8 G/DL (13.3-17.7); LYMPHOCYTES # (AUTO) 1.4 X 10^3 (1.0-4.0); LYMPHOCYTES % (AUTO) 21 % (12-44); MEAN CORPUSCULAR HEMOGLOBIN 31 PG (25-34); MEAN CORPUSCULAR HGB CONC 33 G/DL (32-36); MEAN CORPUSCULAR VOLUME 93 FL (80-99); MEAN PLATELET VOLUME 9.9 FL (7.4-10.4); MONOCYTES # (AUTO) 0.5 X 10^3 (0.0-1.0); MONOCYTES % (AUTO) 7 % (0-12); NEUTROPHILS # (AUTO) 4.7 X 10^3 (1.8-7.8); NEUTROPHILS % (AUTO) 68 % (42-75); PLATELET COUNT 177 10^3/uL (130-400); RED BLOOD COUNT 2.54 10^6/uL (4.35-5.85); RED CELL DISTRIBUTION WIDTH 16.5 % (10.0-14.5); WHITE BLOOD COUNT 6.9 10^3/uL (4.3-11.0)
[2018-06-07 08:23] LABS: BASOPHILS % (AUTO) 0 % (0-10); EOSINOPHILS % (AUTO) 0 % (0-10); HEMATOCRIT 24 % (40-54); HEMOGLOBIN 8.1 G/DL (13.3-17.7); LYMPHOCYTES # (AUTO) 1.9 X 10^3 (1.0-4.0); LYMPHOCYTES % (AUTO) 24 % (12-44); MEAN CORPUSCULAR HEMOGLOBIN 31 PG (25-34); MEAN CORPUSCULAR HGB CONC 34 G/DL (32-36); MEAN CORPUSCULAR VOLUME 93 FL (80-99); MEAN PLATELET VOLUME 10.3 FL (7.4-10.4); MONOCYTES # (AUTO) 0.3 X 10^3 (0.0-1.0); MONOCYTES % (AUTO) 4 % (0-12); NEUTROPHILS # (AUTO) 5.6 X 10^3 (1.8-7.8); NEUTROPHILS % (AUTO) 72 % (42-75); PLATELET COUNT 146 10^3/uL (130-400); RED BLOOD COUNT 2.61 10^6/uL (4.35-5.85); RED CELL DISTRIBUTION WIDTH 16.5 % (10.0-14.5); WHITE BLOOD COUNT 7.9 10^3/uL (4.3-11.0)
[2018-06-12 09:51] LABS: BASOPHILS % (AUTO) 0 % (0-10); EOSINOPHILS % (AUTO) 1 % (0-10); LYMPHOCYTES # (AUTO) 0.6 X 10^3 (1.0-4.0); LYMPHOCYTES % (AUTO) 10 % (12-44); MEAN CORPUSCULAR HEMOGLOBIN 31 PG (25-34); MEAN CORPUSCULAR HGB CONC 33 G/DL (32-36); MEAN CORPUSCULAR VOLUME 92 FL (80-99); MEAN PLATELET VOLUME 10.3 FL (7.4-10.4); MONOCYTES # (AUTO) 0.1 X 10^3 (0.0-1.0); MONOCYTES % (AUTO) 2 % (0-12); NEUTROPHILS # (AUTO) 5.3 X 10^3 (1.8-7.8); NEUTROPHILS % (AUTO) 87 % (42-75); PLATELET COUNT 76 10^3/uL (130-400); RED BLOOD COUNT 2.19 10^6/uL (4.35-5.85); RED CELL DISTRIBUTION WIDTH 16.1 % (10.0-14.5); WHITE BLOOD COUNT 6.1 10^3/uL (4.3-11.0)
[2018-06-12 09:52] LABS: HEMATOCRIT 20 % (40-54); HEMOGLOBIN 6.7 G/DL (13.3-17.7)
[2018-06-12 10:26] LABS: ALANINE AMINOTRANSFERASE 77 U/L (0-55); ALBUMIN 3.9 GM/DL (3.2-4.5); ALKALINE PHOSPHATASE 91 U/L (40-136); BILIRUBIN,TOTAL 1.1 MG/DL (0.1-1.0); BUN/CREATININE RATIO 19; CALCIUM 8.9 MG/DL (8.5-10.1); CARBON DIOXIDE 24 MMOL/L (21-32); CHLORIDE 101 MMOL/L (98-107); CREATININE SERUM 0.79 MG/DL (0.60-1.30); GFR ESTIMATED > 60; GLUCOSE 120 MG/DL (70-105); SODIUM 133 MMOL/L (135-145); TOTAL PROTEIN 6.2 GM/DL (6.4-8.2)
[2018-06-14 09:18] LABS: BASOPHILS % (AUTO) 0 % (0-10); EOSINOPHILS # (AUTO) 0.1 10^3/uL (0.0-0.3); EOSINOPHILS % (AUTO) 2 % (0-10); HEMATOCRIT 21 % (40-54); HEMOGLOBIN 7.2 G/DL (13.3-17.7); LYMPHOCYTES # (AUTO) 0.9 X 10^3 (1.0-4.0); LYMPHOCYTES % (AUTO) 37 % (12-44); MEAN CORPUSCULAR HEMOGLOBIN 31 PG (25-34); MEAN CORPUSCULAR HGB CONC 34 G/DL (32-36); MEAN CORPUSCULAR VOLUME 93 FL (80-99); MEAN PLATELET VOLUME 10.2 FL (7.4-10.4); MONOCYTES # (AUTO) 0.1 X 10^3 (0.0-1.0); MONOCYTES % (AUTO) 5 % (0-12); NEUTROPHILS # (AUTO) 1.3 X 10^3 (1.8-7.8); NEUTROPHILS % (AUTO) 56 % (42-75); PLATELET COUNT 57 10^3/uL (130-400); RED CELL DISTRIBUTION WIDTH 15.4 % (10.0-14.5); WHITE BLOOD COUNT 2.4 10^3/uL (4.3-11.0)
[2018-06-18 08:50] LABS: BASOPHILS % (AUTO) 0 % (0-10); EOSINOPHILS % (AUTO) 2 % (0-10); LYMPHOCYTES # (AUTO) 0.8 X 10^3 (1.0-4.0); LYMPHOCYTES % (AUTO) 46 % (12-44); MEAN CORPUSCULAR HEMOGLOBIN 30 PG (25-34); MEAN CORPUSCULAR HGB CONC 32 G/DL (32-36); MEAN CORPUSCULAR VOLUME 93 FL (80-99); MONOCYTES # (AUTO) 0.2 X 10^3 (0.0-1.0); MONOCYTES % (AUTO) 10 % (0-12); NEUTROPHILS # (AUTO) 0.7 X 10^3 (1.8-7.8); NEUTROPHILS % (AUTO) 42 % (42-75); PLATELET COUNT 64 10^3/uL (130-400); RED BLOOD COUNT 2.03 10^6/uL (4.35-5.85); RED CELL DISTRIBUTION WIDTH 15.5 % (10.0-14.5); WHITE BLOOD COUNT 1.6 10^3/uL (4.3-11.0)
[2018-06-18 08:52] LABS: HEMATOCRIT 19 % (40-54); HEMOGLOBIN 6.1 G/DL (13.3-17.7)
[2018-06-21 08:59] LABS: BASOPHILS % (AUTO) 1 % (0-10); EOSINOPHILS # (AUTO) 0.1 10^3/uL (0.0-0.3); EOSINOPHILS % (AUTO) 3 % (0-10); HEMATOCRIT 21 % (40-54); LYMPHOCYTES # (AUTO) 0.7 X 10^3 (1.0-4.0); LYMPHOCYTES % (AUTO) 37 % (12-44); MEAN CORPUSCULAR HEMOGLOBIN 31 PG (25-34); MEAN CORPUSCULAR HGB CONC 33 G/DL (32-36); MEAN CORPUSCULAR VOLUME 93 FL (80-99); MEAN PLATELET VOLUME 9.5 FL (7.4-10.4); MONOCYTES # (AUTO) 0.3 X 10^3 (0.0-1.0); MONOCYTES % (AUTO) 18 % (0-12); NEUTROPHILS # (AUTO) 0.8 X 10^3 (1.8-7.8); NEUTROPHILS % (AUTO) 41 % (42-75); PLATELET COUNT 93 10^3/uL (130-400); RED BLOOD COUNT 2.27 10^6/uL (4.35-5.85); WHITE BLOOD COUNT 1.9 10^3/uL (4.3-11.0)
[2018-06-25 08:41] LABS: BASOPHILS % (AUTO) 0 % (0-10); EOSINOPHILS # (AUTO) 0.1 10^3/uL (0.0-0.3); EOSINOPHILS % (AUTO) 2 % (0-10); HEMATOCRIT 21 % (40-54); LYMPHOCYTES # (AUTO) 1.1 X 10^3 (1.0-4.0); LYMPHOCYTES % (AUTO) 31 % (12-44); MEAN CORPUSCULAR HEMOGLOBIN 31 PG (25-34); MEAN CORPUSCULAR HGB CONC 33 G/DL (32-36); MEAN CORPUSCULAR VOLUME 93 FL (80-99); MEAN PLATELET VOLUME 9.4 FL (7.4-10.4); MONOCYTES # (AUTO) 0.5 X 10^3 (0.0-1.0); MONOCYTES % (AUTO) 14 % (0-12); NEUTROPHILS # (AUTO) 1.8 X 10^3 (1.8-7.8); NEUTROPHILS % (AUTO) 53 % (42-75); PLATELET COUNT 162 10^3/uL (130-400); RED BLOOD COUNT 2.28 10^6/uL (4.35-5.85); RED CELL DISTRIBUTION WIDTH 15.4 % (10.0-14.5); WHITE BLOOD COUNT 3.4 10^3/uL (4.3-11.0)
[2018-06-28 08:47] LABS: BASOPHILS % (AUTO) 1 % (0-10); EOSINOPHILS # (AUTO) 0.1 10^3/uL (0.0-0.3); EOSINOPHILS % (AUTO) 3 % (0-10); LYMPHOCYTES # (AUTO) 1.4 X 10^3 (1.0-4.0); LYMPHOCYTES % (AUTO) 28 % (12-44); MEAN CORPUSCULAR HEMOGLOBIN 32 PG (25-34); MEAN CORPUSCULAR HGB CONC 35 G/DL (32-36); MEAN CORPUSCULAR VOLUME 93 FL (80-99); MEAN PLATELET VOLUME 9.2 FL (7.4-10.4); MONOCYTES # (AUTO) 0.6 X 10^3 (0.0-1.0); MONOCYTES % (AUTO) 12 % (0-12); NEUTROPHILS # (AUTO) 2.8 X 10^3 (1.8-7.8); NEUTROPHILS % (AUTO) 57 % (42-75); PLATELET COUNT 197 10^3/uL (130-400); RED BLOOD COUNT 2.06 10^6/uL (4.35-5.85); RED CELL DISTRIBUTION WIDTH 15.3 % (10.0-14.5); WHITE BLOOD COUNT 4.9 10^3/uL (4.3-11.0)
[2018-06-28 08:59] LABS: HEMOGLOBIN 6.6 G/DL (13.3-17.7)
[2018-06-28 09:00] LABS: HEMATOCRIT 19 % (40-54)
[2018-07-02 09:03] LABS: BASOPHILS # (AUTO) 0.1 10^3/uL (0.0-0.1); BASOPHILS % (AUTO) 1 % (0-10); EOSINOPHILS # (AUTO) 0.3 10^3/uL (0.0-0.3); EOSINOPHILS % (AUTO) 3 % (0-10); HEMATOCRIT 24 % (40-54); LYMPHOCYTES # (AUTO) 2.1 X 10^3 (1.0-4.0); LYMPHOCYTES % (AUTO) 26 % (12-44); MEAN CORPUSCULAR HEMOGLOBIN 31 PG (25-34); MEAN CORPUSCULAR HGB CONC 33 G/DL (32-36); MEAN CORPUSCULAR VOLUME 94 FL (80-99); MEAN PLATELET VOLUME 9.8 FL (7.4-10.4); MONOCYTES # (AUTO) 0.6 X 10^3 (0.0-1.0); MONOCYTES % (AUTO) 7 % (0-12); NEUTROPHILS # (AUTO) 5.1 X 10^3 (1.8-7.8); NEUTROPHILS % (AUTO) 63 % (42-75); PLATELET COUNT 221 10^3/uL (130-400); RED BLOOD COUNT 2.55 10^6/uL (4.35-5.85); RED CELL DISTRIBUTION WIDTH 16.4 % (10.0-14.5)
[2018-07-02 09:19] LABS: ALANINE AMINOTRANSFERASE 30 U/L (0-55); ALBUMIN 4.5 GM/DL (3.2-4.5); ALKALINE PHOSPHATASE 121 U/L (40-136); BILIRUBIN,TOTAL 0.7 MG/DL (0.1-1.0); BUN/CREATININE RATIO 12; CALCIUM 9.4 MG/DL (8.5-10.1); CARBON DIOXIDE 23 MMOL/L (21-32); CHLORIDE 105 MMOL/L (98-107); CREATININE SERUM 0.85 MG/DL (0.60-1.30); GFR ESTIMATED > 60; GLUCOSE 104 MG/DL (70-105); POTASSIUM 3.8 MMOL/L (3.6-5.0); SODIUM 137 MMOL/L (135-145); TOTAL PROTEIN 7.4 GM/DL (6.4-8.2)
[2018-07-05 08:21] LABS: BASOPHILS % (AUTO) 0 % (0-10); EOSINOPHILS % (AUTO) 0 % (0-10); HEMATOCRIT 24 % (40-54); HEMOGLOBIN 7.6 G/DL (13.3-17.7); LYMPHOCYTES # (AUTO) 2.2 X 10^3 (1.0-4.0); LYMPHOCYTES % (AUTO) 26 % (12-44); MEAN CORPUSCULAR HEMOGLOBIN 31 PG (25-34); MEAN CORPUSCULAR HGB CONC 32 G/DL (32-36); MEAN CORPUSCULAR VOLUME 94 FL (80-99); MEAN PLATELET VOLUME 9.7 FL (7.4-10.4); MONOCYTES # (AUTO) 0.8 X 10^3 (0.0-1.0); MONOCYTES % (AUTO) 10 % (0-12); NEUTROPHILS # (AUTO) 5.5 X 10^3 (1.8-7.8); NEUTROPHILS % (AUTO) 64 % (42-75); PLATELET COUNT 217 10^3/uL (130-400); RED BLOOD COUNT 2.49 10^6/uL (4.35-5.85); RED CELL DISTRIBUTION WIDTH 16.4 % (10.0-14.5); WHITE BLOOD COUNT 8.6 10^3/uL (4.3-11.0)
[~2018-07-06] VITALS: Ht 177.8 cm; Wt 74.8 kg
[~2018-07-06 08:49] MED LIST changes: +ACETAMINOPHEN 500 MG TAB (TYLENOL) CANCER CTR ONE; +AZACITIDINE SQ SCH; +DEXAMETHASONE PF INJ (CANCER C 10 MG in NS (IVPB) CANCER CENTER 50 ML INJ SCH; +FAMOTIDINE 20MG/2ML IV (CANCER CTR) IV SCH; +NS (IVPB) CANCER CENTER 250 ML ONE; +NS IV 1000 ML (CANCER CTR) IV SCH; +NS IV 500 ML (CANCER CENTER) 500 ML ONE; +NS SQ SCH; +PALONOSETRON 0.25 MG, DEXAMETHASONE 10 MG/NS 50 ML IVPB IV PRN; -RAMI10CA PO; +RAMI10CA69 PO
[2018-07-06] MEDS ORDERED: NS IV 500 ML (CANCER CENTER) 500 ML ONE (08:50)
[2018-07-09 09:00] LABS: BASOPHILS % (AUTO) 0 % (0-10); EOSINOPHILS # (AUTO) 0.2 10^3/uL (0.0-0.3); EOSINOPHILS % (AUTO) 6 % (0-10); HEMATOCRIT 24 % (40-54); HEMOGLOBIN 7.8 G/DL (13.3-17.7); LYMPHOCYTES % (AUTO) 32 % (12-44); MEAN CORPUSCULAR HEMOGLOBIN 30 PG (25-34); MEAN CORPUSCULAR HGB CONC 33 G/DL (32-36); MEAN CORPUSCULAR VOLUME 93 FL (80-99); MEAN PLATELET VOLUME 10.2 FL (7.4-10.4); MONOCYTES # (AUTO) 0.3 X 10^3 (0.0-1.0); MONOCYTES % (AUTO) 9 % (0-12); NEUTROPHILS # (AUTO) 1.7 X 10^3 (1.8-7.8); NEUTROPHILS % (AUTO) 52 % (42-75); PLATELET COUNT 151 10^3/uL (130-400); RED BLOOD COUNT 2.57 10^6/uL (4.35-5.85); RED CELL DISTRIBUTION WIDTH 16.6 % (10.0-14.5); WHITE BLOOD COUNT 3.2 10^3/uL (4.3-11.0)
== END 2018-07-09 08:45 | disposition home or self-care (01) ==
LOC: ONC 08:49
PROVIDERS: ATTEND Internal Medicine Hematology & Oncology
DX: Z51.11 Encounter for antineoplastic chemotherapy (principal); C92.00 Acute myeloblastic leukemia, not having achieved remission; D46.Z Other myelodysplastic syndromes; D61.818 Other pancytopenia; D61.811 Other drug-induced pancytopenia; T45.1X5A Adverse effect of antineoplastic and immunosuppressive drugs, initial encounter; N28.9 Disorder of kidney and ureter, unspecified; I10 Essential (primary) hypertension; E78.5 Hyperlipidemia, unspecified; N40.0 Benign prostatic hyperplasia without lower urinary tract symptoms; M06.9 Rheumatoid arthritis, unspecified; K21.9 Gastro-esophageal reflux disease without esophagitis; M25.511 Pain in right shoulder; Z79.899 Other long term (current) drug therapy
CPT/HCPCS: 36415; 36430; 80053; 85025; 86850; 86900; 86901; 86920; 96375; 96409; 96413

== ENCOUNTER 2018-10-04 08:27 | Outpatient (RCR) | payer MEDICARE ==
[2018-07-12 09:00] LABS: BASOPHILS % (AUTO) 0 % (0-10); EOSINOPHILS # (AUTO) 0.1 10^3/uL (0.0-0.3); EOSINOPHILS % (AUTO) 3 % (0-10); LYMPHOCYTES % (AUTO) 27 % (12-44); MEAN CORPUSCULAR HEMOGLOBIN 31 PG (25-34); MEAN CORPUSCULAR HGB CONC 33 G/DL (32-36); MEAN CORPUSCULAR VOLUME 94 FL (80-99); MEAN PLATELET VOLUME 10.3 FL (7.4-10.4); MONOCYTES # (AUTO) 0.1 X 10^3 (0.0-1.0); MONOCYTES % (AUTO) 3 % (0-12); NEUTROPHILS # (AUTO) 2.4 X 10^3 (1.8-7.8); NEUTROPHILS % (AUTO) 67 % (42-75); PLATELET COUNT 92 10^3/uL (130-400); RED CELL DISTRIBUTION WIDTH 15.9 % (10.0-14.5); WHITE BLOOD COUNT 3.6 10^3/uL (4.3-11.0)
[2018-07-12 09:02] LABS: HEMATOCRIT 18 % (40-54); HEMOGLOBIN 5.9 G/DL (13.3-17.7)
[2018-07-16 09:04] LABS: MEAN CORPUSCULAR HEMOGLOBIN 32 PG (25-34); MEAN CORPUSCULAR HGB CONC 34 G/DL (32-36); MEAN CORPUSCULAR VOLUME 94 FL (80-99); RED BLOOD COUNT 1.95 10^6/uL (4.35-5.85); RED CELL DISTRIBUTION WIDTH 15.4 % (10.0-14.5); WHITE BLOOD COUNT 1.6 10^3/uL (4.3-11.0)
[2018-07-16 09:05] LABS: BASOPHILS % (AUTO) 0 % (0-10); EOSINOPHILS # (AUTO) 0.1 10^3/uL (0.0-0.3); EOSINOPHILS % (AUTO) 3 % (0-10); LYMPHOCYTES # (AUTO) 0.5 X 10^3 (1.0-4.0); LYMPHOCYTES % (AUTO) 33 % (12-44); MEAN PLATELET VOLUME 10.7 FL (7.4-10.4); MONOCYTES # (AUTO) 0.1 X 10^3 (0.0-1.0); MONOCYTES % (AUTO) 7 % (0-12); NEUTROPHILS # (AUTO) 0.9 X 10^3 (1.8-7.8); NEUTROPHILS % (AUTO) 57 % (42-75); PLATELET COUNT 55 10^3/uL (130-400)
[2018-07-16 09:08] LABS: HEMATOCRIT 18 % (40-54); HEMOGLOBIN 6.2 G/DL (13.3-17.7)
[2018-07-19 08:44] LABS: BASOPHILS % (AUTO) 0 % (0-10); EOSINOPHILS # (AUTO) 0.1 10^3/uL (0.0-0.3); EOSINOPHILS % (AUTO) 6 % (0-10); HEMATOCRIT 21 % (40-54); LYMPHOCYTES # (AUTO) 0.8 X 10^3 (1.0-4.0); LYMPHOCYTES % (AUTO) 40 % (12-44); MEAN CORPUSCULAR HEMOGLOBIN 31 PG (25-34); MEAN CORPUSCULAR HGB CONC 33 G/DL (32-36); MEAN CORPUSCULAR VOLUME 93 FL (80-99); MEAN PLATELET VOLUME 10.2 FL (7.4-10.4); MONOCYTES # (AUTO) 0.2 X 10^3 (0.0-1.0); MONOCYTES % (AUTO) 9 % (0-12); NEUTROPHILS # (AUTO) 0.9 X 10^3 (1.8-7.8); NEUTROPHILS % (AUTO) 46 % (42-75); PLATELET COUNT 57 10^3/uL (130-400); RED BLOOD COUNT 2.23 10^6/uL (4.35-5.85); RED CELL DISTRIBUTION WIDTH 15.4 % (10.0-14.5); WHITE BLOOD COUNT 1.9 10^3/uL (4.3-11.0)
[2018-07-19 08:45] LABS: HEMOGLOBIN 6.9 G/DL (13.3-17.7)
[2018-07-23 08:43] LABS: BASOPHILS % (AUTO) 1 % (0-10); EOSINOPHILS # (AUTO) 0.1 10^3/uL (0.0-0.3); EOSINOPHILS % (AUTO) 3 % (0-10); LYMPHOCYTES % (AUTO) 56 % (12-44); MEAN CORPUSCULAR HEMOGLOBIN 32 PG (25-34); MEAN CORPUSCULAR HGB CONC 34 G/DL (32-36); MEAN CORPUSCULAR VOLUME 93 FL (80-99); MEAN PLATELET VOLUME 9.4 FL (7.4-10.4); MONOCYTES # (AUTO) 0.3 X 10^3 (0.0-1.0); MONOCYTES % (AUTO) 17 % (0-12); NEUTROPHILS # (AUTO) 0.4 X 10^3 (1.8-7.8); NEUTROPHILS % (AUTO) 24 % (42-75); PLATELET COUNT 111 10^3/uL (130-400); RED CELL DISTRIBUTION WIDTH 15.4 % (10.0-14.5); WHITE BLOOD COUNT 1.8 10^3/uL (4.3-11.0)
[2018-07-23 08:44] LABS: HEMOGLOBIN 6.3 G/DL (13.3-17.7)
[2018-07-23 08:45] LABS: HEMATOCRIT 19 % (40-54)
[2018-07-26 08:43] LABS: BASOPHILS % (AUTO) 1 % (0-10); EOSINOPHILS # (AUTO) 0.1 10^3/uL (0.0-0.3); EOSINOPHILS % (AUTO) 2 % (0-10); HEMATOCRIT 23 % (40-54); HEMOGLOBIN 7.3 G/DL (13.3-17.7); LYMPHOCYTES # (AUTO) 1.1 X 10^3 (1.0-4.0); LYMPHOCYTES % (AUTO) 45 % (12-44); MEAN CORPUSCULAR HEMOGLOBIN 30 PG (25-34); MEAN CORPUSCULAR HGB CONC 32 G/DL (32-36); MEAN CORPUSCULAR VOLUME 92 FL (80-99); MEAN PLATELET VOLUME 9.5 FL (7.4-10.4); MONOCYTES # (AUTO) 0.5 X 10^3 (0.0-1.0); MONOCYTES % (AUTO) 18 % (0-12); NEUTROPHILS # (AUTO) 0.8 X 10^3 (1.8-7.8); NEUTROPHILS % (AUTO) 33 % (42-75); PLATELET COUNT 157 10^3/uL (130-400); RED BLOOD COUNT 2.44 10^6/uL (4.35-5.85); RED CELL DISTRIBUTION WIDTH 16.1 % (10.0-14.5); WHITE BLOOD COUNT 2.5 10^3/uL (4.3-11.0)
[2018-07-30 09:05] LABS: BASOPHILS % (AUTO) 1 % (0-10); EOSINOPHILS # (AUTO) 0.2 10^3/uL (0.0-0.3); EOSINOPHILS % (AUTO) 4 % (0-10); HEMATOCRIT 22 % (40-54); HEMOGLOBIN 7.3 G/DL (13.3-17.7); LYMPHOCYTES # (AUTO) 1.2 X 10^3 (1.0-4.0); LYMPHOCYTES % (AUTO) 31 % (12-44); MEAN CORPUSCULAR HEMOGLOBIN 31 PG (25-34); MEAN CORPUSCULAR HGB CONC 33 G/DL (32-36); MEAN CORPUSCULAR VOLUME 93 FL (80-99); MEAN PLATELET VOLUME 9.7 FL (7.4-10.4); MONOCYTES # (AUTO) 0.6 X 10^3 (0.0-1.0); MONOCYTES % (AUTO) 16 % (0-12); NEUTROPHILS # (AUTO) 1.8 X 10^3 (1.8-7.8); NEUTROPHILS % (AUTO) 48 % (42-75); PLATELET COUNT 243 10^3/uL (130-400); RED BLOOD COUNT 2.37 10^6/uL (4.35-5.85); RED CELL DISTRIBUTION WIDTH 16.4 % (10.0-14.5); WHITE BLOOD COUNT 3.8 10^3/uL (4.3-11.0)
[2018-07-30 09:26] LABS: ALANINE AMINOTRANSFERASE 29 U/L (0-55); ALBUMIN 4.3 GM/DL (3.2-4.5); ALKALINE PHOSPHATASE 106 U/L (40-136); BILIRUBIN,TOTAL 0.7 MG/DL (0.1-1.0); BUN/CREATININE RATIO 8; CARBON DIOXIDE 20 MMOL/L (21-32); CHLORIDE 106 MMOL/L (98-107); GFR ESTIMATED > 60; GLUCOSE 120 MG/DL (70-105); POTASSIUM 3.7 MMOL/L (3.6-5.0); SODIUM 137 MMOL/L (135-145)
[2018-08-02 09:09] LABS: BASOPHILS % (AUTO) 0 % (0-10); EOSINOPHILS % (AUTO) 0 % (0-10); HEMATOCRIT 22 % (40-54); HEMOGLOBIN 7.1 G/DL (13.3-17.7); LYMPHOCYTES # (AUTO) 1.5 X 10^3 (1.0-4.0); LYMPHOCYTES % (AUTO) 18 % (12-44); MEAN CORPUSCULAR HEMOGLOBIN 30 PG (25-34); MEAN CORPUSCULAR HGB CONC 33 G/DL (32-36); MEAN CORPUSCULAR VOLUME 93 FL (80-99); MEAN PLATELET VOLUME 9.7 FL (7.4-10.4); MONOCYTES # (AUTO) 1.2 X 10^3 (0.0-1.0); MONOCYTES % (AUTO) 14 % (0-12); NEUTROPHILS # (AUTO) 5.8 X 10^3 (1.8-7.8); NEUTROPHILS % (AUTO) 68 % (42-75); PLATELET COUNT 299 10^3/uL (130-400); RED BLOOD COUNT 2.34 10^6/uL (4.35-5.85); RED CELL DISTRIBUTION WIDTH 16.3 % (10.0-14.5); WHITE BLOOD COUNT 8.5 10^3/uL (4.3-11.0)
[2018-08-06 09:06] LABS: BASOPHILS % (AUTO) 0 % (0-10); EOSINOPHILS # (AUTO) 0.4 10^3/uL (0.0-0.3); EOSINOPHILS % (AUTO) 8 % (0-10); HEMATOCRIT 21 % (40-54); LYMPHOCYTES # (AUTO) 1.2 X 10^3 (1.0-4.0); LYMPHOCYTES % (AUTO) 25 % (12-44); MEAN CORPUSCULAR HEMOGLOBIN 30 PG (25-34); MEAN CORPUSCULAR HGB CONC 33 G/DL (32-36); MEAN CORPUSCULAR VOLUME 92 FL (80-99); MEAN PLATELET VOLUME 9.9 FL (7.4-10.4); MONOCYTES # (AUTO) 0.4 X 10^3 (0.0-1.0); MONOCYTES % (AUTO) 7 % (0-12); NEUTROPHILS # (AUTO) 2.9 X 10^3 (1.8-7.8); NEUTROPHILS % (AUTO) 60 % (42-75); PLATELET COUNT 220 10^3/uL (130-400); RED BLOOD COUNT 2.27 10^6/uL (4.35-5.85); RED CELL DISTRIBUTION WIDTH 16.5 % (10.0-14.5); WHITE BLOOD COUNT 4.9 10^3/uL (4.3-11.0)
[2018-08-06 09:08] LABS: HEMOGLOBIN 6.9 G/DL (13.3-17.7)
[2018-08-09 08:56] LABS: BASOPHILS % (AUTO) 0 % (0-10); EOSINOPHILS # (AUTO) 0.3 10^3/uL (0.0-0.3); EOSINOPHILS % (AUTO) 4 % (0-10); LYMPHOCYTES # (AUTO) 1.7 X 10^3 (1.0-4.0); LYMPHOCYTES % (AUTO) 26 % (12-44); MEAN CORPUSCULAR HEMOGLOBIN 31 PG (25-34); MEAN CORPUSCULAR HGB CONC 34 G/DL (32-36); MEAN CORPUSCULAR VOLUME 93 FL (80-99); MEAN PLATELET VOLUME 10.1 FL (7.4-10.4); MONOCYTES # (AUTO) 0.4 X 10^3 (0.0-1.0); MONOCYTES % (AUTO) 6 % (0-12); NEUTROPHILS # (AUTO) 4.3 X 10^3 (1.8-7.8); NEUTROPHILS % (AUTO) 64 % (42-75); PLATELET COUNT 182 10^3/uL (130-400); RED BLOOD COUNT 2.17 10^6/uL (4.35-5.85); WHITE BLOOD COUNT 6.7 10^3/uL (4.3-11.0)
[2018-08-09 08:58] LABS: HEMATOCRIT 20 % (40-54); HEMOGLOBIN 6.8 G/DL (13.3-17.7)
[2018-08-13 08:47] LABS: BASOPHILS % (AUTO) 0 % (0-10); EOSINOPHILS # (AUTO) 0.1 10^3/uL (0.0-0.3); EOSINOPHILS % (AUTO) 5 % (0-10); LYMPHOCYTES # (AUTO) 0.9 X 10^3 (1.0-4.0); LYMPHOCYTES % (AUTO) 31 % (12-44); MEAN CORPUSCULAR HEMOGLOBIN 30 PG (25-34); MEAN CORPUSCULAR HGB CONC 33 G/DL (32-36); MEAN CORPUSCULAR VOLUME 92 FL (80-99); MEAN PLATELET VOLUME 9.5 FL (7.4-10.4); MONOCYTES # (AUTO) 0.2 X 10^3 (0.0-1.0); MONOCYTES % (AUTO) 8 % (0-12); NEUTROPHILS # (AUTO) 1.6 X 10^3 (1.8-7.8); NEUTROPHILS % (AUTO) 56 % (42-75); PLATELET COUNT 81 10^3/uL (130-400); RED BLOOD COUNT 2.18 10^6/uL (4.35-5.85); RED CELL DISTRIBUTION WIDTH 16.5 % (10.0-14.5); WHITE BLOOD COUNT 2.9 10^3/uL (4.3-11.0)
[2018-08-13 08:48] LABS: HEMATOCRIT 20 % (40-54); HEMOGLOBIN 6.5 G/DL (13.3-17.7)
[2018-08-16 08:56] LABS: BASOPHILS % (AUTO) 0 % (0-10); EOSINOPHILS # (AUTO) 0.2 10^3/uL (0.0-0.3); EOSINOPHILS % (AUTO) 5 % (0-10); LYMPHOCYTES # (AUTO) 1.1 X 10^3 (1.0-4.0); LYMPHOCYTES % (AUTO) 32 % (12-44); MEAN CORPUSCULAR HEMOGLOBIN 30 PG (25-34); MEAN CORPUSCULAR HGB CONC 33 G/DL (32-36); MEAN CORPUSCULAR VOLUME 92 FL (80-99); MEAN PLATELET VOLUME 10.4 FL (7.4-10.4); MONOCYTES # (AUTO) 0.4 X 10^3 (0.0-1.0); MONOCYTES % (AUTO) 11 % (0-12); NEUTROPHILS # (AUTO) 1.8 X 10^3 (1.8-7.8); NEUTROPHILS % (AUTO) 52 % (42-75); PLATELET COUNT 59 10^3/uL (130-400); RED BLOOD COUNT 1.82 10^6/uL (4.35-5.85); RED CELL DISTRIBUTION WIDTH 16.2 % (10.0-14.5); WHITE BLOOD COUNT 3.4 10^3/uL (4.3-11.0)
[2018-08-16 08:59] LABS: HEMATOCRIT 17 % (40-54); HEMOGLOBIN 5.5 G/DL (13.3-17.7)
[2018-08-20 08:48] LABS: BASOPHILS % (AUTO) 0 % (0-10); EOSINOPHILS # (AUTO) 0.1 10^3/uL (0.0-0.3); EOSINOPHILS % (AUTO) 4 % (0-10); LYMPHOCYTES # (AUTO) 1.4 X 10^3 (1.0-4.0); LYMPHOCYTES % (AUTO) 39 % (12-44); MEAN CORPUSCULAR HEMOGLOBIN 30 PG (25-34); MEAN CORPUSCULAR HGB CONC 33 G/DL (32-36); MEAN CORPUSCULAR VOLUME 91 FL (80-99); MEAN PLATELET VOLUME 9.3 FL (7.4-10.4); MONOCYTES # (AUTO) 0.5 X 10^3 (0.0-1.0); MONOCYTES % (AUTO) 15 % (0-12); NEUTROPHILS # (AUTO) 1.5 X 10^3 (1.8-7.8); NEUTROPHILS % (AUTO) 43 % (42-75); PLATELET COUNT 108 10^3/uL (130-400); RED BLOOD COUNT 1.98 10^6/uL (4.35-5.85); RED CELL DISTRIBUTION WIDTH 15.6 % (10.0-14.5); WHITE BLOOD COUNT 3.5 10^3/uL (4.3-11.0)
[2018-08-20 08:49] LABS: HEMATOCRIT 18 % (40-54)
[2018-08-23 08:46] LABS: BASOPHILS % (AUTO) 1 % (0-10); EOSINOPHILS # (AUTO) 0.2 10^3/uL (0.0-0.3); EOSINOPHILS % (AUTO) 7 % (0-10); HEMATOCRIT 21 % (40-54); LYMPHOCYTES # (AUTO) 1.2 X 10^3 (1.0-4.0); LYMPHOCYTES % (AUTO) 38 % (12-44); MEAN CORPUSCULAR HEMOGLOBIN 30 PG (25-34); MEAN CORPUSCULAR HGB CONC 33 G/DL (32-36); MEAN CORPUSCULAR VOLUME 90 FL (80-99); MEAN PLATELET VOLUME 9.4 FL (7.4-10.4); MONOCYTES # (AUTO) 0.6 X 10^3 (0.0-1.0); MONOCYTES % (AUTO) 18 % (0-12); NEUTROPHILS # (AUTO) 1.2 X 10^3 (1.8-7.8); NEUTROPHILS % (AUTO) 37 % (42-75); PLATELET COUNT 145 10^3/uL (130-400); RED BLOOD COUNT 2.32 10^6/uL (4.35-5.85); RED CELL DISTRIBUTION WIDTH 15.8 % (10.0-14.5); WHITE BLOOD COUNT 3.2 10^3/uL (4.3-11.0)
[2018-08-23 08:52] LABS: HEMOGLOBIN 6.9 G/DL (13.3-17.7)
[2018-08-28 08:39] LABS: BASOPHILS # (AUTO) 0.1 10^3/uL (0.0-0.1); BASOPHILS % (AUTO) 1 % (0-10); EOSINOPHILS # (AUTO) 0.3 10^3/uL (0.0-0.3); EOSINOPHILS % (AUTO) 4 % (0-10); LYMPHOCYTES # (AUTO) 1.7 X 10^3 (1.0-4.0); LYMPHOCYTES % (AUTO) 29 % (12-44); MEAN CORPUSCULAR HEMOGLOBIN 30 PG (25-34); MEAN CORPUSCULAR HGB CONC 33 G/DL (32-36); MEAN CORPUSCULAR VOLUME 91 FL (80-99); MEAN PLATELET VOLUME 9.2 FL (7.4-10.4); MONOCYTES % (AUTO) 16 % (0-12); NEUTROPHILS # (AUTO) 3.1 X 10^3 (1.8-7.8); NEUTROPHILS % (AUTO) 50 % (42-75); PLATELET COUNT 197 10^3/uL (130-400); RED BLOOD COUNT 2.22 10^6/uL (4.35-5.85); RED CELL DISTRIBUTION WIDTH 16.3 % (10.0-14.5); WHITE BLOOD COUNT 6.1 10^3/uL (4.3-11.0)
[2018-08-28 08:41] LABS: HEMATOCRIT 20 % (40-54); HEMOGLOBIN 6.6 G/DL (13.3-17.7)
[2018-09-03 09:19] LABS: BASOPHILS % (AUTO) 0 % (0-10); EOSINOPHILS # (AUTO) 0.4 10^3/uL (0.0-0.3); EOSINOPHILS % (AUTO) 6 % (0-10); HEMATOCRIT 24 % (40-54); HEMOGLOBIN 7.9 G/DL (13.3-17.7); LYMPHOCYTES # (AUTO) 1.5 X 10^3 (1.0-4.0); LYMPHOCYTES % (AUTO) 21 % (12-44); MEAN CORPUSCULAR HGB CONC 32 G/DL (32-36); MEAN CORPUSCULAR VOLUME 91 FL (80-99); MEAN PLATELET VOLUME 9.4 FL (7.4-10.4); MONOCYTES % (AUTO) 14 % (0-12); NEUTROPHILS # (AUTO) 4.2 X 10^3 (1.8-7.8); NEUTROPHILS % (AUTO) 59 % (42-75); PLATELET COUNT 177 10^3/uL (130-400); RED BLOOD COUNT 2.68 10^6/uL (4.35-5.85); RED CELL DISTRIBUTION WIDTH 15.7 % (10.0-14.5); WHITE BLOOD COUNT 7.1 10^3/uL (4.3-11.0)
[2018-09-03 09:20] LABS: MEAN CORPUSCULAR HEMOGLOBIN 29 PG (25-34)
[2018-09-03 09:34] LABS: ALANINE AMINOTRANSFERASE 30 U/L (0-55); ALKALINE PHOSPHATASE 100 U/L (40-136); BILIRUBIN,TOTAL 0.5 MG/DL (0.1-1.0); BUN/CREATININE RATIO 15; CALCIUM 9.2 MG/DL (8.5-10.1); CARBON DIOXIDE 21 MMOL/L (21-32); CHLORIDE 104 MMOL/L (98-107); CREATININE SERUM 0.85 MG/DL (0.60-1.30); GFR ESTIMATED > 60; GLUCOSE 108 MG/DL (70-105); SODIUM 136 MMOL/L (135-145); TOTAL PROTEIN 6.8 GM/DL (6.4-8.2)
[2018-09-06 08:39] LABS: BASOPHILS % (AUTO) 1 % (0-10); EOSINOPHILS % (AUTO) 1 % (0-10); HEMATOCRIT 25 % (40-54); LYMPHOCYTES # (AUTO) 2.4 X 10^3 (1.0-4.0); LYMPHOCYTES % (AUTO) 31 % (12-44); MEAN CORPUSCULAR HEMOGLOBIN 30 PG (25-34); MEAN CORPUSCULAR HGB CONC 33 G/DL (32-36); MEAN CORPUSCULAR VOLUME 91 FL (80-99); MEAN PLATELET VOLUME 10.1 FL (7.4-10.4); MONOCYTES # (AUTO) 0.7 X 10^3 (0.0-1.0); MONOCYTES % (AUTO) 9 % (0-12); NEUTROPHILS # (AUTO) 4.4 X 10^3 (1.8-7.8); NEUTROPHILS % (AUTO) 59 % (42-75); PLATELET COUNT 168 10^3/uL (130-400); RED BLOOD COUNT 2.69 10^6/uL (4.35-5.85); RED CELL DISTRIBUTION WIDTH 15.6 % (10.0-14.5); WHITE BLOOD COUNT 7.6 10^3/uL (4.3-11.0)
[2018-09-10 09:01] LABS: BASOPHILS % (AUTO) 0 % (0-10); EOSINOPHILS # (AUTO) 0.3 10^3/uL (0.0-0.3); EOSINOPHILS % (AUTO) 7 % (0-10); HEMATOCRIT 24 % (40-54); HEMOGLOBIN 7.9 G/DL (13.3-17.7); LYMPHOCYTES # (AUTO) 1.3 X 10^3 (1.0-4.0); LYMPHOCYTES % (AUTO) 34 % (12-44); MEAN CORPUSCULAR HEMOGLOBIN 29 PG (25-34); MEAN CORPUSCULAR HGB CONC 32 G/DL (32-36); MEAN CORPUSCULAR VOLUME 90 FL (80-99); MONOCYTES # (AUTO) 0.4 X 10^3 (0.0-1.0); MONOCYTES % (AUTO) 10 % (0-12); NEUTROPHILS # (AUTO) 1.8 X 10^3 (1.8-7.8); NEUTROPHILS % (AUTO) 49 % (42-75); PLATELET COUNT 112 10^3/uL (130-400); RED CELL DISTRIBUTION WIDTH 15.5 % (10.0-14.5); WHITE BLOOD COUNT 3.8 10^3/uL (4.3-11.0)
[2018-09-13 08:36] LABS: BASOPHILS % (AUTO) 0 % (0-10); EOSINOPHILS # (AUTO) 0.2 10^3/uL (0.0-0.3); EOSINOPHILS % (AUTO) 2 % (0-10); HEMATOCRIT 21 % (40-54); LYMPHOCYTES # (AUTO) 1.3 X 10^3 (1.0-4.0); LYMPHOCYTES % (AUTO) 12 % (12-44); MEAN CORPUSCULAR HGB CONC 33 G/DL (32-36); MEAN CORPUSCULAR VOLUME 90 FL (80-99); MEAN PLATELET VOLUME 9.9 FL (7.4-10.4); MONOCYTES # (AUTO) 0.3 X 10^3 (0.0-1.0); MONOCYTES % (AUTO) 3 % (0-12); NEUTROPHILS # (AUTO) 8.7 X 10^3 (1.8-7.8); NEUTROPHILS % (AUTO) 83 % (42-75); PLATELET COUNT 82 10^3/uL (130-400); RED BLOOD COUNT 2.34 10^6/uL (4.35-5.85); WHITE BLOOD COUNT 10.5 10^3/uL (4.3-11.0)
[2018-09-13 08:39] LABS: MEAN CORPUSCULAR HEMOGLOBIN 29 PG (25-34)
[2018-09-13 08:43] LABS: HEMOGLOBIN 6.9 G/DL (13.3-17.7)
[2018-09-17 08:44] LABS: BASOPHILS % (AUTO) 0 % (0-10); EOSINOPHILS # (AUTO) 0.1 10^3/uL (0.0-0.3); EOSINOPHILS % (AUTO) 5 % (0-10); LYMPHOCYTES # (AUTO) 0.7 X 10^3 (1.0-4.0); LYMPHOCYTES % (AUTO) 40 % (12-44); MEAN CORPUSCULAR HEMOGLOBIN 29 PG (25-34); MEAN CORPUSCULAR HGB CONC 32 G/DL (32-36); MEAN CORPUSCULAR VOLUME 91 FL (80-99); MEAN PLATELET VOLUME 9.9 FL (7.4-10.4); MONOCYTES # (AUTO) 0.2 X 10^3 (0.0-1.0); MONOCYTES % (AUTO) 9 % (0-12); NEUTROPHILS # (AUTO) 0.8 X 10^3 (1.8-7.8); NEUTROPHILS % (AUTO) 46 % (42-75); PLATELET COUNT 49 10^3/uL (130-400); RED CELL DISTRIBUTION WIDTH 15.3 % (10.0-14.5); WHITE BLOOD COUNT 1.8 10^3/uL (4.3-11.0)
[2018-09-17 08:45] LABS: HEMATOCRIT 18 % (40-54); HEMOGLOBIN 5.8 G/DL (13.3-17.7)
[2018-09-20 08:40] LABS: BASOPHILS % (AUTO) 1 % (0-10); EOSINOPHILS # (AUTO) 0.1 10^3/uL (0.0-0.3); EOSINOPHILS % (AUTO) 7 % (0-10); LYMPHOCYTES # (AUTO) 0.9 X 10^3 (1.0-4.0); LYMPHOCYTES % (AUTO) 47 % (12-44); MEAN CORPUSCULAR HEMOGLOBIN 29 PG (25-34); MEAN CORPUSCULAR HGB CONC 32 G/DL (32-36); MEAN CORPUSCULAR VOLUME 90 FL (80-99); MEAN PLATELET VOLUME 10.7 FL (7.4-10.4); MONOCYTES # (AUTO) 0.2 X 10^3 (0.0-1.0); MONOCYTES % (AUTO) 12 % (0-12); NEUTROPHILS # (AUTO) 0.7 X 10^3 (1.8-7.8); NEUTROPHILS % (AUTO) 33 % (42-75); PLATELET COUNT 42 10^3/uL (130-400); RED BLOOD COUNT 2.17 10^6/uL (4.35-5.85); RED CELL DISTRIBUTION WIDTH 14.9 % (10.0-14.5)
[2018-09-20 08:44] LABS: HEMATOCRIT 20 % (40-54); HEMOGLOBIN 6.3 G/DL (13.3-17.7)
[2018-09-24 08:56] LABS: BASOPHILS % (AUTO) 0 % (0-10); EOSINOPHILS # (AUTO) 0.1 10^3/uL (0.0-0.3); EOSINOPHILS % (AUTO) 4 % (0-10); LYMPHOCYTES # (AUTO) 0.7 X 10^3 (1.0-4.0); LYMPHOCYTES % (AUTO) 42 % (12-44); MEAN CORPUSCULAR HEMOGLOBIN 29 PG (25-34); MEAN CORPUSCULAR HGB CONC 33 G/DL (32-36); MEAN CORPUSCULAR VOLUME 90 FL (80-99); MEAN PLATELET VOLUME 9.5 FL (7.4-10.4); MONOCYTES # (AUTO) 0.2 X 10^3 (0.0-1.0); MONOCYTES % (AUTO) 12 % (0-12); NEUTROPHILS # (AUTO) 0.7 X 10^3 (1.8-7.8); NEUTROPHILS % (AUTO) 43 % (42-75); PLATELET COUNT 65 10^3/uL (130-400); RED BLOOD COUNT 1.91 10^6/uL (4.35-5.85); RED CELL DISTRIBUTION WIDTH 14.7 % (10.0-14.5); WHITE BLOOD COUNT 1.6 10^3/uL (4.3-11.0)
[2018-09-24 09:07] LABS: HEMATOCRIT 17 % (40-54); HEMOGLOBIN 5.6 G/DL (13.3-17.7)
[2018-09-26 08:57] LABS: BASOPHILS % (AUTO) 1 % (0-10); EOSINOPHILS # (AUTO) 0.1 10^3/uL (0.0-0.3); EOSINOPHILS % (AUTO) 4 % (0-10); LYMPHOCYTES # (AUTO) 0.9 X 10^3 (1.0-4.0); LYMPHOCYTES % (AUTO) 48 % (12-44); MEAN CORPUSCULAR HEMOGLOBIN 29 PG (25-34); MEAN CORPUSCULAR HGB CONC 33 G/DL (32-36); MEAN CORPUSCULAR VOLUME 89 FL (80-99); MEAN PLATELET VOLUME 9.2 FL (7.4-10.4); MONOCYTES # (AUTO) 0.3 X 10^3 (0.0-1.0); MONOCYTES % (AUTO) 14 % (0-12); NEUTROPHILS # (AUTO) 0.6 X 10^3 (1.8-7.8); NEUTROPHILS % (AUTO) 33 % (42-75); PLATELET COUNT 74 10^3/uL (130-400); RED BLOOD COUNT 2.13 10^6/uL (4.35-5.85); RED CELL DISTRIBUTION WIDTH 14.3 % (10.0-14.5); WHITE BLOOD COUNT 1.8 10^3/uL (4.3-11.0)
[2018-09-26 08:58] LABS: HEMATOCRIT 19 % (40-54); HEMOGLOBIN 6.2 G/DL (13.3-17.7)
[2018-09-26 09:15] LABS: ALANINE AMINOTRANSFERASE 48 U/L (0-55); ALKALINE PHOSPHATASE 96 U/L (40-136); BILIRUBIN,TOTAL 0.3 MG/DL (0.1-1.0); BUN/CREATININE RATIO 11; CALCIUM 8.5 MG/DL (8.5-10.1); CARBON DIOXIDE 20 MMOL/L (21-32); CHLORIDE 107 MMOL/L (98-107); CREATININE SERUM 0.87 MG/DL (0.60-1.30); GFR ESTIMATED > 60; GLUCOSE 130 MG/DL (70-105); POTASSIUM 3.7 MMOL/L (3.6-5.0); SODIUM 137 MMOL/L (135-145); TOTAL PROTEIN 6.4 GM/DL (6.4-8.2)
[~2018-10-04] VITALS: Ht 177.8 cm; Wt 73.9 kg
[~2018-10-04 08:27] MED LIST changes: -NS IV 1000 ML (CANCER CTR) IV SCH; +NS IV 500 ML (CANCER CENTER) 500 ML IV SCH; -NS IV 500 ML (CANCER CENTER) 500 ML ONE
[2018-10-04 08:46] LABS: BASOPHILS % (AUTO) 1 % (0-10); EOSINOPHILS # (AUTO) 0.4 10^3/uL (0.0-0.3); EOSINOPHILS % (AUTO) 8 % (0-10); HEMATOCRIT 24 % (40-54); HEMOGLOBIN 7.8 G/DL (13.3-17.7); LYMPHOCYTES # (AUTO) 1.5 X 10^3 (1.0-4.0); LYMPHOCYTES % (AUTO) 28 % (12-44); MEAN CORPUSCULAR HEMOGLOBIN 29 PG (25-34); MEAN CORPUSCULAR HGB CONC 32 G/DL (32-36); MEAN CORPUSCULAR VOLUME 89 FL (80-99); MEAN PLATELET VOLUME 9.2 FL (7.4-10.4); MONOCYTES # (AUTO) 0.8 X 10^3 (0.0-1.0); MONOCYTES % (AUTO) 14 % (0-12); NEUTROPHILS # (AUTO) 2.6 X 10^3 (1.8-7.8); NEUTROPHILS % (AUTO) 49 % (42-75); PLATELET COUNT 120 10^3/uL (130-400); RED BLOOD COUNT 2.71 10^6/uL (4.35-5.85); RED CELL DISTRIBUTION WIDTH 14.6 % (10.0-14.5); WHITE BLOOD COUNT 5.4 10^3/uL (4.3-11.0)
== END 2018-10-07 | disposition home or self-care (01) ==
LOC: ONC 08:27
PROVIDERS: ATTEND Internal Medicine Hematology & Oncology
DX: Z51.11 Encounter for antineoplastic chemotherapy (principal); C92.00 Acute myeloblastic leukemia, not having achieved remission; D46.Z Other myelodysplastic syndromes; D61.818 Other pancytopenia; D61.811 Other drug-induced pancytopenia; T45.1X5A Adverse effect of antineoplastic and immunosuppressive drugs, initial encounter; N28.9 Disorder of kidney and ureter, unspecified; I10 Essential (primary) hypertension; E78.5 Hyperlipidemia, unspecified; N40.0 Benign prostatic hyperplasia without lower urinary tract symptoms; M06.9 Rheumatoid arthritis, unspecified; K21.9 Gastro-esophageal reflux disease without esophagitis; Z79.899 Other long term (current) drug therapy
CPT/HCPCS: 36415; 36430; 80053; 85025; 86850; 86900; 86901; 86920; 96375; 96409; 96413; 99213

== ENCOUNTER 2019-01-04 08:32 | Outpatient (RCR) | payer MEDICARE ==
[2018-10-08 08:44] LABS: BASOPHILS % (AUTO) 1 % (0-10); EOSINOPHILS # (AUTO) 0.7 10^3/uL (0.0-0.3); EOSINOPHILS % (AUTO) 11 % (0-10); HEMATOCRIT 23 % (40-54); HEMOGLOBIN 7.3 G/DL (13.3-17.7); LYMPHOCYTES # (AUTO) 1.7 X 10^3 (1.0-4.0); LYMPHOCYTES % (AUTO) 28 % (12-44); MEAN CORPUSCULAR HEMOGLOBIN 29 PG (25-34); MEAN CORPUSCULAR HGB CONC 32 G/DL (32-36); MEAN CORPUSCULAR VOLUME 89 FL (80-99); MEAN PLATELET VOLUME 9.3 FL (7.4-10.4); MONOCYTES # (AUTO) 0.8 X 10^3 (0.0-1.0); MONOCYTES % (AUTO) 12 % (0-12); NEUTROPHILS % (AUTO) 49 % (42-75); PLATELET COUNT 132 10^3/uL (130-400); RED CELL DISTRIBUTION WIDTH 14.6 % (10.0-14.5); WHITE BLOOD COUNT 6.2 10^3/uL (4.3-11.0)
[2018-10-11 08:43] LABS: BASOPHILS % (AUTO) 1 % (0-10); EOSINOPHILS # (AUTO) 0.6 10^3/uL (0.0-0.3); EOSINOPHILS % (AUTO) 10 % (0-10); HEMATOCRIT 22 % (40-54); LYMPHOCYTES # (AUTO) 1.6 X 10^3 (1.0-4.0); LYMPHOCYTES % (AUTO) 28 % (12-44); MEAN CORPUSCULAR HEMOGLOBIN 29 PG (25-34); MEAN CORPUSCULAR HGB CONC 32 G/DL (32-36); MEAN CORPUSCULAR VOLUME 89 FL (80-99); MONOCYTES # (AUTO) 0.8 X 10^3 (0.0-1.0); MONOCYTES % (AUTO) 14 % (0-12); NEUTROPHILS # (AUTO) 2.9 X 10^3 (1.8-7.8); NEUTROPHILS % (AUTO) 49 % (42-75); PLATELET COUNT 118 10^3/uL (130-400); RED CELL DISTRIBUTION WIDTH 14.3 % (10.0-14.5); WHITE BLOOD COUNT 5.9 10^3/uL (4.3-11.0)
[2018-10-15 08:43] LABS: BASOPHILS % (AUTO) 0 % (0-10); EOSINOPHILS # (AUTO) 0.3 10^3/uL (0.0-0.3); EOSINOPHILS % (AUTO) 10 % (0-10); LYMPHOCYTES # (AUTO) 1.2 X 10^3 (1.0-4.0); LYMPHOCYTES % (AUTO) 35 % (12-44); MEAN CORPUSCULAR HEMOGLOBIN 29 PG (25-34); MEAN CORPUSCULAR HGB CONC 32 G/DL (32-36); MEAN CORPUSCULAR VOLUME 89 FL (80-99); MEAN PLATELET VOLUME 9.3 FL (7.4-10.4); MONOCYTES # (AUTO) 0.5 X 10^3 (0.0-1.0); MONOCYTES % (AUTO) 14 % (0-12); NEUTROPHILS # (AUTO) 1.4 X 10^3 (1.8-7.8); NEUTROPHILS % (AUTO) 40 % (42-75); PLATELET COUNT 91 10^3/uL (130-400); WHITE BLOOD COUNT 3.5 10^3/uL (4.3-11.0)
[2018-10-15 08:47] LABS: HEMATOCRIT 19 % (40-54); HEMOGLOBIN 6.2 G/DL (13.3-17.7)
[2018-10-22 09:52] LABS: BASOPHILS % (AUTO) 0 % (0-10); EOSINOPHILS # (AUTO) 0.2 10^3/uL (0.0-0.3); EOSINOPHILS % (AUTO) 9 % (0-10); LYMPHOCYTES # (AUTO) 0.9 X 10^3 (1.0-4.0); LYMPHOCYTES % (AUTO) 42 % (12-44); MEAN CORPUSCULAR HEMOGLOBIN 29 PG (25-34); MEAN CORPUSCULAR HGB CONC 33 G/DL (32-36); MEAN CORPUSCULAR VOLUME 89 FL (80-99); MONOCYTES # (AUTO) 0.3 X 10^3 (0.0-1.0); MONOCYTES % (AUTO) 14 % (0-12); NEUTROPHILS # (AUTO) 0.8 X 10^3 (1.8-7.8); NEUTROPHILS % (AUTO) 36 % (42-75); PLATELET COUNT 86 10^3/uL (130-400); RED CELL DISTRIBUTION WIDTH 14.2 % (10.0-14.5); WHITE BLOOD COUNT 2.2 10^3/uL (4.3-11.0)
[2018-10-22 09:53] LABS: HEMATOCRIT 19 % (40-54); HEMOGLOBIN 6.4 G/DL (13.3-17.7)
[2018-10-22 10:14] LABS: ALANINE AMINOTRANSFERASE 38 U/L (0-55); ALKALINE PHOSPHATASE 109 U/L (40-136); BILIRUBIN,TOTAL 0.5 MG/DL (0.1-1.0); BUN/CREATININE RATIO 14; CALCIUM 8.6 MG/DL (8.5-10.1); CARBON DIOXIDE 21 MMOL/L (21-32); CHLORIDE 106 MMOL/L (98-107); CREATININE SERUM 0.94 MG/DL (0.60-1.30); GFR ESTIMATED > 60; GLUCOSE 109 MG/DL (70-105); POTASSIUM 3.7 MMOL/L (3.6-5.0); SODIUM 137 MMOL/L (135-145); TOTAL PROTEIN 6.4 GM/DL (6.4-8.2)
[2018-10-29 09:24] LABS: BASOPHILS % (AUTO) 0 % (0-10); EOSINOPHILS # (AUTO) 0.1 10^3/uL (0.0-0.3); EOSINOPHILS % (AUTO) 6 % (0-10); HEMATOCRIT 22 % (40-54); HEMOGLOBIN 7.1 G/DL (13.3-17.7); LYMPHOCYTES # (AUTO) 0.5 X 10^3 (1.0-4.0); LYMPHOCYTES % (AUTO) 55 % (12-44); MEAN CORPUSCULAR HEMOGLOBIN 29 PG (25-34); MEAN CORPUSCULAR HGB CONC 33 G/DL (32-36); MEAN CORPUSCULAR VOLUME 86 FL (80-99); MONOCYTES % (AUTO) 2 % (0-12); NEUTROPHILS # (AUTO) 0.3 X 10^3 (1.8-7.8); NEUTROPHILS % (AUTO) 38 % (42-75); PLATELET COUNT 62 10^3/uL (130-400); RED CELL DISTRIBUTION WIDTH 13.7 % (10.0-14.5)
[2018-10-29 09:26] LABS: WHITE BLOOD COUNT 0.9 10^3/uL (4.3-11.0)
[2018-10-29 10:00] LABS: ALANINE AMINOTRANSFERASE 51 U/L (0-55); ALBUMIN 3.9 GM/DL (3.2-4.5); ALKALINE PHOSPHATASE 89 U/L (40-136); BILIRUBIN,TOTAL 0.9 MG/DL (0.1-1.0); BUN/CREATININE RATIO 19; CALCIUM 9.1 MG/DL (8.5-10.1); CARBON DIOXIDE 21 MMOL/L (21-32); CHLORIDE 105 MMOL/L (98-107); CREATININE SERUM 0.83 MG/DL (0.60-1.30); GFR ESTIMATED > 60; GLUCOSE 111 MG/DL (70-105); POTASSIUM 4.1 MMOL/L (3.6-5.0); SODIUM 134 MMOL/L (135-145); TOTAL PROTEIN 6.3 GM/DL (6.4-8.2)
[2018-11-05 09:56] LABS: BASOPHILS % (AUTO) 0 % (0-10); EOSINOPHILS % (AUTO) 2 % (0-10); LYMPHOCYTES # (AUTO) 0.6 X 10^3 (1.0-4.0); LYMPHOCYTES % (AUTO) 91 % (12-44); MEAN CORPUSCULAR HEMOGLOBIN 30 PG (25-34); MEAN CORPUSCULAR HGB CONC 34 G/DL (32-36); MEAN CORPUSCULAR VOLUME 88 FL (80-99); MEAN PLATELET VOLUME 10.8 FL (7.4-10.4); MONOCYTES % (AUTO) 2 % (0-12); NEUTROPHILS % (AUTO) 6 % (42-75); RED CELL DISTRIBUTION WIDTH 14.1 % (10.0-14.5)
[2018-11-05 10:00] LABS: WHITE BLOOD COUNT 0.6 10^3/uL (4.3-11.0)
[2018-11-05 10:01] LABS: HEMATOCRIT 17 % (40-54); HEMOGLOBIN 5.7 G/DL (13.3-17.7); PLATELET COUNT 20 10^3/uL (130-400)
[2018-11-08 08:57] LABS: BASOPHILS % (AUTO) 0 % (0-10); EOSINOPHILS % (AUTO) 0 % (0-10); HEMATOCRIT 24 % (40-54); HEMOGLOBIN 8.1 G/DL (13.3-17.7); LYMPHOCYTES # (AUTO) 0.4 X 10^3 (1.0-4.0); LYMPHOCYTES % (AUTO) 82 % (12-44); MEAN CORPUSCULAR HEMOGLOBIN 29 PG (25-34); MEAN CORPUSCULAR HGB CONC 34 G/DL (32-36); MEAN CORPUSCULAR VOLUME 87 FL (80-99); MEAN PLATELET VOLUME 10.9 FL (7.4-10.4); MONOCYTES % (AUTO) 0 % (0-12); NEUTROPHILS # (AUTO) 0.1 X 10^3 (1.8-7.8); NEUTROPHILS % (AUTO) 18 % (42-75); RED CELL DISTRIBUTION WIDTH 14.2 % (10.0-14.5)
[2018-11-08 08:58] LABS: WHITE BLOOD COUNT 0.5 10^3/uL (4.3-11.0)
[2018-11-08 08:59] LABS: PLATELET COUNT 16 10^3/uL (130-400)
[2018-11-09 09:26] LABS: BASOPHILS % (AUTO) 0 % (0-10); EOSINOPHILS % (AUTO) 3 % (0-10); HEMATOCRIT 22 % (40-54); HEMOGLOBIN 7.2 G/DL (13.3-17.7); LYMPHOCYTES # (AUTO) 0.3 X 10^3 (1.0-4.0); LYMPHOCYTES % (AUTO) 82 % (12-44); MEAN CORPUSCULAR HEMOGLOBIN 29 PG (25-34); MEAN CORPUSCULAR HGB CONC 33 G/DL (32-36); MEAN CORPUSCULAR VOLUME 87 FL (80-99); MEAN PLATELET VOLUME 10.5 FL (7.4-10.4); MONOCYTES # (AUTO) 0.1 X 10^3 (0.0-1.0); MONOCYTES % (AUTO) 13 % (0-12); NEUTROPHILS % (AUTO) 3 % (42-75); RED CELL DISTRIBUTION WIDTH 14.3 % (10.0-14.5)
[2018-11-09 09:27] LABS: WHITE BLOOD COUNT 0.4 10^3/uL (4.3-11.0)
[2018-11-09 09:28] LABS: PLATELET COUNT 18 10^3/uL (130-400)
[2018-11-13 09:03] LABS: BASOPHILS % (AUTO) 0 % (0-10); EOSINOPHILS % (AUTO) 3 % (0-10); HEMATOCRIT 21 % (40-54); HEMOGLOBIN 7.1 G/DL (13.3-17.7); LYMPHOCYTES # (AUTO) 0.6 X 10^3 (1.0-4.0); LYMPHOCYTES % (AUTO) 78 % (12-44); MEAN CORPUSCULAR HEMOGLOBIN 29 PG (25-34); MEAN CORPUSCULAR HGB CONC 33 G/DL (32-36); MEAN CORPUSCULAR VOLUME 87 FL (80-99); MONOCYTES # (AUTO) 0.1 X 10^3 (0.0-1.0); MONOCYTES % (AUTO) 16 % (0-12); NEUTROPHILS % (AUTO) 4 % (42-75); RED CELL DISTRIBUTION WIDTH 14.3 % (10.0-14.5)
[2018-11-13 09:05] LABS: PLATELET COUNT 25 10^3/uL (130-400); WHITE BLOOD COUNT 0.8 10^3/uL (4.3-11.0)
[2018-11-13 09:22] LABS: ALANINE AMINOTRANSFERASE 39 U/L (0-55); ALBUMIN 3.9 GM/DL (3.2-4.5); ALKALINE PHOSPHATASE 116 U/L (40-136); BILIRUBIN,TOTAL 0.5 MG/DL (0.1-1.0); BUN/CREATININE RATIO 14; CALCIUM 8.9 MG/DL (8.5-10.1); CARBON DIOXIDE 21 MMOL/L (21-32); CHLORIDE 106 MMOL/L (98-107); CREATININE SERUM 0.79 MG/DL (0.60-1.30); GFR ESTIMATED > 60; GLUCOSE 104 MG/DL (70-105); SODIUM 138 MMOL/L (135-145); TOTAL PROTEIN 6.5 GM/DL (6.4-8.2)
[2018-11-15 08:50] LABS: BASOPHILS % (AUTO) 0 % (0-10); EOSINOPHILS % (AUTO) 0 % (0-10); LYMPHOCYTES # (AUTO) 0.6 X 10^3 (1.0-4.0); LYMPHOCYTES % (AUTO) 59 % (12-44); MEAN CORPUSCULAR HEMOGLOBIN 29 PG (25-34); MEAN CORPUSCULAR HGB CONC 34 G/DL (32-36); MEAN CORPUSCULAR VOLUME 86 FL (80-99); MEAN PLATELET VOLUME 9.1 FL (7.4-10.4); MONOCYTES # (AUTO) 0.3 X 10^3 (0.0-1.0); MONOCYTES % (AUTO) 30 % (0-12); NEUTROPHILS # (AUTO) 0.1 X 10^3 (1.8-7.8); NEUTROPHILS % (AUTO) 10 % (42-75); PLATELET COUNT 42 10^3/uL (130-400); RED CELL DISTRIBUTION WIDTH 14.3 % (10.0-14.5)
[2018-11-15 08:52] LABS: HEMATOCRIT 20 % (40-54); HEMOGLOBIN 6.9 G/DL (13.3-17.7); WHITE BLOOD COUNT 1.1 10^3/uL (4.3-11.0)
[2018-11-19 08:49] LABS: BASOPHILS % (AUTO) 0 % (0-10); EOSINOPHILS % (AUTO) 0 % (0-10); LYMPHOCYTES # (AUTO) 1.4 X 10^3 (1.0-4.0); LYMPHOCYTES % (AUTO) 41 % (12-44); MEAN CORPUSCULAR HEMOGLOBIN 30 PG (25-34); MEAN CORPUSCULAR HGB CONC 34 G/DL (32-36); MEAN CORPUSCULAR VOLUME 86 FL (80-99); MEAN PLATELET VOLUME 9.2 FL (7.4-10.4); MONOCYTES % (AUTO) 28 % (0-12); NEUTROPHILS % (AUTO) 30 % (42-75); PLATELET COUNT 65 10^3/uL (130-400); RED CELL DISTRIBUTION WIDTH 14.4 % (10.0-14.5); WHITE BLOOD COUNT 3.4 10^3/uL (4.3-11.0)
[2018-11-19 08:50] LABS: HEMATOCRIT 19 % (40-54); HEMOGLOBIN 6.5 G/DL (13.3-17.7)
[2018-11-22 08:49] LABS: BASOPHILS % (AUTO) 0 % (0-10); EOSINOPHILS % (AUTO) 1 % (0-10); LYMPHOCYTES % (AUTO) 33 % (12-44); MEAN CORPUSCULAR HEMOGLOBIN 29 PG (25-34); MEAN CORPUSCULAR HGB CONC 33 G/DL (32-36); MEAN CORPUSCULAR VOLUME 87 FL (80-99); MEAN PLATELET VOLUME 9.3 FL (7.4-10.4); MONOCYTES # (AUTO) 1.2 X 10^3 (0.0-1.0); MONOCYTES % (AUTO) 20 % (0-12); NEUTROPHILS # (AUTO) 2.8 X 10^3 (1.8-7.8); NEUTROPHILS % (AUTO) 46 % (42-75); PLATELET COUNT 70 10^3/uL (130-400); RED CELL DISTRIBUTION WIDTH 14.4 % (10.0-14.5); WHITE BLOOD COUNT 6.1 10^3/uL (4.3-11.0)
[2018-11-22 08:50] LABS: HEMATOCRIT 19 % (40-54); HEMOGLOBIN 6.2 G/DL (13.3-17.7)
[2018-11-29 09:00] LABS: BASOPHILS % (AUTO) 0 % (0-10); EOSINOPHILS # (AUTO) 0.1 10^3/uL (0.0-0.3); EOSINOPHILS % (AUTO) 1 % (0-10); LYMPHOCYTES # (AUTO) 1.8 X 10^3 (1.0-4.0); LYMPHOCYTES % (AUTO) 17 % (12-44); MEAN CORPUSCULAR HEMOGLOBIN 29 PG (25-34); MEAN CORPUSCULAR HGB CONC 33 G/DL (32-36); MEAN CORPUSCULAR VOLUME 87 FL (80-99); MEAN PLATELET VOLUME 9.4 FL (7.4-10.4); MONOCYTES # (AUTO) 1.9 X 10^3 (0.0-1.0); MONOCYTES % (AUTO) 18 % (0-12); NEUTROPHILS # (AUTO) 6.8 X 10^3 (1.8-7.8); NEUTROPHILS % (AUTO) 64 % (42-75); PLATELET COUNT 55 10^3/uL (130-400); RED CELL DISTRIBUTION WIDTH 14.9 % (10.0-14.5); WHITE BLOOD COUNT 10.7 10^3/uL (4.3-11.0)
[2018-11-29 09:03] LABS: HEMATOCRIT 20 % (40-54); HEMOGLOBIN 6.5 G/DL (13.3-17.7)
[2018-12-03 10:47] LABS: BASOPHILS % (AUTO) 0 % (0-10); EOSINOPHILS # (AUTO) 0.1 10^3/uL (0.0-0.3); EOSINOPHILS % (AUTO) 2 % (0-10); LYMPHOCYTES # (AUTO) 1.3 X 10^3 (1.0-4.0); LYMPHOCYTES % (AUTO) 16 % (12-44); MEAN CORPUSCULAR HEMOGLOBIN 29 PG (25-34); MEAN CORPUSCULAR HGB CONC 33 G/DL (32-36); MEAN CORPUSCULAR VOLUME 88 FL (80-99); MEAN PLATELET VOLUME 8.6 FL (7.4-10.4); MONOCYTES # (AUTO) 0.9 X 10^3 (0.0-1.0); MONOCYTES % (AUTO) 11 % (0-12); NEUTROPHILS # (AUTO) 5.8 X 10^3 (1.8-7.8); NEUTROPHILS % (AUTO) 71 % (42-75); PLATELET COUNT 56 10^3/uL (130-400); RED CELL DISTRIBUTION WIDTH 14.8 % (10.0-14.5); WHITE BLOOD COUNT 8.2 10^3/uL (4.3-11.0)
[2018-12-03 10:48] LABS: HEMOGLOBIN 5.9 G/DL (13.3-17.7)
[2018-12-03 10:49] LABS: HEMATOCRIT 18 % (40-54)
[2018-12-03 11:00] LABS: ALANINE AMINOTRANSFERASE 33 U/L (0-55); ALBUMIN 3.9 GM/DL (3.2-4.5); ALKALINE PHOSPHATASE 130 U/L (40-136); BILIRUBIN,TOTAL 0.4 MG/DL (0.1-1.0); BUN/CREATININE RATIO 12; CALCIUM 9.2 MG/DL (8.5-10.1); CARBON DIOXIDE 24 MMOL/L (21-32); CHLORIDE 105 MMOL/L (98-107); CREATININE SERUM 0.93 MG/DL (0.60-1.30); GFR ESTIMATED > 60; GLUCOSE 129 MG/DL (70-105); POTASSIUM 4.1 MMOL/L (3.6-5.0); SODIUM 137 MMOL/L (135-145); TOTAL PROTEIN 7.1 GM/DL (6.4-8.2)
[2018-12-06 08:49] LABS: BASOPHILS % (AUTO) 0 % (0-10); EOSINOPHILS # (AUTO) 0.1 10^3/uL (0.0-0.3); EOSINOPHILS % (AUTO) 2 % (0-10); LYMPHOCYTES # (AUTO) 1.4 X 10^3 (1.0-4.0); LYMPHOCYTES % (AUTO) 20 % (12-44); MEAN CORPUSCULAR HEMOGLOBIN 30 PG (25-34); MEAN CORPUSCULAR HGB CONC 34 G/DL (32-36); MEAN CORPUSCULAR VOLUME 88 FL (80-99); MEAN PLATELET VOLUME 8.7 FL (7.4-10.4); MONOCYTES # (AUTO) 0.6 X 10^3 (0.0-1.0); MONOCYTES % (AUTO) 9 % (0-12); NEUTROPHILS # (AUTO) 4.7 X 10^3 (1.8-7.8); NEUTROPHILS % (AUTO) 69 % (42-75); RED CELL DISTRIBUTION WIDTH 14.9 % (10.0-14.5); WHITE BLOOD COUNT 6.8 10^3/uL (4.3-11.0)
[2018-12-06 08:52] LABS: HEMATOCRIT 20 % (40-54); PLATELET COUNT 36 10^3/uL (130-400)
[2018-12-10 09:20] LABS: BASOPHILS % (AUTO) 0 % (0-10); EOSINOPHILS # (AUTO) 0.2 10^3/uL (0.0-0.3); EOSINOPHILS % (AUTO) 2 % (0-10); LYMPHOCYTES % (AUTO) 22 % (12-44); MEAN CORPUSCULAR HEMOGLOBIN 30 PG (25-34); MEAN CORPUSCULAR HGB CONC 34 G/DL (32-36); MEAN CORPUSCULAR VOLUME 89 FL (80-99); MONOCYTES # (AUTO) 1.2 X 10^3 (0.0-1.0); MONOCYTES % (AUTO) 13 % (0-12); NEUTROPHILS % (AUTO) 64 % (42-75); RED CELL DISTRIBUTION WIDTH 14.5 % (10.0-14.5); WHITE BLOOD COUNT 9.4 10^3/uL (4.3-11.0)
[2018-12-10 09:25] LABS: HEMATOCRIT 18 % (40-54); HEMOGLOBIN 5.9 G/DL (13.3-17.7); PLATELET COUNT 37 10^3/uL (130-400)
[2018-12-13 10:32] LABS: BASOPHILS % (AUTO) 0 % (0-10); EOSINOPHILS # (AUTO) 0.1 10^3/uL (0.0-0.3); EOSINOPHILS % (AUTO) 1 % (0-10); LYMPHOCYTES # (AUTO) 0.9 X 10^3 (1.0-4.0); LYMPHOCYTES % (AUTO) 12 % (12-44); MEAN CORPUSCULAR HEMOGLOBIN 30 PG (25-34); MEAN CORPUSCULAR HGB CONC 34 G/DL (32-36); MEAN CORPUSCULAR VOLUME 87 FL (80-99); MEAN PLATELET VOLUME 9.1 FL (7.4-10.4); MONOCYTES # (AUTO) 0.7 X 10^3 (0.0-1.0); MONOCYTES % (AUTO) 10 % (0-12); NEUTROPHILS # (AUTO) 5.6 X 10^3 (1.8-7.8); NEUTROPHILS % (AUTO) 76 % (42-75); RED CELL DISTRIBUTION WIDTH 14.4 % (10.0-14.5); WHITE BLOOD COUNT 7.3 10^3/uL (4.3-11.0)
[2018-12-13 10:33] LABS: HEMOGLOBIN 6.8 G/DL (13.3-17.7); PLATELET COUNT 36 10^3/uL (130-400)
[2018-12-13 10:34] LABS: HEMATOCRIT 20 % (40-54)
[2018-12-17 08:50] LABS: MEAN CORPUSCULAR HEMOGLOBIN 30 PG (25-34); MEAN CORPUSCULAR HGB CONC 34 G/DL (32-36); MEAN CORPUSCULAR VOLUME 87 FL (80-99); MEAN PLATELET VOLUME 9.6 FL (7.4-10.4); RED CELL DISTRIBUTION WIDTH 14.4 % (10.0-14.5); WHITE BLOOD COUNT 20.1 10^3/uL (4.3-11.0)
[2018-12-17 08:54] LABS: HEMATOCRIT 17 % (40-54); HEMOGLOBIN 5.9 G/DL (13.3-17.7); PLATELET COUNT 28 10^3/uL (130-400)
[2018-12-20 09:58] LABS: BASOPHILS # (AUTO) 0.1 10^3/uL (0.0-0.1); BASOPHILS % (AUTO) 1 % (0-10); EOSINOPHILS # (AUTO) 0.3 10^3/uL (0.0-0.3); EOSINOPHILS % (AUTO) 1 % (0-10); HEMATOCRIT 24 % (40-54); HEMOGLOBIN 8.2 G/DL (13.3-17.7); LYMPHOCYTES % (AUTO) 13 % (12-44); MEAN CORPUSCULAR HEMOGLOBIN 30 PG (25-34); MEAN CORPUSCULAR HGB CONC 34 G/DL (32-36); MEAN CORPUSCULAR VOLUME 89 FL (80-99); MONOCYTES # (AUTO) 6.5 X 10^3 (0.0-1.0); MONOCYTES % (AUTO) 27 % (0-12); NEUTROPHILS # (AUTO) 13.9 X 10^3 (1.8-7.8); NEUTROPHILS % (AUTO) 58 % (42-75); RED CELL DISTRIBUTION WIDTH 14.5 % (10.0-14.5); WHITE BLOOD COUNT 23.8 10^3/uL (4.3-11.0)
[2018-12-20 10:00] LABS: PLATELET COUNT 23 10^3/uL (130-400)
[2018-12-24 09:50] LABS: BASOPHILS # (AUTO) 0.1 10^3/uL (0.0-0.1); BASOPHILS % (AUTO) 0 % (0-10); EOSINOPHILS # (AUTO) 0.2 10^3/uL (0.0-0.3); EOSINOPHILS % (AUTO) 1 % (0-10); HEMATOCRIT 23 % (40-54); HEMOGLOBIN 7.6 G/DL (13.3-17.7); LYMPHOCYTES # (AUTO) 3.8 X 10^3 (1.0-4.0); LYMPHOCYTES % (AUTO) 18 % (12-44); MEAN CORPUSCULAR HEMOGLOBIN 29 PG (25-34); MEAN CORPUSCULAR HGB CONC 33 G/DL (32-36); MEAN CORPUSCULAR VOLUME 90 FL (80-99); MEAN PLATELET VOLUME 10.1 FL (7.4-10.4); MONOCYTES # (AUTO) 2.9 X 10^3 (0.0-1.0); MONOCYTES % (AUTO) 14 % (0-12); NEUTROPHILS # (AUTO) 13.8 X 10^3 (1.8-7.8); NEUTROPHILS % (AUTO) 66 % (42-75); RED CELL DISTRIBUTION WIDTH 14.5 % (10.0-14.5); WHITE BLOOD COUNT 20.7 10^3/uL (4.3-11.0)
[2018-12-24 09:54] LABS: PLATELET COUNT 20 10^3/uL (130-400)
[2018-12-24 10:11] LABS: PHOSPHORUS 3.5 MG/DL (2.3-4.7); URIC ACID 4.8 MG/DL (2.6-7.2)
[2018-12-24 10:13] LABS: ALANINE AMINOTRANSFERASE 57 U/L (0-55); ALBUMIN 3.8 GM/DL (3.2-4.5); ALKALINE PHOSPHATASE 99 U/L (40-136); BILIRUBIN,TOTAL 0.5 MG/DL (0.1-1.0); BUN/CREATININE RATIO 16; CALCIUM 9.3 MG/DL (8.5-10.1); CARBON DIOXIDE 21 MMOL/L (21-32); CHLORIDE 104 MMOL/L (98-107); CREATININE SERUM 0.97 MG/DL (0.60-1.30); GFR ESTIMATED > 60; GLUCOSE 120 MG/DL (70-105); POTASSIUM 3.7 MMOL/L (3.6-5.0); SODIUM 135 MMOL/L (135-145); TOTAL PROTEIN 6.8 GM/DL (6.4-8.2)
[2018-12-27 08:37] LABS: BASOPHILS % (AUTO) 0 % (0-10); EOSINOPHILS # (AUTO) 0.1 10^3/uL (0.0-0.3); EOSINOPHILS % (AUTO) 2 % (0-10); LYMPHOCYTES # (AUTO) 1.3 X 10^3 (1.0-4.0); LYMPHOCYTES % (AUTO) 21 % (12-44); MEAN CORPUSCULAR HEMOGLOBIN 29 PG (25-34); MEAN CORPUSCULAR HGB CONC 33 G/DL (32-36); MEAN CORPUSCULAR VOLUME 90 FL (80-99); MEAN PLATELET VOLUME 10.1 FL (7.4-10.4); MONOCYTES # (AUTO) 0.9 X 10^3 (0.0-1.0); MONOCYTES % (AUTO) 15 % (0-12); NEUTROPHILS # (AUTO) 3.8 X 10^3 (1.8-7.8); NEUTROPHILS % (AUTO) 63 % (42-75); RED CELL DISTRIBUTION WIDTH 13.9 % (10.0-14.5)
[2018-12-27 08:38] LABS: HEMATOCRIT 19 % (40-54); HEMOGLOBIN 6.3 G/DL (13.3-17.7)
[2018-12-27 08:39] LABS: PLATELET COUNT 21 10^3/uL (130-400)
[2018-12-27 08:55] LABS: ALANINE AMINOTRANSFERASE 36 U/L (0-55); ALBUMIN 3.9 GM/DL (3.2-4.5); ALKALINE PHOSPHATASE 93 U/L (40-136); BILIRUBIN,TOTAL 0.8 MG/DL (0.1-1.0); BUN/CREATININE RATIO 19; CALCIUM 9.4 MG/DL (8.5-10.1); CARBON DIOXIDE 20 MMOL/L (21-32); CHLORIDE 103 MMOL/L (98-107); CREATININE SERUM 1.01 MG/DL (0.60-1.30); GFR ESTIMATED > 60; GLUCOSE 112 MG/DL (70-105); POTASSIUM 4.2 MMOL/L (3.6-5.0); SODIUM 134 MMOL/L (135-145); URIC ACID 6.1 MG/DL (2.6-7.2)
[2018-12-31 08:58] LABS: BASOPHILS % (AUTO) 0 % (0-10); EOSINOPHILS % (AUTO) 1 % (0-10); HEMATOCRIT 21 % (40-54); LYMPHOCYTES # (AUTO) 0.7 X 10^3 (1.0-4.0); LYMPHOCYTES % (AUTO) 24 % (12-44); MEAN CORPUSCULAR HEMOGLOBIN 30 PG (25-34); MEAN CORPUSCULAR HGB CONC 34 G/DL (32-36); MEAN CORPUSCULAR VOLUME 89 FL (80-99); MEAN PLATELET VOLUME 9.8 FL (7.4-10.4); MONOCYTES # (AUTO) 0.4 X 10^3 (0.0-1.0); MONOCYTES % (AUTO) 14 % (0-12); NEUTROPHILS # (AUTO) 1.9 X 10^3 (1.8-7.8); NEUTROPHILS % (AUTO) 61 % (42-75); RED CELL DISTRIBUTION WIDTH 13.6 % (10.0-14.5); WHITE BLOOD COUNT 3.1 10^3/uL (4.3-11.0)
[2018-12-31 08:59] LABS: PLATELET COUNT 16 10^3/uL (130-400)
[2018-12-31 09:20] LABS: ALANINE AMINOTRANSFERASE 29 U/L (0-55); ALBUMIN 3.8 GM/DL (3.2-4.5); ALKALINE PHOSPHATASE 86 U/L (40-136); BILIRUBIN,TOTAL 0.8 MG/DL (0.1-1.0); BUN/CREATININE RATIO 17; CALCIUM 9.3 MG/DL (8.5-10.1); CARBON DIOXIDE 20 MMOL/L (21-32); CHLORIDE 105 MMOL/L (98-107); CREATININE SERUM 0.87 MG/DL (0.60-1.30); GFR ESTIMATED > 60; GLUCOSE 106 MG/DL (70-105); POTASSIUM 4.4 MMOL/L (3.6-5.0); SODIUM 137 MMOL/L (135-145); TOTAL PROTEIN 6.8 GM/DL (6.4-8.2); URIC ACID 5.5 MG/DL (2.6-7.2)
[2019-01-03 08:45] LABS: BASOPHILS % (AUTO) 0 % (0-10); EOSINOPHILS % (AUTO) 1 % (0-10); LYMPHOCYTES # (AUTO) 0.9 X 10^3 (1.0-4.0); LYMPHOCYTES % (AUTO) 39 % (12-44); MEAN CORPUSCULAR HEMOGLOBIN 30 PG (25-34); MEAN CORPUSCULAR HGB CONC 33 G/DL (32-36); MEAN CORPUSCULAR VOLUME 90 FL (80-99); MEAN PLATELET VOLUME 8.7 FL (7.4-10.4); MONOCYTES # (AUTO) 0.3 X 10^3 (0.0-1.0); MONOCYTES % (AUTO) 14 % (0-12); NEUTROPHILS # (AUTO) 1.1 X 10^3 (1.8-7.8); NEUTROPHILS % (AUTO) 46 % (42-75); RED CELL DISTRIBUTION WIDTH 13.5 % (10.0-14.5); WHITE BLOOD COUNT 2.3 10^3/uL (4.3-11.0)
[2019-01-03 08:49] LABS: HEMATOCRIT 18 % (40-54); HEMOGLOBIN 5.9 G/DL (13.3-17.7); PLATELET COUNT 12 10^3/uL (130-400)
[2019-01-03 09:11] LABS: ALANINE AMINOTRANSFERASE 27 U/L (0-55); ALBUMIN 3.8 GM/DL (3.2-4.5); ALKALINE PHOSPHATASE 95 U/L (40-136); BILIRUBIN,TOTAL 0.6 MG/DL (0.1-1.0); BUN/CREATININE RATIO 15; CALCIUM 9.4 MG/DL (8.5-10.1); CARBON DIOXIDE 22 MMOL/L (21-32); CHLORIDE 105 MMOL/L (98-107); CREATININE SERUM 0.96 MG/DL (0.60-1.30); GFR ESTIMATED > 60; GLUCOSE 124 MG/DL (70-105); POTASSIUM 3.9 MMOL/L (3.6-5.0); SODIUM 137 MMOL/L (135-145); TOTAL PROTEIN 6.7 GM/DL (6.4-8.2); URIC ACID 4.4 MG/DL (2.6-7.2)
[~2019-01-04] VITALS: Ht 177.8 cm; Wt 70.3 kg
[~2019-01-04 08:32] MED LIST changes: -AZACITIDINE SQ SCH; +CYTARABINE IJ SCH; -DEXAMETHASONE PF INJ (CANCER C 10 MG in NS (IVPB) CANCER CENTER 50 ML INJ SCH; -FAMOTIDINE 20MG/2ML IV (CANCER CTR) IV SCH; -NS IV 500 ML (CANCER CENTER) 500 ML IV SCH; +NS IV 500 ML (CANCER CENTER) 500 ML ONE; -NS SQ SCH; -PALONOSETRON 0.25 MG, DEXAMETHASONE 10 MG/NS 50 ML IVPB IV PRN; +diphenhydrAMINE 25 MG TAB (BENADRYL) CANCER CENTER PO ONE
== END 2019-01-06 | disposition home or self-care (01) ==
LOC: ONC 08:32
PROVIDERS: ATTEND Internal Medicine Hematology & Oncology
DX: C92.00 Acute myeloblastic leukemia, not having achieved remission (principal); D46.Z Other myelodysplastic syndromes; D61.818 Other pancytopenia; D61.811 Other drug-induced pancytopenia; T45.1X5A Adverse effect of antineoplastic and immunosuppressive drugs, initial encounter; N28.9 Disorder of kidney and ureter, unspecified; I10 Essential (primary) hypertension; E78.5 Hyperlipidemia, unspecified; N40.0 Benign prostatic hyperplasia without lower urinary tract symptoms; M06.9 Rheumatoid arthritis, unspecified; K21.9 Gastro-esophageal reflux disease without esophagitis; Z79.899 Other long term (current) drug therapy
CPT/HCPCS: 36415; 36430; 80053; 83615; 84100; 84550; 85025; 86850; 86900; 86901; 86920; 96401; 99213

== ENCOUNTER 2019-04-05 08:26 | Outpatient (RCR) | payer MEDICARE ==
[2019-01-07 10:04] LABS: BASOPHILS % (AUTO) 0 % (0-10); EOSINOPHILS % (AUTO) 1 % (0-10); LYMPHOCYTES # (AUTO) 0.5 X 10^3 (1.0-4.0); LYMPHOCYTES % (AUTO) 38 % (12-44); MEAN CORPUSCULAR HEMOGLOBIN 29 PG (25-34); MEAN CORPUSCULAR HGB CONC 33 G/DL (32-36); MEAN CORPUSCULAR VOLUME 90 FL (80-99); MEAN PLATELET VOLUME 10.4 FL (7.4-10.4); MONOCYTES # (AUTO) 0.2 X 10^3 (0.0-1.0); MONOCYTES % (AUTO) 17 % (0-12); NEUTROPHILS # (AUTO) 0.6 X 10^3 (1.8-7.8); NEUTROPHILS % (AUTO) 44 % (42-75); RED CELL DISTRIBUTION WIDTH 13.5 % (10.0-14.5)
[2019-01-07 10:08] LABS: HEMATOCRIT 20 % (40-54); HEMOGLOBIN 6.5 G/DL (13.3-17.7); PLATELET COUNT 11 10^3/uL (130-400); WHITE BLOOD COUNT 1.3 10^3/uL (4.3-11.0)
[2019-01-10 08:41] LABS: BASOPHILS % (AUTO) 0 % (0-10); EOSINOPHILS % (AUTO) 1 % (0-10); HEMATOCRIT 22 % (40-54); HEMOGLOBIN 7.2 G/DL (13.3-17.7); LYMPHOCYTES # (AUTO) 0.7 X 10^3 (1.0-4.0); LYMPHOCYTES % (AUTO) 42 % (12-44); MEAN CORPUSCULAR HEMOGLOBIN 30 PG (25-34); MEAN CORPUSCULAR HGB CONC 33 G/DL (32-36); MEAN CORPUSCULAR VOLUME 89 FL (80-99); MEAN PLATELET VOLUME 9.6 FL (7.4-10.4); MONOCYTES # (AUTO) 0.2 X 10^3 (0.0-1.0); MONOCYTES % (AUTO) 10 % (0-12); NEUTROPHILS # (AUTO) 0.8 X 10^3 (1.8-7.8); NEUTROPHILS % (AUTO) 47 % (42-75); RED CELL DISTRIBUTION WIDTH 13.4 % (10.0-14.5); WHITE BLOOD COUNT 1.7 10^3/uL (4.3-11.0)
[2019-01-10 08:44] LABS: PLATELET COUNT 10 10^3/uL (130-400)
[2019-01-14 09:38] LABS: BASOPHILS % (AUTO) 0 % (0-10); EOSINOPHILS % (AUTO) 1 % (0-10); LYMPHOCYTES # (AUTO) 0.6 X 10^3 (1.0-4.0); LYMPHOCYTES % (AUTO) 42 % (12-44); MEAN CORPUSCULAR HEMOGLOBIN 30 PG (25-34); MEAN CORPUSCULAR HGB CONC 33 G/DL (32-36); MEAN CORPUSCULAR VOLUME 89 FL (80-99); MEAN PLATELET VOLUME 9.6 FL (7.4-10.4); MONOCYTES # (AUTO) 0.1 X 10^3 (0.0-1.0); MONOCYTES % (AUTO) 5 % (0-12); NEUTROPHILS # (AUTO) 0.8 X 10^3 (1.8-7.8); NEUTROPHILS % (AUTO) 52 % (42-75); RED CELL DISTRIBUTION WIDTH 13.3 % (10.0-14.5)
[2019-01-14 09:41] LABS: HEMATOCRIT 18 % (40-54); HEMOGLOBIN 6.1 G/DL (13.3-17.7); PLATELET COUNT 18 10^3/uL (130-400); WHITE BLOOD COUNT 1.4 10^3/uL (4.3-11.0)
[2019-01-14 09:59] LABS: ALANINE AMINOTRANSFERASE 28 U/L (0-55); ALBUMIN 3.9 GM/DL (3.2-4.5); ALKALINE PHOSPHATASE 114 U/L (40-136); BILIRUBIN,TOTAL 0.6 MG/DL (0.1-1.0); BUN/CREATININE RATIO 15; CALCIUM 9.4 MG/DL (8.5-10.1); CARBON DIOXIDE 23 MMOL/L (21-32); CHLORIDE 107 MMOL/L (98-107); CREATININE SERUM 0.86 MG/DL (0.60-1.30); GFR ESTIMATED > 60; GLUCOSE 135 MG/DL (70-105); POTASSIUM 3.7 MMOL/L (3.6-5.0); SODIUM 138 MMOL/L (135-145); TOTAL PROTEIN 6.5 GM/DL (6.4-8.2)
[2019-01-17 08:52] LABS: BASOPHILS % (AUTO) 0 % (0-10); EOSINOPHILS % (AUTO) 1 % (0-10); LYMPHOCYTES # (AUTO) 0.9 X 10^3 (1.0-4.0); LYMPHOCYTES % (AUTO) 56 % (12-44); MEAN CORPUSCULAR HEMOGLOBIN 29 PG (25-34); MEAN CORPUSCULAR HGB CONC 33 G/DL (32-36); MEAN CORPUSCULAR VOLUME 88 FL (80-99); MEAN PLATELET VOLUME 10.2 FL (7.4-10.4); MONOCYTES # (AUTO) 0.1 X 10^3 (0.0-1.0); MONOCYTES % (AUTO) 6 % (0-12); NEUTROPHILS # (AUTO) 0.6 X 10^3 (1.8-7.8); NEUTROPHILS % (AUTO) 38 % (42-75); RED CELL DISTRIBUTION WIDTH 13.8 % (10.0-14.5); WHITE BLOOD COUNT 1.6 10^3/uL (4.3-11.0)
[2019-01-17 08:55] LABS: HEMATOCRIT 20 % (40-54); HEMOGLOBIN 6.8 G/DL (13.3-17.7); PLATELET COUNT 15 10^3/uL (130-400)
[2019-01-21 11:19] LABS: BASOPHILS % (AUTO) 0 % (0-10); EOSINOPHILS % (AUTO) 1 % (0-10); LYMPHOCYTES # (AUTO) 0.6 X 10^3 (1.0-4.0); LYMPHOCYTES % (AUTO) 50 % (12-44); MEAN CORPUSCULAR HEMOGLOBIN 30 PG (25-34); MEAN CORPUSCULAR HGB CONC 34 G/DL (32-36); MEAN CORPUSCULAR VOLUME 88 FL (80-99); MEAN PLATELET VOLUME 9.9 FL (7.4-10.4); MONOCYTES # (AUTO) 0.1 X 10^3 (0.0-1.0); MONOCYTES % (AUTO) 10 % (0-12); NEUTROPHILS # (AUTO) 0.5 X 10^3 (1.8-7.8); NEUTROPHILS % (AUTO) 40 % (42-75); RED CELL DISTRIBUTION WIDTH 13.5 % (10.0-14.5)
[2019-01-21 11:22] LABS: HEMATOCRIT 18 % (40-54); PLATELET COUNT 14 10^3/uL (130-400); WHITE BLOOD COUNT 1.1 10^3/uL (4.3-11.0)
[2019-01-21 11:41] LABS: ALANINE AMINOTRANSFERASE 34 U/L (0-55); ALBUMIN 4.2 GM/DL (3.2-4.5); ALKALINE PHOSPHATASE 113 U/L (40-136); BILIRUBIN,TOTAL 0.5 MG/DL (0.1-1.0); BUN/CREATININE RATIO 21; CALCIUM 9.4 MG/DL (8.5-10.1); CARBON DIOXIDE 23 MMOL/L (21-32); CHLORIDE 108 MMOL/L (98-107); CREATININE SERUM 0.85 MG/DL (0.60-1.30); GFR ESTIMATED > 60; GLUCOSE 125 MG/DL (70-105); POTASSIUM 3.8 MMOL/L (3.6-5.0); SODIUM 137 MMOL/L (135-145); TOTAL PROTEIN 6.8 GM/DL (6.4-8.2)
[2019-01-24 08:58] LABS: BASOPHILS % (AUTO) 0 % (0-10); EOSINOPHILS % (AUTO) 0 % (0-10); LYMPHOCYTES # (AUTO) 0.6 X 10^3 (1.0-4.0); LYMPHOCYTES % (AUTO) 39 % (12-44); MEAN CORPUSCULAR HEMOGLOBIN 29 PG (25-34); MEAN CORPUSCULAR HGB CONC 33 G/DL (32-36); MEAN CORPUSCULAR VOLUME 87 FL (80-99); MEAN PLATELET VOLUME 10.6 FL (7.4-10.4); MONOCYTES # (AUTO) 0.2 X 10^3 (0.0-1.0); MONOCYTES % (AUTO) 10 % (0-12); NEUTROPHILS # (AUTO) 0.8 X 10^3 (1.8-7.8); NEUTROPHILS % (AUTO) 51 % (42-75); RED CELL DISTRIBUTION WIDTH 13.6 % (10.0-14.5); WHITE BLOOD COUNT 1.6 10^3/uL (4.3-11.0)
[2019-01-24 09:00] LABS: HEMATOCRIT 19 % (40-54); HEMOGLOBIN 6.1 G/DL (13.3-17.7); PLATELET COUNT 13 10^3/uL (130-400)
[2019-01-24 09:14] LABS: BUN/CREATININE RATIO 19; CALCIUM 9.4 MG/DL (8.5-10.1); CARBON DIOXIDE 22 MMOL/L (21-32); CHLORIDE 106 MMOL/L (98-107); CREATININE SERUM 0.81 MG/DL (0.60-1.30); GFR ESTIMATED > 60; GLUCOSE 103 MG/DL (70-105); POTASSIUM 3.9 MMOL/L (3.6-5.0); SODIUM 138 MMOL/L (135-145)
[2019-01-28 09:34] LABS: BASOPHILS % (AUTO) 0 % (0-10); EOSINOPHILS % (AUTO) 0 % (0-10); HEMATOCRIT 21 % (40-54); LYMPHOCYTES # (AUTO) 0.9 X 10^3 (1.0-4.0); LYMPHOCYTES % (AUTO) 44 % (12-44); MEAN CORPUSCULAR HEMOGLOBIN 29 PG (25-34); MEAN CORPUSCULAR HGB CONC 34 G/DL (32-36); MEAN CORPUSCULAR VOLUME 87 FL (80-99); MEAN PLATELET VOLUME 10.7 FL (7.4-10.4); MONOCYTES # (AUTO) 0.1 X 10^3 (0.0-1.0); MONOCYTES % (AUTO) 7 % (0-12); NEUTROPHILS # (AUTO) 0.9 X 10^3 (1.8-7.8); NEUTROPHILS % (AUTO) 49 % (42-75); RED CELL DISTRIBUTION WIDTH 13.3 % (10.0-14.5); WHITE BLOOD COUNT 1.9 10^3/uL (4.3-11.0)
[2019-01-28 09:36] LABS: HEMOGLOBIN 6.9 G/DL (13.3-17.7); PLATELET COUNT 12 10^3/uL (130-400)
[2019-01-28 09:58] LABS: ALANINE AMINOTRANSFERASE 35 U/L (0-55); ALBUMIN 4.3 GM/DL (3.2-4.5); ALKALINE PHOSPHATASE 142 U/L (40-136); BILIRUBIN,TOTAL 0.8 MG/DL (0.1-1.0); BUN/CREATININE RATIO 17; CALCIUM 9.7 MG/DL (8.5-10.1); CARBON DIOXIDE 23 MMOL/L (21-32); CHLORIDE 106 MMOL/L (98-107); GFR ESTIMATED > 60; GLUCOSE 121 MG/DL (70-105); POTASSIUM 3.8 MMOL/L (3.6-5.0); SODIUM 138 MMOL/L (135-145); TOTAL PROTEIN 7.2 GM/DL (6.4-8.2)
[2019-01-31 08:55] LABS: BASOPHILS % (AUTO) 0 % (0-10); EOSINOPHILS % (AUTO) 0 % (0-10); LYMPHOCYTES # (AUTO) 0.6 X 10^3 (1.0-4.0); LYMPHOCYTES % (AUTO) 37 % (12-44); MEAN CORPUSCULAR HEMOGLOBIN 28 PG (25-34); MEAN CORPUSCULAR HGB CONC 32 G/DL (32-36); MEAN CORPUSCULAR VOLUME 87 FL (80-99); MEAN PLATELET VOLUME 10.1 FL (7.4-10.4); MONOCYTES # (AUTO) 0.1 X 10^3 (0.0-1.0); MONOCYTES % (AUTO) 6 % (0-12); NEUTROPHILS # (AUTO) 0.9 X 10^3 (1.8-7.8); NEUTROPHILS % (AUTO) 57 % (42-75); RED CELL DISTRIBUTION WIDTH 13.3 % (10.0-14.5); WHITE BLOOD COUNT 1.6 10^3/uL (4.3-11.0)
[2019-01-31 08:58] LABS: HEMOGLOBIN 5.6 G/DL (13.3-17.7)
[2019-01-31 08:59] LABS: HEMATOCRIT 17 % (40-54); PLATELET COUNT 13 10^3/uL (130-400)
[2019-01-31 09:22] LABS: ALANINE AMINOTRANSFERASE 37 U/L (0-55); ALBUMIN 4.2 GM/DL (3.2-4.5); ALKALINE PHOSPHATASE 132 U/L (40-136); BILIRUBIN,TOTAL 0.9 MG/DL (0.1-1.0); BUN/CREATININE RATIO 18; CALCIUM 9.4 MG/DL (8.5-10.1); CARBON DIOXIDE 20 MMOL/L (21-32); CHLORIDE 106 MMOL/L (98-107); CREATININE SERUM 0.91 MG/DL (0.60-1.30); GFR ESTIMATED > 60; GLUCOSE 116 MG/DL (70-105); POTASSIUM 4.1 MMOL/L (3.6-5.0); SODIUM 136 MMOL/L (135-145); TOTAL PROTEIN 6.7 GM/DL (6.4-8.2)
[2019-02-01 09:00] LABS: BASOPHILS % (AUTO) 0 % (0-10); EOSINOPHILS % (AUTO) 0 % (0-10); HEMATOCRIT 21 % (40-54); LYMPHOCYTES # (AUTO) 0.5 X 10^3 (1.0-4.0); LYMPHOCYTES % (AUTO) 29 % (12-44); MEAN CORPUSCULAR HEMOGLOBIN 29 PG (25-34); MEAN CORPUSCULAR HGB CONC 33 G/DL (32-36); MEAN CORPUSCULAR VOLUME 87 FL (80-99); MEAN PLATELET VOLUME 9.1 FL (7.4-10.4); MONOCYTES # (AUTO) 0.1 X 10^3 (0.0-1.0); MONOCYTES % (AUTO) 7 % (0-12); NEUTROPHILS # (AUTO) 1.1 X 10^3 (1.8-7.8); NEUTROPHILS % (AUTO) 64 % (42-75); RED CELL DISTRIBUTION WIDTH 13.3 % (10.0-14.5); WHITE BLOOD COUNT 1.7 10^3/uL (4.3-11.0)
[2019-02-01 09:03] LABS: HEMOGLOBIN 6.7 G/DL (13.3-17.7); PLATELET COUNT 24 10^3/uL (130-400)
[2019-02-04 10:23] LABS: BASOPHILS % (AUTO) 0 % (0-10); EOSINOPHILS % (AUTO) 0 % (0-10); HEMATOCRIT 22 % (40-54); HEMOGLOBIN 7.1 G/DL (13.3-17.7); LYMPHOCYTES # (AUTO) 0.5 X 10^3 (1.0-4.0); LYMPHOCYTES % (AUTO) 33 % (12-44); MEAN CORPUSCULAR HEMOGLOBIN 29 PG (25-34); MEAN CORPUSCULAR HGB CONC 33 G/DL (32-36); MEAN CORPUSCULAR VOLUME 87 FL (80-99); MONOCYTES # (AUTO) 0.1 X 10^3 (0.0-1.0); MONOCYTES % (AUTO) 5 % (0-12); NEUTROPHILS % (AUTO) 63 % (42-75); RED CELL DISTRIBUTION WIDTH 13.5 % (10.0-14.5); WHITE BLOOD COUNT 1.7 10^3/uL (4.3-11.0)
[2019-02-04 10:31] LABS: PLATELET COUNT 12 10^3/uL (130-400)
[2019-02-04 10:48] LABS: ALANINE AMINOTRANSFERASE 34 U/L (0-55); ALKALINE PHOSPHATASE 136 U/L (40-136); BILIRUBIN,TOTAL 0.8 MG/DL (0.1-1.0); BUN/CREATININE RATIO 17; CALCIUM 9.1 MG/DL (8.5-10.1); CARBON DIOXIDE 22 MMOL/L (21-32); CHLORIDE 105 MMOL/L (98-107); CREATININE SERUM 0.81 MG/DL (0.60-1.30); GFR ESTIMATED > 60; GLUCOSE 120 MG/DL (70-105); POTASSIUM 3.7 MMOL/L (3.6-5.0); SODIUM 136 MMOL/L (135-145); TOTAL PROTEIN 6.4 GM/DL (6.4-8.2)
[2019-02-07 08:54] LABS: BASOPHILS % (AUTO) 0 % (0-10); EOSINOPHILS % (AUTO) 0 % (0-10); HEMATOCRIT 22 % (40-54); HEMOGLOBIN 7.1 G/DL (13.3-17.7); LYMPHOCYTES # (AUTO) 0.9 X 10^3 (1.0-4.0); LYMPHOCYTES % (AUTO) 36 % (12-44); MEAN CORPUSCULAR HEMOGLOBIN 28 PG (25-34); MEAN CORPUSCULAR HGB CONC 32 G/DL (32-36); MEAN CORPUSCULAR VOLUME 88 FL (80-99); MONOCYTES # (AUTO) 0.1 X 10^3 (0.0-1.0); MONOCYTES % (AUTO) 4 % (0-12); NEUTROPHILS # (AUTO) 1.4 X 10^3 (1.8-7.8); NEUTROPHILS % (AUTO) 60 % (42-75); RED CELL DISTRIBUTION WIDTH 13.4 % (10.0-14.5); WHITE BLOOD COUNT 2.4 10^3/uL (4.3-11.0)
[2019-02-07 08:55] LABS: PLATELET COUNT 10 10^3/uL (130-400)
[2019-02-11 09:02] LABS: BASOPHILS % (AUTO) 0 % (0-10); EOSINOPHILS % (AUTO) 0 % (0-10); LYMPHOCYTES # (AUTO) 0.6 X 10^3 (1.0-4.0); LYMPHOCYTES % (AUTO) 34 % (12-44); MEAN CORPUSCULAR HEMOGLOBIN 29 PG (25-34); MEAN CORPUSCULAR HGB CONC 33 G/DL (32-36); MEAN CORPUSCULAR VOLUME 87 FL (80-99); MEAN PLATELET VOLUME 11.7 FL (7.4-10.4); MONOCYTES # (AUTO) 0.1 X 10^3 (0.0-1.0); MONOCYTES % (AUTO) 6 % (0-12); NEUTROPHILS # (AUTO) 1.1 X 10^3 (1.8-7.8); NEUTROPHILS % (AUTO) 60 % (42-75); RED CELL DISTRIBUTION WIDTH 13.2 % (10.0-14.5); WHITE BLOOD COUNT 1.8 10^3/uL (4.3-11.0)
[2019-02-11 09:05] LABS: HEMATOCRIT 18 % (40-54); HEMOGLOBIN 5.8 G/DL (13.3-17.7); PLATELET COUNT 21 10^3/uL (130-400)
[2019-02-11 09:26] LABS: ALANINE AMINOTRANSFERASE 41 U/L (0-55); ALBUMIN 4.2 GM/DL (3.2-4.5); ALKALINE PHOSPHATASE 139 U/L (40-136); BILIRUBIN,TOTAL 0.8 MG/DL (0.1-1.0); BUN/CREATININE RATIO 15; CALCIUM 9.5 MG/DL (8.5-10.1); CARBON DIOXIDE 22 MMOL/L (21-32); CHLORIDE 107 MMOL/L (98-107); CREATININE SERUM 0.84 MG/DL (0.60-1.30); GFR ESTIMATED > 60; GLUCOSE 139 MG/DL (70-105); POTASSIUM 3.9 MMOL/L (3.6-5.0); SODIUM 139 MMOL/L (135-145); TOTAL PROTEIN 6.7 GM/DL (6.4-8.2)
[2019-02-14 08:54] LABS: BASOPHILS % (AUTO) 0 % (0-10); EOSINOPHILS % (AUTO) 0 % (0-10); LYMPHOCYTES # (AUTO) 0.7 X 10^3 (1.0-4.0); LYMPHOCYTES % (AUTO) 34 % (12-44); MEAN CORPUSCULAR HEMOGLOBIN 28 PG (25-34); MEAN CORPUSCULAR HGB CONC 33 G/DL (32-36); MEAN CORPUSCULAR VOLUME 85 FL (80-99); MEAN PLATELET VOLUME 11.4 FL (7.4-10.4); MONOCYTES # (AUTO) 0.1 X 10^3 (0.0-1.0); MONOCYTES % (AUTO) 5 % (0-12); NEUTROPHILS # (AUTO) 1.2 X 10^3 (1.8-7.8); NEUTROPHILS % (AUTO) 61 % (42-75); RED CELL DISTRIBUTION WIDTH 14.1 % (10.0-14.5); WHITE BLOOD COUNT 1.9 10^3/uL (4.3-11.0)
[2019-02-14 08:56] LABS: HEMATOCRIT 20 % (40-54); HEMOGLOBIN 6.4 G/DL (13.3-17.7); PLATELET COUNT 16 10^3/uL (130-400)
[2019-02-21 08:57] LABS: BASOPHILS % (AUTO) 0 % (0-10); EOSINOPHILS % (AUTO) 0 % (0-10); HEMATOCRIT 21 % (40-54); LYMPHOCYTES # (AUTO) 0.9 X 10^3 (1.0-4.0); LYMPHOCYTES % (AUTO) 33 % (12-44); MEAN CORPUSCULAR HEMOGLOBIN 28 PG (25-34); MEAN CORPUSCULAR HGB CONC 32 G/DL (32-36); MEAN CORPUSCULAR VOLUME 86 FL (80-99); MEAN PLATELET VOLUME 10.6 FL (7.4-10.4); MONOCYTES # (AUTO) 0.2 X 10^3 (0.0-1.0); MONOCYTES % (AUTO) 7 % (0-12); NEUTROPHILS # (AUTO) 1.6 X 10^3 (1.8-7.8); NEUTROPHILS % (AUTO) 60 % (42-75); RED CELL DISTRIBUTION WIDTH 13.5 % (10.0-14.5); WHITE BLOOD COUNT 2.7 10^3/uL (4.3-11.0)
[2019-02-21 09:01] LABS: HEMOGLOBIN 6.6 G/DL (13.3-17.7); PLATELET COUNT 16 10^3/uL (130-400)
[2019-02-28 10:59] LABS: BASOPHILS % (AUTO) 0 % (0-10); EOSINOPHILS % (AUTO) 0 % (0-10); HEMATOCRIT 21 % (40-54); HEMOGLOBIN 7.1 G/DL (13.3-17.7); LYMPHOCYTES # (AUTO) 1.1 X 10^3 (1.0-4.0); LYMPHOCYTES % (AUTO) 27 % (12-44); MEAN CORPUSCULAR HEMOGLOBIN 28 PG (25-34); MEAN CORPUSCULAR HGB CONC 33 G/DL (32-36); MEAN CORPUSCULAR VOLUME 85 FL (80-99); MEAN PLATELET VOLUME 9.5 FL (7.4-10.4); MONOCYTES # (AUTO) 0.2 X 10^3 (0.0-1.0); MONOCYTES % (AUTO) 4 % (0-12); NEUTROPHILS # (AUTO) 2.8 X 10^3 (1.8-7.8); NEUTROPHILS % (AUTO) 69 % (42-75); RED CELL DISTRIBUTION WIDTH 14.2 % (10.0-14.5)
[2019-02-28 11:01] LABS: PLATELET COUNT 23 10^3/uL (130-400)
[2019-03-05 08:48] LABS: BASOPHILS % (AUTO) 0 % (0-10); EOSINOPHILS % (AUTO) 0 % (0-10); LYMPHOCYTES # (AUTO) 0.8 X 10^3 (1.0-4.0); LYMPHOCYTES % (AUTO) 20 % (12-44); MEAN CORPUSCULAR HEMOGLOBIN 28 PG (25-34); MEAN CORPUSCULAR HGB CONC 33 G/DL (32-36); MEAN CORPUSCULAR VOLUME 85 FL (80-99); MEAN PLATELET VOLUME 10.7 FL (7.4-10.4); MONOCYTES # (AUTO) 0.1 X 10^3 (0.0-1.0); MONOCYTES % (AUTO) 3 % (0-12); NEUTROPHILS # (AUTO) 2.9 X 10^3 (1.8-7.8); NEUTROPHILS % (AUTO) 77 % (42-75); RED CELL DISTRIBUTION WIDTH 13.9 % (10.0-14.5); WHITE BLOOD COUNT 3.7 10^3/uL (4.3-11.0)
[2019-03-05 08:53] LABS: HEMATOCRIT 18 % (40-54); PLATELET COUNT 23 10^3/uL (130-400)
[2019-03-08 09:09] LABS: BASOPHILS % (AUTO) 0 % (0-10); EOSINOPHILS % (AUTO) 0 % (0-10); LYMPHOCYTES # (AUTO) 0.5 X 10^3 (1.0-4.0); LYMPHOCYTES % (AUTO) 13 % (12-44); MEAN CORPUSCULAR HEMOGLOBIN 28 PG (25-34); MEAN CORPUSCULAR HGB CONC 33 G/DL (32-36); MEAN CORPUSCULAR VOLUME 84 FL (80-99); MEAN PLATELET VOLUME 11.2 FL (7.4-10.4); MONOCYTES # (AUTO) 0.1 X 10^3 (0.0-1.0); MONOCYTES % (AUTO) 3 % (0-12); NEUTROPHILS # (AUTO) 3.4 X 10^3 (1.8-7.8); NEUTROPHILS % (AUTO) 84 % (42-75); RED CELL DISTRIBUTION WIDTH 14.5 % (10.0-14.5)
[2019-03-08 09:11] LABS: HEMATOCRIT 20 % (40-54); HEMOGLOBIN 6.6 G/DL (13.3-17.7); PLATELET COUNT 23 10^3/uL (130-400)
[2019-03-11 09:34] LABS: BASOPHILS % (AUTO) 0 % (0-10); EOSINOPHILS % (AUTO) 0 % (0-10); HEMATOCRIT 22 % (40-54); LYMPHOCYTES # (AUTO) 0.6 X 10^3 (1.0-4.0); LYMPHOCYTES % (AUTO) 22 % (12-44); MEAN CORPUSCULAR HEMOGLOBIN 29 PG (25-34); MEAN CORPUSCULAR HGB CONC 33 G/DL (32-36); MEAN CORPUSCULAR VOLUME 87 FL (80-99); MEAN PLATELET VOLUME 11.5 FL (7.4-10.4); MONOCYTES # (AUTO) 0.1 X 10^3 (0.0-1.0); MONOCYTES % (AUTO) 4 % (0-12); NEUTROPHILS # (AUTO) 1.9 X 10^3 (1.8-7.8); NEUTROPHILS % (AUTO) 74 % (42-75); RED CELL DISTRIBUTION WIDTH 14.5 % (10.0-14.5); WHITE BLOOD COUNT 2.6 10^3/uL (4.3-11.0)
[2019-03-11 09:37] LABS: PLATELET COUNT 18 10^3/uL (130-400)
[2019-03-11 09:53] LABS: ALANINE AMINOTRANSFERASE 35 U/L (0-55); ALBUMIN 4.1 GM/DL (3.2-4.5); ALKALINE PHOSPHATASE 101 U/L (40-136); BILIRUBIN,TOTAL 0.8 MG/DL (0.1-1.0); BUN/CREATININE RATIO 17; CARBON DIOXIDE 21 MMOL/L (21-32); CHLORIDE 107 MMOL/L (98-107); CREATININE SERUM 0.92 MG/DL (0.60-1.30); GFR ESTIMATED > 60; GLUCOSE 121 MG/DL (70-105); POTASSIUM 3.7 MMOL/L (3.6-5.0); SODIUM 136 MMOL/L (135-145); TOTAL PROTEIN 6.4 GM/DL (6.4-8.2)
[2019-03-14 08:53] LABS: BASOPHILS % (AUTO) 0 % (0-10); EOSINOPHILS % (AUTO) 0 % (0-10); LYMPHOCYTES # (AUTO) 0.6 X 10^3 (1.0-4.0); LYMPHOCYTES % (AUTO) 24 % (12-44); MEAN CORPUSCULAR HEMOGLOBIN 29 PG (25-34); MEAN CORPUSCULAR HGB CONC 33 G/DL (32-36); MEAN CORPUSCULAR VOLUME 87 FL (80-99); MEAN PLATELET VOLUME 10.2 FL (7.4-10.4); MONOCYTES # (AUTO) 0.1 X 10^3 (0.0-1.0); MONOCYTES % (AUTO) 3 % (0-12); NEUTROPHILS # (AUTO) 1.8 X 10^3 (1.8-7.8); NEUTROPHILS % (AUTO) 72 % (42-75); RED CELL DISTRIBUTION WIDTH 14.7 % (10.0-14.5); WHITE BLOOD COUNT 2.4 10^3/uL (4.3-11.0)
[2019-03-14 08:54] LABS: HEMATOCRIT 19 % (40-54); HEMOGLOBIN 6.2 G/DL (13.3-17.7); PLATELET COUNT 15 10^3/uL (130-400)
[2019-03-18 09:26] LABS: BASOPHILS % (AUTO) 0 % (0-10); EOSINOPHILS % (AUTO) 1 % (0-10); LYMPHOCYTES # (AUTO) 0.5 X 10^3 (1.0-4.0); LYMPHOCYTES % (AUTO) 27 % (12-44); MEAN CORPUSCULAR HEMOGLOBIN 28 PG (25-34); MEAN CORPUSCULAR HGB CONC 32 G/DL (32-36); MEAN CORPUSCULAR VOLUME 86 FL (80-99); MEAN PLATELET VOLUME 10.2 FL (7.4-10.4); MONOCYTES # (AUTO) 0.1 X 10^3 (0.0-1.0); MONOCYTES % (AUTO) 4 % (0-12); NEUTROPHILS # (AUTO) 1.3 X 10^3 (1.8-7.8); NEUTROPHILS % (AUTO) 69 % (42-75); RED CELL DISTRIBUTION WIDTH 14.7 % (10.0-14.5); WHITE BLOOD COUNT 1.9 10^3/uL (4.3-11.0)
[2019-03-18 09:28] LABS: HEMATOCRIT 20 % (40-54); HEMOGLOBIN 6.5 G/DL (13.3-17.7); PLATELET COUNT 16 10^3/uL (130-400)
[2019-03-18 09:45] LABS: ALANINE AMINOTRANSFERASE 31 U/L (0-55); ALBUMIN 4.2 GM/DL (3.2-4.5); ALKALINE PHOSPHATASE 94 U/L (40-136); BILIRUBIN,TOTAL 0.5 MG/DL (0.1-1.0); BUN/CREATININE RATIO 17; CALCIUM 9.4 MG/DL (8.5-10.1); CARBON DIOXIDE 23 MMOL/L (21-32); CHLORIDE 107 MMOL/L (98-107); GFR ESTIMATED > 60; GLUCOSE 113 MG/DL (70-105); SODIUM 139 MMOL/L (135-145); TOTAL PROTEIN 6.8 GM/DL (6.4-8.2)
[2019-03-21 08:43] LABS: BASOPHILS % (AUTO) 0 % (0-10); EOSINOPHILS % (AUTO) 0 % (0-10); LYMPHOCYTES # (AUTO) 0.7 X 10^3 (1.0-4.0); LYMPHOCYTES % (AUTO) 37 % (12-44); MEAN CORPUSCULAR HEMOGLOBIN 28 PG (25-34); MEAN CORPUSCULAR HGB CONC 32 G/DL (32-36); MEAN CORPUSCULAR VOLUME 86 FL (80-99); MEAN PLATELET VOLUME 12.2 FL (7.4-10.4); MONOCYTES # (AUTO) 0.1 X 10^3 (0.0-1.0); MONOCYTES % (AUTO) 4 % (0-12); NEUTROPHILS # (AUTO) 1.1 X 10^3 (1.8-7.8); NEUTROPHILS % (AUTO) 60 % (42-75); RED CELL DISTRIBUTION WIDTH 14.2 % (10.0-14.5); WHITE BLOOD COUNT 1.9 10^3/uL (4.3-11.0)
[2019-03-21 08:44] LABS: HEMOGLOBIN 6.3 G/DL (13.3-17.7)
[2019-03-21 08:45] LABS: HEMATOCRIT 20 % (40-54); PLATELET COUNT 10 10^3/uL (130-400)
[2019-03-25 08:59] LABS: BASOPHILS % (AUTO) 0 % (0-10); EOSINOPHILS % (AUTO) 1 % (0-10); HEMATOCRIT 22 % (40-54); HEMOGLOBIN 7.3 G/DL (13.3-17.7); LYMPHOCYTES # (AUTO) 0.7 X 10^3 (1.0-4.0); LYMPHOCYTES % (AUTO) 32 % (12-44); MEAN CORPUSCULAR HEMOGLOBIN 29 PG (25-34); MEAN CORPUSCULAR HGB CONC 33 G/DL (32-36); MEAN CORPUSCULAR VOLUME 88 FL (80-99); MONOCYTES # (AUTO) 0.1 X 10^3 (0.0-1.0); MONOCYTES % (AUTO) 4 % (0-12); NEUTROPHILS # (AUTO) 1.4 X 10^3 (1.8-7.8); NEUTROPHILS % (AUTO) 64 % (42-75); RED CELL DISTRIBUTION WIDTH 15.3 % (10.0-14.5); WHITE BLOOD COUNT 2.2 10^3/uL (4.3-11.0)
[2019-03-25 09:09] LABS: PLATELET COUNT 10 10^3/uL (130-400)
[2019-03-25 09:23] LABS: ALANINE AMINOTRANSFERASE 37 U/L (0-55); ALBUMIN 4.3 GM/DL (3.2-4.5); ALKALINE PHOSPHATASE 98 U/L (40-136); BILIRUBIN,TOTAL 0.7 MG/DL (0.1-1.0); BUN/CREATININE RATIO 12; CALCIUM 9.4 MG/DL (8.5-10.1); CARBON DIOXIDE 23 MMOL/L (21-32); CHLORIDE 104 MMOL/L (98-107); CREATININE SERUM 0.89 MG/DL (0.60-1.30); GFR ESTIMATED > 60; GLUCOSE 110 MG/DL (70-105); POTASSIUM 4.3 MMOL/L (3.6-5.0); SODIUM 137 MMOL/L (135-145); TOTAL PROTEIN 6.6 GM/DL (6.4-8.2)
[2019-03-28 08:46] LABS: BASOPHILS % (AUTO) 0 % (0-10); EOSINOPHILS % (AUTO) 0 % (0-10); LYMPHOCYTES % (AUTO) 33 % (12-44); MEAN CORPUSCULAR HEMOGLOBIN 29 PG (25-34); MEAN CORPUSCULAR HGB CONC 33 G/DL (32-36); MEAN CORPUSCULAR VOLUME 88 FL (80-99); MEAN PLATELET VOLUME 9.6 FL (7.4-10.4); MONOCYTES # (AUTO) 0.2 X 10^3 (0.0-1.0); MONOCYTES % (AUTO) 6 % (0-12); NEUTROPHILS # (AUTO) 1.8 X 10^3 (1.8-7.8); NEUTROPHILS % (AUTO) 61 % (42-75); RED CELL DISTRIBUTION WIDTH 15.8 % (10.0-14.5); WHITE BLOOD COUNT 2.9 10^3/uL (4.3-11.0)
[2019-03-28 08:49] LABS: HEMATOCRIT 20 % (40-54); HEMOGLOBIN 6.6 G/DL (13.3-17.7); PLATELET COUNT 12 10^3/uL (130-400)
[2019-04-01 09:32] LABS: BASOPHILS % (AUTO) 0 % (0-10); EOSINOPHILS % (AUTO) 0 % (0-10); HEMATOCRIT 22 % (40-54); HEMOGLOBIN 7.3 G/DL (13.3-17.7); LYMPHOCYTES # (AUTO) 0.8 X 10^3 (1.0-4.0); LYMPHOCYTES % (AUTO) 24 % (12-44); MEAN CORPUSCULAR HEMOGLOBIN 29 PG (25-34); MEAN CORPUSCULAR HGB CONC 33 G/DL (32-36); MEAN CORPUSCULAR VOLUME 88 FL (80-99); MONOCYTES # (AUTO) 0.3 X 10^3 (0.0-1.0); MONOCYTES % (AUTO) 8 % (0-12); NEUTROPHILS # (AUTO) 2.4 X 10^3 (1.8-7.8); NEUTROPHILS % (AUTO) 68 % (42-75); RED CELL DISTRIBUTION WIDTH 15.5 % (10.0-14.5); WHITE BLOOD COUNT 3.5 10^3/uL (4.3-11.0)
[2019-04-01 09:34] LABS: PLATELET COUNT 8 10^3/uL (130-400)
[2019-04-01 09:54] LABS: ALANINE AMINOTRANSFERASE 45 U/L (0-55); ALBUMIN 4.3 GM/DL (3.2-4.5); ALKALINE PHOSPHATASE 105 U/L (40-136); BILIRUBIN,TOTAL 0.6 MG/DL (0.1-1.0); BUN/CREATININE RATIO 17; CALCIUM 9.3 MG/DL (8.5-10.1); CARBON DIOXIDE 21 MMOL/L (21-32); CHLORIDE 104 MMOL/L (98-107); CREATININE SERUM 0.86 MG/DL (0.60-1.30); GFR ESTIMATED > 60; GLUCOSE 109 MG/DL (70-105); POTASSIUM 4.2 MMOL/L (3.6-5.0); SODIUM 135 MMOL/L (135-145); TOTAL PROTEIN 6.7 GM/DL (6.4-8.2)
[2019-04-04 08:53] LABS: BASOPHILS % (AUTO) 0 % (0-10); EOSINOPHILS % (AUTO) 0 % (0-10); LYMPHOCYTES # (AUTO) 0.9 X 10^3 (1.0-4.0); LYMPHOCYTES % (AUTO) 25 % (12-44); MEAN CORPUSCULAR HEMOGLOBIN 29 PG (25-34); MEAN CORPUSCULAR HGB CONC 33 G/DL (32-36); MEAN CORPUSCULAR VOLUME 88 FL (80-99); MEAN PLATELET VOLUME 10.8 FL (7.4-10.4); MONOCYTES # (AUTO) 0.2 X 10^3 (0.0-1.0); MONOCYTES % (AUTO) 5 % (0-12); NEUTROPHILS # (AUTO) 2.4 X 10^3 (1.8-7.8); NEUTROPHILS % (AUTO) 70 % (42-75); RED CELL DISTRIBUTION WIDTH 15.5 % (10.0-14.5); WHITE BLOOD COUNT 3.5 10^3/uL (4.3-11.0)
[2019-04-04 08:54] LABS: HEMATOCRIT 20 % (40-54); HEMOGLOBIN 6.8 G/DL (13.3-17.7); PLATELET COUNT 13 10^3/uL (130-400)
== END 2019-04-07 | disposition home or self-care (01) ==
LOC: ONC 08:26
PROVIDERS: ATTEND Internal Medicine Hematology & Oncology
DX: Z51.11 Encounter for antineoplastic chemotherapy (principal); C92.00 Acute myeloblastic leukemia, not having achieved remission; D46.Z Other myelodysplastic syndromes; D61.818 Other pancytopenia; D61.811 Other drug-induced pancytopenia; T45.1X5A Adverse effect of antineoplastic and immunosuppressive drugs, initial encounter; N28.9 Disorder of kidney and ureter, unspecified; I10 Essential (primary) hypertension; E78.5 Hyperlipidemia, unspecified; N40.0 Benign prostatic hyperplasia without lower urinary tract symptoms; M06.9 Rheumatoid arthritis, unspecified; K21.9 Gastro-esophageal reflux disease without esophagitis; Z79.899 Other long term (current) drug therapy
CPT/HCPCS: 36415; 36430; 80048; 80053; 85025; 86850; 86900; 86901; 86920; 96401; 99213

== ENCOUNTER 2019-07-01 15:09 | Outpatient (RCR) | payer MEDICARE ==
[2019-04-08 08:48] LABS: BASOPHILS % (AUTO) 0 % (0-10); EOSINOPHILS % (AUTO) 0 % (0-10); LYMPHOCYTES # (AUTO) 0.8 X 10^3 (1.0-4.0); LYMPHOCYTES % (AUTO) 23 % (12-44); MEAN CORPUSCULAR HEMOGLOBIN 29 PG (25-34); MEAN CORPUSCULAR HGB CONC 33 G/DL (32-36); MEAN CORPUSCULAR VOLUME 88 FL (80-99); MEAN PLATELET VOLUME 10.5 FL (7.4-10.4); MONOCYTES # (AUTO) 0.2 X 10^3 (0.0-1.0); MONOCYTES % (AUTO) 6 % (0-12); NEUTROPHILS # (AUTO) 2.4 X 10^3 (1.8-7.8); NEUTROPHILS % (AUTO) 71 % (42-75); RED CELL DISTRIBUTION WIDTH 15.6 % (10.0-14.5); WHITE BLOOD COUNT 3.5 10^3/uL (4.3-11.0)
[2019-04-08 08:53] LABS: HEMATOCRIT 19 % (40-54); HEMOGLOBIN 6.4 G/DL (13.3-17.7); PLATELET COUNT 9 10^3/uL (130-400)
[2019-04-08 09:09] LABS: ALANINE AMINOTRANSFERASE 39 U/L (0-55); ALBUMIN 4.4 GM/DL (3.2-4.5); ALKALINE PHOSPHATASE 99 U/L (40-136); BILIRUBIN,TOTAL 0.7 MG/DL (0.1-1.0); BUN/CREATININE RATIO 15; CALCIUM 9.4 MG/DL (8.5-10.1); CARBON DIOXIDE 21 MMOL/L (21-32); CHLORIDE 106 MMOL/L (98-107); CREATININE SERUM 0.97 MG/DL (0.60-1.30); GFR ESTIMATED > 60; GLUCOSE 113 MG/DL (70-105); POTASSIUM 4.1 MMOL/L (3.6-5.0); SODIUM 138 MMOL/L (135-145); TOTAL PROTEIN 6.8 GM/DL (6.4-8.2)
[2019-04-12 08:44] LABS: BASOPHILS % (AUTO) 0 % (0-10); EOSINOPHILS % (AUTO) 0 % (0-10); LYMPHOCYTES % (AUTO) 25 % (12-44); MEAN CORPUSCULAR HEMOGLOBIN 30 PG (25-34); MEAN CORPUSCULAR HGB CONC 34 G/DL (32-36); MEAN CORPUSCULAR VOLUME 90 FL (80-99); MONOCYTES # (AUTO) 0.2 X 10^3 (0.0-1.0); MONOCYTES % (AUTO) 6 % (0-12); NEUTROPHILS # (AUTO) 2.7 X 10^3 (1.8-7.8); NEUTROPHILS % (AUTO) 70 % (42-75); RED CELL DISTRIBUTION WIDTH 15.4 % (10.0-14.5); WHITE BLOOD COUNT 3.9 10^3/uL (4.3-11.0)
[2019-04-12 08:48] LABS: HEMOGLOBIN 6.3 G/DL (13.3-17.7)
[2019-04-12 08:49] LABS: HEMATOCRIT 19 % (40-54); PLATELET COUNT 6 10^3/uL (130-400)
[2019-04-12 09:02] LABS: BUN/CREATININE RATIO 21; CALCIUM 9.4 MG/DL (8.5-10.1); CARBON DIOXIDE 22 MMOL/L (21-32); CHLORIDE 105 MMOL/L (98-107); CREATININE SERUM 0.89 MG/DL (0.60-1.30); GFR ESTIMATED > 60; GLUCOSE 112 MG/DL (70-105); POTASSIUM 4.1 MMOL/L (3.6-5.0); SODIUM 137 MMOL/L (135-145)
[2019-04-15 10:15] LABS: BASOPHILS % (AUTO) 0 % (0-10); EOSINOPHILS % (AUTO) 0 % (0-10); HEMATOCRIT 21 % (40-54); LYMPHOCYTES # (AUTO) 0.7 X 10^3 (1.0-4.0); LYMPHOCYTES % (AUTO) 21 % (12-44); MEAN CORPUSCULAR HEMOGLOBIN 29 PG (25-34); MEAN CORPUSCULAR HGB CONC 33 G/DL (32-36); MEAN CORPUSCULAR VOLUME 88 FL (80-99); MONOCYTES # (AUTO) 0.2 X 10^3 (0.0-1.0); MONOCYTES % (AUTO) 5 % (0-12); NEUTROPHILS # (AUTO) 2.4 X 10^3 (1.8-7.8); NEUTROPHILS % (AUTO) 74 % (42-75); RED CELL DISTRIBUTION WIDTH 15.9 % (10.0-14.5); WHITE BLOOD COUNT 3.3 10^3/uL (4.3-11.0)
[2019-04-15 10:19] LABS: HEMOGLOBIN 6.8 G/DL (13.3-17.7); PLATELET COUNT 6 10^3/uL (130-400)
[2019-04-15 10:30] LABS: ALANINE AMINOTRANSFERASE 39 U/L (0-55); ALBUMIN 4.2 GM/DL (3.2-4.5); ALKALINE PHOSPHATASE 95 U/L (40-136); BILIRUBIN,TOTAL 0.6 MG/DL (0.1-1.0); BUN/CREATININE RATIO 16; CARBON DIOXIDE 24 MMOL/L (21-32); CHLORIDE 105 MMOL/L (98-107); CREATININE SERUM 0.91 MG/DL (0.60-1.30); GFR ESTIMATED > 60; GLUCOSE 143 MG/DL (70-105); POTASSIUM 3.8 MMOL/L (3.6-5.0); SODIUM 135 MMOL/L (135-145); TOTAL PROTEIN 6.6 GM/DL (6.4-8.2)
[2019-04-18 09:10] LABS: BASOPHILS % (AUTO) 0 % (0-10); EOSINOPHILS % (AUTO) 0 % (0-10); LYMPHOCYTES # (AUTO) 0.7 X 10^3 (1.0-4.0); LYMPHOCYTES % (AUTO) 21 % (12-44); MEAN CORPUSCULAR HEMOGLOBIN 29 PG (25-34); MEAN CORPUSCULAR HGB CONC 33 G/DL (32-36); MEAN CORPUSCULAR VOLUME 88 FL (80-99); MEAN PLATELET VOLUME 9.4 FL (7.4-10.4); MONOCYTES # (AUTO) 0.2 X 10^3 (0.0-1.0); MONOCYTES % (AUTO) 5 % (0-12); NEUTROPHILS # (AUTO) 2.4 X 10^3 (1.8-7.8); NEUTROPHILS % (AUTO) 74 % (42-75); RED CELL DISTRIBUTION WIDTH 15.6 % (10.0-14.5); WHITE BLOOD COUNT 3.3 10^3/uL (4.3-11.0)
[2019-04-18 09:11] LABS: HEMATOCRIT 19 % (40-54); HEMOGLOBIN 6.4 G/DL (13.3-17.7); PLATELET COUNT 14 10^3/uL (130-400)
[2019-04-18 09:19] LABS: BUN/CREATININE RATIO 16; CALCIUM 9.3 MG/DL (8.5-10.1); CARBON DIOXIDE 22 MMOL/L (21-32); CHLORIDE 105 MMOL/L (98-107); CREATININE SERUM 0.96 MG/DL (0.60-1.30); GFR ESTIMATED > 60; GLUCOSE 112 MG/DL (70-105); POTASSIUM 4.2 MMOL/L (3.6-5.0); SODIUM 136 MMOL/L (135-145)
[2019-04-22 08:53] LABS: BASOPHILS % (AUTO) 0 % (0-10); EOSINOPHILS % (AUTO) 0 % (0-10); HEMATOCRIT 22 % (40-54); HEMOGLOBIN 7.2 G/DL (13.3-17.7); LYMPHOCYTES # (AUTO) 0.9 X 10^3 (1.0-4.0); LYMPHOCYTES % (AUTO) 18 % (12-44); MEAN CORPUSCULAR HEMOGLOBIN 29 PG (25-34); MEAN CORPUSCULAR HGB CONC 33 G/DL (32-36); MEAN CORPUSCULAR VOLUME 88 FL (80-99); MEAN PLATELET VOLUME 8.6 FL (7.4-10.4); MONOCYTES # (AUTO) 0.2 X 10^3 (0.0-1.0); MONOCYTES % (AUTO) 5 % (0-12); NEUTROPHILS # (AUTO) 3.7 X 10^3 (1.8-7.8); NEUTROPHILS % (AUTO) 77 % (42-75); RED CELL DISTRIBUTION WIDTH 15.4 % (10.0-14.5); WHITE BLOOD COUNT 4.8 10^3/uL (4.3-11.0)
[2019-04-22 09:02] LABS: PLATELET COUNT 3 10^3/uL (130-400)
[2019-04-22 09:18] LABS: BUN/CREATININE RATIO 18; CALCIUM 9.3 MG/DL (8.5-10.1); CARBON DIOXIDE 20 MMOL/L (21-32); CHLORIDE 105 MMOL/L (98-107); CREATININE SERUM 0.98 MG/DL (0.60-1.30); GFR ESTIMATED > 60; GLUCOSE 113 MG/DL (70-105); POTASSIUM 3.9 MMOL/L (3.6-5.0); SODIUM 138 MMOL/L (135-145)
[2019-04-25 08:54] LABS: BASOPHILS % (AUTO) 0 % (0-10); EOSINOPHILS % (AUTO) 1 % (0-10); LYMPHOCYTES # (AUTO) 0.8 X 10^3 (1.0-4.0); LYMPHOCYTES % (AUTO) 19 % (12-44); MEAN CORPUSCULAR HEMOGLOBIN 29 PG (25-34); MEAN CORPUSCULAR HGB CONC 33 G/DL (32-36); MEAN CORPUSCULAR VOLUME 89 FL (80-99); MEAN PLATELET VOLUME 8.4 FL (7.4-10.4); MONOCYTES # (AUTO) 0.3 X 10^3 (0.0-1.0); MONOCYTES % (AUTO) 8 % (0-12); NEUTROPHILS % (AUTO) 73 % (42-75); RED CELL DISTRIBUTION WIDTH 15.6 % (10.0-14.5); WHITE BLOOD COUNT 4.1 10^3/uL (4.3-11.0)
[2019-04-25 08:56] LABS: HEMOGLOBIN 6.4 G/DL (13.3-17.7)
[2019-04-25 08:57] LABS: HEMATOCRIT 19 % (40-54); PLATELET COUNT 9 10^3/uL (130-400)
[2019-04-25 09:19] LABS: BUN/CREATININE RATIO 15; CALCIUM 9.5 MG/DL (8.5-10.1); CARBON DIOXIDE 22 MMOL/L (21-32); CHLORIDE 105 MMOL/L (98-107); CREATININE SERUM 0.91 MG/DL (0.60-1.30); GFR ESTIMATED > 60; GLUCOSE 132 MG/DL (70-105); POTASSIUM 3.9 MMOL/L (3.6-5.0); SODIUM 137 MMOL/L (135-145)
[2019-04-29 09:06] LABS: BASOPHILS % (AUTO) 0 % (0-10); EOSINOPHILS % (AUTO) 0 % (0-10); HEMATOCRIT 22 % (40-54); HEMOGLOBIN 7.3 G/DL (13.3-17.7); LYMPHOCYTES # (AUTO) 1.1 X 10^3 (1.0-4.0); LYMPHOCYTES % (AUTO) 15 % (12-44); MEAN CORPUSCULAR HEMOGLOBIN 30 PG (25-34); MEAN CORPUSCULAR HGB CONC 34 G/DL (32-36); MEAN CORPUSCULAR VOLUME 89 FL (80-99); MEAN PLATELET VOLUME 9.2 FL (7.4-10.4); MONOCYTES # (AUTO) 0.9 X 10^3 (0.0-1.0); MONOCYTES % (AUTO) 12 % (0-12); NEUTROPHILS # (AUTO) 5.3 X 10^3 (1.8-7.8); NEUTROPHILS % (AUTO) 73 % (42-75); RED CELL DISTRIBUTION WIDTH 15.4 % (10.0-14.5); WHITE BLOOD COUNT 7.4 10^3/uL (4.3-11.0)
[2019-04-29 09:09] LABS: PLATELET COUNT 7 10^3/uL (130-400)
[2019-04-29 09:27] LABS: ALANINE AMINOTRANSFERASE 35 U/L (0-55); ALBUMIN 4.3 GM/DL (3.2-4.5); ALKALINE PHOSPHATASE 102 U/L (40-136); BILIRUBIN,TOTAL 0.6 MG/DL (0.1-1.0); BUN/CREATININE RATIO 15; CALCIUM 9.7 MG/DL (8.5-10.1); CARBON DIOXIDE 21 MMOL/L (21-32); CHLORIDE 104 MMOL/L (98-107); CREATININE SERUM 1.02 MG/DL (0.60-1.30); GFR ESTIMATED > 60; GLUCOSE 139 MG/DL (70-105); POTASSIUM 4.3 MMOL/L (3.6-5.0); SODIUM 137 MMOL/L (135-145); TOTAL PROTEIN 6.6 GM/DL (6.4-8.2)
[2019-05-02 08:47] LABS: BASOPHILS % (AUTO) 0 % (0-10); EOSINOPHILS % (AUTO) 0 % (0-10); LYMPHOCYTES % (AUTO) 13 % (12-44); MEAN CORPUSCULAR HEMOGLOBIN 30 PG (25-34); MEAN CORPUSCULAR HGB CONC 33 G/DL (32-36); MEAN CORPUSCULAR VOLUME 90 FL (80-99); MEAN PLATELET VOLUME 10.2 FL (7.4-10.4); MONOCYTES # (AUTO) 2.4 X 10^3 (0.0-1.0); MONOCYTES % (AUTO) 16 % (0-12); NEUTROPHILS # (AUTO) 10.9 X 10^3 (1.8-7.8); NEUTROPHILS % (AUTO) 71 % (42-75); RED CELL DISTRIBUTION WIDTH 15.5 % (10.0-14.5); WHITE BLOOD COUNT 15.4 10^3/uL (4.3-11.0)
[2019-05-02 08:49] LABS: HEMATOCRIT 20 % (40-54); HEMOGLOBIN 6.6 G/DL (13.3-17.7); PLATELET COUNT 16 10^3/uL (130-400)
[2019-05-06 11:19] LABS: MEAN CORPUSCULAR HEMOGLOBIN 30 PG (25-34); MEAN CORPUSCULAR HGB CONC 34 G/DL (32-36); MEAN CORPUSCULAR VOLUME 89 FL (80-99); MEAN PLATELET VOLUME 10.7 FL (7.4-10.4); RED CELL DISTRIBUTION WIDTH 15.6 % (10.0-14.5)
[2019-05-06 11:27] LABS: HEMOGLOBIN 6.3 G/DL (13.3-17.7); WHITE BLOOD COUNT 50.9 10^3/uL (4.3-11.0)
[2019-05-06 11:28] LABS: HEMATOCRIT 19 % (40-54); PLATELET COUNT 5 10^3/uL (130-400)
[2019-05-09 09:11] LABS: HEMATOCRIT 22 % (40-54); HEMOGLOBIN 7.5 G/DL (13.3-17.7); MEAN CORPUSCULAR HEMOGLOBIN 30 PG (25-34); MEAN CORPUSCULAR HGB CONC 34 G/DL (32-36); MEAN CORPUSCULAR VOLUME 88 FL (80-99); MEAN PLATELET VOLUME 8.4 FL (7.4-10.4); RED CELL DISTRIBUTION WIDTH 15.6 % (10.0-14.5); WHITE BLOOD COUNT 26.9 10^3/uL (4.3-11.0)
[2019-05-09 09:14] LABS: PLATELET COUNT 10 10^3/uL (130-400)
[2019-05-13 10:30] LABS: BASOPHILS % (AUTO) 0 % (0-10); EOSINOPHILS % (AUTO) 0 % (0-10); LYMPHOCYTES # (AUTO) 1.3 X 10^3 (1.0-4.0); LYMPHOCYTES % (AUTO) 7 % (12-44); MEAN CORPUSCULAR HEMOGLOBIN 29 PG (25-34); MEAN CORPUSCULAR HGB CONC 33 G/DL (32-36); MEAN CORPUSCULAR VOLUME 89 FL (80-99); MONOCYTES # (AUTO) 2.7 X 10^3 (0.0-1.0); MONOCYTES % (AUTO) 14 % (0-12); NEUTROPHILS # (AUTO) 15.4 X 10^3 (1.8-7.8); NEUTROPHILS % (AUTO) 79 % (42-75); RED CELL DISTRIBUTION WIDTH 15.5 % (10.0-14.5); WHITE BLOOD COUNT 19.5 10^3/uL (4.3-11.0)
[2019-05-13 10:31] LABS: HEMATOCRIT 19 % (40-54); HEMOGLOBIN 6.4 G/DL (13.3-17.7)
[2019-05-13 10:32] LABS: PLATELET COUNT 4 10^3/uL (130-400)
[2019-05-13 10:47] LABS: ALBUMIN 4.2 GM/DL (3.2-4.5); BILIRUBIN,TOTAL 0.7 MG/DL (0.1-1.0); CALCIUM 9.4 MG/DL (8.5-10.1); CREATININE SERUM 1.21 MG/DL (0.60-1.30); POTASSIUM 3.8 MMOL/L (3.6-5.0); TOTAL PROTEIN 7.4 GM/DL (6.4-8.2)
[2019-05-16 08:52] LABS: BASOPHILS % (AUTO) 0 % (0-10); EOSINOPHILS % (AUTO) 0 % (0-10); HEMATOCRIT 21 % (40-54); LYMPHOCYTES # (AUTO) 2.2 X 10^3 (1.0-4.0); LYMPHOCYTES % (AUTO) 10 % (12-44); MEAN CORPUSCULAR HGB CONC 34 G/DL (32-36); MEAN CORPUSCULAR VOLUME 88 FL (80-99); MEAN PLATELET VOLUME 9.8 FL (7.4-10.4); MONOCYTES # (AUTO) 2.7 X 10^3 (0.0-1.0); MONOCYTES % (AUTO) 13 % (0-12); NEUTROPHILS # (AUTO) 16.7 X 10^3 (1.8-7.8); NEUTROPHILS % (AUTO) 77 % (42-75); RED CELL DISTRIBUTION WIDTH 15.7 % (10.0-14.5); WHITE BLOOD COUNT 21.7 10^3/uL (4.3-11.0)
[2019-05-16 08:53] LABS: HEMOGLOBIN 6.9 G/DL (13.3-17.7); MEAN CORPUSCULAR HEMOGLOBIN 29 PG (25-34); PLATELET COUNT 9 10^3/uL (130-400)
[2019-05-21 09:34] LABS: BASOPHILS % (AUTO) 0 % (0-10); EOSINOPHILS # (AUTO) 0.1 10^3/uL (0.0-0.3); EOSINOPHILS % (AUTO) 0 % (0-10); LYMPHOCYTES # (AUTO) 2.9 X 10^3 (1.0-4.0); LYMPHOCYTES % (AUTO) 12 % (12-44); MEAN CORPUSCULAR HEMOGLOBIN 29 PG (25-34); MEAN CORPUSCULAR HGB CONC 33 G/DL (32-36); MEAN CORPUSCULAR VOLUME 89 FL (80-99); MONOCYTES # (AUTO) 3.5 X 10^3 (0.0-1.0); MONOCYTES % (AUTO) 14 % (0-12); NEUTROPHILS # (AUTO) 18.3 X 10^3 (1.8-7.8); NEUTROPHILS % (AUTO) 74 % (42-75); RED CELL DISTRIBUTION WIDTH 15.5 % (10.0-14.5); WHITE BLOOD COUNT 24.9 10^3/uL (4.3-11.0)
[2019-05-21 09:42] LABS: HEMATOCRIT 20 % (40-54); HEMOGLOBIN 6.7 G/DL (13.3-17.7)
[2019-05-21 09:43] LABS: PLATELET COUNT 6 10^3/uL (130-400)
[2019-05-21 09:57] LABS: ALANINE AMINOTRANSFERASE 29 U/L (0-55); ALBUMIN 4.1 GM/DL (3.2-4.5); ALKALINE PHOSPHATASE 128 U/L (40-136); BILIRUBIN,TOTAL 0.6 MG/DL (0.1-1.0); BUN/CREATININE RATIO 16; CALCIUM 9.3 MG/DL (8.5-10.1); CARBON DIOXIDE 23 MMOL/L (21-32); CHLORIDE 105 MMOL/L (98-107); CREATININE SERUM 1.01 MG/DL (0.60-1.30); GFR ESTIMATED > 60; GLUCOSE 103 MG/DL (70-105); POTASSIUM 4.2 MMOL/L (3.6-5.0); SODIUM 139 MMOL/L (135-145); TOTAL PROTEIN 6.7 GM/DL (6.4-8.2)
[2019-05-23 08:53] LABS: BASOPHILS % (AUTO) 0 % (0-10); EOSINOPHILS # (AUTO) 0.1 10^3/uL (0.0-0.3); EOSINOPHILS % (AUTO) 0 % (0-10); LYMPHOCYTES # (AUTO) 1.7 X 10^3 (1.0-4.0); LYMPHOCYTES % (AUTO) 7 % (12-44); MEAN CORPUSCULAR HEMOGLOBIN 29 PG (25-34); MEAN CORPUSCULAR HGB CONC 32 G/DL (32-36); MEAN CORPUSCULAR VOLUME 89 FL (80-99); MEAN PLATELET VOLUME 11.2 FL (7.4-10.4); MONOCYTES % (AUTO) 17 % (0-12); NEUTROPHILS # (AUTO) 17.5 X 10^3 (1.8-7.8); NEUTROPHILS % (AUTO) 75 % (42-75); RED CELL DISTRIBUTION WIDTH 15.2 % (10.0-14.5); WHITE BLOOD COUNT 23.2 10^3/uL (4.3-11.0)
[2019-05-23 08:55] LABS: HEMATOCRIT 20 % (40-54); HEMOGLOBIN 6.4 G/DL (13.3-17.7); PLATELET COUNT 15 10^3/uL (130-400)
[2019-05-27 09:39] LABS: BASOPHILS % (AUTO) 0 % (0-10); EOSINOPHILS # (AUTO) 0.1 10^3/uL (0.0-0.3); EOSINOPHILS % (AUTO) 0 % (0-10); HEMATOCRIT 21 % (40-54); LYMPHOCYTES # (AUTO) 2.5 X 10^3 (1.0-4.0); LYMPHOCYTES % (AUTO) 11 % (12-44); MEAN CORPUSCULAR HEMOGLOBIN 28 PG (25-34); MEAN CORPUSCULAR HGB CONC 32 G/DL (32-36); MEAN CORPUSCULAR VOLUME 89 FL (80-99); MONOCYTES # (AUTO) 3.6 X 10^3 (0.0-1.0); MONOCYTES % (AUTO) 15 % (0-12); NEUTROPHILS # (AUTO) 17.4 X 10^3 (1.8-7.8); NEUTROPHILS % (AUTO) 74 % (42-75); RED CELL DISTRIBUTION WIDTH 15.4 % (10.0-14.5); WHITE BLOOD COUNT 23.7 10^3/uL (4.3-11.0)
[2019-05-27 09:42] LABS: HEMOGLOBIN 6.6 G/DL (13.3-17.7); PLATELET COUNT 4 10^3/uL (130-400)
[2019-05-27 10:03] LABS: ALANINE AMINOTRANSFERASE 23 U/L (0-55); ALBUMIN 4.2 GM/DL (3.2-4.5); ALKALINE PHOSPHATASE 132 U/L (40-136); BILIRUBIN,TOTAL 0.7 MG/DL (0.1-1.0); BUN/CREATININE RATIO 16; CALCIUM 8.9 MG/DL (8.5-10.1); CARBON DIOXIDE 21 MMOL/L (21-32); CHLORIDE 107 MMOL/L (98-107); CREATININE SERUM 0.91 MG/DL (0.60-1.30); GFR ESTIMATED > 60; GLUCOSE 109 MG/DL (70-105); POTASSIUM 4.3 MMOL/L (3.6-5.0); SODIUM 138 MMOL/L (135-145); TOTAL PROTEIN 6.5 GM/DL (6.4-8.2)
[2019-05-30 08:36] LABS: EOSINOPHILS # (AUTO) 0.1 10^3/uL (0.0-0.3); MEAN CORPUSCULAR HEMOGLOBIN 29 PG (25-34); MEAN CORPUSCULAR HGB CONC 33 G/DL (32-36); MEAN CORPUSCULAR VOLUME 88 FL (80-99); MEAN PLATELET VOLUME 10.2 FL (7.4-10.4); WHITE BLOOD COUNT 23.1 10^3/uL (4.3-11.0)
[2019-05-30 08:42] LABS: HEMOGLOBIN 6.2 G/DL (13.3-17.7)
[2019-05-30 08:43] LABS: HEMATOCRIT 19 % (40-54); PLATELET COUNT 13 10^3/uL (130-400)
[2019-06-03 08:57] LABS: MEAN CORPUSCULAR HEMOGLOBIN 29 PG (25-34); MEAN CORPUSCULAR HGB CONC 33 G/DL (32-36); MEAN CORPUSCULAR VOLUME 88 FL (80-99); MEAN PLATELET VOLUME 10.6 FL (7.4-10.4); RED CELL DISTRIBUTION WIDTH 15.3 % (10.0-14.5); WHITE BLOOD COUNT 29.3 10^3/uL (4.3-11.0)
[2019-06-03 09:01] LABS: HEMATOCRIT 20 % (40-54); HEMOGLOBIN 6.5 G/DL (13.3-17.7); PLATELET COUNT 4 10^3/uL (130-400)
[2019-06-03 09:27] LABS: ALANINE AMINOTRANSFERASE 29 U/L (0-55); ALBUMIN 4.3 GM/DL (3.2-4.5); ALKALINE PHOSPHATASE 123 U/L (40-136); BILIRUBIN,TOTAL 0.6 MG/DL (0.1-1.0); BUN/CREATININE RATIO 15; CALCIUM 9.2 MG/DL (8.5-10.1); CARBON DIOXIDE 23 MMOL/L (21-32); CHLORIDE 104 MMOL/L (98-107); GFR ESTIMATED > 60; GLUCOSE 116 MG/DL (70-105); SODIUM 138 MMOL/L (135-145); TOTAL PROTEIN 6.6 GM/DL (6.4-8.2)
[2019-06-06 08:42] LABS: BASOPHILS % (AUTO) 0 % (0-10); EOSINOPHILS # (AUTO) 0.1 10^3/uL (0.0-0.3); EOSINOPHILS % (AUTO) 0 % (0-10); LYMPHOCYTES # (AUTO) 2.5 X 10^3 (1.0-4.0); LYMPHOCYTES % (AUTO) 10 % (12-44); MEAN CORPUSCULAR HEMOGLOBIN 28 PG (25-34); MEAN CORPUSCULAR HGB CONC 32 G/DL (32-36); MEAN CORPUSCULAR VOLUME 88 FL (80-99); MEAN PLATELET VOLUME 8.1 FL (7.4-10.4); MONOCYTES # (AUTO) 3.7 X 10^3 (0.0-1.0); MONOCYTES % (AUTO) 15 % (0-12); NEUTROPHILS # (AUTO) 18.7 X 10^3 (1.8-7.8); NEUTROPHILS % (AUTO) 75 % (42-75); RED CELL DISTRIBUTION WIDTH 15.3 % (10.0-14.5)
[2019-06-06 08:43] LABS: HEMATOCRIT 18 % (40-54); HEMOGLOBIN 5.8 G/DL (13.3-17.7)
[2019-06-06 08:44] LABS: PLATELET COUNT 13 10^3/uL (130-400)
[2019-06-11 08:47] LABS: HEMATOCRIT 23 % (40-54); HEMOGLOBIN 7.5 G/DL (13.3-17.7); MEAN CORPUSCULAR HEMOGLOBIN 29 PG (25-34); MEAN CORPUSCULAR HGB CONC 33 G/DL (32-36); MEAN CORPUSCULAR VOLUME 90 FL (80-99); RED CELL DISTRIBUTION WIDTH 15.4 % (10.0-14.5)
[2019-06-11 08:50] LABS: PLATELET COUNT 6 10^3/uL (130-400)
[2019-06-11 09:30] LABS: BASOPHILS % (AUTO) 0 % (0-10); EOSINOPHILS % (AUTO) 0 % (0-10); LYMPHOCYTES % (AUTO) 9 % (12-44); MEAN PLATELET VOLUME 10.9 FL (7.4-10.4); MONOCYTES % (AUTO) 17 % (0-12); NEUTROPHILS % (AUTO) 74 % (42-75)
[2019-06-11 09:31] LABS: BASOPHILS # (AUTO) 0.1 10^3/uL (0.0-0.1); EOSINOPHILS # (AUTO) 0.1 10^3/uL (0.0-0.3); MONOCYTES # (AUTO) 5.8 X 10^3 (0.0-1.0); NEUTROPHILS # (AUTO) 24.7 X 10^3 (1.8-7.8)
[2019-06-13 08:46] LABS: HEMATOCRIT 22 % (40-54); MEAN CORPUSCULAR HEMOGLOBIN 29 PG (25-34); MEAN CORPUSCULAR HGB CONC 33 G/DL (32-36); MEAN CORPUSCULAR VOLUME 89 FL (80-99); MEAN PLATELET VOLUME 11.6 FL (7.4-10.4); RED CELL DISTRIBUTION WIDTH 15.2 % (10.0-14.5)
[2019-06-13 08:47] LABS: WHITE BLOOD COUNT 32.5 10^3/uL (4.3-11.0)
[2019-06-13 08:48] LABS: PLATELET COUNT 12 10^3/uL (130-400)
[2019-06-17 09:33] LABS: HEMATOCRIT 22 % (40-54); HEMOGLOBIN 7.3 G/DL (13.3-17.7); MEAN CORPUSCULAR HEMOGLOBIN 29 PG (25-34); MEAN CORPUSCULAR HGB CONC 33 G/DL (32-36); MEAN CORPUSCULAR VOLUME 88 FL (80-99); RED CELL DISTRIBUTION WIDTH 15.2 % (10.0-14.5)
[2019-06-17 09:35] LABS: PLATELET COUNT 8 10^3/uL (130-400)
[2019-06-20 08:50] LABS: HEMATOCRIT 22 % (40-54); MEAN CORPUSCULAR HEMOGLOBIN 28 PG (25-34); MEAN CORPUSCULAR HGB CONC 32 G/DL (32-36); MEAN CORPUSCULAR VOLUME 88 FL (80-99); MEAN PLATELET VOLUME 10.8 FL (7.4-10.4); RED CELL DISTRIBUTION WIDTH 15.3 % (10.0-14.5)
[2019-06-20 08:51] LABS: HEMOGLOBIN 6.9 G/DL (13.3-17.7); WHITE BLOOD COUNT 42.5 10^3/uL (4.3-11.0)
[2019-06-20 08:52] LABS: PLATELET COUNT 8 10^3/uL (130-400)
[2019-06-24 08:56] LABS: HEMATOCRIT 21 % (40-54); MEAN CORPUSCULAR HEMOGLOBIN 29 PG (25-34); MEAN CORPUSCULAR HGB CONC 33 G/DL (32-36); MEAN CORPUSCULAR VOLUME 88 FL (80-99); MEAN PLATELET VOLUME 8.8 FL (7.4-10.4); RED CELL DISTRIBUTION WIDTH 15.5 % (10.0-14.5)
[2019-06-24 08:58] LABS: HEMOGLOBIN 6.7 G/DL (13.3-17.7); PLATELET COUNT 4 10^3/uL (130-400); WHITE BLOOD COUNT 44.5 10^3/uL (4.3-11.0)
[2019-06-27 08:48] LABS: BASOPHILS # (AUTO) 0.1 10^3/uL (0.0-0.1); BASOPHILS % (AUTO) 0 % (0-10); EOSINOPHILS # (AUTO) 0.1 10^3/uL (0.0-0.3); EOSINOPHILS % (AUTO) 0 % (0-10); MEAN CORPUSCULAR HEMOGLOBIN 29 PG (25-34); MEAN CORPUSCULAR HGB CONC 33 G/DL (32-36); MEAN CORPUSCULAR VOLUME 87 FL (80-99); MEAN PLATELET VOLUME 10.6 FL (7.4-10.4); RED CELL DISTRIBUTION WIDTH 15.1 % (10.0-14.5)
[2019-06-27 08:59] LABS: HEMATOCRIT 19 % (40-54); HEMOGLOBIN 6.3 G/DL (13.3-17.7); WHITE BLOOD COUNT 52.1 10^3/uL (4.3-11.0)
[2019-06-27 09:00] LABS: PLATELET COUNT 10 10^3/uL (130-400)
[2019-07-01 08:54] LABS: MEAN CORPUSCULAR HEMOGLOBIN 29 PG (25-34); MEAN CORPUSCULAR HGB CONC 33 G/DL (32-36); MEAN CORPUSCULAR VOLUME 89 FL (80-99); MEAN PLATELET VOLUME 7.9 FL (7.4-10.4); RED CELL DISTRIBUTION WIDTH 15.2 % (10.0-14.5)
[2019-07-01 08:57] LABS: HEMOGLOBIN 5.8 G/DL (13.3-17.7)
[2019-07-01 08:58] LABS: HEMATOCRIT 18 % (40-54); PLATELET COUNT 4 10^3/uL (130-400); WHITE BLOOD COUNT 66.1 10^3/uL (4.3-11.0)
== END 2019-07-07 | disposition home or self-care (01) ==
LOC: ONC 15:09
PROVIDERS: ATTEND Internal Medicine Hematology & Oncology
DX: Z51.11 Encounter for antineoplastic chemotherapy (principal); C92.00 Acute myeloblastic leukemia, not having achieved remission; D46.Z Other myelodysplastic syndromes; D61.818 Other pancytopenia; D61.811 Other drug-induced pancytopenia; T45.1X5A Adverse effect of antineoplastic and immunosuppressive drugs, initial encounter; N28.9 Disorder of kidney and ureter, unspecified; I10 Essential (primary) hypertension; E78.5 Hyperlipidemia, unspecified; N40.0 Benign prostatic hyperplasia without lower urinary tract symptoms; M06.9 Rheumatoid arthritis, unspecified; K21.9 Gastro-esophageal reflux disease without esophagitis; Z79.899 Other long term (current) drug therapy
CPT/HCPCS: 36415; 36430; 80048; 80053; 85025; 86850; 86900; 86901; 86920; 96401; 99213